=== PATIENT | female | born 1975 | race Caucasian/White ===

== ENCOUNTER 2023-06-16 08:58 | Outpatient (OUT) | payer OTHER, SELFPAY | END 2023-06-16 08:59 | disposition home or self-care (01) | LOC: LAB 08:58 | PROVIDERS: Visit Provider Obstetrics & Gynecology | DX: N95.1 Menopausal and female climacteric states (principal) | CPT/HCPCS: 36415; 83001 ==

== ENCOUNTER 2024-01-02 08:22 | Outpatient (OUT) | payer OTHER, SELFPAY ==
--- NOTE | 2024-01-02 | MM_ITS ---
Patient Name: KEREN MENDOZA MR#: [id number] : 1975 Exam Date: 01/02/2024 Ordering Doctor: DR ZULEYMA TAVAREZ RADIOLOGY REPORT PROCEDURE: MM TOMOSYNTHESIS SCREENING BI COMPARISON: MG MAMM SCREEN 3D MALLORY CAD, 04/19/2021. MG MAMM SCREEN 3D MALLORY CAD, 08/29/2022. INDICATIONS: Screening for malignant neoplasm Calculator Name NCI Breast Cancer Risk Assessment Tool 5 Year Breast Cancer Risk 1.40% Lifetime Breast Cancer Risk 13.60% Personal Breast Cancer No Personal Ovarian Cancer No Treatments None Family Cancers None LOCATION: [facility] BREAST COMPOSITION: There are scattered areas of fibroglandular density. FINDINGS: DIAGNOSTIC CATEGORY 1--NEGATIVE. NO CHANGE FROM COMPARISON ASSESSMENT. Scattered benign-appearing lymph nodes are present. Scattered benign-appearing calcifications are present. RIGHT BREAST: No significant suspicious finding. LEFT BREAST: No significant suspicious finding. RECOMMENDATIONS: ROUTINE MAMMOGRAM AND CLINICAL EVALUATION IN 12 MONTHS. PLEASE NOTE: A NORMAL MAMMOGRAM DOES NOT EXCLUDE THE POSSIBILITY OF BREAST CANCER. A CLINICALLY SUSPICIOUS PALPABLE LUMP SHOULD BE BIOPSIED. Dictated by: Jason Mena MD on 01/02/2024 at 15:16 Approved by: Jason Mena MD on 01/02/2024 at 16:06
--- OUTSIDE RECORDS SUMMARY | 2024-01-02 08:41 | XMS_ITS | CCD ---
Author Organization [facility] Care Team Providers Care Front Sight Attacher Name Role Phone JEREMIAS, DR LOPES Admitting Unavailable PETZNICK, DR LOPES Attending Unavailable TAYLOR, DR CAROLYN York Primary Care Unavailable ZIEBER, DR ZIYAD Alvarez Consulting Unavailable PETZNVÍCTOR, DR LOPES Consulting Unavailable PRINTY, DR AMOR Admitting Unavailable PRINTY, DR AMOR Attending Unavailable TAYLOR, DR CAROLYN York Primary Care Unavailable ZIEBER, DR ZIYAD Alvarez Consulting Unavailable PRINTY, DR AMOR Consulting Unavailable PETZNICK, DR LOPES Admitting Unavailable PETZNICK, DR LOPES Attending Unavailable TAYLOR, DR CAROLYN York Primary Care Unavailable PETZNICK, DR LOPES Consulting Unavailable Jeremias, DO Lopes Primary Care Provider MD Musa Marrufo Attending Provider Musa Marrufo Attending Unavailable Musa Marrufo Admitting Unavailable Marianne Mcdowell Primary Care Unavailable ZULEYMA LING Attending Unavailable MARIANNE MCDOWELL Attending Unavailable Kimmy Duron Unavailable Medications Current Medications Medication Drug Class(es) Dates Sig (Normalized) Sig (Original) Norethindrone-Ethin Estradiol (1 source) Estrogen Start: 02-13-2023 take 0.12332480815320254 ug by mouth once daily Norethindrone-Ethi n Estradiol (Alyacen ()) 1-35 mg-mcg tablet Active 1 TAB PO Daily February 13, 2023 12:00am 3 ml liraglutide 6 mg/ml pen injector (1 source) GLP-1 Receptor Agonist Start: 02-13-2023 Liraglutide (Weight Loss) (Saxenda) 3 mg/0.5 mL (18 mg/3 mL) pen injector Active 3 MG SUBCUT Daily February 13, 2023 12:00am Necon 35 (28) (1 source) Necon (28) Active predniSONE 20 mg oral tablet (1 source) Start: 07-10-2023 take 1 tablet by mouth every twelve hours prednisone 20 MG 1 tablet Orally BID for 5 Jul, Active Completed/Discontinued Medications Medication Drug Class(es) Dates Sig (Normalized) Sig (Original) Brompheniramine / Pseudoephedrine (1 source) alpha-Adrenergic Agonist Start: 05-25-2018 take 10 mL by mouth every six hours as needed Bromfed DM 30-2-10 MG/5ML 10 ml as needed Orally every 6 hrs for 7 days May, Not-Taking/PRN fluticasone propionate 0.05 mg/actuat metered dose nasal spray (1 source) Corticosteroid Start: 05-25-2018 take 2 spray(s) nasal route once daily as needed Fluticasone Propionate 50 MCG/ACT 2 sprays in each nostril Nasally Once a day for 14 days May, Not-Taking/PRN polyethylene glycol 3350 016206 mg / potassium chloride 2970 mg / sodium bicarbonate 6740 mg / sodium chloride 5860 mg / sodium sulfate 54939 mg powder for oral solution (1 source) Osmotic Laxative Start: 11-24-2022 PEG-3350/Electro lytes 236 GM as directed Orally once daily for 1 days November, Not-Taking/PRN Problems Problem Classification Problem Date Documented Da te Episodic/Chronic Other lower respiratory disease (4 sources) Solitary pulmonary nodule; Translations: [SOLITARY PULMONARY NODULE] Onset: 09-22-2022 Episodic Other screening for suspected conditions (not mental disorders or infectious disease) (5 sources) Encounter for screening mammogram for malignant neoplasm of breast; Translations: [Patient encounter status] Onset: 08-29-2022 Episodic Other upper respiratory infections (2 sources) Acute pharyngitis, unspecified; Translations: [Acute upper respiratory infection, unspecified] Episodic Unclassified (1 source) Encounter for screening for malignant neoplasm of colon; Translations: [Encounter for screening for malignant neoplasm of colon] Onset: 02-15-2023 Results Test Name Value Interpretation Reference Range Facility [facility] 07-10-2023 S. pyogenes Org specific cx Ql (Throat) Negative [facility] Other [facility] - [facility] Your Passion! Other HCG ( test) IA.rapi d Ql (U)Ordered By: Musa Marrufo on 02-15-2023 HCG ( test) Ql (U) Negative [facility] HCG,Urineon 02-15-2023 Beta HCG ( test) Ql (U) Negative Normal [facility] Comment on above: Result Comment: PERF ORMED BY: [place] [address] PATHOLOGIST OVERNIGHT STOCKER DARIN KERN M.D. Performed By: #### U HCG #### [address] CHEST W CONon 09-22-2022 CT CHEST W CON EXAMINATION: CT CHES T W CON HISTORY: Solitary nodule of lung , follow-up COMPARISON: No relevant comparison available. TECHNIQUE: Multi-planar CT images were created with IV contrast. Axial, Coronal, and Sagittal images. Dose reduction techniques were achieved by using automated exposure control and/or adjustment of mA and/or kV according to patient size and/or use of iterative reconstruction technique. FINDINGS: LUNGS: No visible pulmonary disease. PLEURA: No mass, effusion, or pneumothorax. VASCULATURE: No abnormality. SOO: No mass or adenopathy. MEDIASTINUM: No mass or adenopathy. CARDIAC: No enlargement, pericardial thickening, or significant calcification. AORTA: No aneurysm or dissection. CHEST WALL: No mass or axillary adenopathy. BONES: No bone lesion or fracture. LIMITED ABDOMEN: No suspicious findings Limited images of the upper abdomen. OTHER: Negative. IMPRESSION: 1. No suspicious nodules, infiltrates, or lymphadenopathy. 2. No prior studies or reports for comparison. Electronically authenticated by: ZIYAD MURO Date: 2022-09-22 15:10 Normal [facility] CBC AUTO DIFFon 09-07-2022 BASO # 0.1 103/ul Normal 0.0-0.1 [facility] Comment on above: Performed By: #### C BC #### [facility] [address] [address] [address] Derek Mcmillan Basophils/100 WBC (Bld) 0.7 % Normal 0.2-2.0 [facility] Comment on above: Performed By: #### C BC #### [facility] [address] [place] [address] Dr. Derek Mcmillan EO # 0.1 103/ul Normal 0.0-0.7 [facility] Comment on above: Performed By: #### C BC #### [facility] [address] [place] [address] Dr. Derek Mcmillan Eosinophils/100 WBC (Bld) 0.7 % Critically low 0.9-7.0 [facility] Comment on above: Performed By: #### C BC #### [facility] [address] [place] [address] Dr. Derek Mcmillan Erythrocyte distribution width (RBC) [Ratio] 12.6 % Normal 11.0-15.0 [facility] Comment on above: Performed By: #### C BC #### [facility] [address] [place] [address] Dr. Derek Mcmillan Hematocrit (Bld) [Volume fraction] 37.4 % Normal 36.0-48.0 [facility] Comment on above: Performed By: #### C BC #### [facility] [address] [place] [address] Dr. Derek Mcmillan Hemoglobin (Bld) [Mass/Vol] 12.6 g/dL Normal 12.0-16.0 [facility] Comment on above: Performed By: #### C BC #### [facility] [address] [place] [address] Dr. Derek Mcmillan IG # 0.04 10e3/ul Critically high 0.00-0.03 [facility] Comment on above: Performed By: #### C BC #### [facility] [address] [place] [address] Dr. Derek Mcmillan IG % 0.5 % Normal 0.0-0.5 [facility] Comment on above: Performed By: #### C BC #### [facility] [address] [place] [address] Dr. Derek Mcmillan LYMPH # 2.0 103/ul Normal 1.2-3.8 [facility] Comment on above: Performed By: #### C BC #### [facility] [address] [place] [address] Dr. Derek Mcmillan Lymphocytes/100 WBC (Bld) 25.5 % Normal 20.5-60.0 [facility] Comment on above: Performed By: #### C BC #### [facility] [address] [place] [address] Dr. Derek Mcmillan MANUAL DIFF REQ NO Normal [facility] Comment on above: Performed By: #### C BC #### [facility] [address] [place] [address] Dr. Derek Mcmillan MCH (RBC) [Entitic mass] 31.1 pg Normal 26.7-34.0 [facility] Comment on above: Performed By: #### C BC #### [facility] [address] [place] [address] Dr. Derek Mcmillan MCHC (RBC) [Mass/Vol] 33.7 g/dL Normal 29.9-35.2 [facility] Comment on above: Performed By: #### C BC #### [facility] [address] [place] [address] Dr. Derek Mcmillan MCV (RBC) [Entitic vol] 92.3 fL Normal 81.0-99.0 [facility] Comment on above: Performed By: #### C BC #### [facility] [address] [place] [address] Dr. Derek Mcmillan MONO # 0.7 103/ul Normal 0.3-0.8 [facility] Comment on above: Performed By: #### C BC #### [facility] [address] [place] [address] Dr. Derek Mcmillan Monocytes/100 WBC (Bld) 8.6 % Normal 1.7-12.0 [facility] Comment on above: Performed By: #### C BC #### [facility] [address] [place] [address] Dr. Derek Mcmillan NEUT # 4.9 103/ul Normal 1.4-6.5 [facility] Comment on above: Performed By: #### C BC #### [facility] [address] [address] [address] Derek Mcmillan Neutrophils/100 WBC (Bld) 64.0 % Normal 43.0-75.0 [facility] Comment on above: Performed By: #### C BC #### [facility] [address] [address] [address] Derek Mcmillan Platelet mean volume (Bld) [Entitic vol] 8.9 fL Critically low 9.5-13.5 [facility] Comment on above: Performed By: #### C BC #### [facility] [address] [place] [address] Dr. Derek Mcmillan PLT 262 103/ul Normal 150-450 [facility] Comment on above: Performed By: #### C BC #### [facility] [address] [place] [address] Dr. Derek Mcmillan RBC 4.05 106/ul Critically low 4.20-5.40 [facility] Comment on above: Performed By: #### C BC #### [facility] [address] [place] [address] Dr. Derek Mcmillan WBC 7.6 103/ul Normal 4.0-11.0 [facility] Comment on above: Performed By: #### C BC #### [facility] [address] [place] [address] Dr. Derek Mcmillan LIPID PROFILEon 09-07-2022 CHOL-HDL RATIO NORM SEE BELOW Normal [facility] Comment on above: Result Comment: 3.3 - 4.4 LOW RISK 4.4 - 7.1 AVERAGE RISK 7.1 - 11.0 MODERATE RISK >11.0 HIGH RISK Performed By: #### T SH, LIPID, CMP #### [facility] [address] [place] [address] Dr. Derek Mcmillan Cholesterol [Mass/Vol] 203 mg/dL Critically high <=200 [facility] Comment on above: Performed By: #### T SH, LIPID, CMP #### [facility] [address] [place] [address] Dr. Derek Mcmillan Cholesterol in HDL [Mass/Vol] 58 mg/dL Normal 40-60 [facility] Comment on above: Performed By: #### T SH, LIPID, CMP #### [facility] [address] [address] [address] Derek Mcmillan Cholesterol in LDL [Mass/Vol] 121.2 mg/dL Normal [facility] Comment on above: Performed By: #### T SH, LIPID, CMP #### [facility] [address] [address] [address] Derek Mcmillan Cholesterol.total/ Cholesterol in HDL [Mass ratio] 3.5 {ratio} Normal [facility] Comment on above: Performed By: #### T SH, LIPID, CMP #### [facility] [address] [place] [address] Dr. Derek Mcmillan HDL NORMAL > or = 60 mg/dl - LO W CARDIOVASCULAR RISK <40 mg/dl - HIGH CARDIOVASCULAR RISK Normal [facility] Comment on above: Performed By: #### T SH, LIPID, CMP #### [facility] [address] [place] [address] Dr. Derek Mcmillan LDL CALC NORMAL SEE BELOW Normal [facility] Comment on above: Result Comment: <100 mg/dl OPTIMAL 100 - 129 mg/dl NEAR OR ABOVE OPTIMAL 130 - 159 mg/dl BORDERLINE HIGH 160 - 189 mg/dl HIGH >190 mg/dl VERY HIGH Performed By: #### T SH, LIPID, CMP #### [facility] [address] [address] [address] Derek Mcmillan Triglyceride [Mass/Vol] 119 mg/dL Normal <=150 [facility] Comment on above: Performed By: #### T SH, LIPID, CMP #### [facility] [address] [place] [address] Dr. Derek Mcmillan VLDL CALC 23.8 mg/dL Normal [facility] Comment on above: Performed By: #### T SH, LIPID, CMP #### [facility] [address] [place] [address] Dr. Derek Mcmillan PROF 14(COMP METB)on 023 Albumin [Mass/Vol] 3.8 g/dL Normal 3.4-5.0 [facility] Comment on above: Performed By: #### T SH, LIPID, CMP #### [facility] [address] [address] [address] Derek Mcmillan Albumin/Globulin [Mass ratio] 1.1 {ratio} Normal [facility] Comment on above: Performed By: #### T SH, LIPID, CMP #### [facility] [address] [address] [address] Deerk Mcmillan ALP [Catalytic activity/Vol] 30 U/L Critically low 46-116 [facility] Comment on above: Performed By: #### T SH, LIPID, CMP #### [facility] [address] [address] [address] Derek Mcmillan ALT [Catalytic activity/Vol] 21 U/L Normal 14-59 [facility] Comment on above: Performed By: #### T SH, LIPID, CMP #### [facility] [address] [address] [address] Derek Mcmillan Anion gap [Moles/Vol] 12.4 mmol/L Normal [facility] Comment on above: Performed By: #### T SH, LIPID, CMP #### [facility] [address] [address] [address] Derek Mcmillan AST [Catalytic activity/Vol] 15 U/L Normal 15-37 [facility] Comment on above: Performed By: #### T SH, LIPID, CMP #### [facility] [address] [address] [address] Derek Mcmillan Bilirubin [Mass/Vol] 0.6 mg/dL Normal 0.2-1.0 [facility] Comment on above: Performed By: #### T SH, LIPID, CMP #### [facility] [address] [address] [address] Derek Mcmillan Calcium [Mass/Vol] 9.1 mg/dL Normal 8.5-10.1 [facility] Comment on above: Performed By: #### T SH, LIPID, CMP #### [facility] [address] [address] [address] Derek Mcmillan Chloride [Moles/Vol] 105 mmol/L Normal 98-107 [facility] Comment on above: Performed By: #### T SH, LIPID, CMP #### [facility] [address] [place] [address] Dr. Derek Mcmillan CO2 [Moles/Vol] 25.7 mmol/L Normal 21.0-32.0 [facility] Comment on above: Performed By: #### T SH, LIPID, CMP #### [facility] [address] [place] [address] Dr. Derek Mcmillan Creatinine [Mass/Vol] 0.60 mg/dL Normal 0.55-1.02 [facility] Comment on above: Performed By: #### T SH, LIPID, CMP #### [facility] [address] [place] [address] Dr. Derek Mcmillan EGFR-AF MACANESE >60 Normal >=60 [facility] Comment on above: Performed By: #### T SH, LIPID, CMP #### [facility] [address] [place] [address] Dr. Derek Mcmillan EGFR-NON AF MACANESE >60 Normal >=60 [facility] Comment on above: Performed By: #### T SH, LIPID, CMP #### [facility] [address] [place] [address] Dr. Derek Mcmillan Globulin (S) [Mass/Vol] 3.5 g/dL Normal [facility] Comment on above: Performed By: #### T SH, LIPID, CMP #### [facility] [address] [place] [address] Dr. Derek Mcmillan Glucose [Mass/Vol] 88 mg/dL Normal 74-106 [facility] Comment on above: Performed By: #### T SH, LIPID, CMP #### [facility] [address] [place] [address] Dr. Derek Mcmillan Potassium [Moles/Vol] 4.1 mmol/L Normal 3.5-5.1 [facility] Comment on above: Performed By: #### T SH, LIPID, CMP #### [facility] [address] [place] [address] Dr. Derek Mcmillan Protein [Mass/Vol] 7.3 g/dL Normal 6.4-8.2 [facility] Comment on above: Performed By: #### T LOTUS LIPID, CMP #### [facility] [address] [address] [address] Derek Mcmillan Sodium [Moles/Vol] 139 mmol/L Normal 136-145 [facility] Comment on above: Performed By: #### T LOTUS LIPID, CMP #### [facility] [address] [address] [address] Derek Mcmillan Urea nitrogen [Mass/Vol] 11.0 mg/dL Normal 7.0-18.0 [facility] Comment on above: Performed By: #### T LOTUS LIPID, CMP #### [facility] [address] [place] [address] Dr. Derek Mcmillan Urea nitrogen/Creatinin e [Mass ratio] 18.3 mg/mg Normal [facility] Comment on above: Performed By: #### T LOTUS LIPID, CMP #### [facility] [address] [place] [address] Dr. Derek Mcmillan TSHon 09-07-2022 TSH 1.723 uIU/mL Normal 0.358-3.740 [facility] Comment on above: Performed By: #### T LOTUS LIPID, CMP #### [facility] [address] [place] [address] Dr. Derek Mcmillan MG MAMM SCREEN 3D MALLORY CADon 08-29-2022 MG MAMM SCREEN 3D MALLORY CAD Patient: ADIA MENDOZA Exam Date: 08/29/2022 : 1975 Gender:F Ordering : DR ZULEYMA LING Admission #: [id number] Family : Order #: [id number] CLICK HERE TO VIEW EXAM RADIOLOGY REPORT PROCEDURE: MAMMOGRAM SCREENING 3D BILATERAL CAD COMPARISON: MG MAMM SCREEN 3D MALLORY CAD, 04/19/2021. MG MAMM SCREEN MALLORY W CAD, 03/18/2020. MG MAMM SCREEN MALLORY W CAD, 02/27/2019. MG MAMM MALLORY SCRN W CAD DIG, 05/16/2016. INDICATIONS: Screening mammography Calculator Name NCI Breast Cancer Risk Assessment Tool 5 Year Breast Cancer Risk 1.30% Lifetime Breast Cancer Risk 13.80% Personal Breast Cancer No Personal Ovarian Cancer No Treatments None Family Cancers None LOCATION: [facility] BREAST COMPOSITION: Scattered areas fibroglandular density. FINDINGS: DIAGNOSTIC CATEGORY 1--NEGATIVE. RIGHT BREAST: No significant suspicious finding. No significant change has occurred. LEFT BREAST: No significant suspicious finding. No significant change has occurred. RECOMMENDATIONS: ROUTINE MAMMOGRAM AND CLINICAL EVALUATION IN 12 MONTHS. PLEASE NOTE: A NORMAL MAMMOGRAM DOES NOT EXCLUDE THE POSSIBILITY OF BREAST CANCER. A CLINICALLY SUSPICIOUS PALPABLE LUMP SHOULD BE BIOPSIED. Dictated by: Ziyad Muro M.D. on 08/30/2022 at 13:45 Approved by: Ziyad Muro M.D. on 08/30/2022 at 13:53 Normal [facility] 08-19-2021 CNPN Telephone (HEMASA) ADIA MENDOZA ([id number]) 1975 F Date Time Provider Department 08/19/21 MORENA LUIS During your visit today, we recorded the following information about you: Morena Luis RN 08/19/2021 1:10 PM Signed ----- Message from Zuleyma Olea MD sent at 08/19/2021 11:02 AM EST ----- Please inform the patient that her labs and CT scans are essentially negative. We see no signs of lymphoma or other suspicious findings. Mention made of a 2 mm pulmonary nodule which most likely is not significant. Her PCP may elect to repeat the CT at 1 year, but most likely would not be needed. At this time I see no need to follow-up with me, but would be happy to see her in the future if I can be of assistance. 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 Thanks, GRETA Luis RN 08/22/2021 11:02 AM Signed Informed pt of Dr Olea's message. Pt verbalized understanding and denies further needs at this time. Scan and lab results sent to PCP and Dr Nicholas. Morena Luis RN Allergies As of Date: 08/19/2021 (No Known Allergies) Date Reviewed: 08/02/2021 Reviewed by: Cait Smith - Fully Assessed Reason for Visit: Results [95] Prescriptions as of 08/22/2021 - liraglutide (SAXENDA SUBCUTANEOUS) Inject subcutaneously. - cyclobenzaprine (FLEXERIL) 10 mg tablet - ALYACEN 1/35, 28, 1-35 mg-mcg per tablet Problem List As Of Date 08/19/2021 Noted Resolved Diverticulosis [K57.90] Colon polyps [K63.5] Effusion of lower leg joint [M25.469] Muscle tension headache [G44.209] Sprain of left ankle [S93.402A] Left foot pain [M79.672] Left ankle pain [M25.572] Anemia [D64.9] 06/08/2017 Encounter Status:Closed by MORENA LUIS on 08/22/21 Normal [facility] CT ABD/PEL W IVCONon 022 CT ABD/PEL W IVCON * * *Final Report* * * DATE OF EXAM: Aug 16 2021 11:33AM [facility] 0530 - CT ABD/PEL W IVCON / PROCEDURE REASON: Lymphadenopathy * * * * Physician Interpretation * * * * RESULT: EXAMINATION: CT ABDOMEN AND PELVIS WITH IV CONTRAST CLINICAL HISTORY: Lymphadenopathy. TECHNIQUE: CT of the abdomen and pelvis was performed using standard technique, scanning from just above the dome of the diaphragm to the symphysis pubis. MQ: CTAP_3 Contrast: IV: 150 ml of Omnipaque 300 Oral: 900 ml of 50ML Omnipaque [address] Radiation dose: Integrated Dose-length product (DLP) for this visit = 1018 mGy*cm. CT Dose Reduction Employed: Automated exposure control (AEC) COMPARISON: None. RESULT: Liver: No mass. Biliary: There is cholelithiasis without evidence of acute cholecystitis. No biliary ductal dilation is seen. Spleen: No mass. No splenomegaly. Pancreas: No mass or duct dilation. Adrenals: No mass. Kidneys: A nonobstructing 4 mm calculus is noted in the lower pole of the right kidney. No enhancing renal mass is noted. No hydronephrosis is visualized in either kidney. GI tract: No dilation or wall thickening. Lymph nodes: No abdominal or pelvic lymphadenopathy. Mesentery/Peritoneum: No ascites or mass. Retroperitoneum: No mass. Vasculature: - Abdominal aorta and iliac arteries: No aneurysm. - Celiac and SMA: Patent without stenosis. - Portal venous system (SMV, splenic vein, portal vein and branches): Patent. - Hepatic veins: Patent. Pelvis: No mass, ascites or fluid collection. Bones/Soft Tissues: No destructive osseous lesions are seen. Superficial soft tissues are unremarkable. Lower thorax: A chest CT performed will be reported separately. Systems Librarian (topogram) images: No additional findings. IMPRESSION: 1. No acute process noted in the abdomen or pelvis. No evidence of abdominal or pelvic lymphadenopathy. 2. Cholelithiasis without evidence of acute cholecystitis. 3. Nonobstructing 4 mm calculus in the lower pole of the right kidney. Transcribe Date/Time: Aug 16 2021 2:12P Dictated by: TATA BELTRAN MD This examination was interpreted and the report reviewed and electronically signed by: TATA BELTRAN MD on Aug 16 2021 2:23PM EST Thank you for allowing us to participate in the care of your patient. Should there be any questions regarding this interpretation, please call [phone]. If you are unable to reach us at the number above, please feel free to contact [facility] at [phone]. [id number] Normal [facility] CT CHEST W IVCONon 2 CT CHEST W IVCON * * *Final Report* * * DATE OF EXAM: Aug 16 2021 11:33AM [facility] 0539 - CT CHEST W IVCON / PROCEDURE REASON: Lymphadenopathy * * * * Physician Interpretation * * * * RESULT: EXAMINATION: CHEST CT WITH CONTRAST CLINICAL HISTORY: Left axillary adenopathy. Right chest skin lesion. Technique: Spiral CT acquisition of the chest from the thoracic inlet to the upper abdomen following IV contrast. MQ: CTCW_6 Contrast: 150 mL Omnipaque [address] Radiation dose: Integrated Dose-length product (DLP) for this visit = 1018 mGy*cm CT Dose Reduction Employed: Automated exposure control (AEC) Comparison: None available. RESULT: Limitations: None. Lines, tubes, and devices: None. Lung parenchyma and airways: No lobar consolidation is noted. Punctate calcification are noted in the right middle lobe likely on the basis of prior granulomatous disease. A 2 mm left upper lobe nodule is noted (3:81). No additional nodular opacities are visualized. The central airways are widely patent. No endobronchial lesion is noted. Pleural space: No pleural effusion. No pleural thickening. Lower neck, lymph nodes, and mediastinum: Subcentimeter cardiomediastinal nodes are seen which are not enlarged by size criteria. Normal-appearing axillary nodes are visualized bilaterally. No bulky axillary adenopathy is noted. Heart, pericardium, and thoracic vessels: The thoracic aorta and main pulmonary artery are normal in caliber. The cardiac chambers are normal in size. No coronary artery atherosclerotic calcifications are noted, although the study is not optimized for coronary assessment. No pericardial effusion or thickening. Bones and soft tissues: No destructive bone lesion. Chest wall is unremarkable. Upper abdomen: A dedicated CT of the abdomen and pelvis was performed concurrently and is reported separately. Systems Librarian (topogram) images: No additional findings. IMPRESSION: 1. No evidence of intrathoracic lymphadenopathy. 2. Left upper lobe 2 mm nodule, nonspecific. No other nodular opacities are noted. No evidence of lobar consolidation or pleural effusion. Incidental Finding: Follow-up Acuity: Incidental Finding: Solid: <6 mm (solitary or multiple) Routing Code: N/A Recommendation: No imaging follow-up is recommended Time Frame: N/A Comments: If there are risk factors for lung malignancy, a follow-up chest CT exam could be obtained in 12 months Transcribe Date/Time: Aug 16 2021 1:58P Dictated by: TATA BELTRAN MD This examination was interpreted and the report reviewed and electronically signed by: TATA BELTRAN MD on Aug 16 2021 2:11PM EST Thank you for allowing us to participate in the care of your patient. Should there be any questions regarding this interpretation, please call [phone]. If you are unable to reach us at the number above, please feel free to contact [facility] at [phone]. [id number] N ACTIONABLE Invalid Interpretation Code [facility] CNOVSPon 08-02-2021 CNOVSP Visit (SP) Office ([place]) ADIA MENDOZA ([id number]) 1975 F Date Time Provider Department 08/02/21 11:00 AM ZULEYMA OLEA During your visit today, we recorded the following information about you: Temperature Pulse Respiration Blood pressure 97.9 degrees 80/minute 18/minute 131/83 Weight Height 81.6 kg 1.626 m Zuleyma Olea MD 08/02/2021 8:32 PM Signed PATIENT NAME: Adia Mendoza DATE: 08/02/2021 PRIMARY CARE PHYSICIAN: Marianne Mcdowell DO OTHER PHYSICIANS: Dr. Zuleyma Ling, Dr. Karin Nicholas Portions of this encounter note have been copied from my note from 06/08/2017 and has been updated where appropriate, and reflect my current medical decision making from today. CC: This is a 46 year old female with a remote history of mild anemia, now referred for evaluation of an abnormal skin biopsy and abnormal labs. INTERIM HISTORY: The patient was initially seen in June 2017 for evaluation of mild anemia, at which time her CBC was essentially normal and all other labs were normal. No further work-up was recommended. She apparently developed a pruritic skin lesion over her right medial superior chest area in February 2021 and was seen by dermatology. A shave biopsy obtained 02/24/2021 revealed an atypical dermal lymphoid infiltrate of unclear significance. The patient subsequently underwent a punch biopsy on 04/07/2021, and pathology revealed prior biopsy site reaction and mixed perivascular infiltrate, but no evidence of malignancy. Labs obtained 04/25/2021 (CBC, SPEP and UPEP) were normal. The patient currently is referred to discuss further management options. Clinically she feels well. Other than a small scar from the biopsy she has no residual skin lesions in the area of concern. She has had multiple skin cancers requiring resection in the past. She denies any significant fevers, night sweats, or weight loss. No unusual pain. MEDICATIONS: Current Outpatient Medications Medication Sig - liraglutide (SAXENDA SUBCUTANEOUS) Inject subcutaneously. - cyclobenzaprine (FLEXERIL) 10 mg tablet (Patient not taking: Reported on 07/18/2021 ) - ALYACEN 1/35, 28, 1-35 mg-mcg per tablet (Patient not taking: Reported on 07/18/2021 ) - Phentermine HCl 37.5 mg tablet (Patient not taking: Reported on 07/18/2021) No current facility-administered medications for this visit. ALLERGIES: ALLERGIES No Known Allergies PAST MEDICAL HISTORY: PAST MEDICAL HISTORY Diagnosis Date - Anemia with low reticulocyte index - Basal cell carcinoma (BCC) of skin of face Left Cheek - Colon polyps - Diverticulosis - Effusion of lower leg joint - Left ankle pain - Left foot pain - Muscle tension headache - Neoplasm of uncertain behavior - Sprain of left ankle - Squamous cell carcinoma of skin PAST SURGICAL HISTORY: PAST SURGICAL HISTORY Procedure Laterality Date - ARTHROSCOPY KNEE DIAGNOSTIC W/WO SYNOVIAL BX SPX 2013 - COLONOSCOPY 2009 colon polyps - COLONOSCOPY 2013 diverticulosis - PAST SURGICAL HISTORY OF Skin Biopsy FAMILY HISTORY: No family history on file. SOCIAL HISTORY: Social History Tobacco Use - Smoking status: Never Smoker - Smokeless tobacco: Never Used Substance Use Topics - Alcohol use: No - Drug use: No COMPLETE REVIEW OF SYSTEMS: CONSTITUTION: Negative for pain, fatigue, weight loss, or appetite loss. EENT: Negative for mouth soreness, antibiotics use, epistaxis, visual problems, neck or facial swelling, fever/chills, bleeding gums, or hearing loss. CV: Negative for edema, calf swelling, palpitations, or chest pain. RESPIRATORY: Negative for cough, SOB, hemoptysis, or wheezing. GI: Negative for nausea/vomiting, heartburn, vomiting blood, dysphasia, diarrhea, blood in stool, constipation, early satiety, PICA, vegetarian, poor nutrition, abdominal fullness, or abdominal pain. NEUROLOGICAL: Negative for numbness/tingling, dizziness, gait disturbance, headache, speech disturbance, tremor, hemiparesis/sensory loss, or change in mental status. MUSCULOSKELETAL: Negative for joint pain, joint swelling, or proximal muscle weakness. SKIN: Negative for hair loss, bruising, nail changes, rash, itching, pallor, or jaundice. ENDO/URO: Negative for hot flashes, cold or heat intolerance, urinary frequency, urinary hesitancy, menorrhagia, or hematuria. PSYCH: Negative for anxiety, depression, or other. PHYSICAL EXAM: BP 131/83 Pulse 80 Temp 36.6 ?C (97.9 ?F) (Temporal) Resp 18 Ht 162.6 cm (5' 4.02 ) Wt 81.6 kg (179 lb 12.8 oz) SpO2 98% BMI 30.85 kg/m? GENERAL EXAM: Well developed/well nourished; in no acute distress. SKIN: Negative for lesions, rashes, or ulcers on the upper and lower extremities and face. Negative for palpations/nodules, purpura, and ecchymosis. EENT: Negative for conjunctiva, mucosal pallor, JVD (more content not included)... Normal [facility] Comp Metabolic Panelon 08-02 Albumin [Mass/Vol] 4.6 g/dL Normal 3.9-4.9 [facility] ALP [Catalytic activity/Vol] 34 U/L Normal 34-123 [facility] ALT [Catalytic activity/Vol] 14 U/L Normal 7-38 [facility] Anion gap [Moles/Vol] 9 mmol/L Normal 9-18 [facility] AST [Catalytic activity/Vol] 20 U/L Normal 13-35 [facility] Bilirubin [Mass/Vol] 0.5 mg/dL Normal 0.2-1.3 [facility] Calcium [Mass/Vol] 9.3 mg/dL Normal 8.5-10.2 [facility] Chloride [Moles/Vol] 101 mmol/L Normal 97-105 [facility] CO2 [Moles/Vol] 25 mmol/L Normal 22-30 [facility] Creatinine [Mass/Vol] 0.68 mg/dL Normal 0.58-0.96 [facility] eGFR- Amer. >60 Normal [facility] eGFR-All Other Races >60 Normal [facility] Comment on above: Result Comment: eGFR (Estimated GFR) Units of measure: mL/min/1.73 meters squared eGFR is derived from the reexpressed MDRD Study equation using the following parameters: serum creatinine, age, gender and race. The creatinine assay has been calibrated to be traceable to IDMS. An eGFR <60 mL/min/1.73m2 for >3 months is consistent with chronic kidney disease. Refer to KDOQI guidelines for clinical interpretation. In patients with unstable renal function, e.g. those with acute kidney injury, the eGFR may not accurately reflect actual GFR. Note: On 09/03/2021, the eGFR calculation will be updated to the NKF-ASN Task Force recommended 2020 CKD-EPI creatinine equation which does not include a race variable. For more information or to access a 2020 CKD-EPI calculator, visit the National Kidney Foundation website at kidney.org/professionals/kdoqi/gfr_calculator. Glucose [Mass/Vol] 93 mg/dL Normal 74-99 [facility] Comment on above: Result Comment: The [place] Diabetes Association (ADA) provides guidance for cutoff values for fasting glucose and random glucose. The ADA defines fasting as no caloric intake for at least 8 hours. Fasting plasma glucose results between 100 to 125 mg/dL indicate increased risk for diabetes (prediabetes). Fasting plasma glucose results greater than or equal to 126 mg/dL meet the criteria for diagnosis of diabetes. In the absence of unequivocal hyperglycemia, results should be confirmed by repeat testing. In a patient with classic symptoms of hyperglycemia or hyperglycemic crisis, random plasma glucose results greater than or equal to 200 mg/dL meet the criteria for diagnosis of diabetes. Reference: Standards of Medical Care in Diabetes 2016, [place] [employer] Association. Diabetes Care. 2016.39(Suppl 1). Potassium [Moles/Vol] 4.1 mmol/L Normal 3.7-5.1 [facility] Protein [Mass/Vol] 7.2 g/dL Normal 6.3-8.0 [facility] Sodium [Moles/Vol] 135 mmol/L Low 136-144 [facility] Urea nitrogen [Mass/Vol] 14 mg/dL Normal 7-21 [facility] LDon 08-02-2021 LD 169 U/L Normal 135-214 [facility] Remote CBCDIF (for [facility] use o nly)on 08-02-2021 Abs Baso 0.06 k/uL Normal <0.11 [facility] Abs Linn 0.55 k/uL Normal <0.87 [facility] Abs Neut 6.93 k/uL Normal 1.45-7.50 [facility] Absolute nRBC <0.01 Normal <0.01 [facility] Basophils/100 WBC (Bld) 0.6 % Normal [facility] DTYPE Auto Diff Normal [facility] Eosinophils (Bld) [#/Vol] 0.10 10*3/uL Normal <0.46 [facility] Eosinophils/100 WBC (Bld) 1.0 % Normal [facility] Erythrocyte distribution width (RBC) [Ratio] 12.7 % Normal 11.5-15.0 [facility] Hematocrit (Bld) [Volume fraction] 38.7 % Normal 36.0-46.0 [facility] Hemoglobin (Bld) [Mass/Vol] 12.9 g/dL Normal 11.5-15.5 [facility] Lymphocytes (Bld) [#/Vol] 2.01 10*3/uL Normal 1.00-4.00 [facility] Lymphocytes/100 WBC (Bld) 20.8 % Normal [facility] MCH 30.7 pG Normal 26.0-34.0 [facility] MCHC (RBC) [Mass/Vol] 33.3 g/dL Normal 30.5-36.0 [facility] MCV (RBC) [Entitic vol] 92.1 fL Normal 80.0-100.0 [facility] Monocytes/100 WBC (Bld) 5.7 % Normal [facility] Neutrophils/100 WBC (Bld) 71.9 % Normal [facility] NRBCs 0.0 /100 WBC Normal 0 [facility] Platelet mean volume (Bld) [Entitic vol] 8.8 fL Low 9.0-12.7 [facility] Platelets (Bld) [#/Vol] 292 10*3/uL Normal 150-400 [facility] RBC (Bld) [#/Vol] 4.20 10*6/uL Normal 3.90-5.20 [facility] WBC (Bld) [#/Vol] 9.65 10*3/uL Normal 3.70-11.00 [facility] IntraOperative Documentson 1 1-06-2020 IntraOperative Documents [id number] .00CD:127 Normal [facility] Coding Summary.on 05-11-2020 Coding Summary. 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, right shoulder S43.431A Superior glenoid labrum lesion of right shoulder, initial encounter X58.XXXA Exposure to other specified factors, initial encounter M75.111 Incomplete rotator cuff tear or rupture of right shoulder, not specified as traumatic PYMT PROC APC STAT DESCRIPTION DOCTOR NAME DATE 43711 5114 J1 Arthroscopy, shoulder, PocJason yhatt DO 05/04/2020 surgical; repair of SLAP lesion RT Right side (used to identify procedures performed on the right side of the body) 54863 Arthroscopy, shoulder, Pocos Jason FUENTES 05/04/2020 surgical; distal claviculectomy including distal articular surface (Guera procedure) RT Right side (used to identify procedures performed on the right side of the body) 79740 Arthroscopy, shoulder, Pocos Jason FUENTES 05/04/2020 surgical; decompression of subacromial space with partial acromioplasty, with coracoacromial ligament (ie, arch) release, when performed (List separately in addition to code for primary procedure) RT Right side (used to identify procedures performed on the right side of the body) 62769 Injection(s), anesthetic Mingo Owen JR, DO 05/04/2020 agent(s) and/or steroid; brachial plexus RT Right side (used to identify procedures performed on the right side of the body) XP Separate practitioner, a service that is distinct because it was performed by a different practitioner 14431 Anesthesia for open or Mingo Owen JR, DO 05/04/2020 surgical arthroscopic procedures on humeral head and neck, sternoclavicular joint, acromioclavicular joint, and shoulder joint; not otherwise specified NOTE: The code number assigned matches the documented diagnosis and / or procedure in the patient's chart. However, the narrative phrase printed from the coding software may appear abbreviated, or result in slightly different terminology. Revised Coded By: Gayle Brumfield Revised Date Saved: 05/11/2020 03:00 pm [facility] Main OR Intraoperative Recor don 05-11-2020 Main OR Intraoperative Record [facility] Consent for Anesthesiaon Consent for Anesthesia [id number] .00CD:127 [facility] Discharge Instructionson Discharge Instructions [id number] .00CD:127 [facility] H&P Updateon 05-05-2020 H&P Update [id number] .00CD:127 [facility] IntraOperative Documentson 1 IntraOperative Documents [id number] .00CD:127 [facility] IntraOperative Documents [id number] .00CD:127 [facility] Preoperative Documentson Preoperative Documents [id number] .00CD:127 [facility] B hCG Qualon 05-04-2020 Beta hCG Ql Negative [facility] Comment on above: Performed By: #### 2 [id number] ####[facility] [address] [place] [address] H&P Updateon 05-04-2020 H&P Update [id number]#1. 00CD:127 [facility] Inpatient Patient Summaryon 05-04-2020 Inpatient Patient Summary [address] [address] [facility] Clinical Discharge Instructions PERSON INFORMATION Name: ADIA MENDOZA PHYSICIANS Admitting Physician: Jason Tarango DO Attending Physician: Jason Tarango DO PCP: MARIANNE MCDOWELL DO Discharge Diagnosis: Comment: PATIENT EDUCATION INFORMATION Instructions: Post Op Patient Instructions - FT (CUSTOM); Shoulder Cryocuff Patient Instructions - FT (CUSTOM); Pocos - After Your Shoulder Arthroscopy, Revised 08/06/14 (Custom) Medication Leaflets: Follow up: MEDICATION LIST New Medications [id number], [address], [place] [id number], [phone] acetaminophen-oxycodo ne (Percocet 325 mg-5 mg Tab) 1-2 orally every 4-6hrs as needed for pain Dx: M75.41, M75.101 Duration: 7 days; as needed as needed for pain. Refills: 0., 1-2 orally every 4-6hrs as needed for pain Medications to Continue with No Changes Other Medications cyclobenzaprine (cyclobenzaprine 10 mg Tab) 1 Tablets By Mouth every day as needed Headache. ethinyl estradiol-norethindro ne (Alyacen ) 1 Tablets By Mouth every day. meloxicam (Mobic 15 mg Tab) 1 Tablets By Mouth every day. Comment: Normal [facility] Main OR PACU I Recordon 04-09 Main OR PACU I Record PACU Phase I Document Type FT Summary Primary Physician: Jason Tarango DO Finalized Date/Time: 05/04/20 09:50:43 Pt. Name: ADIA MENDOZA/Sex: 1975 Female Med Rec #: [id number] Physician: Jason Tarango DO Financial #: [id number] Pt. Type: A Room/Bed: AS02/ Admit/Disch: 05/04/20 06:01:37 - Institution: Case Times PACU I FT Pre-Care Text: Identifies barriers to communication and implements measures to provide psychological support Develops individualized plan of care, and ensures continuity of care Maintains patient's dignity and privacy, and maintains patient confidentiality Identifies and reports philosophical, cultural, and spiritual beliefs and values Identifies individual values and wishes concerning care Implements aseptic technique, and administers prescribed antibiotic therapy and immunizing agents as ordered Evaluates postoperative tissue perfusion Implements thermoregulation measures, and monitors body temperature Evaluates postoperative respiratory status Evaluates postoperative cardiac status Evaluates postoperative neurological status Assesses pain control, collaborated in initiating patient-controlled analgesia and implements alternative methods of pain control Verifies allergies, administers prescribed medications and solutions, evaluates response to medications Entry 1 In PACU I 05/04/20 09:10:00 Discharge from PACU 05/04/20 09:40:00 I Outcomes Met? Yes Last Modified By: Boo Stanton RN 05/04/20 09:50:30 Post-Care Text: The patient demonstrates knowledge of the expected response to the operative or invasive procedure The patient's care is consistent with the individualized perioperative plan of care The patient's right to privacy is maintained The patient's value system, lifestyle, ethnicity, and culture are considered, respected, and incorporated into the perioperative plan of care The patient participates in decisions affecting his or her perioperative plan of care The patient is free from signs and symptoms of infection The patient has wound/tissue perfusion consistent with or improved from baseline levels established preoperatively The patient is at or returning to normothermia at the conclusion of the immediate postoperative period The patient's respiratory function is consistent with or improved from baseline levels established preoperatively The patient's cardiovascular status is consistent with or improved from baseline levels established preoperatively The patient's cardiovascular status is consistent with or improved from baseline levels established preoperatively The patient demonstrates and/or reports adequate pain control throughout the perioperative period The patient received appropriate medication(s), safely administered during the perioperative period Acuity Level PACU I FT Entry 1 Start Time 05/04/20 09:10:00 Stop Time 05/04/20 09:40:00 Acuity Level Acuity Level I Last Modified By: Boo Stanton RN 05/04/20 09:50:38 Finalized By: Boo Stanton RN Document Signatures Signed By: Boo Stanton RN 05/04/20 09:50 Normal [facility] Main OR PACU II Recordon Main OR PACU II Record PACU Phase II Document Type FT Summary Primary Physician: Jason Tarango DO Finalized Date/Time: 05/04/20 12:47:31 Pt. Name: ADIA MENDOZA/Sex: 1975 Female Med Rec #: [id number] Physician: Jason Tarango DO Financial #: [id number] Pt. Type: A Room/Bed: [facility]/ Admit/Disch: 05/04/20 06:01:37 - Institution: Case Times PACU II FT Pre-Care Text: Identifies barriers to communication and implements measures to provide psychological support and determines knowledge level Develops individualized plan of care, and ensures continuity of care Maintains patient's dignity and privacy, and maintains patient confidentiality Identifies and reports philosophical, cultural, and spiritual beliefs and values Identifies individual values and wishes concerning care administers prescribed antibiotic therapy and immunizing agents as ordered, Evaluates postoperative tissue perfusion Implements thermoregulation measures, and monitors body temperature Evaluates postoperative respiratory status Evaluates postoperative cardiac status Evaluates postoperative neurological status Assesses pain control, collaborated in initiating patient-controlled analgesia and implements alternative methods of pain control Verifies allergies, administers prescribed medications and solutions, evaluates response to medications Entry 1 In PACU II 05/04/20 09:40:00 Discharge from PACU 05/04/20 12:40:00 II Outcomes Met? Yes Last Modified By: Karin Bal RN 05/04/20 12:47:29 Post-Care Text: The patient demonstrates knowledge of the expected response to the operative or invasive procedure The patient's care is consistent with the individualized perioperative plan of care The patient's right to privacy is maintained The patient's value system, lifestyle, ethnicity, and culture are considered, respected, and incorporated into the perioperative plan of care The patient participates in decisions affecting his or her perioperative plan of care. The patient is free from signs and symptoms of infection The patient has wound/tissue perfusion consistent with or improved from baseline levels established preoperatively The patient is at or returning to normothermia at the conclusion of the immediate postoperative period The patient's respiratory function is consistent with or improved from baseline levels established preoperatively The patient's cardiovascular status is consistent with or improved from baseline levels established preoperatively The patient's neurological status is consistent with or improved from baseline levels established preoperatively The patient demonstrates and/or reports adequate pain control throughout the perioperative period The patient received appropriate medication(s), safely administered during the perioperative period Finalized By: Karin Bal RN Document Signatures Signed By: Karin Bal RN 05/04/20 12:47 [facility] Main OR Preoperative Recordo n 05-04-2020 Main OR Preoperative Record PreOp Document Type FT Summary Primary Physician: Jason Tarango DO A Finalized Date/Time: 05/04/20 08:03:16 Pt. Name: ADIA MENDOZA /Sex: 1975 Female Med Rec #: [id number] Physician: Jason Tarango DO Financial #: [id number] Pt. Type: A Room/Bed: 02/ Admit/Disch: 05/04/20 06:01:37 - Institution: Case Times PreOp FT Pre-Care Text: Verifies consent for planned procedure, identifies individual values and wishes concerning care, includes family members in perioperative teaching Entry 1 Patient Times. In Pre Surgery 05/04/20 06:05:00 Out Pre Surgery 05/04/20 07:28:00 Outcomes Met? Yes Last Modified By: Kayli Lutz RN 05/04/20 08:03:12 Post-Care Text: The patient participates in decisions affecting his or her perioperative plan of care Finalized By: Kayli Lutz RN Document Signatures Signed By: Kayli Lutz RN 05/04/20 08:03 Normal [facility] Operative Reporton 0 Operative Report Date of Surgery: 05/04/2020 SURGEON: Mingo Owen Jr., D.OMckenzie PREOPERATIVE DIAGNOSIS: Postoperative pain control requested by patient and surgeon POSTOPERATIVE DIAGNOSIS: Postoperative pain control requested by patient and surgeon OPERATION: Right interscalene block, utilizing ultrasound guidance and nerve stimulator ANESTHESIA: Local with monitored anesthesia care PROCEDURE: The patient was interviewed and examined. The anesthesia options were discussed including interscalene approach to the brachial plexus block for postoperative analgesia. The discussion included the procedure, risks, benefits, and alternatives to the procedure. The patients questions were all answered and the patient elected to proceed with the brachial plexus nerve block for postoperative pain relief. The patient was placed on the monitors, electrocardiogram, non-invasive blood pressure machine and pulse oximetry. I.V. sedation was then administered with a total of Midazolam 2 mg. The neck was prepped with ChloraPrep and sterilely draped. The anatomy was identified by ultrasound and then under ultrasound guidance and concomitant use of a nerve stimulator, the brachial plexus was identified with a 25 gauge 1 3/8 Stimuplex needle. Loss of twitch was observed at 0.5 milliamps. After attempted aspiration for blood, air and cerebrospinal fluid, a solution of an equal mixture of Naropin 0.5 and Xylocaine 2% containing 3 mg of Decadron, total volume of 18 mL was slowly injected with frequent aspirations without signs or symptoms of either intravascular or intrathecal injection. The patient tolerated the procedure well. There were signs and symptoms of a block within minutes after completion of the procedure. The patient then proceeded to undergo general anesthesia for the proposed procedure. Mingo Owen Jr., D.O. lkr Dictated: 05/04/2020 #[id number] Typed: 05/04/2020 #[id number] cc: Mingo Owen Jr., D.O. [facility] Comment on above: Result Comment: Elec tronically Signed By: Mingo Owen JR, DO.br\Date and Time Signed: 05/04/20 16:24 EDT Operative Report Date of Surgery: 05/04/2020 SURGEON: Jason Tarango D.O. STEAM [employer]TER SUPERVISOR MAINTENANCE: Kiko Matias CST PREOPERATIVE DIAGNOSIS: Right shoulder impingement, acromioclavicular joint osteoarthritis with partial-thickness rotator cuff tear POSTOPERATIVE DIAGNOSIS: Right shoulder impingement, acromioclavicular joint osteoarthritis with partial-thickness rotator cuff tear in addition to superior labral tear from anterior to posterior OPERATION: Right shoulder arthroscopy with subacromial decompression, partial distal claviculectomy and arthroscopic anterior superior labral repair ANESTHESIA: Interscalene block, general ANESTHESIOLOGIST: Mingo Owen Jr., Ancelmo.OMckenzie ESTIMATED BLOOD LOSS: None SPECIMEN: None IMPLANT: Arthrex 2.9 mm labral anchor PushLock x2 COMPLICATIONS: None DRAINS: None HISTORY/OPERATIVE INDICATIONS: Adia is a 45-year-old white female who presents complaining of persistent pain, difficulty about her right shoulder area. This has been going on for some time. She has had conservative care including corticosteroid injection, physical therapy, oral nonsteroidal anti-inflammatories all to no avail. She did have further workup consisting of MRI that does show some partial-thickness cuff tearing. With this and her persistent symptoms, we did discuss the above procedure as being the most definitive and the procedure undertaken this day. INTRAOPERATIVE PATHOLOGY: Upon dissection of the right shoulder, there is noted to be some anterior labral fraying with a superior labral tear from anterior to posterior. This did have some destability noted. With this, the decision for repair is made. The scope is taken subacromially where there is a dense subacromial bursitis. Bursectomy, acromioplasty, partial distal claviculectomy are performed. She did have subclavicular, subacromial spurring to some extent, very prominent anterior subacromial area. The decompression is performed. The scope is taken back and repair performed as described below. PROCEDURE: After informed consent is obtained, the risks, complications, reasonable expectations of the above procedure are discussed had been discussed. The patient is taken to the Operative Suite, placed on the operating room table in supine position. At this point, she is given a general anesthetic. This was preceded by an interscalene block. She is then appropriately positioned in the beach chair position on the tenet table. The shoulder is sterilely prepped and draped in the usual surgical fashion at which time site verification process is undertaken with a time-out procedure. The limb landmarks are identified. Posterior portal site, intra-articularly are injected with several cc of 1% lidocaine with epinephrine. Posterior portal is instilled. The camera is placed. The above pathology is noted. Next under direct visualization, the anterior portal is instilled. This is for instrumentation. Arthroscopic shaver is utilized for a minimal debridement. The scope is taken subacromially where a third lateral portal is created to access subacromial space. Arthroscopic cautery wand is utilized for the bursectomy. Acromioplasty, partial distal claviculectomy are accomplished with the arthroscopic shaver. The scope is then replaced back into the glenohumeral articulation where cannula is placed anteriorly. Neviaser portal is created superiorly. Inadequate access to the superior labrum is performed. The decision making to fix anterior superior labrum is what was utilized and the repair of the anterior superior labrum did stabilize the bicep anchor quite nicely throughout the arc of motion. A total of two anchors are placed, one superiorly at the bicipital anchor through the anterior portal. The second approximately 1 cm anterior and distal to this. The sutures passed, the anchor drilled and placed individually. Adequate tensioning is achieved throughout the arc of motion. The procedure is deemed adequate and complete. Tidal lavage of the joint is undertaken. The portals are closed with 4-0 nylon. The wounds are dressed with Bacitracin, Adaptic, sterile 4x4s, sterile ABD and foam tape. The patient is placed in UltraSling immobilizer. She is extubated, transferred to the [facility] and taken to Post-Anesthesia Care Unit in stable condition. She will be discharged this day. Jason aTrango D.O. gls Dictated: 05/04/2020 #[id number] Typed: 05/04/2020 #[id number] cc: Tierney Henson D.O. [facility] Comment on above: Result Comment: Elec tronically Signed By: Jason Tarango DO\.br\Date and Time Signed: 05/04/20 11:56 EDT Outpatient Surgery Discharge Instructionon 05-04-2020 Outpatient Surgery Discharge Instruction [place] [id number] Patient Discharge Instructions PERSON INFORMATION Name: ADIA MENDOZA Date of : 1975 Current Date: 05/04/2020 10:10:37 PHYSICIANS Admitting Physician: Jason Tarango DO Discharge Diagnosis: ADIA MENDOZA has been given the following list of follow-up instructions, prescriptions, and patient education materials: IF UNABLE TO CONTACT YOUR PHYSICIAN AND YOU FEEL IT IS AN EMERGENCY, GO TO THE NEAREST EMERGENCY ROOM OR CALL 911 IKELLY LYNN, have received the attached patient education materials/instruction s and have verbalized understanding: May we do a follow up call? Yes No I was present when discharge instructions were given Patient Signature Date Clinican/Nurse Signature Date Follow up: Pharmacy Information: Thank you for choosing [facility] HERE ARE THE MEDICATION CHANGES THAT OCCURRED DURING YOUR HOSPITAL STAY New Medications [id number], [address], [place] [id number], [phone] acetaminophen-oxycodo ne (Percocet 325 mg-5 mg Tab) 1-2 orally every 4-6hrs as needed for pain Dx: M75.41, M75.101 Duration: 7 days; as needed as needed for pain. Refills: 0., 1-2 orally every 4-6hrs as needed for pain Medications to Continue with No Changes Other Medications cyclobenzaprine (cyclobenzaprine 10 mg Tab) 1 Tablets By Mouth every day as needed Headache. ethinyl estradiol-norethindro ne (Alyacen /) 1 Tablets By Mouth every day. meloxicam (Mobic 15 mg Tab) 1 Tablets By Mouth every day. PATIENT EDUCATION INFORMATION Instructions: [place], [place] [facility] AFTER YOUR SHOULDER ARTHROSCOPY 1. Diet: Begin with a liquid diet and advance to your normal diet as tolerated. 2. Activity: You may gradually increase your activity as tolerated. Until your first post-operative visit, you may want to elevate your arm higher than your heart, whenever you are sitting or lying down. The swelling will gradually decrease after your surgery. Increased swelling is usually a sign of over-activity and should be a signal for you to be less active and apply ice as needed. You are encouraged to use your shoulder as this is comfortably tolerated. Do not forcefully perform exercises until you have permission. 3. Driving: Do not drive. 4. Pain: Usually this is the result of over-activity and should respond well to rest, ice and elevation. If this does not provide relief, take the pain medication as directed but do not return to activity. Pain is a protective mechanism that signals potential injury and should not be masked by medication when you are active. If pain persists despite rest, elevation and medication, contact your surgeon. You will be given a prescription for pain medications prior to leaving the hospital. Please inform us of any known drug allergy. If you have any problems with the medication, it should be discontinued and our office notified. The sensation of splashing of fluid inside the joint is not cause for concern. It represents residual fluids from surgery and they will be absorbed. Elevation of the arm and application of an ice pack will minimize swelling and discomfort in the first 48 hours after surgery. 5. Bandage: Soft compression dressing has been applied to your shoulder. This dressing should be comfortable and absorb any leakage of fluid or blood from your operated shoulder. Although the dressing may become moist or blood stained, this is not usually a cause for concern. If this persists, notify your surgeon. You may remove the dressing 48 hours after your surgery. Apply betadine and band-aids to the small incisions once or twice daily as needed. 6. Incisions: The portals of entry may be sore and develop bruising over the next several days. The bruising eventually resolves and does not require any special care. Do not apply creams or lotions to your shoulder. Your portals will heal well on their own. 7. Bathing: You may shower 48 hours after surgery. Bathing or soaking in water should be avoided until your first post-operative visit. 8. Precautions: If you develop fever (101 degrees or above), increasing pain (not relieved by rest, elevation, ice) and medication as prescribed, redness or swelling in your shoulder or arm, please contact the office or the hospital. If you notice increased drainage from the operative portals after the third day, this should also be reported. 9. Return Visit: Your first post-operative follow-up appointment is generally between 10 and 14 days after discharge from the hospital and you will be given an appointment card. Do not hesitate to call the office or the hospital if any problems or questions arise before your appointment. Jason Tarango, DO [facility] [address], [place] [address] Reviewed: 07-23 Revised 07-23 [facility] Patient Education - Texton 1 Patient Education - Text [place], [place] [facility] AFTER YOUR SHOULDER ARTHROSCOPY 1. Diet: Begin with a liquid diet and advance to your normal diet as tolerated. 2. Activity: You may gradually increase your activity as tolerated. Until your first post-operative visit, you may want to elevate your arm higher than your heart, whenever you are sitting or lying down. The swelling will gradually decrease after your surgery. Increased swelling is usually a sign of over-activity and should be a signal for you to be less active and apply ice as needed. You are encouraged to use your shoulder as this is comfortably tolerated. Do not forcefully perform exercises until you have permission. 3. Driving: Do not drive. 4. Pain: Usually this is the result of over-activity and should respond well to rest, ice and elevation. If this does not provide relief, take the pain medication as directed but do not return to activity. Pain is a protective mechanism that signals potential injury and should not be masked by medication when you are active. If pain persists despite rest, elevation and medication, contact your surgeon. You will be given a prescription for pain medications prior to leaving the hospital. Please inform us of any known drug allergy. If you have any problems with the medication, it should be discontinued and our office notified. The sensation of splashing of fluid inside the joint is not cause for concern. It represents residual fluids from surgery and they will be absorbed. Elevation of the arm and application of an ice pack will minimize swelling and discomfort in the first 48 hours after surgery. 5. Bandage: Soft compression dressing has been applied to your shoulder. This dressing should be comfortable and absorb any leakage of fluid or blood from your operated shoulder. Although the dressing may become moist or blood stained, this is not usually a cause for concern. If this persists, notify your surgeon. You may remove the dressing 48 hours after your surgery. Apply betadine and band-aids to the small incisions once or twice daily as needed. 6. Incisions: The portals of entry may be sore and develop bruising over the next several days. The bruising eventually resolves and does not require any special care. Do not apply creams or lotions to your shoulder. Your portals will heal well on their own. 7. Bathing: You may shower 48 hours after surgery. Bathing or soaking in water should be avoided until your first post-operative visit. 8. Precautions: If you develop fever (101 degrees or above), increasing pain (not relieved by rest, elevation, ice) and medication as prescribed, redness or swelling in your shoulder or arm, please contact the office or the hospital. If you notice increased drainage from the operative portals after the third day, this should also be reported. 9. Return Visit: Your first post-operative follow-up appointment is generally between 10 and 14 days after discharge from the hospital and you will be given an appointment card. Do not hesitate to call the office or the hospital if any problems or questions arise before your appointment. Jason Tarango DO [facility] [address] [place] [address] Reviewed: 07-23 Revised 07-23 [facility] Progress Note-Physicianon Progress Note-Physician Patient: ADIA MENDOZA Age: 45 years Sex: Female : 1975 Associated Diagnoses: None Author: Jason Tarango DO Postoperative Information Procedure: R shoulder scope, labral repair Preoperative Diagnosis: R shoulder SLAP, IS. Postoperative Diagnosis: Same. Performed by: akash. Special Librarian: mary. Specimens Removed: none. Estimated Blood Loss: 0 ml. Complications: None. [facility] Comment on above: Result Comment: Elec tronically Signed By: Jason Tarango DO\.br\Date and Time Signed: 05/04/20 09:37 EDT Progress Note-Physician Patient: ADIA MENDOZA Age: 45 years Sex: Female : 1975 Associated Diagnoses: None Author: Mingo Owen JR, DO Preoperative Information Anesthesia history: Patient History: Pt./ family denies any personal or family hx of problems/difficulties with anesthesia.. Re-eval prior to induction: Inital eval reviewed: No significant interval change, NPO 10 hours.. Review of Systems Constitutional: See nursing assessment.. Cardiovascular: Cardiac risk assessment performed. Pt. denies any significant change in their cv hx.. Respiratory: Pt. denies any signicant change in their respiratory status.. Neurologic: Pt. denies any acute neurological changes.. Health Status Allergies: Allergic Reactions (Selected) No Known Allergies, Allergies (1) Active Reaction No Known Allergies None Documented Current medications: (Selected) Inpatient Medications Ordered D5LR 1000 mL Soln-IV 1000 mL: 1,000 mL, IV, 150 mL/hr, Routine, Start date 05/04/20 6:00:00 EDT, 6.7 hour(s), Total volume (mL): 1,000, 89.7 kg, 2.01, m2 HYDROmorphone 1 mg/mL injectable solution: 0.4 mg = 0.4 mL, Injection, IV Push, q4min PRN Pain for 5 dose(s), Stop date Limited # of times, Routine, Start date 05/04/20 8:01:00 EDT Lactated Ringers IV Ashley 1000 mL 1,000 mL: 1,000 mL, IV, 100 mL/hr, Routine, Start date 05/04/20 8:01:00 EDT, 10 hour(s), Total volume (mL): 1,000, 89.7 kg, 2.01, m2 Percocet 325 mg-5 mg Tab: 1 tab(s), Tab, Oral, q6hr PRN Pain 4-7 for 5 day(s), Stop date 05/09/20 7:59:00 EST, Routine, Start date 05/04/20 8:00:00 EDT Percocet 325 mg-5 mg Tab: 2 tab(s), Tab, Oral, q6hr PRN Pain 4-7 for 5 day(s), Stop date 05/09/20 7:59:00 EST, Routine, Start date 05/04/20 8:00:00 EDT Phenergan 25 mg/mL Injection: 12.5 mg = 0.5 mL, Injection, IV Push, q2min PRN Other (see comment) for 2 dose(s), Stop date Limited # of times, Routine, Start date 05/04/20 8:01:00 EDT Zofran 4 mg/2 mL Injection: 4 mg = 2 mL, Injection, IV Push, q4hr PRN Nausea/Vomiting, Routine, Start date 05/04/20 8:00:00 EDT cefazolin additive + Premix Dextrose 5% Diluent 50 mL: 2 gram = 50 mL, IV Piggyback, PREOP, Routine, Start date 05/04/20 6:00:00 EDT, 100 mL/hr, Infuse over 30 minute(s) Prescriptions Prescribed Percocet 325 mg-5 mg Tab: See Instructions, as needed for pain, 40 tab(s), Refill(s) 0, 1-2 orally every 4-6hrs as needed for pain Dx: M75.41, M75.101 Duration: 7 days, [id number], 162, cm, 04/21/20 6:42:00 EDT, Height/Length Dosing, 89.7, kg, 04/21/20 6:42:00 EDT,... Documented Medications Documented Alyacen : 1 tab(s), Oral, Daily, Refill(s) 0, control/menstrual regulation Mobic 15 mg Tab: 15 mg = 1 tab(s), Oral, Daily, Refills(s) 0, Inflammation cyclobenzaprine 10 mg Tab: 10 mg = 1 tab(s), Oral, Daily, PRN Headache, # 30 tab(s), Refills(s) 0, Headache, Medications (8) Active Scheduled: (1) ceFAZolin + Dextrose 5% Premix Diluent 50 mL 2 gram 50 mL, IV Piggyback, PREOP Continuous: (2) Dextrose 5% in Lactated Ringers 1000 mL 1,000 mL, IV, 150 mL/hr Lactated Ringers 1,000 mL 1,000 mL, IV, 100 mL/hr PRN: (5) acetaminophen-oxycodo ne 325 mg-5 mg Tab [F] 1 tab(s), Oral, q6hr acetaminophen-oxycodo ne 325 mg-5 mg Tab [F] 2 tab(s), Oral, q6hr HYDROmorphone 1 mg/mL SOLN [F] 0.4 mg 0.4 mL, IV Push, q4min ondansetron 2 mg/mL Inj [F] 4 mg 2 mL, IV Push, q4hr promethazine 25 mg/mL Inj [F] 12.5 mg 0.5 mL, IV Push, q2min Problem list: All Problems Chronic tension headache / SNOMED CT 694525729 / Confirmed Impingement syndrome of right shoulder / SNOMED CT 574949838 / Confirmed, Active Problems (2) Chronic tension headache Impingement syndrome of right shoulder Histories Past Medical History: No active or resolved past medical history items have been selected or recorded. Family History: No family history items have been selected or recorded. Procedure history: Arthroscopy of knee (323421541). Excision of lesion of skin (49969465). Comments: 04/20/2020 13:39 LISA Suarez RN, Angelica basal cell carcinoma of back Social History Social & Psychosocial Habits Alcohol 04/20/2020 Risk Assessment: Denies Alcohol Use Substance Abuse 04/20/2020 Risk Assessment: Denies Substance Abuse Tobacco 04/20/2020 Risk Assessment: Denies Tobacco Use . Physical Examination Vital Signs (last 24 hrs) Last Charted Temp Oral 37 DegC (MAY 04 06:26) Heart Rate Apical 83 bpm (MAY 04 06:26) SBP 121 mmHg (MAY 04 06:28) DBP 80 mmHg (MAY 04 06:28) SpO2 100 % (MAY 04 06:26) Airway: Normal oral/pharyngeal anatomy.. Respiratory: Adequate air exchange.. Cardiovascular: Adequate perfusion and function. Review / Management Results review: No qualifying data available . Plan [place] [employer]hes[employer] (ASA) physical status classification: Class I. Anesthetic Preoperative Plan Anesthesia: General. , Regional Interscalene Block. Anesthetic plan, risks, benefits, and alternatives discussed with the patient and/or family. Pt. and/or family present and agree to proceed as planned.. Discussed the importance of abstaining from tobacco products, and offered counseling if desired. [facility] Comment on above: Result Comment: Elec tronically Signed By: Mingo Owen JR, DO.br\Date and Time Signed: 05/04/20 08:01 EDT Consent for Procedure/Surger yon 05-03-2020 Consent for Procedure/Surgery [id number]# 1.00CD:127 [facility] History and Physicalon 05-03 History and Physical [id number]# 1.00CD:127 [facility] Coding Summary.on 05-02-2020 Coding Summary. CODING DATE: 05/02/2020 FINAL [facility] DSC STATUS: Home (Routine DC) PAYOR: Commercial Insurance ADMIT DX: REASON FOR VISIT DX: Z01.812 Encounter for preprocedural laboratory examination FINAL DX: PRINCIPAL: Z01.812 Encounter for preprocedural laboratory examination SECONDARY: Z11.59 Encounter for screening for other viral diseases PYMT PROC APC STAT DESCRIPTION DOCTOR NAME DATE NOTE: The code number assigned matches the documented diagnosis and / or procedure in the patient's chart. However, the narrative phrase printed from the coding software may appear abbreviated, or result in slightly different terminology. Coded By: Erica Medina CphT Date Saved: 05/02/2020 06:54 pm [facility] Priority Order-Marissa 2019 Priority Order-STAT Comment [facility] Comment on above: Result Comment: Rece ived Performed at: [facility] [address] [facility] [place] [id number] MD Go Vann Performed By: #### 2 [id number], SARS-CoV-2, SHANE ####[facility] [address] [place] [address] SARS-CoV-2, NAAon 04-29-2020 SARS CORONAVIRUS 2 RNA:PRTHR:PT:RESPI RATORY:ORD:PROBE.A MP.TAR Not Detected Not Detected [facility] Comment on above: Result Comment: This nucleic acid amplification test was developed and its performance characteristics determined by [employer]. Nucleic acid amplification tests include PCR and TMA. This test has not been FDA cleared or approved. This test has been authorized by FDA under an Emergency Use Authorization (EUA). This test is only authorized for the duration of time the declaration that circumstances exist justifying the authorization of the emergency use of in vitro diagnostic tests for detection of SARS-CoV-2 virus and/or diagnosis of COVID-19 infection under section 564(b)(1) of the Act, 21 U.S.C. 360bbb-3(b) (1), unless the authorization is terminated or revoked sooner. When diagnostic testing is negative, the possibility of a false negative result should be considered in the context of a patient's recent exposures and the presence of clinical signs and symptoms consistent with COVID-19. An individual without symptoms of COVID-19 and who is not shedding SARS-CoV-2 virus would expect to have a negative (not detected) result in this assay. Performed at: [facility] [address] [facility] [place] [id number] MD Go Vann Performed By: #### 2 [id number], SARS-CoV-2, SHANE #### [facility] [address] [place] [address] Coding Summary.on 04-21-2020 Coding Summary. CODING DATE: 04/21/2020 FINAL [facility] STATUS: Home (Routine DC) PAYOR: Commercial Insurance ADMIT DX: REASON FOR VISIT DX: Z01.812 Encounter for preprocedural laboratory examination FINAL DX: PRINCIPAL: Z01.812 Encounter for preprocedural laboratory examination SECONDARY: M75.41 Impingement syndrome of right shoulder M19.011 Primary osteoarthritis, right shoulder PYMT PROC APC STAT DESCRIPTION DOCTOR NAME DATE NOTE: The code number assigned matches the documented diagnosis and / or procedure in the patient's chart. However, the narrative phrase printed from the coding software may appear abbreviated, or result in slightly different terminology. Coded By: Erica Medina CphT Date Saved: 04/21/2020 11:44 am [facility] Alison 04-20-2020 Urea nitrogen [Mass/Vol] 19 mg/dL Normal 5-21 [facility] Comment on above: Performed By: #### 1 [id number] ####[facility] [address] [place] [address] CBC w/Indiceson 04-20-2020 Erythrocyte distribution width (RBC) [Ratio] 12.7 % Normal 10.9-14.2 [facility] Comment on above: Performed By: #### 1 [id number], 0157084, 0346419, 8881037, 0187289 ####[address] [place] [address] Hematocrit (Bld) [Volume fraction] 36.5 % Normal 34.0-46.0 [facility] Comment on above: Performed By: #### 1 [id number], 5059063, 0294934, 9357344, 9199559 ####[address] [address] Hemoglobin (Bld) [Mass/Vol] 12.4 g/dL Normal 12.0-16.0 [facility] Comment on above: Performed By: #### 1 2235517, 7377873, 3056352, 7137731, 6113818 ####[address] [place] [address] MCH (RBC) [Entitic mass] 31.0 pg Normal 27.0-34.0 [facility] Comment on above: Performed By: #### 1 0379217, 6121052, 6395464, 4133679, 3205586 ####[address] [address] MCHC (RBC) [Mass/Vol] 33.9 g/dL Normal 31.4-36.0 [facility] Comment on above: Performed By: #### 1 2245645, 5629704, 2731354, 0352163, 1661216 ####[address] [place] [address] MCV (RBC) [Entitic vol] 91.2 fL Normal 80.0-100.0 [facility] Comment on above: Performed By: #### 1 2127177, 8074324, 3341403, 8325205, 8791319 ####[facility] [address] [place] [address] Platelet mean volume (Bld) [Entitic vol] 7.5 fL Normal 6.4-10.8 [facility] Comment on above: Performed By: #### 1 0729509, 4733415, 3317837, 3868611, 7491729 ####[facility] [address] [place] [address] Platelets (Bld) [#/Vol] 322.0 E9/L Normal 150.0-500.0 [facility] Comment on above: Performed By: #### 1 6012833, 4451252, 0719090, 9240259, 7662698 ####[address] [place] [address] RBC (Bld) [#/Vol] 4.0 E12/L Low 4.3-5.9 [facility] Comment on above: Performed By: #### 1 5966102, 8536815, 0804401, 7587891, 8215448 ####[facility] [address] [place] [address] WBC corrected for nucl RBC Auto (Bld) [#/Vol] 7.2 E9/L Normal 4.0-11.0 [facility] Comment on above: Performed By: #### 1 8221154, 9084558, 1406447, 1282503, 3057091 ####[facility] [address] [place] [address] Consent for Treatmenton 04-08 Consent for Treatment [id number] .[id number]:127 Normal [facility] Creatinineon 04-20-2020 Creatinine [Mass/Vol] 0.7 mg/dL Normal 0.5-1.3 [facility] Comment on above: Performed By: #### 1 1163598, 6557789, 5091405, 6370006, 9251531 ####[address] [place] [address] Lyteson 04-20-2020 Anion gap [Moles/Vol] 12 mmol/L Normal 6-16 [facility] Comment on above: Performed By: #### 1 3501252, 7724370, 1385439, 5029753, 9206850 ####[facility] [address] [place] [address] Chloride [Moles/Vol] 105 mmol/L Normal 101-111 [facility] Comment on above: Performed By: #### 1 7090708, 0108119, 4647862, 8078895, 0839006 ####[facility] [address] [place] [address] CO2 [Moles/Vol] 24 mmol/L Normal 21-[address] [facility] Comment on above: Performed By: #### 1 0498303, 6329587, 8752761, 7535327, 5392976 ####[facility] [address] [place] [address] Potassium [Moles/Vol] 3.9 mmol/L Normal 3.5-5.3 [facility] Comment on above: Performed By: #### 1 8750362, 3663291, 1121284, 5879627, 8743247 ####[facility] [address] [place] [address] Sodium [Moles/Vol] 137 mmol/L Normal 135-145 [facility] Comment on above: Performed By: #### 1 4152795, 8895088, 5506569, 8667252, 1427630 ####[facility] [address] [place] [address] eGFRon 04-20-2020 GFR/1.73 sq M predicted among blacks MDRD (S/P/Bld) [Vol rate/Area] mL/min/{1.73_m2} Normal >=59 [facility] Comment on above: Order Comment: Order added by Discern Expert. Result Comment: eGFR is race adjusted. AA=. Performed By: #### 1 3034133, 6762649, 3452027, 9384562, 4265901 ####[facility] [address] [place] [address] GFR/1.73 sq M predicted among non-blacks MDRD (S/P/Bld) [Vol rate/Area] mL/min/{1.73_m2} Normal >=59 [facility] Comment on above: Order Comment: Order added by Discern Expert. Result Comment: Inspector And Sorter rafael kidney disease could be indicated at eGFR's of less than 60 mL/min/1.73m2. Kidney failure is indicated at less than 15 mL/min/1.73m2. Performed By: #### 1 0126303, 0064629, 5128096, 6884833, 1970837 ####[facility] [address] [place] [address] Physician Orderon 04-02-2020 Physician Order [id number]# 1.00CD:127 Normal [facility] Physician Orderon 03-31-2020 Physician Order [id number]#1 .00CD:127 Normal [facility] MRI Shoulder w/o Contrast [facility] 03-03-2020 MRI Shoulder w/o Contrast Right Exam Date/Time: 03/01/2020 09:35 EDT Reason for Exam: M75.41 IMPINGEMENT SYNDROME OF RIGHT SHOULDER, M75.21 BICEPS TENDINITIS OF RIGHT UPPER EXTREMITY Report IMPRESSION: PARTIAL-THICKNESS BURSAL SURFACE TEAR OF DISTAL ANTERIOR FIBERS OF SUPRASPINATUS TENDON AT THE FOOTPRINT MEASURING APPROXIMATELY 4 MM IN AP DIMENSION SUPERIMPOSED ON MILD TENDINOSIS. MILD SUBSCAPULARIS TENDINOSIS. EXAM: MRI Shoulder w/o Contrast Right HISTORY: M75.41 IMPINGEMENT SYNDROME OF RIGHT SHOULDER, M75.21 BICEPS TENDINITIS OF RIGHT UPPER EXTREMITY TECHNIQUE: Multiplanar multisequence MRI of the shoulder was performed without contrast. COMPARISON: Shoulder radiographs from 01/05/2020. FINDINGS: The acromioclavicular joint is intact. The acromion is flat. Coracoclavicular ligament intact. Trace subacromial/subdeltoi d bursal fluid. Partial-thickness bursal surface tear of distal anterior fibers of supraspinatus tendon at the footprint measuring approximately 4 mm in AP dimension superimposed on mild tendinosis. Mild subscapularis tendinosis. Infraspinatus and teres minor tendons are intact. No atrophy or fatty infiltration of the rotator cuff musculature. The intra-articular and extra-articular long head biceps tendon is intact. The biceps tendon resides within the bicipital groove. No labral tear identified. No well-defined or measurable cartilage defect identified. No glenohumeral joint effusion. FINAL REPORT Dictated: 03/03/2020 4:51 pm Vishnu Tam DO Signed (Electronic Signature): 03/03/2020 4:51 pm Signed by: Vishnu Tam DO Transcribed by: IGNACIO Technologist: MICHAEL Technical Comments None Normal [facility] Coding Summary.on 03-02-2020 Coding Summary. CODING DATE: 03/02/2020 FINAL [facility] STATUS: Home (Routine DC) PAYOR: Commercial Insurance APC DESCRIPTION 5523 Level 3 Imaging without Contrast ADMIT DX: REASON FOR VISIT DX: M75.41 Impingement syndrome of right shoulder FINAL DX: PRINCIPAL: M75.41 Impingement syndrome of right shoulder SECONDARY: M75.21 Bicipital tendinitis, right shoulder PYMT PROC APC STAT DESCRIPTION DOCTOR NAME DATE NOTE: The code number assigned matches the documented diagnosis and / or procedure in the patient's chart. However, the narrative phrase printed from the coding software may appear abbreviated, or result in slightly different terminology. Coded By: Erica Medina CphT Date Saved: 03/02/2020 04:22 pm [facility] Consent for Treatmenton 02-07 Consent for Treatment [id number] .00CD:127 Normal [facility] RAD - MRI Screening Formon 0 03-01-2020 RAD - MRI Screening Form [id number] .00CD:127 Normal [facility] Physician Orderon 02-19-2020 Physician Order [id number]# 1.00CD:127 [facility] Vital Signs Date Time Vital Sign Value Performing Clinician Facility 07-10-2023 12:40-0500 Body height 162.56 cm Kimmy Duron Other [facility] Other 07-10-2023 12:40-0500 Body mass index (BMI) [Ratio] 29.76 kg/m2 Kimmy Duron Other [facility] Other 07-10-2023 12:40-0500 Body temperature 98.4 [degF] Kimmy Duron Other [facility] Other 07-10-2023 12:40-0500 Body weight 78.65 kg Kimmy Duron Other [facility] Other 07-10-2023 12:40-0500 Respiratory rate 18 /min Kimmy Duron Other [facility] Other 07-10-2023 12:40-0500 SaO2% (BldA) [Mass fraction] 99 % Kimmy Duron Other [facility] Other 02-15-2023 08:54-0400 Diastolic blood pressure 70 mm[Hg] DO Marianne Petznick Work Phone: [facility] 02-15-2023 08:54-0400 Heart rate 69 /min DO Marianne Petznick Work Phone: [facility] 02-15-2023 08:54-0400 Respiratory rate 16 /min DO Marianne Petznick Work Phone: [facility] 02-15-2023 08:54-0400 SaO2% (BldA) [Mass fraction] 100 % DO Marianne Petznick Work Phone: [facility] 02-15-2023 08:54-0400 Systolic blood pressure 105 mm[Hg] DO Marianne Petznick Work Phone: [facility] 02-15-2023 07:24-0400 Body height 162.56 cm DO Marianne Petznick Work Phone: [facility] 02-15-2023 07:24-0400 Body weight 77.11 kg DO Marianne Petznick Work Phone: [facility] Encounters Encounter Date Encounter Type Care Provider Facility Start: 07-10-2023 End: 07-10-2023 ambulatory Kimmy Duron Other [facility] Other Start: 07-10-2023 Office outpatient vi sit 25 minutes Kimmy Duron [facility] Start: 06-19-2023 End: 06-19-2023 ambulatory MARIANNE MCDOWELL Not Available Start: 05-24-2023 End: 05-24-2023 ambulatory ZULEYMA LING Not Available Start: 02-15-2023 End: 02-15-2023 ambulatory Musa Marrufo Facility:[facility] Start: 02-15-2023 End: 02-15-2023 Admission to same day surgery center DO Marianne Petcrisick Work Phone: [facility] Work Phone: Start: 02-15-2023 End: 02-15-2023 ambulatory DO Marianneconstantin Baldwinick Work Phone: [facility] Work Phone: Start: 09-22-2022 End: 09-23-[address] MARIANNE MCDOWELL Facility:[facility] Start: 09-11-2022 Encounter for genera l adult medical examination without abnormal findings DR MARIANNE MCDOWELL [facility] Start: 09-07-2022 End: 09-08-[address] MARIANNE MCDOWELL Facility:[facility] Start: 09-07-2022 End: 09-08-2022 Encounter for general adult medical examination without abnormal findings DR MARIANNE MCDOWELL Facility:[facility] Start: 08-29-2022 End: 08-30-[address] ZULEYMA LING Facility:[facility] Procedures Date Procedure Procedure Detail Performing Clinician Start: 02-15-2023 Screening colonoscopy D O Marianne Mcdowell Work Phone: Plan of Treatment Date Care Activity Detail Author Start: 02-15-2023 [facility] Payers Date Payer Category Payer Self-pay 1975 Unknown [id number] 1975 Unknown [id number] 1975 Unknown [id number] 1975 Unknown [id number] 1975 Unknown [id number] 1959 Private Health Insurance [id number] Private Health Insurance [id number] Unknown Jenna JACKSON/CRYSTAL [id number] Unknown [id number] Social History Date Type Detail Facility Start: 02-15-2023 Tobacco smoking status NHIS Never smoked tobacco (finding) [facility] Start: 1975 Sex Assigned At Female F [facility] Sex Assigned At Sex Assigned At Bir th [facility] Other Goals Date Patient Goal Desired Activity /State Evaluation note 07-10-2023 Note Date & Type Note Facility 07-10-2023 Evaluation note Encounter Date Diagnosis Assessment Notes Jul, Sore throat (ICD-10 - J02.9) Jul, Viral URI (ICD-10 - J06.9) Advised patient that rapid Strep test was negative today. Declines/refuses other testing today in office. Will send in Rx of prednisone to use as directed. Advised patient that will treat as viral URI. Encouraged supportive care as directed, increase fluids and rest, Tylenol as directed, OTC cough/cold remedies as directed on packaging, cool mist humidifier, throat lozenges. Discussed infection control practices such as good hand washing and mask wearing. Patient to follow up with PCP if symptoms persist or worsen despite treatment. Immediate eval for SOB, difficulty breathing, chest pain, fevers that do not break with antipyretic or any other concerning symptoms as reviewed on patient education handout. Patient verbalizes understanding and is agreeable to treatment plan. Patient left in stable condition. [facility] Other Procedure note 02-15-2023 Note Date & Type Note Facility 02-15-2023 Procedure note [facility] Progress note 08-16-2021 Note Date & Type Note Facility 08-16-2021 Note HNO ID: [id number] Author: Sarah Arnett RN Service: ? Author Type: Registered Nurse Type: Progress Notes Filed: 08/16/2021 10:59 AM Note Text: Radiology Service Progress Note DATE OF SERVICE: August 16, 2021 TIME: 10:58 AM PATIENT WEIGHT: 178LBS PATIENT IDENTITY VERIFICATION COMPLETED USING TWO (2) STANDARD IDENTIFIERS: Name and Date of confirmed by patient verbally. FALL SCREENING: Has the patient had 2 falls in the last year or 1 fall with injury or currently using an Ambulatory Assistive Device (Walker, Cane, Wheelchair, Crutches, etc.)? No PATIENT GENDER DATA: Female. status: : No status: NO. ALLERGIES: Reviewed and unchanged CONTRAST ALLERGY: No EXAM: CT -CONTRAST INDUCED NEPHROPATHY RISK FACTORS: Not applicable CREATININE: Creatinine Date Value Ref Range Status 08/02/2021 0.68 0.58 - 0.96 mg/dL Final eGFR-All Other Races Date Value Ref Range Status 08/02/2021 >60 . Final Comment: eGFR (Estimated GFR) Units of measure: mL/min/1.73 meters squared eGFR is derived from the reexpressed MDRD Study equation using the following parameters: serum creatinine, age, gender and race. The creatinine assay has been calibrated to be traceable to IDMS. An eGFR <60 mL/min/1.73m2 for >3 months is consistent with chronic kidney disease. Refer to KDOQI guidelines for clinical interpretation. In patients with unstable renal function, e.g. those with acute kidney injury, the eGFR may not accurately reflect actual GFR. Note: On 09/03/2021, the eGFR calculation will be updated to the NKF-ASN Task Force recommended 2020 CKD-EPI creatinine equation which does not include a race variable. For more information or to access a 2020 CKD-EPI calculator, visit the National Kidney Foundation website at kidney.org/professionals/kdoqi/gfr_calcul ator. eGFR- Date Value Ref Range Status 08/02/2021 >60 Final P.O.C.T. RESULTS: POC done: Yes, See Lab Tab August 02, 2021 TREATMENT: No Hydration needed. IV SITE: Ambulatory: A peripheral IV was started in the Right antecubital site with a Angio cath: 20 gauge. IV SITE APPEARANCE: Clean,Dry and Intact SIGNATURE: Sarah Arnett RN PATIENT NAME: Adia Mendoza DATE: August 16, 2021 TIME: 10:58 AM [facility] Progress note 08-02-2021 Note Date & Type Note Facility 08-02-2021 Note HNO ID: [id number] Author: Zuleyma Olea MD Service: ? Author Type: Physician Type: Progress Notes Filed: 08/02/2021 8:32 PM Note Text: PATIENT NAME: Adia Mendoza DATE: 08/02/2021 PRIMARY CARE PHYSICIAN: Marianne Mcdowell DO OTHER PHYSICIANS: Dr. Zuleyma Ling, Dr. Karin Nicholas Portions of this encounter note have been copied from my note from 06/08/2017 and has been updated where appropriate, and reflect my current medical decision making from today. CC: This is a 46 year old female with a remote history of mild anemia, now referred for evaluation of an abnormal skin biopsy and abnormal labs. INTERIM HISTORY: The patient was initially seen in June 2017 for evaluation of mild anemia, at which time her CBC was essentially normal and all other labs were normal. No further work-up was recommended. She apparently developed a pruritic skin lesion over her right medial superior chest area in February 2021 and was seen by dermatology. A shave biopsy obtained 02/24/2021 revealed an atypical dermal lymphoid infiltrate of unclear significance. The patient subsequently underwent a punch biopsy on 04/07/2021, and pathology revealed prior biopsy site reaction and mixed perivascular infiltrate, but no evidence of malignancy. Labs obtained 04/25/2021 (CBC, SPEP and UPEP) were normal. The patient currently is referred to discuss further management options. Clinically she feels well. Other than a small scar from the biopsy she has no residual skin lesions in the area of concern. She has had multiple skin cancers requiring resection in the past. She denies any significant fevers, night sweats, or weight loss. No unusual pain. MEDICATIONS: Current Outpatient Medications Medication Sig - liraglutide (SAXENDA SUBCUTANEOUS) Inject subcutaneously. - cyclobenzaprine (FLEXERIL) 10 mg tablet (Patient not taking: Reported on 07/18/2021 ) - ALYACEN 1/35, 28, 1-35 mg-mcg per tablet (Patient not taking: Reported on 07/18/2021 ) - Phentermine HCl 37.5 mg tablet (Patient not taking: Reported on 07/18/2021) No current facility-administered medications for this visit. ALLERGIES: ALLERGIES No Known Allergies PAST MEDICAL HISTORY: PAST MEDICAL HISTORY Diagnosis Date - Anemia with low reticulocyte index - Basal cell carcinoma (BCC) of skin of face Left Cheek - Colon polyps - Diverticulosis - Effusion of lower leg joint - Left ankle pain - Left foot pain - Muscle tension headache - Neoplasm of uncertain behavior - Sprain of left ankle - Squamous cell carcinoma of skin PAST SURGICAL HISTORY: PAST SURGICAL HISTORY Procedure Laterality Date - ARTHROSCOPY KNEE DIAGNOSTIC W/WO SYNOVIAL BX SPX 2013 - COLONOSCOPY 2009 colon polyps - COLONOSCOPY 2013 diverticulosis - PAST SURGICAL HISTORY OF Skin Biopsy FAMILY HISTORY: No family history on file. SOCIAL HISTORY: Social History Tobacco Use - Smoking status: Never Smoker - Smokeless tobacco: Never Used Substance Use Topics - Alcohol use: No - Drug use: No COMPLETE REVIEW OF SYSTEMS: CONSTITUTION: Negative for pain, fatigue, weight loss, or appetite loss. EENT: Negative for mouth soreness, antibiotics use, epistaxis, visual problems, neck or facial swelling, fever/chills, bleeding gums, or hearing loss. CV: Negative for edema, calf swelling, palpitations, or chest pain. RESPIRATORY: Negative for cough, SOB, hemoptysis, or wheezing. GI: Negative for nausea/vomiting, heartburn, vomiting blood, dysphasia, diarrhea, blood in stool, constipation, early satiety, PICA, vegetarian, poor nutrition, abdominal fullness, or abdominal pain. NEUROLOGICAL: Negative for numbness/tingling, dizziness, gait disturbance, headache, speech disturbance, tremor, hemiparesis/sensory loss, or change in mental status. MUSCULOSKELETAL: Negative for joint pain, joint swelling, or proximal muscle weakness. SKIN: Negative for hair loss, bruising, nail changes, rash, itching, pallor, or jaundice. ENDO/URO: Negative for hot flashes, cold or heat intolerance, urinary frequency, urinary hesitancy, menorrhagia, or hematuria. PSYCH: Negative for anxiety, depression, or other. PHYSICAL EXAM: BP 131/83 Pulse 80 Temp 36.6 ?C (97.9 ?F) (Temporal) Resp 18 Ht 162.6 cm (5' 4.02 ) Wt 81.6 kg (179 lb 12.8 oz) SpO2 98% BMI 30.85 kg/m? GENERAL EXAM: Well developed/well nourished; in no acute distress. SKIN: Negative for lesions, rashes, or ulcers on the upper and lower extremities and face. Negative for palpations/nodules, purpura, and ecchymosis. EENT: Negative for conjunctiva, mucosal pallor, JVD, LAP, thyromegaly, and glossitis. Supple AND PERRL. EXTREMITIES: Negative for cyanosis, clubbing, and crepitus. LUNGS: Negative to auscultation, respiratory effort, and percussion. CARDIOVASCULAR: Regular rate. Negative for murmurs/S3S4/abnormal sounds, edema, and carotid bruits. ABDOMEN: Negative for (more content not included)... [facility] Evaluation note Note Date & Type Note Facility Evaluation note No assessment information availa [facility] Work Phone: History and physical note Note Date & Type Note Facility History and physical note Note Date/Time February 15, 2023 8:06am [facility] [address] [place] [address] Gastroenterology H&P Signed Patient: Adia Mendoza MR#: [id number] : 1975 Acct:[id number] Age/Sex: 47 / F Adm Date: 3 Loc: Room: Type: [facility] Attending Dr: Musa Marrufo MD Copies to: DO Musa Henson MD~ Date of Service: 02/15/2023 HISTORY & PHYSICAL: Patient's history with special attention to the cardiovascular, pulmonary systems and the current problem was reviewed with the patient immediately prior to the procedure. Present medications and doses reviewed in the EMR. Allergies and pertinent laboratory tests were also reviewedat this time in the EMR. The physical examination, as below, was then performed. Indication, assessment and HPI: 47-year-old female presents for screening colonoscopy Family history of GI malignancy? No PHYSICAL EXAMINATION Mouth and Pharynx : Moist mucus membranes, normal dentition Cardiac: Regular rate, regular rhythm Pulmonary: Clear to auscultation bilaterally, no wheezing Neurological: Alert and oriented x3, no focal deficits noted Abdomen: Abdomen soft, non-tender REVIEW OF SYSTEMS Constitutional: Denies malaise, fevers Cardiovascular: Denies chest pain, palpitations Respiratory: Denies shortness of breath, wheezing Gastrointestinal: Per HPI Genitourinary: Denies dysuria, polyuria Musculoskeletal: Denies joint swelling, joint stiffness Neurological: Denies numbness, tingling Integumentary: Denies rashes, skin lesions Endocrine: Denies fatigue, weight loss Written informed consent obtained from the patient. Risks (including but not limited to perforation, infection, bloating, bleeding, need for emergent surgeryand loss of life), benefits and alternatives explained and questions answered. The patient verbalized understanding. Based on history patient is an appropriate candidate for the procedure. Musa Marrufo MD Documented By: Musa Marrufo MD 02/15/23805 Signed By: <Electronically signed by Musa Marrufo MD> 02/15/23805 [facility] Work Phone: History general Narrative - Reported Note Date & Type Note Facility History general Narrative - Reported Type Medical History Basal cell carcinoma on face and leg Surgical History Right knee arthroscopy Hospitalization History See past surgical hx [facility] Other Hospital Discharge instructions Note Date & Type Note Facility Hospital Discharge instructions Additional Instructions DISCHARGE INSTRUCTIONS FOR COLONOSCOPY WHAT TO EXPECT: - You may feel full, gassy or cramping after your procedure. In some cases, this may be from a few hours to a day. Walking may help relieve the discomfort. - You should begin to recover from anesthesia within 1 hour of the procedure, however may feel groggy for the next 24 hours. DO's AND DON'Ts: - Call your doctor right away if you have a hard abdomen, severe pain, are passing lots of bright red blood or clots. - Call your doctor if you develop any rashes, hives or difficulty breathing. - Let your doctor know if you have not had a bowel movement by 3 days after your procedure. - If you take 81 mg aspirin for your heart it is safe to resume this medication. - If you take other blood thinner medications your doctor will instruct you when these can safely be resumed. - Do NOT drive for 24 hours. - Do NOT operate machinery such as power tools, lawn mowers, snow blowers, sewing machines, etc. for 24 hours. - Avoid alcoholic beverages and drugs for allergies, nerves, or sleep. - Do NOT stay alone. Do NOT leave your child unattended. - Do NOT make important personal or business decisions or sign any legal documents. - Eat solid foods and drink liquids in smaller amounts than usual until normal appetite returns. If you should experience an upset stomach, liquids high in sugar content (soda, Tk-Aid, non-acid juices) are recommended. - You can resume normal activities tomorrow. FOLLOW UP & RECOMMENDATIONS: -Follow-up with the GI office as needed -Notify the doctor if you have any problems. -Repeat colonoscopy in 10 years. -Follow up with PCP. -Office number [phone]. [facility] Work Phone: Summary Purpose Family History Relationship Condition Age at Onset Recorded Date/T adrianna Not Specified No pertinent family history Unknown Advance Directives Advance Directive Response Recorded Date/ Time Advance Directives No February 12, 023 4:09pm Chief Complaint and Reason for Visit Chief Complaint Screening Additional Source Comments INFORMATION SOURCE (unrecogn ized section and content) DATE CREATED AUTHOR 05/14/2020 [facility] DATE CREATED AUTHOR AUTHOR'S ORGANIZ ATION 09/28/2021 [facility] DATE CREATED AUTHOR AUTHOR'S ORGANIZ ATION 10/01/2022 [facility] DATE CREATED AUTHOR AUTHOR'S ORGANIZ ATION 02/22/2023 [facility] DATE CREATED AUTHOR AUTHOR'S ORGANIZ ATION 06/21/2023 [facility] EP[employer] Care Teams (unrecognized sec tion and content) Team Status: Active Member Role Status Dates Marianne Mcdowell DO Primary Care Provider Active Team Status: Inactive Member Role Status Dates Marianne Mcdowell DO Primary Care Provider Active Musa Marrufo MD Attending Provider Active REASON FOR VISIT (unrecogniz ed section and content) SORE THROAT, LOSING VOICE, N EGATIVE COVID TEST AT HOME FOR RECORDS PERTAINING TO PATIENTS WHO ARE OR HAVE BEEN ENROLLED IN A CHEMICAL DEPENDENCY/SUBSTANCEABUSE PROGRAM, SOME INFORMATION MAY BE OMITTED. This clinical summary was aggregated from multiple sources. Caution should be exercised in using it in the provision of clinical care. This summary normalizes information from multiple sources, and as a consequence, information in this document may materially change the coding, format and clinical context of patient data. In addition, data may be omitted in some cases. CLINICAL DECISIONS SHOULD BE BASED ON THE PRIMARY CLINICAL RECORDS. [facility] [employer] [facility] provides no warranty or guarantee of the accuracy or completeness of information in this document.
== END 2024-01-02 08:23 | disposition home or self-care (01) ==
LOC: MAMMO 08:22
PROVIDERS: Visit Provider Obstetrics & Gynecology
DX: Z12.31 Encounter for screening mammogram for malignant neoplasm of breast (principal)
CPT/HCPCS: 77063; 77067

== ENCOUNTER 2024-05-22 09:53 | Outpatient (OUT) | payer OTHER, SELFPAY ==
--- OUTSIDE RECORDS SUMMARY | 2024-05-22 10:10 | XMS_ITS | CCD ---
Author Organization [facility] Care Team Providers Care Senior Reservations Agent Name Role Phone JEREMIAS, DR MORALES Admitting Unavailable PETZNICK, DR MORALES Attending Unavailable TAYLOR, DR CAROLYN York Primary Care Unavailable ZIEBER, DR ZIYAD Alvarez Consulting Unavailable PETRADHA, DR MORALES Consulting Unavailable PRINTY, DR AMOR Admitting Unavailable PRINTY, DR AMOR Attending Unavailable TAYLOR, DR CAROLYN York Primary Care Unavailable ZIEBER, DR ZIYAD Alvarez Consulting Unavailable PRINTY, DR AMOR Consulting Unavailable PETRADHA, DR MORALES Admitting Unavailable PETRADHA, DR MORALES Attending Unavailable TAYLOR, DR CAROLYN York Primary Care Unavailable PETZNICK, DR MORALES Consulting Unavailable DO Marianne Mcdowell Primary Care Provider MD Musa Marrufo Attending Provider [phone] Musa Marrufo Attending Unavailable Musa Marrufo Admitting Unavailable Marianne Mcdowell Primary Care Unavailable ZULEYMA LING Attending Unavailable MARIANNE MCDOWELL Attending Unavailable Kimmy Duron Unavailable Marianne Mcdowell Primary Care Provider Medications Current Medications Medication Drug Class(es) Dates Sig (Normalized) Sig (Original) cyclobenzaprine hydrochloride 10 mg oral tablet (1 source) Muscle Relaxant Start: 05-10-2017 cyclobenzaprine (FLEXERIL) 10 mg tablet 05/10/2017 Active Norethindrone-Ethin Estradiol (2 sources) Estrogen Start: 02-13-2023 take [id number] 7 ug by mouth once daily Norethindrone-Ethin Estradiol (Alyacen (28)) 1-35 mg-mcg tablet Active 1 TAB PO Daily February 13, 2023 12:00am Start: 04-13-2017 ALYACEN , 28, 1-35 mg-mcg per tablet 04/13/2017 Active 3 ml liraglutide 6 mg/ml pen injector (2 sources) GLP-1 Receptor Agonist Start: 02-13-2023 Liraglutide (Weight Loss) (Saxenda) 3 mg/0.5 mL (18 mg/3 mL) pen injector Active 3 MG SUBCUT Daily February 13, 2023 12:00am liraglutide (SAX ENDA SUBCUTANEOUS) Inject subcutaneously. Active Necon (28) (1 source) Necon (28) Active predniSONE [...] 14 days May, Not-Taking/PRN polyethylene glycol 3350 712942 mg / potassium chloride 2970 mg / sodium bicarbonate 6740 mg / sodium chloride 5860 mg / sodium sulfate 47067 mg powder for oral solution (1 source) Osmotic Laxative Start: 11-24-2022 PEG-3350/Electro lytes 236 GM as directed Orally once daily for 1 days November, Not-Taking/PRN Problems Active Problems Problem Classification Problem Date Documented Da te Episodic/Chronic Diverticulosis and diverticulitis (1 source) Diverticular disease; Translations: [Diverticulosis of intestine, part unspecified, without perforation or abscess without bleeding] 06-04-2017 Chronic Headache; including migraine (1 source) Muscular headache ; Translations: [Tension-type headache, unspecified, not intractable] 06-04-2017 Chronic Lymphadenitis (1 source) Lymphadenopathy; Translations: [Generalized enlarged lymph nodes] 08-16-2021 Episodic Other and unspecified benign neoplasm (1 source) Polyp of colon; Translations: [Polyp of colon] 06-04-2017 Episodic Other connective tissue disease (1 source) Pain in left foot; Translations: [Pain in left foot] 06-04-2017 Episodic Other lower respiratory disease (4 sources) Solitary pulmonary nodule; Translations: [SOLITARY PULMONARY NODULE] Onset: 09-22-2022 Episodic Other non-traumatic joint disorders (1 source) Effusion of joint; Translations: [Effusion, unspecified knee] 06-04-2017 Episodic Other non-traumatic joint disorders (1 source) Ankle pain; Translations: [Pain in left ankle and joints of left foot] 06-04-2017 Episodic Other screening for suspected conditions (not mental disorders or infectious disease) (5 sources) Encounter for screening mammogram for malignant neoplasm of breast; Translations: [Patient encounter status] Onset: 08-29-2022 Episodic Other upper respiratory infections (2 sources) Acute pharyngitis, unspecified; Translations: [Acute upper respiratory infection, unspecified] Episodic Sprains and strains (1 source) Sprain of left ankle; Translations: [Sprain of unspecified ligament of left ankle, initial encounter] 06-04-2017 Episodic Unclassified (1 source) Encounter for screening for malignant neoplasm of colon; Translations: [Encounter for screening for malignant neoplasm of colon] Onset: 02-15-2023 Past or Other Problems Problem Classification Problem Date Documented Da te Episodic/Chronic Deficiency and other anemia (1 source) Anemia; Translations: [Anemia, unspecified] Onset: 06-08-2017 06-08-2017 Episodic Results Test Name Value Interpretation Reference Range Facility Quick Strepon 07-10-2023 S. pyogenes Org specific cx Ql (Throat) Negative [employer] Other Quick Strep [employer] Other HCG ( test) Jill d Ql (U)Ordered By: Musa Marrufo on 02-15-2023 HCG ( test) Ql (U) Negative [facility] HCG,Urineon 02-15-2023 Beta HCG ( test) Ql (U) Negative Normal [facility] Comment on above: Result Comment: PERF ORMED BY: [place] [address] PATHOLOGIST LINEN CONTROLLER DARIN KERN M.D. Performed By: #### U HCG #### [place] [id number] [facility] CT CHEST W CONon 09-22-2022 CT CHEST [...] ZIYAD MURO Date: 2022-09-22 15:10 Normal [facility] CBC AUTO DIFFon 09-07-2022 BASO # 0.1 103/ul Normal 0.0-0.[address] [facility] Comment on above: Performed By: #### C BC #### [facility] [address] [place] [address] Dr. Derek Mcmillan Basophils/100 WBC (Bld) 0.7 % Normal 0.2-2.[address] [facility] Comment on above: Performed By: #### C BC #### [facility] [address] [address] [address] Derek Mcmillan EO # 0.1 103/ul Normal 0.0-0.[address] [facility] Comment on above: Performed By: #### C BC #### [facility] [address] [place] [address] Dr. Derek Mcmillan Eosinophils/100 WBC (Bld) 0.7 % Critically low 0.9-7.[address] [facility] Comment on above: Performed By: #### C BC #### [facility] [address] [place] [address] Dr. Derek Mcmillan Erythrocyte distribution width (RBC) [Ratio] 12.6 % Normal 11.0-15.[address] [facility] Comment on above: Performed By: #### C BC #### [facility] [address] [place] [address] Dr. Derek Mcmillan Hematocrit (Bld) [Volume fraction] 37.4 % Normal 36.0-48.[address] [facility] Comment on above: Performed By: #### C BC #### [facility] [address] [place] [address] Dr. Derek Mcmillan Hemoglobin (Bld) [Mass/Vol] 12.6 g/dL Normal 12.0-16.[address] [facility] Comment on above: Performed By: #### C BC #### [facility] [address] [place] [address] Dr. Derek Mcmillan IG # 0.04 10e3/ul Critically high 0.00-0.03 [facility] Comment on above: Performed By: #### C BC #### [facility] [address] [place] [address] Dr. Derek Mcmillan IG % 0.5 % Normal 0.0-0.5 [facility] Comment on above: Performed By: #### C BC #### [facility] [address] [place] [address] Dr. Derek Mcmillan LYMPH # 2.0 103/ul Normal 1.2-3.8 [facility] Comment on above: Performed By: #### C BC #### [facility] [address] [place] [address] Dr. Derek Mcmillan Lymphocytes/100 WBC (Bld) 25.5 % Normal 20.5-60.[address] [facility] Comment on above: Performed By: #### C BC #### [facility] [address] [place] [address] Dr. Derek Mcmillan MANUAL DIFF REQ NO Normal [facility] Comment on above: Performed By: #### C BC #### [facility] [address] [place] [address] Dr. Derek Mcmillan MCH (RBC) [Entitic mass] 31.1 pg Normal 26.7-34.[address] [facility] Comment on above: Performed By: #### C BC #### [facility] [address] [place] [address] Dr. Derek Mcmillan MCHC (RBC) [Mass/Vol] 33.7 g/dL Normal 29.9-35.[address] [facility] Comment on above: Performed By: #### C BC #### [facility] [address] [place] [address] Dr. Derek Mcmillan MCV (RBC) [Entitic vol] 92.3 fL Normal 81.0-99.[address] [facility] Comment on above: Performed By: #### C BC #### [facility] [address] [place] [address] Dr. Derek Mcmillan MONO # 0.7 103/ul Normal 0.3-0.[address] [facility] Comment on above: Performed By: #### C BC #### [facility] [address] [place] [address] Dr. Derek Mcmillan Monocytes/100 WBC (Bld) 8.6 % Normal 1.7-12.[address] [facility] Comment on above: Performed By: #### C BC #### [facility] [address] [place] [address] Dr. Derek Mcmillan NEUT # 4.9 103/ul Normal 1.4-6.5 [facility] Comment on above: Performed By: #### C BC #### [facility] [address] [place] [address] Dr. Derek Mcmillan Neutrophils/100 WBC (Bld) 64.0 % Normal 43.0-75.0 [facility] Comment on above: Performed By: #### C BC #### [facility] [address] [place] [address] Dr. Derek Mcmillan Platelet mean volume (Bld) [Entitic vol] 8.9 fL Critically low 9.5-13.[address] [facility] Comment on above: Performed By: #### C BC #### [facility] [address] [address] [address] Derek Mcmillan PLT 262 103/ul Normal 150-450 [facility] Comment on above: Performed By: #### C BC #### [facility] [address] [address] [address] Derek Mcmillan RBC 4.05 106/ul Critically low 4.20-5.40 [facility] Comment on above: Performed By: #### C BC #### [facility] [address] [place] [address] Dr. Derek Mcmillan WBC 7.6 103/ul Normal 4.0-11.[address] [facility] Comment on above: Performed By: #### C BC #### [facility] [address] [place] [address] Dr. Derek Mcmillan LIPID PROFILEon 09-07-2022 CHOL-HDL RATIO NORM SEE BELOW Normal [facility] Comment on above: Result Comment: 3.3 - 4.4 LOW RISK 4.4 - 7.1 AVERAGE RISK 7.1 - 11.0 MODERATE RISK >11.0 HIGH RISK Performed By: #### T SH, LIPID, CMP #### [facility] [address] [place] [address] Dr. Derek Mcmillan Cholesterol [Mass/Vol] 203 mg/dL Critically high <=200 [facility] Comment on above: Performed By: #### T SH, LIPID, CMP #### [facility] [address] [place] [address] Dr. Derek Mcmillan Cholesterol in HDL [Mass/Vol] 58 mg/dL Normal 40-60 [facility] Comment on above: Performed By: #### T SH, LIPID, CMP #### [facility] [address] [place] [address] Dr. Derek Mcmillan Cholesterol in LDL [Mass/Vol] 121.2 mg/dL Normal [facility] Comment on above: Performed By: #### T SH, LIPID, CMP #### [facility] [address] [address] [address] Derek Mcmillan Cholesterol.total/ Cholesterol in HDL [Mass ratio] 3.5 {ratio} Normal [facility] Comment on above: Performed By: #### T LOTUS, LIPID, CMP #### [facility] [address] [address] [address] Derek Mcmillan HDL NORMAL > or = 60 mg/dl - LO W CARDIOVASCULAR RISK <40 mg/dl - HIGH CARDIOVASCULAR RISK Normal [facility] Comment on above: Performed By: #### T LOTUS, LIPID, CMP #### [facility] [address] [place] [address] Dr. Derek Mcmillan LDL CALC NORMAL SEE BELOW Normal [facility] Comment on above: Result Comment: <100 mg/dl OPTIMAL 100 - 129 mg/dl NEAR OR ABOVE OPTIMAL 130 - 159 mg/dl BORDERLINE HIGH 160 - 189 mg/dl HIGH >190 mg/dl VERY HIGH Performed By: #### T LOTUS, LIPID, CMP #### [facility] [address] [place] [address] Dr. Derek Mcmillan Triglyceride [Mass/Vol] 119 mg/dL Normal <=[address] [facility] Comment on above: Performed By: #### T LOTUS, LIPID, CMP #### [facility] [address] [place] [address] Dr. Derek Mcmillan VLDL CALC 23.8 mg/dL Normal [facility] Comment on above: Performed By: #### T LOTUS, LIPID, CMP #### [facility] [address] [place] [address] Dr. Derek Mcmillan PROF 14(COMP METB)on 023 Albumin [Mass/Vol] 3.8 g/dL Normal 3.4-5.0 [facility] Comment on above: Performed By: #### T LOTUS, LIPID, CMP #### [facility] [address] [place] [address] Dr. Derek Mcmillan Albumin/Globulin [Mass ratio] 1.1 {ratio} Normal [facility] Comment on above: Performed By: #### T LOTUS, LIPID, CMP #### [facility] [address] [address] [address] Derek Mcmillan ALP [Catalytic activity/Vol] 30 U/L Critically low 46-[address] [facility] Comment on above: Performed By: #### T SH, LIPID, CMP #### [facility] [address] [place] [address] Dr. Derek Mcmillan ALT [Catalytic activity/Vol] 21 U/L Normal 14-[address] [facility] Comment on above: Performed By: #### T SH, LIPID, CMP #### [facility] [address] [place] [address] Dr. Derek Mcmillan Anion gap [Moles/Vol] 12.4 mmol/L Normal [facility] Comment on above: Performed By: #### T LOTUS, LIPID, CMP #### [facility] [address] [place] [address] Dr. Derek Mcmillan AST [Catalytic activity/Vol] 15 U/L Normal 15-[address] [facility] Comment on above: Performed By: #### T LOTUS, LIPID, CMP #### [facility] [address] [place] [address] Dr. Derek Mcmillan Bilirubin [Mass/Vol] 0.6 mg/dL Normal 0.2-1.[address] [facility] Comment on above: Performed By: #### T LOTUS, LIPID, CMP #### [facility] [address] [place] [address] Dr. Derek Mcmillan Calcium [Mass/Vol] 9.1 mg/dL Normal 8.5-10.1 [facility] Comment on above: Performed By: #### T SH, LIPID, CMP #### [facility] [address] [place] [address] Dr. Derek Mcmillan Chloride [Moles/Vol] 105 mmol/L Normal 98-107 [facility] Comment on above: Performed By: #### T SH, LIPID, CMP #### [facility] [address] [place] [address] Dr. Derek Mcmillan CO2 [Moles/Vol] 25.7 mmol/L Normal 21.0-32.0 [facility] Comment on above: Performed By: #### T SH, LIPID, CMP #### [facility] [address] [address] [address] Derek Mcmillan Creatinine [Mass/Vol] 0.60 mg/dL Normal 0.55-1.[address] [facility] Comment on above: Performed By: #### T SH, LIPID, CMP #### [facility] [address] [address] [address] Derek Mcmillan EGFR-AF SWEDISH >60 Normal >=60 [facility] Comment on above: Performed By: #### T SH, LIPID, CMP #### [facility] [address] [address] [address] Derek Mcmillan EGFR-NON AF SWEDISH >60 Normal >=[address] [facility] Comment on above: Performed By: #### T SH, LIPID, CMP #### [facility] [address] [address] [address] Derek Mcmillan Globulin (S) [Mass/Vol] 3.5 g/dL Normal [facility] Comment on above: Performed By: #### T SH, LIPID, CMP #### [facility] [address] [address] [address] Derek Mcmillan Glucose [Mass/Vol] 88 mg/dL Normal 74-106 [facility] Comment on above: Performed By: #### T SH, LIPID, CMP #### [facility] [address] [address] [address] Derek Mcmillan Potassium [Moles/Vol] 4.1 mmol/L Normal 3.5-5.1 [facility] Comment on above: Performed By: #### T SH, LIPID, CMP #### [facility] [address] [address] [address] Derek Mcmillan Protein [Mass/Vol] 7.3 g/dL Normal 6.4-8.2 [facility] Comment on above: Performed By: #### T SH, LIPID, CMP #### [facility] [address] [address] [address] Derek Mcmillan Sodium [Moles/Vol] 139 mmol/L Normal 136-145 [facility] Comment on above: Performed By: #### T SH, LIPID, CMP #### [facility] [address] [place], [place] [address] Dr. Derek Mcmillan Urea nitrogen [Mass/Vol] 11.0 mg/dL Normal 7.0-18.[address] [facility] Comment on above: Performed By: #### T SH, LIPID, CMP #### [facility] [address] [place], [place] [address] Dr. Derek Mcmillan Urea nitrogen/Creatinin e [Mass ratio] 18.3 mg/mg Normal [facility] Comment on above: Performed By: #### T LOTUS, LIPID, CMP #### [facility] [address] [address] [address] Derek Mcmillan TSHon 09-07-2022 TSH 1.723 uIU/mL Normal 0.358-3.740 [facility] Comment on above: Performed By: #### T LOTUS, LIPID, CMP #### [facility] [address] [address] [address] Derek Mcmillan MG MAMM SCREEN 3D MALLORY CADon 08-29-2022 MG MAMM SCREEN 3D MALLORY CAD Patient: ADIA MENDOZA Exam Date: 08/29/2022 : 1975 Gender:F Ordering : DR ZULEYMA LING Admission #: [id number] Family : Order #: [id number] CLICK HERE TO VIEW EXAM RADIOLOGY REPORT [...] Treatments None Family Cancers None LOCATION: [facility] BREAST COMPOSITION: Scattered areas fibroglandular density. [...] Muro M.D. 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 Thanks, GRETA Luis RN 08/22/2021 11:02 AM Signed Informed pt of Dr Olea's message. Pt verbalized understanding and denies further needs at this time. Scan and lab results sent to PCP and Dr Nicholas. Morena Luis RN Allergies As of Date: 08/19/2021 (No Known Allergies) Date Reviewed: 08/02/2021 Reviewed by: Cati Smith - Fully Assessed Reason for Visit: [...] Status:Closed by MORENA LUIS on 08/22/21 Normal [facility] CT ABD/PEL W IVCONon 022 CT ABD/PEL W IVCON * * *Final Report* * * DATE OF EXAM: Aug 16 2021 11:33AM [facility] 0530 - CT ABD/PEL W IVCON / [...] chest CT performed will be reported separately. Button Tufting Machine Operator (topogram) images: No additional findings. IMPRESSION: 1. [...] any questions regarding this interpretation, please call [phone]. If you are unable to reach us at the number above, please feel free to contact [facility] at [phone]. [id number] N Normal [facility] CT Abdomen and Pelvis W cont rast Tol[place] 08-16-2021 IMPRESSION: 1. No acute process noted in [...] any questions regarding this interpretation, please call [phone]. If you are unable to reach us at the number above, please feel free to contact [facility] at [phone]. DIVISION OF RADIOLOGY * * *Final Report* * * DATE OF EXAM: Aug 16 2021 11:33AM [facility] 0530 - CT ABD/PEL W IVCON / [...] chest CT performed will be reported separately. Button Tufting Machine Operator (topogram) images: No additional findings. DIVISION OF RADIOLOGY Provider, [facility] - 08/16/2021 * * *Final Report* * * DATE OF EXAM: Aug 16 2021 11:33AM [facility] 0530 - CT ABD/PEL W IVCON / [...] chest CT performed will be reported separately. Button Tufting Machine Operator (topogram) images: No additional findings. IMPRESSION IMPRESSION: 1. No acute process noted in [...] any questions regarding this interpretation, please call [phone]. If you are unable to reach us at the number above, please feel free to contact [facility] at [phone]. [facility] CT Abdomen and Pelvis W cont rast IVOrdered By: Ccf Provider on 08-16-[address] [facility] [address] CHEST W IVCONon 02-08-[address] CHEST W IVCON * * *Final Report* * * DATE OF EXAM: Aug 16 2021 11:33AM [facility] 0539 - CT CHEST W IVCON / [...] was performed concurrently and is reported separately. Button Tufting Machine Operator (topogram) images: No additional findings. IMPRESSION: 1. [...] any questions regarding this interpretation, please call [phone]. If you are unable to reach us at the number above, please feel free to contact [facility] at [phone]. [id number] N ACTIONABLE Invalid Interpretation Code [facility] CT Chest W contrast Tolu Interpretation and review of laboratory results Abnormal [facility] Radiology Result ACTIONABLE Abnormal [facility] Comment on above: This report contains an incidental or actionable finding. This is a new finding that is separate from the reason your provider ordered the imaging test. Because of this incidental or actionable finding, you may need another imaging test to evaluate it. Please contact your provider for the next steps. IMPRESSION: 1. No evidence of intrathoracic lymphadenopathy. [...] any questions regarding this interpretation, please call [phone]. If you are unable to reach us at the number above, please feel free to contact [facility] at [phone]. DIVISION OF RADIOLOGY * * *Final Report* * * DATE OF EXAM: Aug 16 2021 11:33AM [facility] 0539 - CT CHEST W IVCON / [...] was performed concurrently and is reported separately. Button Tufting Machine Operator (topogram) images: No additional findings. DIVISION OF RADIOLOGY Provider, [facility] - 08/16/2021 * * *Final Report* * * DATE OF EXAM: Aug 16 2021 11:33AM [facility] 0539 - CT CHEST W IVCON / [...] was performed concurrently and is reported separately. Button Tufting Machine Operator (topogram) images: No additional findings. IMPRESSION IMPRESSION: 1. No evidence of intrathoracic lymphadenopathy. [...] any questions regarding this interpretation, please call [phone]. If you are unable to reach us at the number above, please feel free to contact [facility] at [phone]. [facility] No Panel Informationon 08-16 Radiology Study observation (narrative) [facility] CNOVSPon 08-02-2021 CNOVSP Visit (SP) Office (HEMASA) ADIA MENDOZA ([id number]) 1975 F Date Time Provider Department 08/02/21 [...] pallor, JVD (more content not included)... Normal [facility] Comp Metabolic Panelon 08-02 Albumin [Mass/Vol] 4.6 g/dL Normal 3.9-4.9 [facility] ALP [Catalytic activity/Vol] 34 U/L Normal 34-123 [facility] ALT [Catalytic activity/Vol] 14 U/L Normal 7-38 [facility] Anion gap [Moles/Vol] 9 mmol/L Normal 9-18 [facility] AST [Catalytic activity/Vol] 20 U/L Normal 13-35 [facility] Bilirubin [Mass/Vol] 0.5 mg/dL Normal 0.2-1.3 [facility] Calcium [Mass/Vol] 9.3 mg/dL Normal 8.5-10.2 [facility] Chloride [Moles/Vol] 101 mmol/L Normal 97-105 [facility] CO2 [Moles/Vol] 25 mmol/L Normal 22-30 [facility] Creatinine [Mass/Vol] 0.68 mg/dL Normal 0.58-0.96 [facility] eGFR- Amer. >60 Normal [facility] eGFR-All Other Races >60 Normal [facility] Comment on above: Result Comment: eGFR (Estimated [...] [email or web address]. Glucose [Mass/Vol] 93 mg/dL Normal 74-99 [facility] Comment on above: Result Comment: The [place] [employer] (ADA) provides guidance for cutoff [...] Standards of Medical Care in Diabetes 2016, [place] Diabetes Association. Diabetes Care. 2016.39(Suppl 1). Potassium [Moles/Vol] 4.1 mmol/L Normal 3.7-5.1 [facility] Protein [Mass/Vol] 7.2 g/dL Normal 6.3-8.0 [facility] Sodium [Moles/Vol] 135 mmol/L Low 136-144 [facility] Urea nitrogen [Mass/Vol] 14 mg/dL Normal 7-21 [facility] LDon 08-02-2021 LD 169 U/L Normal 135-214 [facility] Remote CBCDIF (for [facility] use o nly)on 08-02-2021 Abs Baso 0.06 k/uL Normal <0.11 [facility] Abs Brooks 0.55 k/uL Normal <0.87 [facility] Abs Neut 6.93 k/uL Normal 1.45-7.50 [facility] Absolute nRBC <0.01 Normal <0.01 [facility] Basophils/100 WBC (Bld) 0.6 % Normal [facility] DTYPE Auto Diff Normal [facility] Eosinophils (Bld) [#/Vol] 0.10 10*3/uL Normal <0.46 [facility] Eosinophils/100 WBC (Bld) 1.0 % Normal [facility] Erythrocyte distribution width (RBC) [Ratio] 12.7 % Normal 11.5-15.0 [facility] Hematocrit (Bld) [Volume fraction] 38.7 % Normal 36.0-46.0 [facility] Hemoglobin (Bld) [Mass/Vol] 12.9 g/dL Normal 11.5-15.5 [facility] Lymphocytes (Bld) [#/Vol] 2.01 10*3/uL Normal 1.00-4.00 [facility] Lymphocytes/100 WBC (Bld) 20.8 % Normal [facility] MCH 30.7 pG Normal 26.0-34.0 [facility] MCHC (RBC) [Mass/Vol] 33.3 g/dL Normal 30.5-36.0 [facility] MCV (RBC) [Entitic vol] 92.1 fL Normal 80.0-100.0 [facility] Monocytes/100 WBC (Bld) 5.7 % Normal [facility] Neutrophils/100 WBC (Bld) 71.9 % Normal [facility] NRBCs 0.0 /100 WBC Normal 0 [facility] Platelet mean volume (Bld) [Entitic vol] 8.8 fL Low 9.0-12.7 [facility] Platelets (Bld) [#/Vol] 292 10*3/uL Normal 150-400 [facility] RBC (Bld) [#/Vol] 4.20 10*6/uL Normal 3.90-5.20 [facility] WBC (Bld) [#/Vol] 9.65 10*3/uL Normal 3.70-11.00 [facility] IntraOperative Documentson 1 07-14-2019 IntraOperative Documents [id number] .00CD:127 Normal [facility] Coding Summary.on 05-11-2020 Coding Summary. CODING DATE: 05/11/2020 FINAL [facility] STATUS: Home (Routine DC) PAYOR: Commercial [...] PROC APC STAT DESCRIPTION DOCTOR NAME DATE [id number] 5114 J1 Arthroscopy, shoulder, Pocos DO, Dillan 05/04/2020 surgical; repair of SLAP lesion RT Right side (used to identify procedures performed on the right side of the body) 47651 Arthroscopy, shoulder, Pocos DO, Dillan 05/04/2020 surgical; distal claviculectomy including distal articular surface (Guera procedure) RT Right side (used to identify procedures performed on the right side of the body) 67578 Arthroscopy, shoulder, Pocos DO, Dillan 05/04/2020 surgical; decompression of subacromial space with partial acromioplasty, with coracoacromial ligament (ie, arch) release, when performed (List separately in addition to code for primary procedure) RT Right side (used to identify procedures performed on the right side of the body) 94648 Injection(s), anesthetic Mingo Owen JR, DO 05/04/2020 agent(s) and/or steroid; brachial plexus RT Right side (used to identify procedures performed on the right side of the body) XP Separate practitioner, a service that is distinct because it was performed by a different practitioner 38439 Anesthesia for open or Mingo Owen JR, [...] Brumfield Revised Date Saved: 05/11/2020 03:00 pm [facility] Main OR Intraoperative Recor don 05-11-2020 Main OR Intraoperative Record [facility] Consent for Anesthesiaon Consent for Anesthesia [id number] .00CD:127 [facility] Discharge Instructionson Discharge Instructions [id number]#1 .00CD:127 [facility] H&P Updateon 05-05-2020 H&P Update [id number]#1 .00CD:127 [facility] IntraOperative Documentson 1 IntraOperative Documents [id number]#1 .00CD:127 [facility] IntraOperative Documents [id number]#1 .00CD:127 [facility] Preoperative Documentson Preoperative Documents [id number]#1 .00CD:127 [facility] B hCG Qualon 05-04-2020 Beta hCG Ql Negative [facility] Comment on above: Performed By: #### 2 [id number] ####[facility] [address] [place] [address] H&P Updateon 05-04-2020 H&P Update [id number]#1. 00CD:127 [facility] Inpatient Patient Summaryon 05-04-2020 Inpatient Patient Summary [address] [address] [facility] Clinical Discharge Instructions PERSON INFORMATION Name: ADIA MENDOZA [facility]#:[id number] PHYSICIANS Admitting Physician: Jason Tarango DO Attending Physician: Jason Tarango DO PCP: MARIANNE MCDOWELL DO Discharge Diagnosis: Comment: PATIENT EDUCATION INFORMATION Instructions: Post Op Patient Instructions - FT (CUSTOM); Shoulder Cryocuff Patient Instructions - FT (CUSTOM); Pocos - After Your Shoulder Arthroscopy, Revised 08/06/14 (Custom) Medication Leaflets: Follow up: MEDICATION LIST New Medications [id number], [address], [place] [phone], [phone] acetaminophen-oxycodo ne (Percocet 325 mg-5 mg Tab) [...] 1 Tablets By Mouth every day. Comment: Froy [facility] Main OR PACU I Recordon 04-09 Main OR PACU I Record PACU Phase I Document Type FT Summary Primary Physician: Jasno Tarango DO Finalized Date/Time: 05/04/20 09:50:43 Pt. Name: HUNTER MENDOZAReuben Us/Sex: 1975 Female Med Rec #: [id number] Physician: Jason Tarango DO Financial #: [id number] Pt. Type: A Room/Bed: AS02/ Admit/Disch: 05/04/20 [...] By: Boo Stanton RN 05/04/20 09:50 Normal [facility] Main OR PACU II Recordon Main OR PACU II Record PACU Phase II Document Type FT Summary Primary Physician: Jason Tarango DO Finalized Date/Time: 05/04/20 12:47:31 Pt. Name: ADIA MENDOZA/Sex: 1975 Female Med Rec #: [id number] Physician: Jason Tarango DO Financial #: [id number] Pt. Type: A Room/Bed: [facility]/ Admit/Disch: 05/04/20 06:01:37 - Institution: Case Times [...] Signed By: Karin Bal RN 05/04/20 12:47 Normal [facility] Main OR Preoperative Recordo n 05-04-2020 Main OR Preoperative Record PreOp Document Type FT Summary Primary Physician: Jason Tarango DO A Finalized Date/Time: 05/04/20 08:03:16 Pt. Name: ADIA MENDOZA /Sex: 1975 Female Med Rec #: [id number] Physician: Jason Tarango DO Financial #: [id number] Pt. Type: A Room/Bed: 02/ Admit/Disch: 05/04/20 [...] By: Kayli Lutz RN 05/04/20 08:03 Normal [facility] Operative Reporton 0 Operative Report Date of [...] Mingo Owen Jr., D.O. lkr Dictated: 05/04/2020 #[id number] Typed: 05/04/2020 #[id number] cc: Mingo Owen Jr., D.O. [facility] Comment on above: Result Comment: Elec tronically Signed By: Mingo Owen JR, DO\.br\Date and Time Signed: 05/04/20 16:24 EDT Operative Report Date of Surgery: 05/04/2020 SURGEON: Jason Tarango D.O. BOAT CAMP OPERATOR: Kiko Matias CST PREOPERATIVE DIAGNOSIS: Right shoulder impingement, acromioclavicular joint osteoarthritis with partial-thickness rotator cuff tear POSTOPERATIVE DIAGNOSIS: Right shoulder impingement, acromioclavicular joint osteoarthritis with partial-thickness rotator cuff tear in addition to superior labral tear from anterior to posterior OPERATION: Right shoulder arthroscopy with subacromial decompression, partial distal claviculectomy and arthroscopic anterior superior labral repair ANESTHESIA: Interscalene block, general ANESTHESIOLOGIST: Mingo Owen Jr., Tierney ESTIMATED BLOOD LOSS: None SPECIMEN: None IMPLANT: [...] immobilizer. She is extubated, transferred to the [facility] and taken to Post-Anesthesia Care Unit in stable condition. She will be discharged this day. Jason Tarango D.O. gls Dictated: 05/04/2020 #[id number] Typed: 05/04/2020 #[id number] cc: Tierney Henson D.O. [facility] Comment on above: Result Comment: Elec tronically Signed By: Jason Tarango DO\.br\Date and Time Signed: 05/04/20 11:56 EDT Outpatient Surgery Discharge Instructionon 05-04-2020 Outpatient Surgery Discharge Instruction [place] [address] Patient Discharge Instructions PERSON INFORMATION Name: HUNTER MENDOZAN Date of : 1975 Current Date: 05/04/2020 10:10:37 PHYSICIANS Admitting Physician: Jason Tarango DO Discharge Diagnosis: ADIA MENDOZA has been given the following list of follow-up instructions, prescriptions, and patient education materials: IF UNABLE TO CONTACT YOUR PHYSICIAN AND YOU FEEL IT IS AN EMERGENCY, GO TO THE NEAREST EMERGENCY ROOM OR CALL 911 I, ADIA MENDOZA, have received the attached patient education materials/instruction s and have verbalized understanding: May we do a follow up call? Yes No I was present when discharge instructions were given Patient Signature Date Clinican/Nurse Signature Date Follow up: Pharmacy Information: Thank you for choosing [facility] HERE ARE THE MEDICATION CHANGES THAT OCCURRED DURING YOUR HOSPITAL STAY New Medications [id number], [address], [place] [phone], [phone] acetaminophen-oxycodo ne (Percocet 325 mg-5 mg Tab) [...] Mouth every day. PATIENT EDUCATION INFORMATION Instructions: [place] [facility] AFTER YOUR SHOULDER ARTHROSCOPY [...] questions arise before your appointment. Jason Tarango, [facility] [address], [place] [address] Reviewed: 07-23 Revised 07-23 Normal [facility] Patient Education - Texton 1 Patient Education - Text [place] [facility] AFTER YOUR SHOULDER ARTHROSCOPY [...] your appointment. Jason Tarango DO [facility] [address] [place] [address] Reviewed: 07-23 Revised 07-23 [facility] Progress Note-Physicianon Progress Note-Physician Patient: ADIA MENDOZA Age: 45 years Sex: Female : 1975 Associated Diagnoses: None Author: Jason Tarango DO Postoperative Information Procedure: R shoulder scope, labral repair Preoperative Diagnosis: R shoulder SLAP, IS. Postoperative Diagnosis: Same. Performed by: akash. Circular Tank Cooper: mary. Specimens Removed: none. Estimated Blood Loss: 0 ml. Complications: None. [facility] Comment on above: Result Comment: Elec tronically [...] kg, 04/21/20 6:42:00 EDT,... Documented Medications Documented Ruben : 1 tab(s), Oral, Daily, Refill(s) 0, [...] Problems Chronic tension headache / SNOMED CT 297561501 / Confirmed Impingement syndrome of right shoulder / SNOMED CT 470538406 / Confirmed, Active Problems (2) Chronic tension headache Impingement syndrome of right shoulder Histories Past Medical History: No active or resolved past medical history items have been selected or recorded. Family History: No family history items have been selected or recorded. Procedure history: Arthroscopy of knee (587933885). Excision of lesion of skin (07512972). Comments: 04/20/2020 13:39 JOELLENT - Erick LOZADA, Angelica basal cell carcinoma of back Social History Social & Psychosocial Habits Alcohol 04/20/2020 Risk Assessment: Denies Alcohol Use Substance Abuse 04/20/2020 Risk Assessment: Denies Substance Abuse Tobacco 04/20/2020 Risk Assessment: Denies Tobacco Use . Physical Examination Vital Signs (last 24 hrs) Last Charted Temp Oral 37 DegC (MAY 04 06:26) Heart Rate Apical 83 bpm (MAY 04:) SBP 121 mmHg (MAY 04 06:28) DBP 80 mmHg (MAY 04:28) SpO2 100 % (MAY 04:) Airway: Normal oral/pharyngeal anatomy.. Respiratory: Adequate air exchange.. Cardiovascular: Adequate perfusion and function. Review / Management Results review: No qualifying data available . Plan [place] [employer]esthesiologists (ASA) physical status classification: Class I. Anesthetic Preoperative Plan Anesthesia: General. , Regional Interscalene Block. Anesthetic plan, risks, benefits, and alternatives discussed with the patient and/or family. Pt. and/or family present and agree to proceed as planned.. Discussed the importance of abstaining from tobacco products, and offered counseling if desired. [facility] Comment on above: Result Comment: Elec tronically Signed By: Mingo Owen JR, DO.rafa\Date and Time Signed: 05/04/20 08:01 EDT Consent for Procedure/Surger yon 05-03-2020 Consent for Procedure/Surgery [id number]# 1.00CD:127 Normal [facility] History and Physicalon 05-03 History and Physical [id number]# 1.00CD:127 Normal [facility] Coding Summary.on 05-02-2020 Coding Summary. CODING DATE: 05/02/2020 FINAL [facility] STATUS: Home (Routine DC) PAYOR: Commercial [...] Medina CphT Date Saved: 05/02/2020 06:54 pm [facility] Priority Order-Marissa 2019 Priority Order-STAT Comment [facility] Comment on above: Result Comment: Rece ived Performed at: [facility] [address] [facility], [place] [id number] MD Go Vann Performed By: #### 2 [id number], SARS-CoV-2, SHANE ####[facility] [address] [place] [address] SARS-CoV-2, NAAon 04-29-2020 SARS CORONAVIRUS 2 RNA:PRTHR:PT:RESPI RATORY:ORD:PROBE.A MP.TAR Not Detected Not Detected [facility] Comment on above: Result Comment: This nucleic acid amplification test was developed and its performance characteristics determined by [employer]. Nucleic acid amplification tests include PCR and [...] detected) result in this assay. Performed at: [facility] [address] [facility] [place] [id number] MD Go Vann Performed By: #### 2 [id number], SARS-CoV-2, SHANE #### [facility] [address] [place] [address] Coding Summary.on 04-21-2020 Coding Summary. CODING DATE: 04/21/2020 FINAL [facility] STATUS: Home (Routine DC) PAYOR: Commercial [...] in slightly different terminology. Coded By: Erica Mdeina CphT Date Saved: 04/21/2020 11:44 am Normal [facility] BUNon 04-20-2020 Urea nitrogen [Mass/Vol] 19 mg/dL Normal 5-21 [facility] Comment on above: Performed By: #### 1 [id number], 8790357, 2297031, 9938906, 2130869 ####[facility] [address] [place] [address] CBC w/Indiceson 04-20-2020 Erythrocyte distribution width (RBC) [Ratio] 12.7 % Normal 10.9-14.2 [facility] Comment on above: Performed By: #### 1 6260359, 6952611, 6244922, 6982284, 8746442 ####[place] [address] [place] [address] Hematocrit (Bld) [Volume fraction] 36.5 % Normal 34.0-46.0 [facility] Comment on above: Performed By: #### 1 2511662, 5035979, 6581162, 4296846, 9045187 ####[address] [place] [address] Hemoglobin (Bld) [Mass/Vol] 12.4 g/dL Normal 12.0-16.0 [facility] Comment on above: Performed By: #### 1 5523304, 5788110, 0608678, 8404749, 5966674 ####[facility] [address] [place] [address] MCH (RBC) [Entitic mass] 31.0 pg Normal 27.0-34.0 [facility] Comment on above: Performed By: #### 1 5123325, 5543342, 5010224, 0607753, 9295957 ####[address] [place] [address] MCHC (RBC) [Mass/Vol] 33.9 g/dL Normal 31.4-36.0 [facility] Comment on above: Performed By: #### 1 3378981, 0916991, 9838338, 2308505, 4494156 ####[address] [place] [address] MCV (RBC) [Entitic vol] 91.2 fL Normal 80.0-100.0 [facility] Comment on above: Performed By: #### 1 2438216, 6745569, 8995834, 7848956, 2989488 ####[facility] [address] [place] [address] Platelet mean volume (Bld) [Entitic vol] 7.5 fL Normal 6.4-10.8 [facility] Comment on above: Performed By: #### 1 0382196, 9806922, 5563026, 7658564, 2988959 ####[facility] [address] [place] [address] Platelets (Bld) [#/Vol] 322.0 E9/L Normal 150.0-500.0 [facility] Comment on above: Performed By: #### 1 6778036, 3955076, 5710645, 4959385, 1601393 ####[address] [place] [address] RBC (Bld) [#/Vol] 4.0 E12/L Low 4.3-5.9 [facility] Comment on above: Performed By: #### 1 8212139, 0317444, 4586007, 6034985, 2910904 ####[facility] [address] [place] [address] WBC corrected for nucl RBC Auto (Bld) [#/Vol] 7.2 E9/L Normal 4.0-11.0 [facility] Comment on above: Performed By: #### 1 6154358, 8598592, 5743559, 0345428, 4529459 ####[address] [place] [address] Consent for Treatmenton 04-08 Consent for Treatment [id number] .00CD:127 Normal [facility] Creatinineon 04-20-2020 Creatinine [Mass/Vol] 0.7 mg/dL Normal 0.5-1.3 [facility] Comment on above: Performed By: #### 1 2488143, 8801205, 7689715, 3946568, 5835917 ####[address] [place] [address] Lyteson 04-20-2020 Anion gap [Moles/Vol] 12 mmol/L Normal 6-16 [facility] Comment on above: Performed By: #### 1 1192294, 6397666, 4274572, 4316879, 4431983 ####[facility] [address] [place] [address] Chloride [Moles/Vol] 105 mmol/L Normal 101-111 [facility] Comment on above: Performed By: #### 1 0655051, 9214949, 4843718, 6335722, 4182257 ####[facility] [address] [place] [address] CO2 [Moles/Vol] 24 mmol/L Normal 21-31 [facility] Comment on above: Performed By: #### 1 5286665, 6384478, 9217485, 4346228, 8094714 ####[facility] [address] [place] [address] Potassium [Moles/Vol] 3.9 mmol/L Normal 3.5-5.3 [facility] Comment on above: Performed By: #### 1 8022344, 8342914, 7285251, 9378841, 5522740 ####[facility] [address] [place] [address] Sodium [Moles/Vol] 137 mmol/L Normal 135-145 [facility] Comment on above: Performed By: #### 1 4270722, 5935535, 8937986, 6550623, 7162714 ####[facility] [address] [place] [address] eGFRon 04-20-2020 GFR/1.73 sq M predicted among blacks MDRD (S/P/Bld) [Vol rate/Area] mL/min/{1.73_m2} Normal >=59 [facility] Comment on above: Order Comment: Order added by Discern Expert. Result Comment: eGFR is race adjusted. AA=. Performed By: #### 1 8944355, 8585430, 3660871, 1896920, 3598928 ####[facility] [address] [place] [address] GFR/1.73 sq M predicted among non-blacks MDRD (S/P/Bld) [Vol rate/Area] mL/min/{1.73_m2} Normal >=59 [facility] Comment on above: Order Comment: Order added by Discern Expert. Result Comment: Cattle Dehorner rafael kidney disease could be indicated at eGFR's of less than 60 mL/min/1.73m2. Kidney failure is indicated at less than 15 mL/min/1.73m2. Performed By: #### 1 5889435, 0978519, 9853899, 6045380, 3942170 ####[facility] [address] [place] [address] Physician Orderon 04-02-2020 Physician Order [id number]# 1.00CD:127 Normal [facility] Physician Orderon 03-31-2020 Physician Order [id number]#1 .00CD:127 Normal [facility] MRI Shoulder w/o Contrast [facility] 03-03-2020 MRI Shoulder w/o Contrast Right [...] IGNACIO Technologist: MICHAEL Technical Comments None Normal [facility] Coding Summary.on 03-02-2020 Coding Summary. CODING DATE: 03/02/2020 FINAL [facility] STATUS: Home (Routine DC) PAYOR: Commercial [...] Medina CphT Date Saved: 03/02/2020 04:22 pm Normal [facility] Consent for Treatmenton 02-07 Consent for Treatment [id number] .00CD:127 Normal [facility] RAD - MRI Screening Formon 0 03-01-2020 RAD - MRI Screening Form [id number]#1 .00CD:127 Normal [facility] Physician Orderon 02-19-2020 Physician Order [id number]# 1.00CD:127 Normal [facility] Vital Signs Date Time Vital Sign Value Performing Clinician Facility 07-10-2023 12:40-0500 Body height 162.56 cm Kimmy Chan [employer] Other 07-10-2023 12:40-0500 Body mass index (BMI) [Ratio] 29.76 kg/m2 Kimmy Duron Other [employer] Other 07-10-2023 12:40-0500 Body temperature 98.4 [degF] Kimmy Duron Other [employer] Other 07-10-2023 12:40-0500 Body weight 78.65 kg Kimmy Duron Other [employer] Other 07-10-2023 12:40-0500 Respiratory rate 18 /min Kimmy Duron Other [employer] Other 07-10-2023 12:40-0500 SaO2% (BldA) [Mass fraction] 99 % Kimmy Duron Other [employer] Other 02-15-2023 08:54-0400 Diastolic blood pressure 70 mm[Hg] DO Marianne Petznick Work Phone: [facility] 02-15-2023 08:54-0400 Heart rate 69 /min DO Marianne Petznick Work Phone: [facility] 02-15-2023 08:54-0400 Respiratory rate 16 /min DO Marianne Petznick Work Phone: [facility] 02-15-2023 08:54-0400 SaO2% (BldA) [Mass fraction] 100 % DO Marianne Petznick Work Phone: [facility] 02-15-2023 08:54-0400 Systolic blood pressure 105 mm[Hg] DO Marianne Petznick Work Phone: [facility] 02-15-2023 07:24-0400 Body height 162.56 cm DO Marianne Petznick Work Phone: [facility] 02-15-2023 07:24-0400 Body weight 77.11 kg DO Marianne Petznick Work Phone: [facility] Encounters Encounter Date Encounter Type Care Provider Facility Start: 07-10-2023 End: 07-10-2023 ambulatory Kimmy Duron Other [facility] [employer] Other Start: 07-10-2023 Office outpatient vi sit 25 minutes Kimmy Duron [facility] Start: 06-19-2023 End: 06-19-2023 ambulatory MARIANNE MCDOWELL Not Available Start: 05-24-2023 End: 05-24-2023 ambulatory ZULEYMA LING Not Available Start: 02-15-2023 End: 02-15-2023 ambulatory Musa Marrufo Facility:[facility] Start: 02-15-2023 End: 02-15-2023 Admission to same day surgery center DO Marianne Petznick Work Phone: [facility] Work Phone: Start: 02-15-2023 End: 02-15-2023 ambulatory DO Marianne Petznick Work Phone: [facility] Work Phone: Start: 09-22-2022 End: 09-23-[address] MARIANNE MCDOWELL Facility:[facility] Start: 09-11-2022 Encounter for genera l adult medical examination without abnormal findings DR MARIANNE MCDOWELL [facility] Start: 09-07-2022 End: 09-08-[address] MARIANNE MCDOWELL Facility:[facility] Start: 09-07-2022 End: 09-08-2022 Encounter for general adult medical examination without abnormal findings DR MARIANNE MCDOWELL Facility:[facility] Start: 08-29-2022 End: 08-30-[address] ZULEYMA LING Facility:[facility] Start: 08-16-2021 End: 08-16-2021 Subsequent hospital visit by physician Arrival Time Radiology Work Phone: Radiology [facility] Comment on above: Lymphadenopathy [R59 .1] Procedures Date Procedure Procedure Detail Performing Clinician Start: 02-15-2023 Screening colonoscopy D O Marianne Mcdowell Work Phone: Start: 08-16-2021 Ct abdomen & pelvis w/contrast material Zuleyma Olea MD Work Phone: Start: 08-16-2021 Ct thorax w/contrast material Zuleyma Olea MD Work Phone: Plan of Treatment Date Care Activity Detail Author Start: 08-02-2024 Diabetes Screening Diabetes Screenin g [facility] Start: 03-09-2024 Covid-19 Vaccine () Covid-19 Vaccine () [facility] Start: 03-09-2024 Influenza vaccination Influenza Vacc ine (#1) [facility] Start: 02-15-2023 [facility] Start: 02-24-2020 Lipid panel Lipid Screening [facility] Start: 02-24-2020 Screening for malign ant neoplasm of colon [facility] Start: 2015 Screening for malign ant neoplasm of breast Mammogram Screening [facility] Start: 02-24-1996 Screening for malign ant neoplasm of cervix Cervical Cancer Screening [facility] Start: 1994 Hepatitis B Vaccine (1 of 3 - 19+ 3-dose series) Hepatitis B Vaccine (1 of 3 - 19+ 3-dose series) [facility] Start: 1994 Urine microalbumin profile DTaP,Tdap,Td Vaccine (1 - Tdap) [facility] Start: 1993 Anxiety Screening Anxiety Screening [facility] Start: 1993 Depression Screening Depression Scre ening [facility] Start: 1993 Hepatitis C screening Hepatitis C Sc reening [facility] Start: 1993 HIV screening HIV Screening [facility] Immunizations Immunization Date Immunization Notes Care Provider Fa gersonty 05-06-2021 influenza, injectabl e, quadrivalent, preservative free [facility] Work Phone: [facility] 05-06-2021 influenza virus vacc ine, unspecified formulation [facility] Work Phone: [facility] 04-05-2020 influenza, injectabl e, quadrivalent, preservative free [facility] Work Phone: [facility] 03-24-2019 influenza, injectabl e, madin rajan canine kidney, preservative free [facility] Work Phone: [facility] 03-07-2019 Influenza, injectabl e, Madin Rajan Canine Kidney, preservative free, quadrivalent [facility] Work Phone: [facility] 06-20-2011 seasonal influenza, intradermal, preservative free [facility] Work Phone: [facility] Payers Date Payer Category Payer Self-pay 2019 Private Health Insurance ROSALBA LARES POS [id number] 2019-Present [phone] [address] [place] [address] POS [id number] 1975 Unknown [id number] 1975 Unknown [id number] 1975 Unknown [id number] 1975 Unknown [id number] 1975 Unknown [id number] 1959 Private Health Insurance [id number] Private Health Insurance [id number] Unknown Jenna JACKSON/CRYSTAL [id number] Unknown [id number] Social History Date Type Detail Facility Start: 06-08-2017 End: 02-15-2023 Tobacco smoking status NHIS Never smoked tobacco (finding) [facility] Start: 1975 Sex Assigned At Female F [facility] Start: 08-02-2021 Sex Assigned At [facility] [employer] Other Start: 06-08-2017 Tobacco use and exposure Smokeless tobacco non-user [facility] Start: 08-02-2021 Alcoholic beverage intake Current non-drinker of alcohol (finding) [facility] Start: 08-02-2021 History of Social function [facility] Start: 1975 Sex assigned at Not on file C [facility] Start: 07-17-2021 End: 08-16-2021 Exposure to SARS-CoV-2 (event) Not sure [facility] Goals Date Patient Goal Desired Activity /State [...] treatment plan. Patient left in stable condition. [employer] Other Procedure note 02-15-2023 Note Date & Type Note Facility 02-15-2023 Procedure note [facility] Progress note 08-16-2021 Note Date & Type Note Facility 08-16-2021 Note HNO ID: [id number] Author: Sarah Arnett RN Service: ? Author [...] DATE: August 16, 2021 TIME: 10:58 AM [facility] History of Present illness Narrative 08-16-2021 Sarah Arnett RN - 08/16/2021 10:45 AM EST Note Date & Type Note Facility 08-16-2021 History of Presen t illness Narrative Radiology Service Progress Note DATE OF SERVICE: [...] visit the [employer] website at kidney.org/professionals/kdoqi/gfr_c alculator. eGFR- Date Value Ref Range Status 08/02/2021 [...] DATE: August 16, 2021 TIME: 10:58 AM documented in this encounter [facility] Progress note 08-02-2021 Note Date & Type Note Facility 08-02-2021 Note HNO ID: [id number] Author: Zuleyma Olea MD Service: ? Author [...] taking: Reported on 07/18/2021 ) - ALYACEN 135, 28, 1-35 mg-mcg per tablet (Patient not [...] - COLONOSCOPY 2009 colon polyps - COLONOSCOPY 2012 diverticulosis - PAST SURGICAL HISTORY OF Skin [...] ABDOMEN: Negative for (more content not included)... [facility] Evaluation note Note Date & Type Note Facility Evaluation note No assessment information availa [facility] Work Phone: Evaluation note Note Date & Type Note Facility Evaluation note Diagnosis Lymphadenopathy Enlargement of lymph nodes documented in this encounter [facility] History and physical note Note Date & Type Note Facility History and physical note Note Date/Time February 15, 2023 8:06am [facility] [address] [place] [address] Gastroenterology H&P Signed Patient: Adia Mendoza MR#: [id number] : 1975 Acct:[id number] Age/Sex: 47 / F Adm Date: 3 Loc: Room: Type: [facility] Attending Dr: Musa Marrufo MD Copies to: [...] <Electronically signed by Musa Marrufo MD> 02/15/23805 [facility] Work Phone: History general Narrative - Reported Note Date & Type Note Facility History general Narrative - Reported Type Medical History Basal cell carcinoma on face and leg Surgical History Right knee arthroscopy Hospitalization History See past surgical hx [employer] Other Hospital Discharge instructions Note Date & [...] years. -Follow up with PCP. -Office number [phone]. [facility] Work Phone: Summary Purpose Family History Relationship Condition Age at Onset Recorded Date/T adrianna Not Specified No pertinent family history Unknown Advance Directives Advance Directive Response Recorded Date/ Time Advance Directives No February 12, 2 023 4:09pm Chief Complaint and Reason for Visit Chief Complaint Screening Reason for Referral Specialty Diagnoses / Procedures Referred By Vipul platt Referred To Contact CT IMAGING Diagnoses Lymphadenopathy Procedures CT CHEST W IVCON DIAGNOSTIC COMPUTED TOMOGRAPHY THORAX W/CONTRAST Zuleyma Olea MD [address] [place] [address] [place] [address] Ct Imaging [facility] Referral ID Status Reason Start Date Expiration Date V isits Requested Visits Authorized [id number] Closed Auto-Generate d Referral 08/02/2021 09/01/2022 1 1 Specialty Diagnoses / Procedures Referred By Vipul platt Referred To Contact CT IMAGING Diagnoses Lymphadenopathy Procedures CT ABD/PEL W IVCON CT ABD & PELVIS W/CONTRAST Zuleyma Olea MD [address] [place] [address] [place] [address] [place] [address] Referral ID Status Reason Start Date Expiration Date V isits Requested Visits Authorized [id number] Closed Auto-Generate d Referral 08/02/2021 09/01/2022 1 1 Additional Source Comments INFORMATION SOURCE (unrecogn ized section and content) DATE CREATED AUTHOR 05/14/2020 Tony Joseph [facility] DATE CREATED AUTHOR AUTHOR'S ORGANIZ ATION 09/28/2021 [facility] DATE CREATED AUTHOR AUTHOR'S ORGANIZ ATION 10/01/2022 [facility] DATE CREATED AUTHOR AUTHOR'S ORGANIZ ATION 02/22/2023 [facility] DATE CREATED AUTHOR AUTHOR'S ORGANIZ ATION 06/21/2023 [facility] [employer] Care Teams (unrecognized sec tion and content) Team Status: Active Member Role Status Dates Marianne Mcdowell DO Primary Care Provider Active Team Status: Inactive Member Role Status Dates Marianne Mcdowell DO Primary Care Provider Active Musa Marrufo MD Attending Provider Active 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 Specialty Start Date End Date Marianne Mcdowell [address] [place] [id number] PCP - General Family Medicine 05/22/17 REASON FOR VISIT (unrecogniz ed section and content) Specialty Diagnoses / Procedures Referred By Vipul t Referred To Contact CT IMAGING Diagnoses Lymphadenopathy Procedures CT CHEST W IVCON DIAGNOSTIC COMPUTED TOMOGRAPHY THORAX W/CONTRAST Zuleyma Olea MD [address] [place] [address] [place] [address] [place] [address] Referral ID Status Reason Start Date Expiration Date V isits Requested Visits Authorized [id number] Closed Auto-Generate d Referral 08/02/2021 09/01/2022 1 1 Source Comments (unrecognize d section and content) In the event this informatio n is protected by the Federal Confidentiality of Alcohol and Drug Abuse Patient Records regulations: The Federal rules restrict any use of the information to criminally investigate or prosecute any alcohol or drug abuse patient.[facility] FOR RECORDS PERTAINING TO PATIENTS WHO ARE [...] BE BASED ON THE PRIMARY CLINICAL RECORDS. [facility] [employer] provides no warranty or guarantee of the accuracy or completeness of information in this document.
[2024-05-22 10:13] LABS: Basophils Absolute Auto 0.1 10^3/uL (0.0-0.1); Basophils Percent Auto 0.7 % (0.2-2.0); Eosinophils Absolute Auto 0.1 10^3/uL (0.0-0.7); Eosinophils Percent Auto 0.7 % (0.9-7.0); Hematocrit 38.9 % (36.0-48.0); Hemoglobin 12.8 g/dL (12.0-16.0); Immature Granulocytes Abs Auto 0.02 10^3/uL (0.00-0.03); Immature Granulocytes Pct Auto 0.2 % (0.0-0.5); Lymphocytes Absolute Auto 2.1 10^3/uL (1.2-3.8); Lymphocytes Percent Auto 25.8 % (20.5-60.0); Mean Corpuscular HGB Conc 32.9 g/dL (29.9-35.2); Mean Corpuscular Hemoglobin 30.4 pg (26.7-34.0); Mean Corpuscular Volume 92.4 fL (81.0-99.0); Mean Platelet Volume 9.1 fL (9.5-13.5); Monocytes Absolute Auto 0.6 10^3/uL (0.3-0.8); Monocytes Percent Auto 7.6 % (1.7-12.0); Neutrophils Absolute Auto 5.3 10^3/uL (1.4-6.5); Platelet Count 283 10^3/uL (150-450); Red Blood Count 4.21 10^6/uL (4.20-5.40); Red Cell Distribution Width 12.7 % (11.0-15.0); White Blood Count 8.1 10^3/uL (4.0-11.0)
[2024-05-22 11:00] LABS: Alanine Aminotransferase 33 U/L (14-59); Albumin Level 3.7 g/dL (3.4-5.0); Alkaline Phosphatase 40 U/L (46-116); Anion Gap 15.7; Aspartate Amino Transferase 26 U/L (15-37); BUN Creatinine Ratio 17.8; Bilirubin Total 0.8 mg/dL (0.2-1.0); Calcium 8.7 mg/dL (8.5-10.1); Carbon Dioxide 25.5 mmol/L (21.0-32.0); Chloride 105 mmol/L (98-107); Chol HDL Ratio 2.9; Cholesterol 217 mg/dL (<=200); Estimated GFR (African America >60 (>=60 mL/min/1.73m^2); Estimated GFR (Non-African Ame >60 (>=60 mL/min/1.73m^2); Globulin 3.6 g/dL; Glucose 100 mg/dL (74-106); HDL Cholesterol 76 mg/dL (40-60); Potassium 4.2 mmol/L (3.5-5.1); Sodium 142 mmol/L (136-145); Total Protein 7.3 g/dL (6.4-8.2); Triglycerides 143 mg/dL (<=150); VLDL CHOLESTEROL 28.6 mg/dL
== END 2024-05-22 09:54 | disposition home or self-care (01) ==
LOC: LAB 09:53
PROVIDERS: Visit Provider Family Medicine
DX: Z00.00 Encounter for general adult medical examination without abnormal findings (principal); D64.9 Anemia, unspecified; R63.5 Abnormal weight gain
CPT/HCPCS: 36415; 80053; 80061; 85025

== ENCOUNTER 2024-07-15 07:59 | Outpatient (OUT) | payer OTHER, SELFPAY ==
--- NOTE | 2024-07-15 08:00 | ECG_ITS ---
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
[2024-07-15 08:49] LABS: Basophils Absolute Auto 0.1 10^3/uL (0.0-0.1); Basophils Percent Auto 0.7 % (0.2-2.0); Eosinophils Absolute Auto 0.1 10^3/uL (0.0-0.7); Eosinophils Percent Auto 1.4 % (0.9-7.0); Hematocrit 38.6 % (36.0-48.0); Hemoglobin 12.7 g/dL (12.0-16.0); Immature Granulocytes Abs Auto 0.05 10^3/uL (0.00-0.03); Immature Granulocytes Pct Auto 0.7 % (0.0-0.5); Lymphocytes Absolute Auto 2.1 10^3/uL (1.2-3.8); Lymphocytes Percent Auto 27.1 % (20.5-60.0); Mean Corpuscular HGB Conc 32.9 g/dL (29.9-35.2); Mean Corpuscular Hemoglobin 30.2 pg (26.7-34.0); Mean Corpuscular Volume 91.7 fL (81.0-99.0); Monocytes Absolute Auto 0.6 10^3/uL (0.3-0.8); Monocytes Percent Auto 7.9 % (1.7-12.0); Neutrophils Absolute Auto 4.8 10^3/uL (1.4-6.5); Neutrophils Percent Auto 62.2 % (43.0-75.0); Platelet Count 296 10^3/uL (150-450); Red Blood Count 4.21 10^6/uL (4.20-5.40); Red Cell Distribution Width 12.4 % (11.0-15.0); White Blood Count 7.7 10^3/uL (4.0-11.0)
[2024-07-15 09:40] LABS: Anion Gap 13.5; BUN Creatinine Ratio 17.1; Calcium 8.9 mg/dL (8.5-10.1); Carbon Dioxide 26.4 mmol/L (21.0-32.0); Chloride 104 mmol/L (98-107); Estimated GFR (African America >60 (>=60 mL/min/1.73m^2); Estimated GFR (Non-African Ame >60 (>=60 mL/min/1.73m^2); Glucose 94 mg/dL (74-106); Potassium 3.9 mmol/L (3.5-5.1); Sodium 140 mmol/L (136-145)
== END 2024-07-15 08:00 | disposition home or self-care (01) ==
LOC: CARD 07:59
PROVIDERS: Visit Provider Orthopaedic Surgery
DX: Z01.810 Encounter for preprocedural cardiovascular examination (principal); Z01.818 Encounter for other preprocedural examination
CPT/HCPCS: 36415; 80048; 85025; 93005

== ENCOUNTER 2024-09-12 12:32 | Outpatient (OUT) | payer OTHER, SELFPAY ==
--- OUTSIDE RECORDS SUMMARY | 2024-09-12 12:39 | XMS_ITS | CCD ---
Author Organization [facility] Care Team Providers Care Timber Setter Name Role Phone JEREMIAS, DR MORALES Admitting Unavailable PETZNICK, DR MORALES Attending Unavailable TAYLOR, DR CAROLYN York Primary Care Unavailable ZIEBER, DR ZIYAD Alvarez Consulting Unavailable PETZNICK, DR MORALES Consulting Unavailable PRINTY, DR AMOR Admitting Unavailable PRINTY, DR AMOR Attending Unavailable TAYLOR, DR CAROLYN York Primary Care Unavailable ZIEBER, DR ZIYAD Alvarez Consulting Unavailable PRINTY, DR AMOR Consulting Unavailable PETZNICK, DR MORALES Admitting Unavailable PETZNICK, DR MORALES Attending Unavailable TAYLOR, DR CAROLYN York Primary Care Unavailable PETZNICK, DR MORALES Consulting Unavailable PetDO Marianne mahajan Primary Care Provider MD Musa Marrufo Attending Provider Musa Marrufo Attending Unavailable Musa Marrufo Admitting Unavailable Marianne Mcdowell Primary Care Unavailable Kimmy Duron Unavailable Marianne Mcdowell Primary Care Provider Marianne Mcdowell DO Primary Care Provider MARIANNE MCDOWELL Primary Care Physician Pocmerrick, Bernard Waters Referring Unavailable Pocos, Bernard Waters Attending Unavailable Pocos, Bernard Waters Admitting Unavailable POCOS, BERNARD Waters Attending Unavailable POCOS, BERNARD Waters Referring Unavailable ALEXIS ORTEGA Attending Unavailable POCOS, BERNARD Waters Referring Unavailable ANDRAE VASQUEZ Attending Unavailable POCOS, BERNARD Waters Referring Unavailable POCOS, BERNARD Waters Referring Unavailable POCOS, BERNARD Waters Attending Unavailable POCOS, BERNARD Waters Referring Unavailable POCOS, BERNARD Waters Referring Unavailable POCOS, BERNARD Waters Attending Unavailable POCOS, BERNARD Waters Referring Unavailable PETZNICK, MARIANNE M Attending Unavailable ZULEYMA LING Attending Unavailable BERNARD MATT Attending Unavailable BERNARD MATT Referring Unavailable Medications Current Medications Medication Drug Class(es) Dates Sig (Normalized) Sig (Original) acetaminophen 325 mg / HYDROcodone bitartrate 5 mg oral tablet (1 source) Opioid Agonist Start: 08-20-2024 End: 08-27-2024 take 1 tablet by mouth every six hours for pain, then take 2 tablets by mouth every six hours for pain HYDROcodone-acetamin ophen ([place]) 5-325 MG tablet Indications: Acute medial meniscus tear of left knee, subsequent encounter May take 1 tablet by mouth every 6 (six) hours if needed for severe pain. May also take 2 tablets every 6 (six) hours if needed for severe pain. Do all this for 7 days. 40 tablet 08/20/2024 08/27/2024 Active Acetaminophen / oxyCODONE (1 source) Opioid Agonist Start: 05-04-2020 Percocet 325 mg-5 mg Tab See Instructions, as needed for pain, 40 tab(s), Refill(s) 0, 1-2 orally every 4-6hrs as needed for pain Dx: M75.41, M75.101 Duration: 7 days, [id number], 162, cm, 04/21/20 6:42:00 EDT, Height/Length Dosing, 89.7, kg, 04/21/20 6:42:00 EDT, Weight Dosing Start Date: 05/04/20 Status: Ordered Alyacen (1 source) Start: 04-20-2020 take 1 tablet by mouth once daily Alyacen 35 1 tab(s), Oral, Daily, Refill(s) 0, control/menstrual regulation Start Date: 04/20/20 Status: Ordered aspirin 325 mg oral tablet (8 sources) Platelet Aggregation Inhibitor, Nonsteroidal Anti-inflammatory Drug Start: 08-20-2024 End: 09-10-2024 take 1 tablet by mouth once daily aspirin 325 MG EC tablet Indications: Acute medial meniscus tear of left knee, subsequent encounter Take 1 tablet (325 mg) by mouth Daily for 21 days 21 tablet 08/20/2024 09/10/2024 Active cyclobenzaprine hydrochloride 10 mg oral tablet (20 sources) Muscle Relaxant Start: 05-10-2017 take 1 tablet by mouth once daily at bedtime as needed for headache cyclobenzaprine (Flexeril) 10 MG tablet Indications: Tension-type headache, unspecified, not intractable TAKE 1 TABLET BY MOUTH EVERY DAY AT BEDTIME NEEDED FOR HEADACHE 30 tablet 1 06/14/2023 Active docusate sodium 100 mg oral capsule (6 sources) Start: 08-20-2024 End: 09-09-2024 take 1 capsule by mouth in the morning docusate sodium (Colace) 100 MG capsule Indications: Acute medial meniscus tear of left knee, subsequent encounter Take 1 capsule (100 mg) by mouth in the morning and 1 capsule (100 mg) before bedtime. Do all this for 20 days. 40 capsule 08/20/2024 09/09/2024 Active ethinyl estradiol 0.035 mg / norethindrone acetate 1 mg oral tablet (20 sources) Estrogen Start: 06-27-2023 End: 05-29-2024 norethindrone-ethiny l estradiol (Alyacen 1/35) 1-35 MG-MCG tablet Indications: Encounter for control pills maintenance 1 tablet Orally 1 po daily continous active pills only for 84 days 112 tablet 3 05/29/2024 Active Start: 02-13-2023 take [id number] 2857 ug by mouth once daily Norethindrone-Ethin Estradiol (Alyacen 1/35 (28)) 1-35 mg-mcg tablet Active 1 TAB PO Daily February 13, 2023 12:00am Start: 04-13-2017 ALYACEN 1/35, 28, 1-35 mg-mcg per tablet 04/13/2017 Active meloxicam 15 mg oral tablet (20 sources) Nonsteroidal Anti-inflammatory Drug Start: 04-20-2020 End: 10-05-2024 take 1 tablet by mouth once daily at mealtime meloxicam (Mobic) 15 MG tablet Indications: S/P left knee arthroscopy Take 1 tablet (15 mg) by mouth Daily With food. 30 tablet 2 09/05/2024 10/05/2024 Active Necon 1/35 (28) (1 source) Necon 1/35 (28) Active predniSONE 20 mg oral tablet (1 source) Start: 07-10-2023 take 1 tablet by mouth every twelve hours prednisone 20 MG 1 tablet Orally BID for 5 Jul, Active Semaglutide-Williams ght Management (Wegovy) 0.5 MG/0.5ML solution auto-injector (18 sources) Start: 06-04-2024 inject 0.5 mg by subcutaneous injection every week Semaglutide-Weig ht Management (Wegovy) 0.5 MG/0.5ML solution auto-injector Indications: Abnormal weight gain Inject 0.5 mg under the skin 1 (one) time per week 2 mL 3 06/04/2024 Active Start: 05-29-2024 inject 0.5 mg by sub cutaneous injection every week Semaglutide-Weight Management (Wegovy) 0.5 MG/0.5ML solution auto-injector Indications: Abnormal weight gain Inject 0.5 mg under the skin 1 (one) time per week 2 mL 3 05/29/2024 Active Completed/Discontinued Medications Medication Drug Class(es) Dates Sig (Normalized) Sig (Original) betamethasone 3 mg/ml / betamethasone acetate 3 mg/ml injectable suspension (4 sources) Corticosteroid Start: 05-22-2024 End: 05-22-2024 betamethasone acetate-betamethason e sodium phosphate ([place]) injection 1 mL Start: 05-22-2024 End: 05-22-2024 1 mL, Intra-articular, Once PRN Procedure, Starting on Airam 05/22/24 at 0905, For 1 dose Brompheniramine / Pseudoephedrine (1 source) alpha-Adrenergic Agonist [...] a day for 14 days May, Not-Taking/PRN 3 ml liraglutide 6 mg/ml pen injector (4 sources) GLP-1 Receptor Agonist Start: 10-24-2023 End: 05-22-2024 inject 3 mg by subcutaneous injection once daily Liraglutide -Weight Management (Saxenda) 18 MG/3ML solution pen-injector Indications: Abnormal weight gain Inject 3 mg under the skin Daily 15 mL 1 10/24/2023 05/22/2024 Discontinued Start: 02-13-2023 Liraglutide (W eight Loss) (Saxenda) 3 mg/0.5 mL (18 mg/3 mL) pen injector Active 3 MG SUBCUT Daily February 13, 2023 12:00am liraglutide (SAX ENDA SUBCUTANEOUS) Inject subcutaneously. Active phentermine hydrochloride 37.5 mg oral tablet (2 sources) Sympathomimetic Amine Anorectic Start: 06-19-2023 End: 05-22-2024 take 1 tablet by mouth before mealtime phentermine (Adipex-P) 37.5 MG tablet Indications: Abnormal weight gain Take 1 tablet (37.5 mg) by mouth in the morning. Take before meals. 30 tablet 06/19/2023 05/22/2024 Discontinued polyethylene glycol 3350 [id number] mg / potassium chloride 2970 mg / sodium bicarbonate 6740 mg / sodium chloride 5860 mg / sodium sulfate 72770 mg powder for oral solution (1 source) Osmotic Laxative Start: 11-24-2022 PEG-3350/Electrol ytes 236 GM as directed Orally once daily for 1 days November, Not-Taking/PRN Problems Active Problems Problem Classification Problem Date Documented Date Episodic/Chronic Contraceptive and procreative management (4 sources) Oral contraception; Translations: [Encounter for surveillance of contraceptive pills] 05-28-2024 Episodic Joint disorders and dislocations; trauma-related (5 sources) Acute tear of medial meniscus of left knee; Translations: [Other tear of medial meniscus, current injury, left knee, initial encounter] 07-03-2024 Episodic Lymphadenitis (1 source) Lymphadenopathy; Translations: [Generalized enlarged lymph nodes] 08-16-2021 Episodic Osteoarthritis (20 sources) Osteoarthritis of left knee joint; Translations: [Unilateral primary osteoarthritis, left knee] Onset: 11-21-2022 05-28-2024 Chronic Other connective tissue disease (1 source) Pain in left foot; Translations: [Pain in left foot] 06-04-2017 Episodic Other connective tissue disease (2 sources) Synovial cyst of popliteal space [Bucio], left knee; Translations: [Synovial cyst of popliteal space] 05-22-2024 Episodic Other connective tissue disease (1 source) Impingement syndrome of shoulder region 04-20-2020 Episodic Other lower respiratory disease (4 sources) Solitary pulmonary nodule; Translations: [SOLITARY PULMONARY NODULE] Onset: 09-22-2022 Episodic Other non-traumatic joint disorders (1 source) Ankle pain; Translations: [Pain in left ankle and joints of left foot] 06-04-2017 Episodic Other non-traumatic joint disorders (3 sources) Pain in left knee; Translations: [Pain in joint, lower leg] 05-22-2024 Episodic Other screening for suspected conditions (not mental disorders or infectious disease) (7 sources) Encounter for screening mammogram for malignant neoplasm of breast; Translations: [Patient encounter status] Onset: 08-29-2022 Episodic Other upper respiratory infections (2 sources) Acute pharyngitis, unspecified; Translations: [Acute upper respiratory infection, unspecified] Episodic Residual codes; unclassified (4 sources) History of arthroscopy of knee joint; Translations: [Other specified postprocedural states] 09-05-2024 Episodic Sprains and strains (1 source) Sprain of left ankle; Translations: [Sprain of unspecified ligament of left ankle, initial encounter] 06-04-2017 Episodic Unclassified (1 source) Encounter for screening for malignant neoplasm of colon; Translations: [Encounter for screening for malignant neoplasm of colon] Onset: 02-15-2023 Past or Other Problems Problem Classification Problem Date Documented Date Episodic/Chronic Anal and rectal conditions (20 sources) Anorectal pain; Translations: [Other specified diseases of anus and rectum] Onset: 11-21-2022 Resolved: 06-19-2023 06-19-2023 Episodic Biliary tract disease (20 sources) Cholelithiasis without obstruction; Translations: [Calculus of gallbladder without cholecystitis without obstruction] Onset: 11-21-2022 11-21-2022 Episodic Calculus of urinary tract (20 sources) Kidney stone; Translations: [Calculus of kidney] Onset: 11-21-2022 Resolved: 06-19-2023 06-19-2023 Episodic Deficiency and other anemia (20 sources) Anemia; Translations: [Anemia, unspecified] Onset: 06-08-2017 Resolved: 05-29-2024 06-08-2017 Episodic Diverticulosis and diverticulitis (20 sources) Diverticular disease; Translations: [Diverticulosis of intestine, part unspecified, without perforation or abscess without bleeding] Onset: 04-19-2023 Resolved: 05-29-2024 06-04-2017 Chronic Headache; including migraine (20 sources) Muscular headache ; Translations: [Tension-type headache, unspecified, not intractable] Onset: 11-21-2022 Resolved: 06-19-2023 06-04-2017 Chronic Hemorrhoids (20 sources) Internal hemorrhoids grade II; Translations: [Second degree hemorrhoids] Onset: 11-21-2022 11-21-2022 Episodic Other and unspecified benign neoplasm (20 sources) Polyp of colon; Translations: [Polyp of colon] Onset: 04-19-2023 06-04-2017 Episodic Other lower respiratory disease (20 sources) Nodule of lung; Translations: [Solitary pulmonary nodule] Onset: 11-21-2022 11-21-2022 Episodic Other non-traumatic joint disorders (20 sources) Effusion of joint; Translations: [Effusion, unspecified knee] Onset: 05-17-2023 Resolved: 06-19-2023 06-04-2017 Episodic Other nutritional; endocrine; and metabolic disorders (20 sources) Abnormal weight gain; Translations: [Abnormal weight gain] Onset: 11-21-2022 11-21-2022 Episodic Results Test Name Value Interpretation Reference Range Facility ALL CBC WITH AUTO DIFFon BASOPHILS ABSOLUTE AUTO 0.1 [facility] Basophils/100 WBC (Bld) 0.7 % 0.2 - 2.0 % [facility] Eosinophils/100 WBC (Bld) 1.4 % 0.9 - 7.0 % [facility] Erythrocyte distribution width (RBC) [Ratio] 12.4 % 11.0 - 15.0 % [facility] Hematocrit (Bld) [Volume fraction] 38.6 % 36.0 - 48.0 % [facility] Hem[facility] ([facility]ld[facility] [Mass/Vol] 12.7 g/dL 12.0 - 16.0 g/dL [facility] IMMATURE GRANULOCYTES ABS AUTO 0.05 High [facility] Immature granulocytes/100 WBC (Bld) 0.7 % High 0.0 - 0.5 % [facility] Interpretation and review of laboratory results Abnormal [facility] LYMPHOCYTES ABSOLUTE AUTO 2.1 [facility] Lymphocytes/100 WBC (Bld) 27.1 % 20.5 - 60.0 % [facility] MCH (RBC) [Entitic mass] 30.2 pg 26.7 - 34.0 pg [facility] MCHC (RBC) [Mass/Vol] 32.9 g/dL 29.9 - 35.2 g/dL [facility] MCV (RBC) [Entitic vol] 91.7 fL 81.0 - 99.0 fL [facility] MONOCYTES ABSOLUTE AUTO 0.6 [facility] Monocytes/100 WBC (Bld) 7.9 % 1.7 - 12.0 % [facility] NEUTROPHILS ABSOLUTE AUTO 4.8 [facility] Neutrophils/100 WBC (Bld) 62.2 % 43.0 - 75.0 % [facility] Platelet mean volume (Bld) [Entitic vol] 9 fL Low 9.5 - 13.5 fL [facility] TBH EO # 0.1 [facility] TBH PLT 296 [facility] RBC 4.21 [facility] WBC 7.7 [facility] MRI Knee w/o Contrast Lefton 06-19-2024 MRI Knee w/o Contrast Left Exam Date/Time: 06/17/2024 09:51 EST Reason for Exam: M17.12 LEFT KNEE OA Report IMPRESSION: COMPLEX TEAR OF THE ANTERIOR HORN THROUGH BODY AND POSTERIOR HORN OF THE MEDIAL MENISCUS. HORIZONTAL TEAR OF THE ANTERIOR HORN THROUGH BODY AND POSTERIOR HORN OF THE LATERAL MENISCUS. MILD OSTEOARTHRITIS. Exam: MRI Knee w/o Contrast Left History: Knee pain Technique: Multiplanar multisequence MRI of the knee was performed without contrast. Comparison: None available Findings: Quadriceps and patellar tendons are intact. Small joint effusion. Anterior and posterior cruciate ligaments are intact. The medial collateral ligament, lateral collateral ligament, and popliteus are intact. Horizontal tear of the anterior horn through body and posterior horn of the lateral meniscus. Parameniscal cyst present along the inferolateral aspect of the body of the lateral meniscus and measures approximately 10 mm in AP dimension by 5 mm in transverse dimension by 5 mm in craniocaudal dimension. Complex tear of the anterior horn through body and posterior horn of the medial meniscus including complete radial tear of the posterior horn. Peripheral extrusion of the body of the medial meniscus. Partial thickness cartilage loss of the medial compartment without well-defined cartilage defect. Partial full-thickness cartilage loss of the lateral femoral trochlea without well-defined cartilage defect. Popliteal fossa structures are intact. No Bucio cyst. Report Ordering Provider: Bernard Matt FINAL REPORT Dictated: 06/19/2024 11:34 am Vishnu Tam DO Signed (Electronic Signature): 06/19/2024 11:34 am Signed by: Vihsnu Tam DO Transcribed by: IGNACIO Technologist: ANABEL Technical Comments None Normal [facility] ALL CBC WITH AUTO DIFFon BASOPHILS ABSOLUTE AUTO 0.1 [facility] Basophils/100 WBC (Bld) 0.7 % 0.2 - 2.0 % [facility] Eosinophils/100 WBC (Bld) 0.7 % Low 0.9 - 7.0 % [facility] Erythrocyte distribution width (RBC) [Ratio] 12.7 % 11.0 - 15.0 % [facility] Hematocrit (Bld) [Volume fraction] 38.9 % 36.0 - 48.0 % [facility] Hemoglobin (Bld) [Mass/Vol] 12.8 g/dL 12.0 - 16.0 g/dL [facility] IMMATURE GRANULOCYTES ABS AUTO 0.02 [facility] Immature granulocytes/100 WBC (Bld) 0.2 % 0.0 - 0.5 % [facility] Interpretation and review of laboratory results Abnormal [facility] LYMPHOCYTES ABSOLUTE AUTO 2.1 [facility] Lymphocytes/100 WBC (Bld) 25.8 % 20.5 - 60.0 % [facility] MCH (RBC) [Entitic mass] 30.4 pg 26.7 - 34.0 pg [facility] MCHC (RBC) [Mass/Vol] 32.9 g/dL 29.9 - 35.2 g/dL [facility] MCV (RBC) [Entitic vol] 92.4 fL 81.0 - 99.0 fL [facility] MONOCYTES ABSOLUTE AUTO 0.6 [facility] Monocytes/100 WBC (Bld) 7.6 % 1.7 - 12.0 % [facility] NEUTROPHILS ABSOLUTE AUTO 5.3 [facility] Neutrophils/100 WBC (Bld) 65 % 43.0 - 75.0 % [facility] Platelet mean volume (Bld) [Entitic vol] 9.1 fL Low 9.5 - 13.5 [facility]L [facility] PLT 283 [facility] RBC 4.21 [facility] WBC 8.1 [facility] ALL LIPID PROFILE (FASTING)o n 05-22-2024 CHOL HDL RATIO 2.9 [facility] Comment on above: 3.3 - 4.4 LOW RISK 4.4 - 7.1 AVERAGE RISK 7.1 - 11.0 MODERATE RISK >11.0 HIGH RISK Cholesterol [Mass/Vol] 217 mg/dL High NINF - 200 mg/dL [facility] Cholesterol in HDL [Mass/Vol] 76 mg/dL High 40 - 60 mg/dL [facility] Comment on above: > or =60 mg/dl - LOW CARDIOVASCULAR RISK <40 mg/dl - HIGH CARDIOVASCULAR RISK Magnesium [Mass/Vol] 113 mg/dL [facility] Comment on above: <100 mg/dl OPTIMAL 100-129 mg/dl NEAR OR ABOVE OPTIMAL 130-159 mg/dl BORDERLINE HIGH 160-189 mg/dl HIGH >190 mg/dl VERY HIGH Magnesium [Mass/Vol] 28.6 mg/dL [facility] Triglyceride [Mass/Vol] 143 mg/dL NINF - 150 mg/dL [facility] CMP (CMP) (FOR REMOTE FH C USE)on 05-22-2024 Albumin [Mass/Vol] 3.7 g/dL 3.4 - 5.0 g/dL [facility] ALBUMIN GLOBULIN RATIO 1 [facility] ALP [Catalytic activity/Vol] 40 U/L Low 46 - 116 U/L [facility] ALT [Catalytic activity/Vol] 33 U/L 14 - 59 U/L [facility] Anion gap [Moles/Vol] 15.7 mmol/L [facility] AST [Catalytic activity/Vol] 26 U/L 15 - 37 U/L [facility] Bilirubin [Mass/Vol] 0.8 mg/dL 0.2 - 1.0 mg/dL [facility] Calcium [Mass/Vol] 8.7 mg/dL 8.5 - 10. 1 mg/dL [facility] Chloride [Moles/Vol] 105 mmol/L 98 - 107 mmol/L [facility] CO2 [Moles/Vol] 25.5 mmol/L 21.0 - 32.0 mmol/L [facility] Creatinine [Mass/Vol] 0.73 mg/dL 0.55 - 1.02 mg/dL [facility] GFR/1.73 sq M.predicted CKD-EPI (S/P/Bld) [Vol rate/Area] >60 >=60 mL/min/1.73m 2 [facility] Globulin (S) [Mass/Vol] 3.6 g/dL [facility] Glucose [Mass/Vol] 100 mg/dL 74 - 106 mg/dL [facility] Potassium [Moles/Vol] 4.2 mmol/L 3.5 - 5.1 mmol/L [facility] Protein [Mass/Vol] 7.3 g/dL 6.4 - 8.2 g/dL [facility] Sodium [Moles/Vol] 142 mmol/L 136 - 145 mmol/L [facility] TBH EGFR-NON AF MONEGASQUE >60 >=60 mL/min/1.73m 2 [facility] Urea nitrogen [Mass/Vol] 13 mg/dL 7.0 - 18.0 mg/dL [facility] Urea nitrogen/Creatinine [Mass ratio] 17.8 mg/mg [facility] No Panel Informationon 05-22 Interpretation and review of laboratory results Abnormal [facility] [place] [facility] Apontador e Sarah Velasco MA 05/28/2024 8:01 AM L Inj/Asp: L knee on 05/22/2024 9:05 AM Indications: pain Details: 22 G needle Medications: 1 mL betamethasone acetate-betamethaso ne sodium phosphate 6 (3-3) MG/[facility] 07-10-2023 S. pyogenes Org specific cx Ql (Throat) Negative [employer] Other Quick Strep [employer] Other HCG ( test) IA.rapi d Ql (U)Ordered By: Musa Marrufo on 02-15-2023 HCG ( test) Ql (U) Negative [facility] [place] HCG,Urineon 02-15-2023 Beta HCG ( test) Ql (U) Negative Normal [facility] Comment on above: Result Comment: PERF ORMED BY: [place] [id number] PATHOLOGIST CREDIT RISK MANAGER DARIN KERN M.D. Performed By: #### U HCG #### [address] CHEST W CONon 09-22-2022 CT CHEST W CON EXAMINATION: CT CHEST W CON HISTORY: Solitary nodule of lung [...] ZIYAD MURO Date: 2022-09-22 15:10 Normal [facility] CBC AUTO DIFFon 09-07-2022 BASO # 0.1 103/ul Normal 0.0-0.1 [facility] Comment on above: Performed By: #### C BC #### [facility] [address] [place] [address] Dr. Derek Mcmillan Basophils/100 WBC (Bld) 0.7 % Normal 0.2-2.0 [facility] Comment on above: Performed By: #### C BC #### [facility] [address] [place] [address] Dr. Derek Mcmillan EO # 0.1 103/ul Normal 0.0-0.7 [facility] Comment on above: Performed By: #### C BC #### [facility] [address] [place] [address] Dr. Derek Mcmillan Eosinophils/100 WBC (Bld) 0.7 % Critically low 0.9-7.0 [facility] Comment on above: Performed By: #### C BC #### [facility] [address] [place] [address] Dr. Derek Mcmillan Erythrocyte distribution width (RBC) [Ratio] 12.6 % Normal 11.0-15.0 [facility] Comment on above: Performed By: #### C BC #### [facility] [address] [place] [address] Dr. Derek Mcmillan Hematocrit (Bld) [Volume fraction] 37.4 % Normal 36.0-48.0 [facility] Comment on above: Performed By: #### C BC #### [facility] [address] [place] [address] Dr. Derek Mcmillan Hemoglobin (Bld) [Mass/Vol] 12.6 g/dL Normal 12.0-16.0 [facility] Comment on above: Performed By: #### C BC #### [facility] [address] [place] [address] Dr. Derek Mcmillan IG # 0.04 10e3/ul Critically high 0.00-0.03 [facility] Comment on above: Performed By: #### C BC #### [facility] [address] [place] [address] Dr. Derek Mcmillan IG % 0.5 % Normal 0.0-0.5 [facility] Comment on above: Performed By: #### C BC #### [facility] [address] [place] [address] Dr. Derek Mcmillan LYMPH # 2.0 103/ul Normal 1.2-3.8 [facility] Comment on above: Performed By: #### C BC #### [facility] [address] [place] [address] Dr. Derek Mcmillan Lymphocytes/100 WBC (Bld) 25.5 % Normal 20.5-60.0 [facility] Comment on above: Performed By: #### C BC #### [facility] [address] [place] [address] Dr. Derek Mcmillan MANUAL DIFF REQ NO Normal [facility] Comment on above: Performed By: #### C BC #### [facility] [address] [place] [address] Dr. Derek Mcmillan MCH (RBC) [Entitic mass] 31.1 pg Normal 26.7-34.0 [facility] Comment on above: Performed By: #### C BC #### [facility] [address] [place] [address] Dr. Derek Mcmillan MCHC (RBC) [Mass/Vol] 33.7 g/dL Normal 29.9-35.2 [facility] Comment on above: Performed By: #### C BC #### [facility] [address] [place] [address] Dr. Derek Mcmillan MCV (RBC) [Entitic vol] 92.3 fL Normal 81.0-99.0 [facility] Comment on above: Performed By: #### C BC #### [facility] [address] [place] [address] Dr. Derek Mcmillan MONO # 0.7 103/ul Normal 0.3-0.8 [facility] Comment on above: Performed By: #### C BC #### [facility] [address] [place] [address] Dr. Derek Mcmillan Monocytes/100 WBC (Bld) 8.6 % Normal 1.7-12.0 [facility] Comment on above: Performed By: #### C BC #### [facility] [address] [place] [address] Dr. Derek Mcmillan NEUT # 4.9 103/ul Normal 1.4-6.5 [facility] Comment on above: Performed By: #### C BC #### [facility] [address] [place] [address] Dr. Derek Mcmillan Neutrophils/100 WBC (Bld) 64.0 % Normal 43.0-75.0 [facility] Comment on above: Performed By: #### C BC #### [facility] [address] [place] [address] Dr. Derek Mcmillan Platelet mean volume (Bld) [Entitic vol] 8.9 fL Critically low 9.5-13.5 [facility] Comment on above: Performed By: #### C BC #### [facility] [address] [address] [address] Derek Mcmillan PLT 262 103/ul Normal 150-450 [facility] Comment on above: Performed By: #### C BC #### [facility] [address] [address] [address] Derek Mcmillan RBC 4.05 106/ul Critically low 4.20-5.40 [facility] Comment on above: Performed By: #### C BC #### [facility] [address] [address] [address] Derek Mcmillan WBC 7.6 103/ul Normal 4.0-11.0 [facility] Comment on above: Performed By: #### C BC #### [facility] [address] [place] [address] Dr. Derek Mcmillan LIPID PROFILEon 09-07-2022 CHOL-HDL RATIO NORM SEE BELOW Normal [facility] Comment on above: Result Comment: 3.3 - 4.4 LOW RISK 4.4 - 7.1 AVERAGE RISK 7.1 - 11.0 MODERATE RISK >11.0 HIGH RISK Performed By: #### T LOTUS, LIPID, CMP #### [facility] [address] [place] [address] Dr. Derek Mcmillan Cholesterol [Mass/Vol] 203 mg/dL Critically high <=200 [facility] Comment on above: Performed By: #### T LOTUS, LIPID, CMP #### [facility] [address] [place] [address] Dr. Derek Mcmillan Cholesterol in HDL [Mass/Vol] 58 mg/dL Normal 40-60 [facility] Comment on above: Performed By: #### T LOTUS, LIPID, CMP #### [facility] [address] [place] [address] Dr. Derek Mcmillan Cholesterol in LDL [Mass/Vol] 121.2 mg/dL Normal [facility] Comment on above: Performed By: #### T SH, LIPID, CMP #### [facility] [address] [place] [address] Dr. Derek Mcmillan Cholesterol.total/C holesterol in HDL [Mass ratio] 3.5 {ratio} Normal [facility] Comment on above: Performed By: #### T LOTUS, LIPID, CMP #### [facility] [address] [place] [address] Dr. Derek Mcmillan HDL NORMAL > or = 60 mg/dl - LOW CARDIOVASCULAR RISK <40 mg/dl - HIGH CARDIOVASCULAR RISK Normal [facility] Comment on above: Performed By: #### T LOTUS, LIPID, CMP #### [facility] [address] [place] [address] Dr. Derek Mcmillan LDL CALC NORMAL SEE BELOW Normal [facility] Comment on above: Result Comment: <100 mg/dl OPTIMAL 100 - 129 mg/dl NEAR OR ABOVE OPTIMAL 130 - 159 mg/dl BORDERLINE HIGH 160 - 189 mg/dl HIGH >190 mg/dl VERY HIGH Performed By: #### T LOTUS, LIPID, CMP #### [facility] [address] [place] [address] Dr. Derek Mcmillan Triglyceride [Mass/Vol] 119 mg/dL Normal <=150 [facility] Comment on above: Performed By: #### T LOTUS, LIPID, CMP #### [facility] [address] [place] [address] Dr. Derek Mcmillan VLDL CALC 23.8 mg/dL Normal [facility] Comment on above: Performed By: #### T LOTUS, LIPID, CMP #### [facility] [address] [place] [address] Dr. Derek Mcmillan PROF 14(COMP METB)on 023 Albumin [Mass/Vol] 3.8 g/dL Normal 3.4-5.0 [facility] Comment on above: Performed By: #### T LOTUS, LIPID, CMP #### [facility] [address] [place] [address] Dr. Derek Mcmillan Albumin/Globulin [Mass ratio] 1.1 {ratio} Normal [facility] Comment on above: Performed By: #### T LOTUS, LIPID, CMP #### [facility] [address] [place] [address] Dr. Derek Mcmillan ALP [Catalytic activity/Vol] 30 U/L Critically low 46-116 [facility] Comment on above: Performed By: #### T LOTUS, LIPID, CMP #### [facility] [address] [address] [address] Derek Mcmillan ALT [Catalytic activity/Vol] 21 U/L Normal 14-59 [facility] Comment on above: Performed By: #### T LOTUS, LIPID, CMP #### [facility] [address] [place] [address] Dr. Derek Mcmillan Anion gap [Moles/Vol] 12.4 mmol/L Normal [facility] Comment on above: Performed By: #### T LOTUS, LIPID, CMP #### [facility] [address] [place] [address] Dr. Derek Mcmillan AST [Catalytic activity/Vol] 15 U/L Normal 15-37 [facility] Comment on above: Performed By: #### T LOTUS, LIPID, CMP #### [facility] [address] [place] [address] Dr. Derek Mcmillan Bilirubin [Mass/Vol] 0.6 mg/dL Normal 0.2-1.0 [facility] Comment on above: Performed By: #### T LOTUS, LIPID, CMP #### [facility] [address] [place] [address] Dr. Derek Mcmillan Calcium [Mass/Vol] 9.1 mg/dL Normal 8.5-10.1 [facility] Comment on above: Performed By: #### T LOTUS, LIPID, CMP #### [facility] [address] [place] [address] Dr. Derek Mcmillan Chloride [Moles/Vol] 105 mmol/L Normal 98-107 [facility] Comment on above: Performed By: #### T LOTUS, LIPID, CMP #### [facility] [address] [place] [address] Dr. Derek Mcmillan CO2 [Moles/Vol] 25.7 mmol/L Normal 21.0-32.0 [facility] Comment on above: Performed By: #### T LOTUS, LIPID, CMP #### [facility] [address] [address] [address] Derek Mcmillan Creatinine [Mass/Vol] 0.60 mg/dL Normal 0.55-1.02 [facility] Comment on above: Performed By: #### T SH, LIPID, CMP #### [facility] [address] [address] [address] Derek Mcmillan EGFR-AF MONEGASQUE >60 Normal >=60 [facility] Comment on above: Performed By: #### T SH, LIPID, CMP #### [facility] [address] [address] [address] Derek Mcmillan EGFR-NON AF MONEGASQUE >60 Normal >=60 [facility] Comment on above: Performed By: #### T SH, LIPID, CMP #### [facility] [address] [address] [address] Derek Mcmillan Globulin (S) [Mass/Vol] 3.5 g/dL Normal [facility] Comment on above: Performed By: #### T LOTUS, LIPID, CMP #### [facility] [address] [address] [address] Derek Mcmillan Glucose [Mass/Vol] 88 mg/dL Normal 74-106 [facility] Comment on above: Performed By: #### T LOTUS, LIPID, CMP #### [facility] [address] [address] [address] Derek Mcmillan Potassium [Moles/Vol] 4.1 mmol/L Normal 3.5-5.1 [facility] Comment on above: Performed By: #### T LOTUS, LIPID, CMP #### [facility] [address] [address] [address] Derek Mcmillan Protein [Mass/Vol] 7.3 g/dL Normal 6.4-8.2 [facility] Comment on above: Performed By: #### T SH, LIPID, CMP #### [facility] [address] [address] [address] Derek Mcmillan Sodium [Moles/Vol] 139 mmol/L Normal 136-145 [facility] Comment on above: Performed By: #### T SH, LIPID, CMP #### [facility] [address] [address] [address] Derek Mcmillan Urea nitrogen [Mass/Vol] 11.0 mg/dL Normal 7.0-18.0 [facility] Comment on above: Performed By: #### T SH, LIPID, CMP #### [facility] [address] [address] [address] Derek Mcmillan Urea nitrogen/Creatinine [Mass ratio] 18.3 mg/mg Normal [facility] Comment on above: Performed By: #### T SH, LIPID, CMP #### [facility] [address] [address] [address] Derek Mcmillan TSHon 09-07-2022 TSH 1.723 uIU/mL Normal 0.358-3.740 [facility] Comment on above: Performed By: #### T LOTUS, LIPID, CMP #### [facility] [address] [address] [address] Derek Mcmillan MG MAMM SCREEN 3D MALLORY CADon 08-29-2022 MG MAMM SCREEN 3D MALLORY CAD Patient: ADIA MENDOZA Exam Date: 08/29/2022 : 1975 Gender:F Ordering : DR ZULEYMA LING Admission #: [id number] Family : Order #: [id number] CLICK HERE TO VIEW EXAM RADIOLOGY REPORT [...] Treatments None Family Cancers None LOCATION: [facility] BREAST COMPOSITION: Scattered areas fibroglandular density. [...] Muro M.D. on 08/30/2022 at 13:53 Normal [facility] 08-19-2021 CNPN Telephone ([place]) ---- ADIA MENDOZA ([id number]) 1975 F Date Time Provider Department 08/19/21 [...] and scan results to her PCP and audio tape librarian. Thanks, GRETA Luis RN 08/22/2021 11:02 AM [...] cyclobenzaprine (FLEXERIL) 10 mg tablet - ALYACEN 35, 28, 1-35 mg-mcg per tablet Problem List As Of Date 08/19/2021 Noted Resolved Diverticulosis [K57.90] Colon polyps [K63.5] Effusion of lower leg joint [M25.469] Muscle tension headache [G44.209] Sprain of left ankle [S93.402A] Left foot pain [M79.672] Left ankle pain [M25.572] Anemia [D64.9] 06/08/2017 Encounter Status:Closed by MORENA LUIS on 08/22/21 Normal [facility] CT ABD/PEL W IVCONon 022 CT ABD/PEL W IVCON * * *Final Report* * * DATE OF EXAM: Aug 16 2021 11:33AM [facility] 0530 - CT ABD/PEL W IVCON / [...] Lymph nodes: No abdominal or pelvic lymphadenopathy. Mesentery/Peritoneu m: No ascites or mass. Retroperitoneum: No mass. [...] chest CT performed will be reported separately. Tint Layer (topogram) images: No additional findings. IMPRESSION: 1. [...] any questions regarding this interpretation, please call [phone]. If you are unable to reach us at the number above, please feel free to contact [facility] eRadiology at [phone]. [id number] ACN Normal [facility] CT Abdomen and Pelvis W [...] any questions regarding this interpretation, please call [phone]. If you are unable to reach us at the number above, please feel free to contact [facility]Radiology at [phone]. DIVISION OF RADIOLOGY * * *Final Report* * * DATE OF EXAM: Aug 16 2021 11:33AM [facility] 0530 - CT ABD/PEL W IVCON / [...] Lymph nodes: No abdominal or pelvic lymphadenopathy. Mesentery/Peritoneu m: No ascites or mass. Retroperitoneum: No mass. [...] chest CT performed will be reported separately. Tint Layer (topogram) images: No additional findings. DIVISION OF RADIOLOGY Provider, [facility] [place] - 08/16/2021 * * *Final Report* * * DATE OF EXAM: Aug 16 2021 11:33AM [facility] 0530 - CT ABD/PEL W IVCON / [...] Lymph nodes: No abdominal or pelvic lymphadenopathy. Mesentery/Peritoneu m: No ascites or mass. Retroperitoneum: No mass. [...] chest CT performed will be reported separately. Tint Layer (topogram) images: No additional findings. IMPRESSION IMPRESSION: [...] any questions regarding this interpretation, please call [phone]. If you are unable to reach us at the number above, please feel free to contact [facility] eRadiology at [phone]. [facility] CT Abdomen and Pelvis W cont rast IVOrdered By: Ccf Provider on 08-16-2021 [facility] CT CHEST W IVCONon CT CHEST W IVCON * * *Final Report* * * DATE OF EXAM: Aug 16 2021 11:33AM [facility] 0539 - CT CHEST W IVCON / [...] was performed concurrently and is reported separately. Tint Layer (topogram) images: No additional findings. IMPRESSION: 1. [...] any questions regarding this interpretation, please call [phone]. If you are unable to reach us at the number above, please feel free to contact [facility] at [phone]. [id number] ACN ACTIONABLE Invalid Interpretation Code [facility] CT Chest W contrast Tolu Interpretation and review of laboratory results Abnormal [facility] rafael Radiology Result ACTIONABLE Abnormal [facility] Comment on above: This report contains an [...] any questions regarding this interpretation, please call [phone]. If you are unable to reach us at the number above, please feel free to contact [facility] at [phone]. DIVISION OF RADIOLOGY * * *Final Report* * * DATE OF EXAM: Aug 16 2021 11:33AM [facility] 0539 - CT CHEST W IVCON / [...] was performed concurrently and is reported separately. Tint Layer (topogram) images: No additional findings. DIVISION OF RADIOLOGY Provider, [facility] - 08/16/2021 * * *Final Report* * * DATE OF EXAM: Aug 16 2021 11:33AM [facility] 0539 - CT CHEST W IVCON / [...] was performed concurrently and is reported separately. Tint Layer (topogram) images: No additional findings. IMPRESSION IMPRESSION: [...] any questions regarding this interpretation, please call [phone]. If you are unable to reach us at the number above, please feel free to contact [facility] eRadiology at [phone]. [facility] Clin ic No Panel Informationon 08-16 Radiology Study observation (narrative) [facility] CNOVSPon 08-02-2021 CNOVSP Visit (SP) Office ([place]) ---- ADIA MENDOZA ([id number]) 1975 F Date Time Provider Department 08/02/21 [...] not taking: Reported on 07/18/2021) No current facility-administer ed medications for this visit. ALLERGIES: ALLERGIES No [...] pallor, JVD (more content not included)... Normal [facility] Comp Metabolic Panelon 08-02 Albumin [Mass/Vol] 4.6 g/dL Normal 3.9-4.9 [facility] ALP [Catalytic activity/Vol] 34 U/L Normal 34-123 [facility] ALT [Catalytic activity/Vol] 14 U/L Normal 7-38 [facility] Anion gap [Moles/Vol] 9 mmol/L Normal 9-18 [facility] AST [Catalytic activity/Vol] 20 U/L Normal 13-35 [facility] Bilirubin [Mass/Vol] 0.5 mg/dL Normal 0.2-1.3 [facility] Calcium [Mass/Vol] 9.3 mg/dL Normal 8.5-10.2 [facility] Chloride [Moles/Vol] 101 mmol/L Normal 97-105 [facility] CO2 [Moles/Vol] 25 mmol/L Normal 22-30 [facility] Creatinine [Mass/Vol] 0.68 mg/dL Normal 0.58-0.96 [facility] eGFR- Amer. >60 Normal [facility] eGFR-All Other Races >60 Normal [facility] Comment on above: Result Comment: [...] [email or web address]. Glucose [Mass/Vol] 93 mg/dL Normal 74-99 [facility] Comment on above: Result Comment: The [place] [employer] Association (ADA) provides guidance for cutoff [...] Standards of Medical Care in Diabetes 2016, [place] [employer]. Diabetes Care. 2016.39(Suppl 1). Potassium [Moles/Vol] 4.1 mmol/L Normal 3.7-5.1 [facility] Protein [Mass/Vol] 7.2 g/dL Normal 6.3-8.0 [facility] Sodium [Moles/Vol] 135 mmol/L Low 136-144 [facility] Urea nitrogen [Mass/Vol] 14 mg/dL Normal 7-21 [facility] LDon 08-02-2021 LD 169 U/L Normal 135-214 [facility] Remote CBCDIF (for [facility] use o nly)on 08-02-2021 Abs Baso 0.06 k/uL Normal <0.11 [facility] Abs Coryell 0.55 k/uL Normal <0.87 [facility] Abs Neut 6.93 k/uL Normal 1.45-7.50 [facility] Absolute nRBC <0.01 Normal <0.01 [facility] Basophils/100 WBC (Bld) 0.6 % Normal [facility] DTYPE Auto Diff Normal [facility] Eosinophils (Bld) [#/Vol] 0.10 10*3/uL Normal <0.46 [facility] Eosinophils/100 WBC (Bld) 1.0 % Normal [facility] Erythrocyte distribution width (RBC) [Ratio] 12.7 % Normal 11.5-15.0 [facility] Hematocrit (Bld) [Volume fraction] 38.7 % Normal 36.0-46.0 [facility] Hemoglobin (Bld) [Mass/Vol] 12.9 g/dL Normal 11.5-15.5 [facility] Lymphocytes (Bld) [#/Vol] 2.01 10*3/uL Normal 1.00-4.00 [facility] Lymphocytes/100 WBC (Bld) 20.8 % Normal [facility] MCH 30.7 pG Normal 26.0-34.0 [facility] MCHC (RBC) [Mass/Vol] 33.3 g/dL Normal 30.5-36.0 [facility] MCV (RBC) [Entitic vol] 92.1 fL Normal 80.0-100.0 [facility] Monocytes/100 WBC (Bld) 5.7 % Normal [facility] Neutrophils/100 WBC (Bld) 71.9 % Normal [facility] NRBCs 0.0 /100 WBC Normal 0 [facility] Platelet mean volume (Bld) [Entitic vol] 8.8 fL Low 9.0-12.7 [facility] Platelets (Bld) [#/Vol] 292 10*3/uL Normal 150-400 [facility] RBC (Bld) [#/Vol] 4.20 10*6/uL Normal 3.90-5.20 [facility] WBC (Bld) [#/Vol] 9.65 10*3/uL Normal 3.70-11.00 [facility] Vital Signs Date Time Vital Sign Value Performing Clinician Facility 09-05-2024 09:44-0500 Body height 161.9 cm Bernard Pocos DO Work Phone: [facility] 09-05-2024 09:44-0500 Body mass index (BMI) [Ratio] 33.73 kg/m2 Bernard Pocos DO Work Phone: [facility] 09-05-2024 09:44-0500 Body weight 88.45 kg Bernard Pocos DO Work Phone: [facility] 07-03-2024 08:22-0500 Body height 161.9 cm Bernard Pocos DO Work Phone: [facility] 07-03-2024 08:22-0500 Body mass index (BMI) [Ratio] 33.73 kg/m2 Bernard Pocos DO Work Phone: [facility] 07-03-2024 08:22-0500 Body weight 88.45 kg Bernard Pocos DO Work Phone: [facility] 05-29-2024 10:27-0500 Body mass index (BMI) [Ratio] 33.73 kg/m2 Zuleyma Ling MD Work Phone: [facility] 05-29-2024 10:27-0500 Body weight 88.45 kg Zuleyma Ling MD Work Phone: [facility] 05-29-2024 10:27-0500 Diastolic blood pressure 80 mm[Hg] Zuleyma Ling MD Work Phone: [facility] 05-29-2024 10:27-0500 Systolic blood pressure 122 mm[Hg] Zuleyma Ling MD Work Phone: [facility] 05-29-2024 08:47-0500 Body height 161.9 cm Marianne Mcdowell DO Work Phone: [facility] 05-29-2024 08:47-0500 Body mass index (BMI) [Ratio] 34.08 kg/m2 Marianne Mcdowell DO Work Phone: [facility] 05-29-2024 08:47-0500 Body temperature 99.39 [degF] Marianne Petznick DO Work Phone: [facility] 05-29-2024 08:47-0500 Body weight 89.36 kg Marianne Petznick DO Work Phone: [facility] 05-29-2024 08:47-0500 Diastolic blood pressure 80 mm[Hg] Marianne Petznick DO Work Phone: [facility] 05-29-2024 08:47-0500 Heart rate 86 /min Marianne Petznick DO Work Phone: [facility] 05-29-2024 08:47-0500 SaO2% (BldA) [Mass fraction] 98 % Marianne Petznick DO Work Phone: [facility] 05-29-2024 08:47-0500 Systolic blood pressure 124 mm[Hg] Marianne Petznick DO Work Phone: [facility] 05-22-2024 08:12-0500 Body height 161.9 cm Bernard Pocos DO Work Phone: [facility] 07-10-2023 12:40-0500 Body height 162.56 cm Kimmy Duron Other [employer] Other 07-10-2023 12:40-0500 Body mass index (BMI) [Ratio] 29.76 kg/m2 Kimmy Duron Other [employer] Other 07-10-2023 12:40-0500 Body temperature 98.4 [degF] Kimmy Duron Other [employer] Other 07-10-2023 12:40-0500 Body weight 78.65 kg Kimmy Duron Other [employer] Other 07-10-2023 12:40-0500 Respiratory rate 18 /min Kimmy Duron Other [employer] Other 07-10-2023 12:40-0500 SaO2% (BldA) [Mass fraction] 99 % Kimmy Duron Other [facility] [employer] Other 02-15-2023 08:54-0400 Diastolic blood pressure 70 mm[Hg] DO Marianne Petznick Work Phone: [facility] 02-15-2023 08:54-0400 Heart rate 69 /min DO Marianne Petznick Work Phone: [facility] 02-15-2023 08:54-0400 Respiratory rate 16 /min DO Marianne Petznick Work Phone: [facility] 02-15-2023 08:54-0400 SaO2% (BldA) [Mass fraction] 100 % DO Marianne Petznick Work Phone: [facility] 02-15-2023 08:54-0400 Systolic blood pressure 105 mm[Hg] DO Marianne Petznick Work Phone: [facility] 02-15-2023 07:24-0400 Body height 162.56 cm DO Marianne Petznick Work Phone: [facility] 02-15-2023 07:24-0400 Body weight 77.11 kg DO Marianne Petznick Work Phone: [facility] Encounters Encounter Date Encounter Type Care Provider Facility Start: 09-12-2024 End: 09-12-2024 ambulatory BERNARD Waters POCMERRICK Not Available Start: 09-10-2024 End: 09-10-2024 Bamboo flowsheet Andrae Vasquez [employer]ICAL [employer]GER [employer] [facility] Start: 09-10-2024 End: 09-10-2024 Bamboo flowsheet Andrae Vasquez TECHNICAL MA[employer]GER [employer] [facility] Start: 09-10-2024 End: 09-10-2024 ambulatory Andrae Vasquez [employer]CHN[employer] [facility] Comment on above: S/P left knee arthro scopy (Primary Dx); Left knee pain, unspecified chronicity Start: 09-08-2024 End: 09-08-2024 Bamboo flowsheet Alexis Ortega PT [facility] Start: 09-08-2024 End: 09-08-2024 Bamboo flowsheet Alexis Ortega PT [facility] Start: 09-08-2024 End: 09-08-2024 ambulatory Alexis Ortega PT [facility] Comment on above: S/P left knee arthro scopy (Primary Dx) Start: 09-05-2024 End: 09-05-2024 Bamboo flowsheet Bernard Waters Pocos DO Work Phone: [facility] Start: 09-05-2024 End: 09-05-2024 Bamboo flowsheet Bernard Waters Pocos DO Work Phone: [facility] Start: 09-05-2024 End: 09-05-2024 Patient encounter procedure Bernard Waters Pocos DO Work Phone: [facility] Comment on above: S/P left knee arthro scopy (Primary Dx) Start: 09-05-2024 End: 09-05-2024 ambulatory BERNARD Waters POCOS Not Available Start: 08-20-2024 End: 08-20-2024 Orders Only Bernard Waters Pocos DO Work Phone: [facility] Comment on above: Acute medial meniscu s tear of left knee, subsequent encounter (Primary Dx) Start: 08-19-2024 End: 08-19-2024 Telephone encounter Bernard Waters Pocos DO Work Phone: [facility] Comment on above: crutches Start: 07-15-2024 End: 07-15-2024 Clinisync Result Encounter Bernard Waters Pocos DO Work Phone: [facility] Unsolicited Start: 07-15-2024 End: 07-15-2024 Clinisync Result Encounter Bernard Waters Pocos DO Work Phone: [facility] Unsolicited Start: 07-10-2024 End: 07-10-2024 Refill Marianne Mcdowell DO Work Phone: [facility] Comment on above: Tension-type headach e, unspecified, not intractable Start: 07-03-2024 End: 07-03-2024 Bamboo flowsheet Bernard Waters Pocos DO Work Phone: [facility] Start: 07-03-2024 End: 07-03-2024 Bamboo flowsheet Bernard Waters Pocos DO Work Phone: [facility] Start: 07-03-2024 End: 07-03-2024 Patient encounter procedure Bernard Waters Pocos DO Work Phone: [facility] Comment on above: Primary osteoarthrit is of left knee (Primary Dx); Acute medial meniscus tear of left knee, initial encounter; Acute lateral meniscus tear of left knee, initial encounter Start: 07-03-2024 End: 07-03-2024 ambulatory BERNARD Waters POCOS Not Available Start: 06-17-2024 End: 06-17-2024 ambulatory Dillan Pocos Facility:[facility] [place] Start: 06-17-2024 End: 06-17-2024 Patient encounter procedure Bernard Waters Pocos [facility] Start: 05-29-2024 End: 05-29-2024 Bamboo flowsheet Marianne M Dennyick DO Work Phone: [facility] Start: 05-29-2024 End: 05-29-2024 Bamboo flowsheet Marianne Mcdowell DO Work Phone: [facility] Start: 05-29-2024 End: 05-29-2024 Patient encounter procedure Zuleyma Ling MD Work Phone: [facility] Start: 05-29-2024 End: 05-29-2024 Periodic preventive med est patient 40-64yrs Zuleyma Ling MD Work Phone: [facility] Comment on above: Well woman exam with routine gynecological exam; Other screening mammogram; Oral contraceptive pill surveillance; Encounter for control pills maintenance Start: 05-29-2024 End: 05-29-2024 ambulatory ZULEYMA LING Not Available Start: 05-29-2024 End: 05-29-2024 Patient encounter status Marianne Mcdowell DO Work Phone: [facility] Start: 05-29-2024 End: 05-29-2024 Periodic preventive med est patient 40-64yrs Marianne Mcdowell DO Work Phone: [facility] Comment on above: Preventative health care (Primary Dx); Primary osteoarthritis of both knees; Abnormal weight gain Start: 05-29-2024 End: 05-29-2024 ambulatory MARIANNE MCDOWELL Not Available Start: 05-22-2024 End: 05-22-2024 Clinisync Result Encounter Marianne Mcdowell DO Work Phone: [facility] Unsolicited Start: 05-22-2024 End: 05-22-2024 Clinisync Result Encounter Marianne Mcdowell DO Work Phone: [facility] Unsolicited Start: 05-22-2024 End: 05-22-2024 Patient encounter procedure Bernard Matt DO Work Phone: [facility] Comment on above: Left knee pain (Prim urvashi Dx); Primary osteoarthritis of left knee; Synovial cyst of left popliteal space Start: 05-22-2024 End: 05-22-2024 ambulatory BERNARD MATT Not Available Start: 07-10-2023 End: 07-10-2023 ambulatory Kimmy Duron Other [employer] Other Start: 07-10-2023 Office outpatient vi sit 25 minutes Kimmy Duron [facility] Start: 02-15-2023 End: 02-15-2023 ambulatory Musa Marrufo Facility:[facility] [place] Start: 02-15-2023 End: 02-15-2023 Admission to same day surgery center DO Marianne Petznick Work Phone: [facility] Work Phone: Start: 02-15-2023 End: 02-15-2023 ambulatory DO Marianne Flanaganznick Work Phone: [facility] Work Phone: Start: 09-22-2022 End: 09-23-[address] MARIANNE MCDOWELL Facility:[facility] Start: 09-11-2022 Encounter for genera l adult medical examination without abnormal findings DR MARIANNE MCDOWELL [facility] Start: 09-07-2022 End: 09-08-[address] [...] Date Procedure Procedure Detail Performing Clinician Start: 07-15-2024 ALL CBC WITH AUTO DIFF Bernard Matt DO Work Phone: Start: 05-22-2024 ALL CBC WITH AUTO DIFF Marianne Mcdowell DO Work Phone: Start: 05-22-2024 ALL LIPID PROFILE (FASTING) Marianne Mcdowell DO Work Phone: Start: 05-22-2024 [facility] CMP (CMP) (FOR [facility] USE) Marianne Mcdowell DO Work Phone: Start: 05-22-2024 Arthrocentesis aspir &/inj major jt/bursa w/o us Bernard Matt DO Work Phone: Start: 05-22-2024 Radiologic examinati on knee 3 views Bernard Matt DO Work Phone: Start: 01-02-2024 Mammography Bernard bañuelos DO Work Phone: Start: 02-15-2023 Screening colonoscopy D O Marianne Mcdowell Work Phone: Start: 02-15-2023 Colonoscopy Bernard bañuelos DO Work Phone: Start: 05-11-2022 Microscopic observat ion [Identifier] in Cervix by Cyto stain Bernard Matt DO Work Phone: Start: 08-16-2021 Ct abdomen & pelvis w/contrast material Zuleyma Olea MD Work Phone: Start: 08-16-2021 Ct thorax w/contrast material Zuleyma Olea MD Work Phone: Start: 05-04-2020 Arthroscopy of shoulder Bernard Pocos Arthroscopy of knee Bernard Po cos Excision of lesion of skin D avid Pocos Comment on above: basal cell carcinoma of back Plan of Treatment Date Care Activity Detail Author Start: 02-15-2033 Screening for malign ant neoplasm of colon [facility] Start: 06-11-2025 End: 06-11-2025 Patient encounter procedure 06/11/2025 10:00 AM EST Office Visit [facility] [address] [place] [address] Zuleyma Ling MD [address] [place] [address] [facility] Start: 05-11-2025 Screening for malign ant neoplasm of cervix [facility] Start: 01-02-2025 End: 07-28-2025 DBT Breast - bilateral screening Bilateral screening mammogram with tomosynthesis Imaging Routine Other screening mammogram Expected: 01/02/2025, Expires: 07/28/2025 [facility] Work Phone: Comment on above: Expected: 01/02/2025 , Expires: 07/28/2025 Start: 01-01-2025 Screening for malign ant neoplasm of breast Mammogram [facility] Start: 10-02-2024 End: 10-02-2024 Patient encounter procedure 10/02/2024 2:30 PM EDT Office Visit [facility] [address] [place] [address] Bernard Matt DO [address] [place] [address] [facility] Start: 09-26-2024 End: 09-26-2024 Patient encounter procedure 09/26/2024 10:15 AM EDT Office Visit [facility] [address] [place] [address] PanchitoMarianne amhajan, DO [address] [facility] [address] [place] [address] [facility] Start: 09-24-2024 End: 09-24-2024 ambulatory 09/24/2024 12:00 PM EDT Treatment [facility] [address] [facility] [address] [place] [address] Andrae Vasquez, TECHNICAL [employer] [facility] Start: 09-22-2024 End: 09-22-2024 ambulatory 09/22/2024 12:00 PM EDT Treatment [facility] [address] [facility] [address] [place] [address] Andrae Vasquez, TECHNICAL MANAGER [employer] [facility] Start: 09-17-2024 End: 09-17-2024 ambulatory 09/17/2024 12:00 PM EDT Treatment [facility] [address] [facility] [address] [place] [address] Andrae Vasquez, TECHNICAL MANAGER [employer] [facility] Start: 09-15-2024 End: 09-15-2024 ambulatory 09/15/2024 12:00 PM EDT Treatment [facility] [address] [facility] [address] [place] [address] Andrae Vasquez, TECHNICAL MANAGER [employer] [facility] Start: 09-10-2024 End: 09-10-2024 ambulatory [facility] Comment on above: Arrived Start: 09-08-2024 End: 09-08-2024 ambulatory 09/08/2024 11:00 AM EST Evaluation [facility] [address] [facility] [address] [place] [address] Alexis Ortega, PT S/P left knee arthroscopy [facility] Comment on above: S/P left knee arthro scopy Start: 09-05-2024 End: 09-05-2024 Patient encounter procedure 09/05/2024 10:00 AM EST Office Visit [facility] [address] [place] [address] PocBernard hyatt, DO [address] [place] [address] Arrived [facility] Comment on above: Arrived Start: 09-01-2024 End: 09-01-2024 Patient encounter procedure 09/01/2024 3:45 PM EST Office Visit [facility] [address] [place] [address] Bernard Matt, DO [address] [place] [address] [facility] Start: 08-28-2024 End: 08-28-2024 Patient encounter procedure 08/28/2024 8:30 AM EST Office Visit [facility] [address] [place] [address] Marianne Mcdowell, DO [address] [place] [address] [facility] Start: 08-02-2024 Diabetes Screening Diabetes Screenin g [facility] Start: 07-03-2024 End: 07-03-2024 Patient encounter procedure 07/03/2024 8:30 AM EST Office Visit [facility] [address] [place] [address] PocBernard hyatt, DO [address] [place] [address] Arrived [facility] Comment on above: Arrived Start: 06-19-2024 End: 06-19-2024 Patient encounter procedure 06/19/2024 8:45 AM EST Office Visit [facility] [address] [place] [address] Bernard Matt DO [address] [place] [address] [facility] Start: 05-29-2024 End: 05-29-2024 Patient encounter procedure 05/29/2024 10:30 AM EST Office Visit [facility] [address] [place] [address] Zuleyma Ling MD [address] [place] [address] [facility] Start: 05-29-2024 End: 05-29-2024 Patient encounter procedure [facility] 230 Comment on above: Arrived Start: 03-09-2024 Covid-19 Vaccine ( season) Covid-19 Vaccine ( season) [facility] Start: 03-09-2024 Influenza vaccination Influenza Vacc ine (#1) [facility] Start: 02-15-2023 [facility] Start: 02-24-2020 Lipid panel Lipid Screening [facility] Start: 02-24-2020 Screening for malign ant neoplasm of colon [facility] Start: 2015 Screening for malign ant neoplasm of breast Mammogram Screening [facility] Start: 2005 Screening for malign ant neoplasm of cervix HPV/Cotest [facility] Start: 02-24-1996 Screening for malign ant neoplasm of cervix Cervical Cancer Screening [facility] Start: 1994 Hepatitis B Vaccine (1 of 3 - 19+ 3-dose series) Hepatitis B Vaccine (1 of 3 - 19+ 3-dose series) [facility] Start: 1994 Urine microalbumin profile DTaP,Tdap,Td Vaccine (1 - Tdap) [facility] Start: 1993 Anxiety Screening Anxiety Screening [facility] Start: 1993 Depression Screening Depression Scre ening [facility] Start: 1993 Hepatitis C screening Hepatitis C Sc reening [facility] Start: 1993 HIV screening HIV Screening [facility] Start: 1975 Screening for malign ant neoplasm of colon [facility] XR Knee - left 3 Views XR knee 3 views left Imaging Routine Left knee pain 05/22/2024 7:47 AM EST [facility] Work Phone: Immunizations Immunization Date Immunization Notes Care Provider Paula seth 03-10-2023 Influenza, injectabl e, Madin Rajan Canine Kidney, preservative free, quadrivalent Bernard Pocos DO Work Phone: [facility] 03-10-2023 influenza virus vacc ine, unspecified formulation Bernard Pocos DO Work Phone: [facility] 04-21-2022 Influenza, injectabl e, Madin Friesland Canine Kidney, preservative free, quadrivalent Bernard Pocos DO Work Phone: [facility] 05-06-2021 influenza, injectabl e, quadrivalent, preservative free [facility] Work Phone: [facility] 05-06-2021 influenza virus vacc ine, unspecified formulation [facility] Work Phone: [facility] 04-07-2021 Pfizer Purple Cap SARS-CoV-2 Vaccination Bernard Pocos DO Work Phone: [facility] 07-22-2020 Pfizer Purple Cap SARS-CoV-2 Vaccination Bernard Pocos DO Work Phone: [facility] 06-29-2020 Pfizer Purple Cap SARS-CoV-2 Vaccination Bernard Pocos DO Work Phone: [facility] 04-05-2020 influenza, high dose seasonal, preservative-free Bernard Pocos DO Work Phone: [facility] 04-05-2020 influenza, injectabl e, quadrivalent, preservative free [facility] Work Phone: [facility] 04-04-2020 influenza, high dose seasonal, preservative-free Bernard Pocos DO Work Phone: [facility] 03-24-2019 influenza, injectabl e, madin rajan canine kidney, preservative free [facility] Work Phone: [facility] 03-07-2019 Influenza, injectabl e, Madin Friesland Canine Kidney, preservative free, quadrivalent [facility] Work Phone: [facility] 03-06-2019 Influenza, injectabl e, Madin Friesland Canine Kidney, preservative free, quadrivalent Bernard Pocos DO Work Phone: [facility] 06-20-2011 seasonal influenza, intradermal, preservative free [facility] Work Phone: [facility] Payers Date Payer Category Payer Self-pay 2019 Private Health Insurance AET[employer] AETNA POS [id number] 2019-Present [id number] [place] [address] POS [id number] 2004 [facility] Care O (unspecified) [employer] [id number] 1975 Unknown [id number] [id number] 1975 Unknown [id number] 9.2.593 1975 Unknown [id number] 9.2.593 1975 Unknown [id number] [id number] 9.2.727 1975 Unknown [id number] 9.2.1259 1975 Unknown [id number] 9.2.1259 1975 Unknown [id number] [id number] 9.2.1259 1975 Unknown [id number] [id number] 9.2.1259 1975 Unknown [id number] [id number] 9.2.1259 1975 Unknown [id number] [id number] 9.2.1259 1975 Unknown [id number] [id number] 9.2.125 1975 Unknown [id number] [id number] 9.2.125 1975 Unknown [id number] [id number] 9.2.125 1975 Unknown [id number] [id number] 9.2.125 1975 Unknown [id number] 9.2.1259 1959 Private Health Insurance [id number] Private Health Insurance [id number] Unknown Jenna BC/BS [id number] Unknown [id number] [id number] Social History Date Type Detail Facility Start: 12-14-2022 End: 02-15-2023 Tobacco smoking status ALIS Never smoked tobacco (finding) [facility] Start: 1975 Sex Assigned At Female F [facility] Start: 08-02-2021 End: 12-13-2022 Sex Assigned At [facility] [employer] Other Start: 06-08-2017 End: 12-14-2022 Tobacco use and exposure Smokeless tobacco non-user [facility] Start: 08-02-2021 Alcoholic beverage intake Current non-drinker of alcohol (finding) [facility] Start: 08-02-2021 End: 12-13-2022 History of Social function [facility] Start: 1975 Sex assigned at Not on file [facility] Start: 07-17-2021 End: 08-16-2021 Exposure to SARS-CoV-2 (event) Not sure [facility] Start: 05-22-2024 End: 09-05-2024 Alcoholic beverage intake Ex-drinker (finding) [facility] How often to you hav e a drink containing alcohol? Never [facility] How many standard drinks containing alcohol do you have on a typical day? Patient does not drink [facility] Start: 12-13-2022 Alcohol Comment 1-2 drinks les s than monthly in the past year, Caffeine intake: 1-2 cups per day [facility] Start: 09-20-2022 Gender identity Identifies as female gender (finding) [facility] Tobacco smoking status No Smokin g Status Entered [facility] Medical Equipment Procedure Code Equipment Code Equipment Origin al Text Equipment Identifier Dates SHOULDER ARTHROS COPY W/ POSSIBLE REPAIR Bernard Matt DO 05/04/20 Non Biological Shoulder R [id number] [facility] Start: 05-04-2020 Goals Date Patient Goal Desired Activity /State Clinical Notes 08-02-2021 to 09-05-2024 Bernard Matt DO - 09/05/2024 10:00 AM ESTTelephone Encounter - [place] - 08/19/2024 1:45 PM ESTTelephone Encounter - [place]athy [place] - 08/19/2024 1:45 PM David Serrano - 07/03/2024 8:30 AM EST Note Date & Type Note Facility 09-05-2024 History of Presen t illness Narrative Chief complaint: S/P knee scope-first postoperative visit History: S/P knee scope, doing well. No complaints with anesthesia or sung-operative ancillary care. Pain is controlled. No chest or SOB. Taking sung-op aspirin for 21 days per protocol. Weaning off assistive device. Physical Exam: The knee and leg have mild swelling. No rash or infection. Portals are clean, dry and intact. Calves are supple and non-tender bilaterally. Able to bear weight with mild antalgic gait. Xrays: None today. Arthroscopic prints reviewed. Assessment: S/P knee scope-first post operative visit Treatment Plan: The nature of the findings were discussed at length. The procedure and arthroscopic prints are reviewed. Continue scope exercise sheet that was provided the day of surgery, twice a day for 2 more weeks. Ice 2-3 three times a day for the next couple weeks. Regular exercise at 4 weeks from surgery. Finish DVT prevention medication until day #21 post-operative. PT was offered and discussed. F/U will be in1 month, prn if doing well. All questions answered. documented in this encounter [facility] 08-19-2024 Telephone encount er Note Adia wanted to know if she needed to get crutches or if insurance will cover for these? Sx L knee scope 08/21/24 [facility] 08-19-2024 Miscellaneous Notes Formattin g of this note might be different from the original. Adia wanted to know if she needed to get crutches or if insurance will cover for these? Sx L knee scope 08/21/24 documented in this encounter [facility] 07-03-2024 History of Presen t illness Narrative Images from the original note were not included. GENERAL HISTORY AND PHYSICAL: NAME: Adia Mendoza : 1975 CHIEF COMPLAINT: Left knee osteoarthritis with review of MRI. HISTORY OF PRESENT ILLNESS: This is a 49 y.o. female who presents for a pre-op H&P. Adia returns here today for repeat evaluation of the above. She continues to have pain and difficulty. 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 She has tried the arch support. These have been painful, but she did put them in and wear them for some 10-11 hours. PAST MEDICAL HISTORY: Past Medical History: Diagnosis Date Basal cell carcinoma on face Colonic polyp Diverticulosis 2012 Gestational diabetes Hemorrhoids Nephrolithiasis 1st preg had toxemia delivered at 36 wks 2012 full term Sprain of left ankle, unspecified ligament, subsequent encounter Ulnar neuropathy of right upper extremity Varicella zoster Visual impairment w/contact lenses PAST SURGICAL HISTORY: Past Surgical History: Procedure Laterality Date COLONOSCOPY 2009 -hyperplastic polyp COLONOSCOPY 2012 -Diverticulosis [place] KNEE SCOPE,CLEAN/DRAIN 2013 DR MAO SHOULDER ARTHROSCOPY W/ LABRAL REPAIR Right 04/2020 DAP VAGINAL DELIVERY 2011 2008(5 hr labor) VAGINAL DELIVERY SOCIAL HISTORY: Social History Occupational History Not on file Tobacco Use Smoking status: Never Smokeless tobacco: Never Substance and Sexual Activity Alcohol use: Not Currently Comment: 1-2 drinks less than monthly in the past year, Caffeine intake: 1-2 cups per day Drug use: Never Sexual activity: Not Currently Partners: Male control/protection: OCP ALLERGIES: No Known Allergies MEDICATIONS: Current Outpatient Medications Medication Instructions cyclobenzaprine (Flexeril) 10 MG tablet TAKE 1 TABLET BY MOUTH EVERY DAY AT BEDTIME NEEDED FOR HEADACHE meloxicam (MOBIC) 15 mg, Oral, As needed norethindrone-ethinyl estradiol (Alyacen 1/35) 1-35 MG-MCG tablet 1 tablet Orally 1 po daily continous active pills only for 84 days Wegovy 0.5 mg, Subcutaneous, Weekly REVIEW OF SYSTEMS: The review of systems, history and current medications list are all reviewed today. Vitals: Visit Vitals Ht 5' 3.75 Wt 195 lb BMI 33.73 kg/m OB Status Having periods Smoking Status Never BSA 2 m PHYSICAL EXAM: Her exam here today reveals tenderness right over the medial compartment with pain upon medial Jose David testing. No click. Varus and valgus stress testing is stable. Doris is negative. The calf and thigh are supple. Neurocirculatory status is overall grossly intact. Right knee reveals arc of motion without difficulty. Medial and lateral Jose David testing is negative. The calf and thigh are supple. Examination of the x-rays, MRI is reviewed here today and does show suspicion of posterior horn medial and lateral meniscal tears. She does have medial and patellofemoral arthrosis. No evidence of fracture or other osseous abnormality. Surgical History and Physical: GENERAL AND PSYCHOLOGICAL: The patient is alert and oriented for age. HEAD AND E.E.N.T.: The skull is normocephalic. There is no mass or sign of trauma. NECK: The neck is supple. There is good range of motion. There is no mass or adenopathy appreciated. The thyroid is not enlarged. CARDIAC: The heart is regular. There is no murmur or ectopy appreciated. LUNGS: Inspiratory and expiratory excursions are symmetrical. The lung grier are clear in all quadrants. ABDOMEN: The texture is soft. Bowel sounds are heard well in all quadrants. There is no tenderness to palpation. There is no organomegaly appreciated. OSTEOPATHIC AND STRUCTURAL: There is no gross evidence of kyphosis, lordosis, scoliosis, or apparent leg length discrepancy, with no acute tissue texture changes in sitting or standing positions. ASSESSMENT: Left knee osteoarthritis with likely medial and lateral meniscal tears. PLAN: The findings are discussed. We did outline definitive management as being that of diagnostic operative arthroscopy with addressing of the menisci. After a lengthy discussion, she does wish to go ahead with the same. This does appear to be clinically indicated and cost effective. We did discuss the expectations day of surgery, site verification. The nature of the findings were discussed at length. Knee arthroscopy was recommended. Imaging studies, pathology and anatomy were reviewed. The patient has failed conservative care and has continued symptomatology with activities of daily living disruption. Knee arthroscopy is warranted. The patient is aware that knee arthroscopy does not cure arthritis. There is a potential of continued pain, stiffness, antalgic gait, infection, infection requiring multiple surgeries with IV antibiotics, nerve, vessel or tendon injury, foot drop, bleeding, anesthesia complications, blood clot, pulmonary embolus, myocardial infarction, arrhythmia, stroke and have all been reviewed. I am personally involved with the informed consent process. Numerous questions were answered. The patient will undergo routine presurgical testing per protocol. I will see the patient back postoperatively for a recheck, sooner if worse. The patient voices verbal understanding and is discharged in stable condition. We did discuss the medical risks. We discussed the expectations with regard to recovery with and without repair. She does voice understanding of this. We did discuss easing into the arch support. All of her questions are otherwise answered this day. She is discharged in stable condition. Follow up letter sent to her primary care physician. Bernard Matt D.O. Cosigned by Bernard Matt DO at 07/07/2024 7:33 AM EST documented in this encounter [facility] 05-29-2024 History of Presen t illness Narrative Images from the original note were not included. Zuleyma Ling MD Obstetrics and Gynecology Patient: Adia Mendoza, : 1975 (49 y.o.) DOS 05/29/24 Exam Date: 05/29/2024 HPI: Yearly exam She is well Needs refill of OCPs Visit Vitals BP 122/80 Wt 195 lb LMP 05/13/2024 BMI 33.73 kg/m OB Status Having periods Smoking Status Never BSA 2 m OB History Para Term AB Living 2 2 2 0 0 2 SAB IAB Ectopic Multiple Live Births 0 0 0 0 2 # Outcome Date GA Lbr [place]/2nd Weight Sex Type Anes PTL Lv 2 Term 1 Term Obstetric Comments Pap: 05/30-Neg OBED: HPV Neg Mammo: 01/02/24-Neg (TB[facility]) Amenorrhea continuous BCP's; LMP: 05/13/24 Medication and Allergies Medication Documentation Review Audit Reviewed by Msisy Askew MA (Byproduct Engineer) on 05/29/24 at 1029 Medication Order Taking? Sig Documenting Provider Last Dose Status cyclobenzaprine (Flexeril) 10 MG tablet [id number] No TAKE 1 TABLET BY MOUTH EVERY DAY AT BEDTIME NEEDED FOR HEADACHE Patient taking differently: Take 10 mg by mouth as needed at bedtime Marianne Mcdowell, DO Taking Active Discontinued 05/22/24 0813 meloxicam (Mobic) 15 MG tablet [id number] No TAKE 1 TABLET BY MOUTH EVERY DAY NEEDED FOR HEADACHE/BODY ACHES Patient taking differently: Take 1 tablet by mouth Daily as needed Marianne Mcdowell DO Taking Active norethindrone-ethinyl estradiol (Alyacen ) 1-35 MG-MCG tablet [id number] 1 tablet Orally 1 po daily continous active pills only for 84 days Zuleyma Ling MD Active Discontinued 05/22/24 0813 Semaglutide-Weight Management (Wegovy) 0.5 MG/0.5ML solution auto-injector [id number] Inject 0.5 mg under the skin 1 (one) time per week Marianne Mcdowell DO Active No Known Allergies Past Medical History: Diagnosis Date Basal cell carcinoma on face Colonic polyp Diverticulosis 2013 Gestational diabetes Hemorrhoids Nephrolithiasis 1st preg had toxemia delivered at 36 wks 2012 full term Sprain of left ankle, unspecified ligament, subsequent encounter Ulnar neuropathy of right upper extremity Varicella zoster Visual impairment w/contact lenses Past Surgical History: Procedure Laterality Date COLONOSCOPY 2009 -hyperplastic polyp COLONOSCOPY 2012 -Diverticulosis [place] KNEE SCOPE,CLEAN/DRAIN 2013 DR MAO SHOULDER ARTHROSCOPY W/ LABRAL REPAIR Right 04/2020 DAP VAGINAL DELIVERY 2011 2008(5 hr labor) VAGINAL DELIVERY Physical Exam: Objective Physical Exam Constitutional: Appearance: Normal appearance. Genitourinary: Vulva normal. Right Adnexa: not palpable. Left Adnexa: not palpable. No cervical lesion. Uterus is not enlarged or tender. Breasts: Right: Normal. Left: Normal. Pulmonary: Effort: Pulmonary effort is normal. Abdominal: Palpations: Abdomen is soft. Neurological: Mental Status: She is alert. Associated Treatments and Results - ICD-10-CM 1. Well woman exam with routine gynecological exam Z01.419 2. Other screening mammogram Z12.31 Bilateral screening mammogram with tomosynthesis 3. Oral contraceptive pill surveillance Z30.41 4. Encounter for control pills maintenance Z30.41 Assessment/Plan Orders Placed This Encounter Procedures Bilateral screening mammogram with tomosynthesis U/S and spot compression if indicated Standing Status: Future Standing Expiration Date: 07/28/2025 Order Specific Question: Reason for exam: Answer: screen Order Specific Question: Is the patient ? Answer: No documented in this encounter [facility] 05-29-2024 History of Presen t illness Narrative Associated Problem(s): Abnormal weight gain Pt is eating healthy and exercising on a regular basis. Despite this continues to have a difficult time with weight loss. Discussed options as well as risks/benefits of Wegovy. Pt voices understanding. Will start Wegovy. They are to call with any problems or not improving. Will monitor closely and f/u in one month. This medication will be discontinued if pt is not losing weight. She is going to work on increasing her exercise and focusing on what she can do despite her knee pain. Will get back into using a food journal to keep herself accountable. Associated Problem(s): Primary osteoarthritis of both knees Working with Dr Matt. Having a lot of pain in her left knee and working on getting an MRI on this. Images from the original note were not included. Adia Mendoza is a 49 y.o. female presents with chief complaint of Annual Exam HPI: [facility] 05/22/2024 Mammogram 01/02/2024 Colonoscopy 02/15/2023 Current concerns include: Adia Mendoza is here for follow up for her weight. She has not been doing very well with her diet. Exercise is limited due to left knee pain She was on saxenda in the past and did well on it. Last took about a year ago due to cost issues and needing a PA. Diet: none Exercise : limited for the past 4 months Still trying to walk on occasion Injection in left knee by Dr Matt a weeks ago which didn't help the pain. No pain in right knee Xrays showed X-rays AP bilateral weight bearing, bilateral sunrise and left lateral knee does show moderate medial osteoarthritis bilaterally. No evidence of fracture or other osseous abnormality. She does have some lateral patellofemoral arthrosis, right worse than left. She is in the process of getting an MRI SUBJECTIVE: See medication list at the end of the note. No Known Allergies REVIEW OF SYMPTOMS: Review of Systems Constitutional: Positive for fatigue and unexpected weight change. Negative for appetite change and fever. HENT: Negative for congestion, ear pain, sinus pain, sore throat and trouble swallowing. Eyes: Negative for pain and visual disturbance. Respiratory: Negative for cough, shortness of breath and wheezing. Cardiovascular: Negative for chest pain, palpitations and leg swelling. No orthopnea Gastrointestinal: Negative for abdominal pain, blood in stool, constipation, diarrhea, nausea and vomiting. Genitourinary: Negative for dysuria and frequency. Musculoskeletal: Positive for arthralgias. Negative for back pain and myalgias. Skin: Negative for rash and wound. Neurological: Negative for dizziness, tremors, seizures, syncope, weakness, numbness and headaches. Psychiatric/Behavioral: Negative for confusion, hallucinations, sleep disturbance and suicidal ideas. The patient is not nervous/anxious. Hematological: Negative for adenopathy. OBJECTIVE: 05/29/2024 8:47 AM 05/22/2024 8:12 AM 06/19/2023 9:41 AM Vitals BMI 34.08 kg/m2 29.44 kg/m2 29.44 kg/m2 Systolic 124 118 Diastolic 80 78 Heart Rate 86 89 Temp 99.4 F 97.4 F Height (in) 5' 3.75 5' 3.75 5' 3.75 Weight (lb) 197 170.2 Visit Report Report Report Report Physical Exam Vitals reviewed. Constitutional: General: She is not in acute distress. HENT: Head: Normocephalic. Right Ear: Tympanic membrane and ear canal normal. Left Ear: Tympanic membrane and ear canal normal. Mouth/Throat: Mouth: Mucous membranes are moist. Pharynx: No posterior oropharyngeal erythema. Eyes: Extraocular Movements: Extraocular movements intact. Pupils: Pupils are equal, round, and reactive to light. Cardiovascular: Rate and Rhythm: Normal rate and regular rhythm. Pulses: Normal pulses. Heart sounds: Normal heart sounds. No murmur heard. No friction rub. No gallop. Pulmonary: Breath sounds: Normal breath sounds. No wheezing, rhonchi or rales. Abdominal: General: Bowel sounds are normal. There is no distension. Palpations: Abdomen is soft. Tenderness: There is no abdominal tenderness. There is no guarding or rebound. Musculoskeletal: General: No swelling. Lymphadenopathy: Cervical: No cervical adenopathy. Skin: Findings: No lesion or rash. Neurological: General: No focal deficit present. Mental Status: She is alert and oriented to person, place, and time. Cranial Nerves: No cranial nerve deficit. Motor: No weakness. Deep Tendon Reflexes: Reflexes normal. Psychiatric: Mood and Affect: Mood normal. ASSESSMENT AND PLAN: Problem List Items Addressed This Visit Abnormal weight gain Pt is eating healthy and exercising on a regular basis. Despite this continues to have a difficult time with weight loss. Discussed options as well as risks/benefits of Wegovy. Pt voices understanding. Will start Wegovy. They are to call with any problems or not improving. Will monitor closely and f/u in one month. This medication will be discontinued if pt is not losing weight. She is going to work on increasing her exercise and focusing on what she can do despite her knee pain. Will get back into using a food journal to keep herself accountable. Relevant Medications Semaglutide-Weight Management (Wegovy) 0.5 MG/0.5ML solution auto-injector Primary osteoarthritis of both knees Working with Dr Matt. Having a lot of pain in her left knee and working on getting an MRI on this. Other Visit Diagnoses Preventative health care - [facility] I reviewed the patients past medical history along with any laboratory and diagnostic testing preformed prior to the visit. During the visit, health care maintanence was reviewed and recommendations made specifically for the patient based on their risk factors. Current colon cancer screening: up-to-date with colonoscopy. Breast cancer screening: up-to-date with screening. Blood work: most recent blood work reviewed . Finally the patient was instructed to call the office if any health issues arise until the next well check/appointment. At the conclusion of the visit all questions were answered which were brought forth. Encouraged to live a healthy lifestyle including a healthy diet and regular exercise. Follow up in about 3 months (around 08/29/2024) for Recheck. Patient's Medications New Prescriptions SEMAGLUTIDE-WEIGHT MANAGEMENT (WEGOVY) 0.5 MG/0.5ML SOLUTION AUTO-INJECTOR Inject 0.5 mg under the skin 1 (one) time per week Previous Medications CYCLOBENZAPRINE (FLEXERIL) 10 MG TABLET TAKE 1 TABLET BY MOUTH EVERY DAY AT BEDTIME NEEDED FOR HEADACHE MELOXICAM (MOBIC) 15 MG TABLET TAKE 1 TABLET BY MOUTH EVERY DAY NEEDED FOR HEADACHE/BODY ACHES NORETHINDRONE-ETHINYL ESTRADIOL (ALYACEN ) 1-35 MG-MCG TABLET 1 tablet Orally 1 po daily continous active pills only for 84 days Modified Medications No medications on file Discontinued Medications No medications on file I have reviewed and reconciled the history and medication list with the patient today. documented in this encounter [facility] 05-22-2024 History of Presen t illness Narrative Associated Order(s): L Inj/Asp: L knee Post-Procedure Diagnose(s): Primary osteoarthritis of left knee L Inj/Asp: L knee on 05/22/2024 9:05 AM Indications: pain Details: 22 G needle Medications: 1 mL betamethasone acetate-betamethasone sodium phosphate 6 (3-3) MG/ML Images from the original note were not included. Adia Mendoza is a 49 y.o. female presents with chief complaint of left knee pain. HPI: Adia is a 49-year-old white female who presents complaining of left knee pain and difficulty. This has been going on for the last four to six months. She states that she has had trouble trying to jog with this. She has been walking only. She did try a little bit of Meloxicam which she does have at home. This is 15 mg. She will maybe take this twice a week. She denies any sleep disturbance. She has had a 25 pound weight gain over the last year. 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 She does report a feel something in the back , referring to the posterior aspect of her knee. SUBJECTIVE: MEDICATIONS: Current Outpatient Medications Medication Instructions cyclobenzaprine (Flexeril) 10 MG tablet TAKE 1 TABLET BY MOUTH EVERY DAY AT BEDTIME NEEDED FOR HEADACHE meloxicam (Mobic) 15 MG tablet TAKE 1 TABLET BY MOUTH EVERY DAY NEEDED FOR HEADACHE/BODY ACHES norethindrone-ethinyl estradiol (Alyacen ) 1-35 MG-MCG tablet 1 tablet Orally 1 po daily continous active pills only for 84 days ALLERGIES: No Known Allergies SURGICAL HISTORY: Past Surgical History: Procedure Laterality Date COLONOSCOPY 2009 -hyperplastic polyp COLONOSCOPY 2012 -Diverticulosis [place] KNEE SCOPE,CLEAN/DRAIN 2013 DR MAO SHOULDER ARTHROSCOPY W/ LABRAL REPAIR Right 04/2020 DAP VAGINAL DELIVERY 2011 2008(5 hr labor) VAGINAL DELIVERY FAMILY HISTORY: Family History Problem Relation Name Age of Onset Thyroid disease Mother Cancer Maternal Grandmother Javier SOCIAL HISTORY: Social History Tobacco Use Smoking status: Never Smokeless tobacco: Never Substance Use Topics Alcohol use: Not Currently Comment: 1-2 drinks less than monthly in the past year, Caffeine intake: 1-2 cups per day Drug use: Never Depression: Not at risk (05/24/2023) PHQ-2 PHQ-2 Score: 0 REVIEW OF SYMPTOMS: The review of systems, history and current medications list are all reviewed today. OBJECTIVE: Visit Vitals Ht 5' 3.75 BMI 29.44 kg/m OB Status Having periods Smoking Status Never BSA 1.86 m Physical Exam Her orthopedic exam reveals a pleasant 49-year-old white female in no acute distress. She does have tenderness to palpation along the medial aspect of her knee as well as patellofemoral. She has a small popliteal cyst posterolateral. Tenderness again mainly the medial, posterior medial compartment of the knee. Her varus and valgus stress testing is stable. Drawer testing is negative. The calf and thigh are supple. Examination of the contralateral right knee reveals arc of motion without difficulty. Fully stable. Neurocirculatory status is overall grossly intact. X-rays AP bilateral weight bearing, bilateral sunrise and left lateral knee does show moderate medial osteoarthritis bilaterally. No evidence of fracture or other osseous abnormality. She does have some lateral patellofemoral arthrosis, right worse than left. ASSESSMENT AND PLAN: Assessment/Plan Left knee osteoarthritis. The findings are discussed. She does have the Meloxicam and she will use this more regularly. We did explain that we really just want to quiet the inflammation down. We did discuss the concept of popliteal cyst formation. She is offered a corticosteroid injection. She does opt for that here today. She is injected with 1 cc of Betamethasone and 3 cc of 1% Lidocaine plain (6 mg of Betamethasone with 3 ml of 1% Lidocaine plain). She did tolerate that injection well under sterile prep. We did discuss weight loss, footwear, arch support. She is given some information on this. Her return here will be in another month for recheck and review. We did discuss the diagnostic nature of the injection as well and we will make further recommendations based upon the findings. All of her questions are otherwise answered this day. She is discharged in stable condition. Follow up letter sent to Dr. Marianne Mcdowell. Cosigned by Bernard Matt DO at 05/28/2024 8:00 AM EST documented in this encounter [facility] 07-10-2023 Evaluation note Encounter Date Diagnosis Assessment [...] treatment plan. Patient left in stable condition. [employer] Other 08-10-[address] [facility]02-08-2022 NoteHNO ID: [id number] Author: Sarah Arnett RN Service: ? Author [...] the [employer] website at kidney.org/professionals/kdoqi/gfr_calculator. eGFR- Date Value Ref Range Status 08/02/2021 >60 Final P.O.C.T. RESULTS: POC done: Yes, See Lab Tab August 02, 2021 TREATMENT: No Hydration needed. IV SITE: Ambulatory: A peripheral IV was started in the Right antecubital site with a Angio cath: 20 gauge. IV SITE APPEARANCE: Clean,Dry and Intact SIGNATURE: Sarah Arnett RN PATIENT NAME: Adia Mendoza DATE: August 16, 2021 TIME: 10:58 [facility]02-08-2022 History of Present illness Narrative* Sarah Arnett RN - 08/16/2021 10:45 AM EST Radiology Service Progress Note DATE OF SERVICE: [...] the National [employer] website at kidney.org/professionals/kdoqi/gfr_calculator. eGFR- Date Value Ref Range Status 08/02/2021 [...] 2021 TIME: 10:58 AM [facility] NoteHNO ID: [id number] Author: Zuleyma Olea MD Service: ? Author Type: Physician Type: Progress Notes Filed: 08/02/2021 8:32 PM Note Text: PATIENT NAME: Adia Mendoza DATE: 08/02/2021 PRIMARY CARE PHYSICIAN: Marianne Mcdowell DO OTHER PHYSICIANS: Dr. Zuleyma Lign, Dr. Karin Nicholas Portions of this encounter [...] bruits. ABDOMEN: Negative for (more content not included)...[facility] Evaluation + Plan note No data available for this section [facility] Evaluation noteNo assessment information available [facility] Work Phone: Evaluation note* Diagnosis Lymphadenopathy Enlargement of lymph nodes [facility] Diagnosis Abnormal weight gain- Primary Abnormal weight gain Chronic tension-type headache, intractable- Primary Chronic tension type headache Abnormal weight gain Left knee pain- Primary Pain in joint, lower leg Primary osteoarthritis of left knee Synovial cyst of left popliteal space Well woman exam with routine gynecological exam Routine gynecological examination Other screening mammogram Oral contraceptive pill surveillance documented in this encounter [facility]* Diagnosis Abnormal weight gain- Primary Abnormal weight gain Chronic tension-type headache, intractable- Primary Chronic tension type headache Abnormal weight gain Well woman exam with routine gynecological exam Routine gynecological examination Other screening mammogram Oral contraceptive pill surveillance Preventative health care- Primary Routine general medical examination at a health care facility Primary osteoarthritis of both knees Abnormal weight gain [facility]* Diagnosis Abnormal weight gain- Primary Abnormal weight gain Chronic tension-type headache, intractable- Primary Chronic tension type headache Abnormal weight gain Well woman exam with routine gynecological exam Routine gynecological examination Other screening mammogram Oral contraceptive pill surveillance Encounter for control pills maintenance Surveillance of previously prescribed contraceptive pill Preventative health care- Primary Routine general medical examination at a health care facility Primary osteoarthritis of both knees Abnormal weight gain documented in this encounter [facility]* Diagnosis Abnormal weight gain- Primary Abnormal weight gain Chronic tension-type headache, intractable- Primary Chronic tension type headache Abnormal weight gain Preventative health care- Primary Routine general medical examination at a health care facility Primary osteoarthritis of both knees Abnormal weight gain Primary osteoarthritis of left knee- Primary Acute medial meniscus tear of left knee, initial encounter Acute lateral meniscus tear of left knee, initial encounter [facility]* Diagnosis Abnormal weight gain- Primary Abnormal weight gain Chronic tension-type headache, intractable- Primary Chronic tension type headache Abnormal weight gain Preventative health care- Primary Routine general medical examination at a health care facility Primary osteoarthritis of both knees Abnormal weight gain Tension-type headache, unspecified, not intractable [facility]* Diagnosis Abnormal weight gain- Primary Abnormal weight gain Chronic tension-type headache, intractable- Primary Chronic tension type headache Abnormal weight gain Preventative health care- Primary Routine general medical examination at a health care facility Primary osteoarthritis of both knees Abnormal weight gain Acute medial meniscus tear of left knee, subsequent encounter- Primary documented in this encounter [facility]* Diagnosis Abnormal weight gain- Primary Abnormal weight gain Chronic tension-type headache, intractable- Primary Chronic tension type headache Abnormal weight gain Preventative health care- Primary Routine general medical examination at a health care facility Primary osteoarthritis of both knees Abnormal weight gain S/P left knee arthroscopy- Primary [facility]* Diagnosis Abnormal weight gain- Primary Abnormal weight gain Chronic tension-type headache, intractable- Primary Chronic tension type headache Abnormal weight gain Preventative health care- Primary Routine general medical examination at a health care facility Primary osteoarthritis of both knees Abnormal weight gain S/P left knee arthroscopy- Primary documented [facility] encounter [facility]* Diagnosis Abnormal weight gain- Primary Abnormal weight gain Chronic tension-type headache, intractable- Primary Chronic tension type headache Abnormal weight gain Preventative health care- Primary Routine general medical examination at a health care facility Primary osteoarthritis of both knees Abnormal weight gain S/P left knee arthroscopy- Primary Left knee pain, unspecified chronicity documented in this encounter [facility] Author Musa Marrufo [facility] February 15, 2023 8:06am Note Date/Time February 15, 2023 8: 06am [facility] [address] [place] [address] Gastroenterology H&P Signed Patient: Adia Mendoza MR#: [id number] : 1975 Acct:[id number] Age/Sex: 47 / F Adm Date: 3 Loc: Room: Type: [facility] Attending Dr: Musa Marrufo MD Copies to: [...] <Electronically signed by Musa Marrufo MD> 02/15/23805 [facility] Work Phone: History general Narrative - Reported* Type Description Date Medical History Basal cell carcinoma on face and leg Surgical History Right knee arthroscopy Hospitalization History See past surgical hx [employer] Other Hospital Discharge instructions Additional Instructions DISCHARGE INSTRUCTIONS [...] NOT operate machinery such as power tools, [employer] mowers, snow blowers, sewing machines, etc. for [...] years. -Follow up with PCP. -Office number [phone].[facility] Work Phone: Hospital Discharge instructions No data available for this section [facility] Progress note No data available for this section [facility] Reason for visit Narrative* Consultation (Routine) - Authorized Specialty Diagnoses / Procedures Referred By Vipul t Referred To Contact Physical Therapy Diagnoses S/P left knee arthroscopy Procedures [place] OFFICE/OUTPATIENT NEW HIGH MDM 60 MINUTES Bernard Matt DO [address] [place] [address] Phone: tel: fax:[phone] Alexis Ortega PT Referral ID Status Reason Start Date Expiration Date Visits Requested Visits Authorized [id number] Authorized Consult and Treat 09/05/2024 03/04/2025 120 120 [facility] Summary Purpose Family History No Family History Records Found Relationship Condition Age at Onset Recorded Date/T adrianna Not Specified No pertinent family history Unknown Advance Directives No Advanced Directives Records Found Advance Directive Response Recorded Date/ Time Advance Directives No February 12, 2 023 4:09pm Chief Complaint and Reason for Visit Chief Complaint Screening Reason for Referral Specialty Diagnoses / Procedures Referred By Contac t Referred To Contact CT IMAGING Diagnoses Lymphadenopathy Procedures CT CHEST W IVCON DIAGNOSTIC COMPUTED TOMOGRAPHY THORAX W/CONTRAST Zuleyma Olea MD [address] [place] [address] [place] [address] [facility] Referral ID Status Reason Start Date Expiration Date V isits Requested Visits Authorized [id number] Closed Auto-Generate d Referral 08/02/2021 09/01/2022 1 1 Specialty Diagnoses / Procedures Referred By Contac t Referred To Contact CT IMAGING Diagnoses Lymphadenopathy Procedures CT ABD/PEL W IVCON CT ABD & PELVIS W/CONTRAST Zuleyma Olea MD [address] [place] [address] [place] [address] [place] [address] Referral ID Status Reason Start Date Expiration Date V isits Requested Visits Authorized [id number] Closed Auto-Generate d Referral 08/02/2021 09/01/2022 1 1 Additional Source Comments INFORMATION SOURCE (unrecogn ized section and content) DATE CREATED AUTHOR 09/28/2021 [facility] DATE CREATED AUTHOR AUTHOR'S ORGANIZ ATION 10/01/2022 [facility] DATE CREATED AUTHOR AUTHOR'S ORGANIZ ATION 02/22/2023 [facility] DATE CREATED AUTHOR AUTHOR'S ORGANIZ ATION 06/23/2024 [facility] DATE CREATED AUTHOR AUTHOR'S ORGANIZ ATION 09/12/2024 [facility] EPIC Care Teams (unrecognized sec tion and content) Team Status: Active Member Role Status Dates Marianne Mcdowell DO Primary Care Provider Active Team Status: Inactive Member Role Status Dates Marianne Mcdowell DO Primary Care Provider Active Musa Marrufo MD Attending Provider Active Timber Setter Relationship Specialty Start Date End Date Agus Mcdowellconstantin Viera [address] [place] [address] PCP - General Family Medicine 05/22/17 Timber Setter Relationship Specialty Start Date End Date Marianne Mcdowell DO [address] [place] [address] PCP - General 12/13/22 Timber Setter Relationship Specialty Start Date End Date Marianne Mcdowell DO [address] [place] [address] PCP - General 12/13/22 Timber Setter Relationship Specialty Start Date End Date Marianne Mcdowell DO [address] [place] [address] PCP - General 12/13/22 Timber Setter Relationship Specialty Start Date End Date Marianne Mcdowell DO [address] [place] [address] PCP - General 12/13/22 Timber Setter Relationship Specialty Start Date End Date Marianne Mcdowell DO [address] [place] [address] PCP - General 12/13/22 Timber Setter Relationship Specialty Start Date End Date Marianne Mcdowell DO [address] [place] [address] PCP - General 12/13/22 Timber Setter Relationship Specialty Start Date End Date Marianne Mcdowell DO [address] [place] [address] PCP - General 12/13/22 Timber Setter Relationship Specialty Start Date End Date Jeremias Marianne M, DO [address] [place] [address] PCP - General 12/13/22 Timber Setter Relationship Specialty Start Date End Date Jeremias Marianne M, DO [address] [place] [address] PCP - General 12/13/22 Timber Setter Relationship Specialty Start Date End Date Marianne Mcdowell Rose, DO [address] [place] [address] PCP - General 12/13/22 Timber Setter Relationship Specialty Start Date End Date Marianne Mcdowell Rose, DO [address] [place] [address] PCP - General 12/13/22 Timber Setter Relationship Specialty Start Date End Date Marianne Mcdowell Rose, DO [address] [place] [address] PCP - General 12/13/22 Timber Setter Relationship Specialty Start Date End Date Marianne Mcdowell Rose, DO [address] [place] [address] PCP - General 12/13/22 Timber Setter Relationship Specialty Start Date End Date Marianne Mcdowell Rose, DO [address] [place] [address] PCP - General 12/13/22 Timber Setter Relationship Specialty Start Date End Date Marianne Mcdowell, DO [address] [place] [address] PCP - General 12/13/22 REASON FOR VISIT (unrecogniz ed section and content) Specialty Diagnoses / Procedures Referred By Contac t Referred To Contact CT IMAGING Diagnoses Lymphadenopathy Procedures CT CHEST W IVCON DIAGNOSTIC COMPUTED TOMOGRAPHY THORAX W/CONTRAST Zuleyma Olea MD [address] [place] [address] [place] [address] [place] [address] Referral ID Status Reason Start Date Expiration Date V isits Requested Visits Authorized [id number] Closed Auto-Generate d Referral 08/02/2021 09/01/2022 1 1 Reason Comments Pain Reason Comments Annual Exam Reason Comments Follow-up Reason Comments Med Refill Reason Onset Date Comments crutches 08/19/2024 Reason Comments Pain Scope 08/21/24 Post-op Scope 08/21/24 Source Comments (unrecognize d section and content) In the event this informatio n is protected by the Federal Confidentiality of Alcohol and Drug Abuse Patient Records regulations: The Federal rules restrict any use of the information to criminally investigate or prosecute any alcohol or drug abuse patient.[facility] FOR RECORDS PERTAINING TO PATIENTS WHO ARE [...] BE BASED ON THE PRIMARY CLINICAL RECORDS. [employer] [facility]. provides no warranty or guarantee of the accuracy or completeness of information in this document.
== END 2024-09-12 12:33 | disposition home or self-care (01) ==
LOC: US 12:33
PROVIDERS: PCP Family Medicine; Visit Provider Orthopaedic Surgery
DX: M79.89 Other specified soft tissue disorders (principal)
CPT/HCPCS: 93971

== ENCOUNTER 2025-02-26 08:55 | Outpatient (OUT) | payer OTHER, SELFPAY ==
--- NOTE | 2025-02-26 08:58 | MM_ITS ---
Patient Name: KEREN MENDOZA MR#: [id number] : 1975 Exam Date: 02/26/2025 Ordering Doctor: DR ZULEYMA TAVAREZ RADIOLOGY REPORT PROCEDURE: MM TOMOSYNTHESIS SCREENING BI COMPARISON: MM TOMOSYNTHESIS SCREENING BI, 01/02/2024. MG MAMM SCREEN 3D [place] CAD, 08/29/2022. MG MAMM SCREEN 3D [place] CAD, 04/19/2021. MG MAMM [place] SCRN W CAD DIG, 05/16/2016. INDICATIONS: screening Calculator Name NCI Breast Cancer Risk Assessment Tool 5 Year Breast Cancer Risk 1.50% Lifetime Breast Cancer Risk 13.30% Personal Breast Cancer No Personal Ovarian Cancer No Treatments None Family Cancers None LOCATION: [facility] BREAST COMPOSITION: There are scattered areas of fibroglandular density. FINDINGS: RIGHT BREAST: No significant suspicious finding. There is a similar focal asymmetry laterally on the right. LEFT BREAST: No significant suspicious finding. DIAGNOSTIC CATEGORY 2--BENIGN FINDING. NO CHANGE FROM COMPARISON. RECOMMENDATIONS: ROUTINE MAMMOGRAM AND CLINICAL EVALUATION IN 12 MONTHS. Dictated by: Edwin Llanos MD on 02/26/2025 at 11:13 Approved by: Edwin Llanos MD on 02/26/2025 at 11:16
--- OUTSIDE RECORDS SUMMARY | 2025-02-26 08:59 | XMS_ITS | CCD ---
Author Organization [facility] [place] [facility] Care Team Providers Care Plant Control Operator Name Role Phone JEREMIAS, DR MORALES Admitting Unavailable PETZNICK, DR MORALES Attending Unavailable TAYLOR, DR CAROLYN York Primary Care Unavailable ZIEBER, DR SHIVA Alvarez Consulting Unavailable PETZNICK, DR MORALES Consulting Unavailable PRINTY, DR AMOR Admitting Unavailable PRINTY, DR AMOR Attending Unavailable TAYLOR, DR CAROLYN York Primary Care Unavailable ZIEBER, DR SHIVA Alvarez Consulting Unavailable PRINTY, DR AMOR Consulting [...] Provider Marianne Mcdowell DO Primary Care Provider [phone] MARIANNE MCDOWELL Primary Care Physician Shaka, Bernard Waters Referring Unavailable Pocos, Bernard Waters Attending Unavailable Pocos, Bernard Waters Admitting Unavailable POCOS, BERNARD Waters Attending Unavailable POCOS, BERNARD Waters Referring Unavailable JAQUELIN ORTEGA Attending Unavailable POCOS, BERNARD Waters Referring Unavailable SINCERE VASQUEZ Attending Unavailable POCOS, BERNARD Waters Referring Unavailable POCOS, BERNARD Waters Referring Unavailable POCOS, BERNARD Waters Attending Unavailable POCOS, BERNARD Waters Referring Unavailable SINCERE VASQUEZ Attending Unavailable POCOS, BERNARD Waters Referring Unavailable JAUQELIN ORTEGA Attending Unavailable POCOS, BERNARD Waters Referring Unavailable SINCERE VASQUEZ Attending Unavailable POCOS, BERNARD Waters Referring Unavailable SINCERE VASQUEZ Attending Unavailable POCOS, BERNARD Waters Referring Unavailable MARIANNE MCDOWELL Attending Unavailable SINCERE VASQUEZ Attending Unavailable POCOS, BERNARD Waters Referring Unavailable SINCERE VASQUEZ Attending Unavailable POCOS, BERNARD Waters Referring Unavailable POCOS, BERNARD Waters Attending Unavailable POCOS, BERNARD Waters Referring Unavailable POCOS, BERNARD Waters Referring Unavailable POCOS, BERNARD Waters Attending Unavailable POCOS, BERNARD Waters Referring Unavailable PETMARIANNE GARCIA Attending Unavailable KAVEH LING Attending Unavailable POCOS, BERNARD Waters Attending Unavailable POCOS, BERNARD Waters Referring Unavailable SINCERE VASQUEZ Attending Unavailable POCOS, BERNARD Waters Referring Unavailable SINCERE VASQUEZ Attending Unavailable POCOS, BERNARD Waters Referring Unavailable JAQUELIN ORTEGA Attending Unavailable POCOS, BERNARD Waters Referring Unavailable SINCERE VASQUEZ Attending Unavailable POCOS, BERNARD Waters Referring Unavailable JAQUELIN ORTEGA Attending Unavailable POCOS, BERNARD Waters Referring Unavailable PETMARIANNE GARCIA Attending Unavailable Medications Current Medications Medication Drug Class(es) Dates Sig (Normalized) Sig (Original) acetaminophen 325 mg / HYDROcodone bitartrate 5 mg oral tablet (1 source) Opioid Agonist Start: 08-20-2024 End: 08-27-2024 take 1 tablet by mouth every six hours for pain, then take 2 tablets by mouth every six hours for pain HYDROcodone-acetamin ophen ([place]) 5-325 MG tablet Indications: Acute medial meniscus [...] Dosing Start Date: 05/04/20 Status: Ordered Alyacen 35 (1 source) Start: 04-20-2020 take 1 tablet by mouth once daily Alyacen 1/35 1 tab(s), Oral, Daily, Refill(s) 0, control/menstrual [...] tablet 3 05/29/2024 Active Start: 02-13-2023 take [id number] 2857 ug by mouth once daily Norethindrone-Ethin Estradiol (Alyacen 1/35 (28)) 1-35 mg-mcg tablet Active 1 TAB PO Daily February 13, 2023 12:00am Start: 04-13-2017 ALYACEN 35, 28, 1-35 mg-mcg per tablet 04/13/2017 Active Necon 35 (28) (1 source) Necon (28) Active predniSONE 20 mg oral tablet (1 source) Start: 07-10-2023 take 1 tablet by mouth every twelve hours prednisone 20 MG 1 tablet Orally BID for 5 Jul, Active Semaglutide-Weight Management (Wegovy) 0.5 MG/0.5ML solution auto-injector (20 sources) Start: 06-04-2024 inject 0.5 mg by subcutaneous injection every week Semaglutide-Weight Management (Wegovy) 0.5 [...] per week 2 mL 3 05/29/2024 Active Semaglutide-Weight Management (Wegovy) 1 MG/0.5ML solution auto-injector (20 sources) Start: 01-01-2025 inject 1 mg by subcutaneous injection every week Semaglutide-Weight Management (Wegovy) 1 MG/0.5ML solution auto-injector Indications: Abnormal weight gain , BMI 33.0-33.9,adult Inject 1 mg under the skin 1 (one) time per week 2 mL 3 01/01/2025 Active Start: 09-26-2024 End: 01-01-2025 inject 1 mg by subcutaneous injection every week Semaglutide-Weight Management (Wegovy) 1 MG/0.5ML solution auto-injector Indications: Abnormal weight gain , BMI 33.0-33.9,adult Inject 1 mg under the skin 1 (one) time per week 2 mL 3 09/26/2024 01/01/2025 Discontinued (Reorder) Start: 09-26-2024 inject 1 mg by subcu taneous injection every week Semaglutide-Weight Management (Wegovy) 1 MG/0.5ML solution auto-injector Indications: Abnormal weight gain , BMI 33.0-33.9,adult Inject 1 mg under the skin 1 (one) time per week 2 mL 3 09/26/2024 Active Completed/Discontinued Medications Medication Drug Class(es) Dates [...] liraglutide (SAX ENDA SUBCUTANEOUS) Inject subcutaneously. Active meloxicam 15 mg oral tablet (20 sources) Nonsteroidal Anti-inflammatory Drug Start: 04-20-2020 End: 10-05-2024 take 1 tablet by mouth once daily at mealtime meloxicam (Mobic) 15 MG tablet Indications: S/P left knee arthroscopy Take 1 tablet (15 mg) by mouth Daily With food. 30 tablet 2 09/05/2024 10/05/2024 phentermine hydrochloride 37.5 mg oral tablet (2 sources) Sympathomimetic Amine Anorectic Start: 06-19-2023 End: 05-22-2024 take 1 tablet by mouth before mealtime phentermine (Adipex-P) 37.5 MG tablet Indications: Abnormal weight gain Take 1 tablet (37.5 mg) by mouth in the morning. Take before meals. 30 tablet 06/19/2023 05/22/2024 Discontinued polyethylene glycol [id number] [id number] mg / potassium chloride 2970 mg / sodium bicarbonate 6740 mg / sodium chloride 5860 mg / sodium sulfate 97516 mg powder for oral solution (1 source) [...] syndrome of shoulder region 04-20-2020 Episodic Other connective tissue disease (7 sources) Swelling of right lower limb; Translations: [Other specified soft tissue disorders] 09-17-2024 Episodic Other connective tissue disease (2 sources) Tendinitis of right posterior tibial tendon; Translations: [Posterior tibial tendinitis, right leg] 10-02-2024 Episodic Other connective tissue disease (2 sources) Plantar fasciitis of right foot; Translations: [Plantar fascial fibromatosis] 10-02-2024 Episodic Other lower respiratory disease (4 sources) Solitary pulmonary nodule; Translations: [SOLITARY PULMONARY NODULE] Onset: 09-22-2022 Episodic Other non-traumatic joint disorders (1 source) Ankle pain; Translations: [Pain in left ankle and joints of left foot] 06-04-2017 Episodic Other non-traumatic joint disorders (10 sources) Pain in left knee; Translations: [Pain in joint, lower leg] 05-22-2024 Episodic Other nutritional; endocrine; and metabolic disorders (6 sources) Body mass index 30+ - obesity; Translations: [Body mass index (BMI) 33.0-33.9, adult] Onset: 01-01-2025 01-01-2025 Chronic Other nutritional; endocrine; and metabolic disorders (20 sources) Abnormal weight gain; Translations: [Abnormal weight gain] Onset: 11-21-2022 11-21-2022 Episodic Other screening for suspected conditions (not mental disorders or infectious disease) (7 sources) Encounter for screening mammogram for malignant neoplasm of breast; Translations: [Patient encounter status] Onset: 08-29-2022 Episodic Other upper respiratory infections (2 sources) Acute pharyngitis, unspecified; Translations: [Acute upper respiratory infection, unspecified] Episodic Residual codes; unclassified (13 sources) History of arthroscopy of knee joint; [...] knee] Onset: 05-17-2023 Resolved: 06-19-2023 06-04-2017 Episodic Results Test Name Value Interpretation Reference Range Facility ALL CBC WITH AUTO DIFFon BASOPHILS ABSOLUTE AUTO 0.1 [facility] Basophils/100 WBC (Bld) 0.7 % 0.2 - 2.0 % [facility] Eosinophils/100 WBC (Bld) 1.4 % 0.9 - 7.0 % [facility] Erythrocyte distribution width (RBC) [Ratio] 12.4 % 11.0 - 15.0 % [facility] Hematocrit (Bld) [Volume fraction] 38.6 % 36.0 - 48.0 % [facility] Hem[facility] (Bld[facility] [Mass/Vol] 12.7 g/dL 12.0 - 16.0 g/dL [facility] IMMATURE GRANULOCYTES ABS AUTO 0.05 High [facility] Immature granulocytes/100 WBC (Bld) 0.7 % High 0.0 - 0.5 % [facility] Interpretation and review of laboratory results Abnormal [facility] LYMPHOCYTES ABSOLUTE AUTO 2.1 [facility] Lymphocytes/100 WBC (Bld) 27.1 % 20.5 - 60.0 % [facility] MCH (RBC) [Entitic mass] 30.2 pg 26.7 - 34.0 pg [facility] MCHC (RBC) [Mass/Vol] 32.9 g/dL 29.9 - 35.2 g/dL [facility] MCV (RBC) [Entitic vol] 91.7 fL 81.0 - 99.0 fL [facility] MONOCYTES ABSOLUTE AUTO 0.6 [facility] Monocytes/100 WBC (Bld) 7.9 % 1.7 - 12.0 % [facility] NEUTROPHILS ABSOLUTE AUTO 4.8 [facility] Neutrophils/100 WBC (Bld) 62.2 % 43.0 - 75.0 % [facility] Platelet mean volume (Bld) [Entitic vol] 9 fL Low 9.5 - 13.5 fL [facility] TBH EO # 0.1 [facility] e TB PLT 296 [facility] e TB RBC 4.21 [facility] e TBH WBC 7.7 [facility] e [facility] e MRI Knee w/o Contrast Lefton 06-19-2024 [...] (Electronic Signature): 06/19/2024 11:34 am Signed by: Vishnu Tam DO Transcribed by: IGNACIO Technologist: ANABEL Technical Comments None Normal [facility] ALL CBC WITH AUTO DIFFon BASOPHILS ABSOLUTE AUTO 0.1 [facility] Basophils/100 WBC (Bld) 0.7 % 0.2 - 2.0 % [facility] Eosinophils/100 WBC (Bld) 0.7 % Low 0.9 - 7.0 % [facility] Erythrocyte distribution width (RBC) [Ratio] 12.7 % 11.0 - 15.0 % [facility] Hematocrit (Bld) [Volume fraction] 38.9 % 36.0 - 48.0 % [facility] Hemoglobin (Bld) [Mass/Vol] 12.8 g/dL 12.0 - 16.0 g/dL [facility] IMMATURE GRANULOCYTES ABS AUTO 0.02 [facility] Immature granulocytes/100 WBC (Bld) 0.2 % 0.0 - 0.5 % [facility] Interpretation and review of laboratory results Abnormal [facility] LYMPHOCYTES ABSOLUTE AUTO 2.1 [facility] Lymphocytes/100 WBC (Bld) 25.8 % 20.5 - 60.0 % [facility] MCH (RBC) [Entitic mass] 30.4 pg 26.7 - 34.0 pg [facility] MCHC (RBC) [Mass/Vol] 32.9 g/dL 29.9 - 35.2 g/dL [facility] MCV (RBC) [Entitic vol] 92.4 fL 81.0 - 99.0 fL [facility] MONOCYTES ABSOLUTE AUTO 0.6 [facility] Monocytes/100 WBC (Bld) 7.6 % 1.7 - 12.0 % [facility] NEUTROPHILS ABSOLUTE AUTO 5.3 [facility] Neutrophils/100 WBC (Bld) 65 % 43.0 - 75.0 % [facility] Platelet mean volume (Bld) [Entitic vol] 9.1 fL Low 9.5 - 13.5 fL [facility] TBH EO # 0.1 [facility] TBH PLT 283 [facility] RBC 4.21 [facility] WBC 8.1 [facility] ALL LIPID PROFILE (FASTING)o n 05-22-2024 CHOL HDL RATIO 2.9 [facility] Comment on above: 3.3 - 4.4 LOW RISK 4.4 - 7.1 AVERAGE RISK 7.1 - 11.0 MODERATE RISK >11.0 HIGH RISK Cholesterol [Mass/Vol] 217 mg/dL High NINF - 200 mg/dL [facility] Cholesterol in HDL [Mass/Vol] 76 mg/dL High 40 - 60 mg/dL [facility] Comment on above: > or =60 mg/dl - LOW CARDIOVASCULAR RISK <40 mg/dl - HIGH CARDIOVASCULAR RISK Magnesium [Mass/Vol] 113 mg/dL [facility] Comment on above: <100 mg/dl OPTIMAL 100-129 mg/dl NEAR OR ABOVE OPTIMAL 130-159 mg/dl BORDERLINE HIGH 160-189 mg/dl HIGH >190 mg/dl VERY HIGH Magnesium [Mass/Vol] 28.6 mg/dL [facility] Triglyceride [Mass/Vol] 143 mg/dL NINF - 150 mg/dL [facility] CMP (CMP) (FOR REMOTE FH C USE)on 05-22-2024 Albumin [Mass/Vol] 3.7 g/dL 3.4 - 5.0 g/dL [facility] ALBUMIN GLOBULIN RATIO 1 [facility] ALP [Catalytic activity/Vol] 40 U/L Low 46 - 116 U/L [facility] ALT [Catalytic activity/Vol] 33 U/L 14 - 59 U/L [facility] Anion gap [Moles/Vol] 15.7 mmol/L [facility] AST [Catalytic activity/Vol] 26 U/L 15 - 37 U/L [facility] Bilirubin [Mass/Vol] 0.8 mg/dL 0.2 - 1.0 mg/dL [facility] Calcium [Mass/Vol] 8.7 mg/dL 8.5 - 10. 1 mg/dL [facility] Chloride [Moles/Vol] 105 mmol/L 98 - 107 mmol/L [facility] CO2 [Moles/Vol] 25.5 mmol/L 21.0 - 32.0 mmol/L [facility] Creatinine [Mass/Vol] 0.73 mg/dL 0.55 - 1.02 mg/dL [facility] GFR/1.73 sq M.predicted CKD-EPI (S/P/Bld) [Vol rate/Area] >60 >=60 mL/min/1.73m 2 [facility] Globulin (S) [Mass/Vol] 3.6 g/dL [facility] Glucose [Mass/Vol] 100 mg/dL 74 - 106 mg/dL [facility] Potassium [Moles/Vol] 4.2 mmol/L 3.5 - 5.1 mmol/L [facility] Protein [Mass/Vol] 7.3 g/dL 6.4 - 8.2 g/dL [facility] Sodium [Moles/Vol] 142 mmol/L 136 - 145 mmol/L [facility] TBH EGFR-NON AF GUAMANIAN >60 >=60 mL/min/1.73m 2 [facility] Urea nitrogen [Mass/Vol] 13 mg/dL 7.0 - 18.0 mg/dL [facility] Urea nitrogen/Creatinine [Mass ratio] 17.8 mg/mg [facility] No Panel Informationon 05-22 Interpretation and review of laboratory results Abnormal [facility] Sarah Velasco MA 05/28/2024 8:01 AM L Inj/Asp: L knee on 05/22/2024 9:05 AM Indications: pain Details: 22 G needle Medications: 1 mL betamethasone acetate-betamethaso ne sodium phosphate 6 (3-3) MG/ML [facility] Quick Strepon 07-10-2023 S. pyogenes Org specific cx Ql (Throat) Negative [facility] Other Quick Strep [facility] Other HCG ( test) IA.rapi d Ql (U)Ordered By: Musa Marrufo on 02-15-2023 HCG ( test) Ql (U) Negative [facility] HCG,Urineon 02-15-2023 Beta HCG ( test) Ql (U) Negative Normal [facility] Comment on above: Result Comment: PERF ORMED BY: [facility] [address] [place] [address] PATHOLOGIST REINFORCED CONCRETE INSPECTOR DARIN KERN M.D. Performed By: #### U HCG #### [address] CHEST W CONon 09-22-2022 CT [...] or reports for comparison. Electronically authenticated by: SHIVA MURO Date: 2022-09-22 15:10 Normal [facility] CBC AUTO DIFFon 09-07-2022 BASO # 0.1 103/ul Normal 0.0-0.1 [facility] Comment on above: Performed By: #### C BC #### [facility] [address] [place] [address] Dr. Derek Mcmillan Basophils/100 WBC (Bld) 0.7 % Normal 0.2-2.0 [facility] Comment on above: Performed By: #### C BC #### [facility] [address] [place] [address] Dr. Derek Mcmillan EO # 0.1 103/ul Normal 0.0-0.7 [facility] Comment on above: Performed By: #### C BC #### [facility] [address] [place] [address] Dr. Derek Mcmillan Eosinophils/100 WBC (Bld) 0.7 % Critically low 0.9-7.0 [facility] Comment on above: Performed By: #### C BC #### [facility] [address] [place] [address] Dr. Derek Mcmillan Erythrocyte distribution width (RBC) [Ratio] 12.6 % Normal 11.0-15.0 [facility] Comment on above: Performed By: #### C BC #### [facility] [address] [place] [address] Dr. Derek Mcmillan Hematocrit (Bld) [Volume fraction] 37.4 % Normal 36.0-48.0 [facility] Comment on above: Performed By: #### C BC #### [facility] [address] [place] [address] Dr. Derek Mcmillan Hemoglobin (Bld) [Mass/Vol] 12.6 g/dL Normal 12.0-16.0 [facility] Comment on above: Performed By: #### C BC #### [facility] [address] [place] [address] Dr. Derek Mcmillan IG # 0.04 10e3/ul Critically high 0.00-0.03 [facility] Comment on above: Performed By: #### C BC #### [facility] [address] [place] [address] Dr. Derek Mcmillan IG % 0.5 % Normal 0.0-0.5 [facility] Comment on above: Performed By: #### C BC #### [facility] [address] [place] [address] Dr. Derek Mcmillan LYMPH # 2.0 103/ul Normal 1.2-3.8 [facility] Comment on above: Performed By: #### C BC #### [facility] [address] [place] [address] Dr. Derek Mcmillan Lymphocytes/100 WBC (Bld) 25.5 % Normal 20.5-60.0 [facility] Comment on above: Performed By: #### C BC #### [facility] [address] [place] [address] Dr. Derek Mcmillan MANUAL DIFF REQ NO Normal [facility] Comment on above: Performed By: #### C BC #### [facility] [address] [place] [address] Dr. Derek Mcmillan MCH (RBC) [Entitic mass] 31.1 pg Normal 26.7-34.0 [facility] Comment on above: Performed By: #### C BC #### [facility] [address] [place] [address] Dr. Derek Mcmillan MCHC (RBC) [Mass/Vol] 33.7 g/dL Normal 29.9-35.2 [facility] Comment on above: Performed By: #### C BC #### [facility] [address] [place] [address] Dr. Derek Mcmillan MCV (RBC) [Entitic vol] 92.3 fL Normal 81.0-99.0 [facility] Comment on above: Performed By: #### C BC #### [facility] [address] [place] [address] Dr. Derek Mcmillan MONO # 0.7 103/ul Normal 0.3-0.8 [facility] Comment on above: Performed By: #### C BC #### [facility] [address] [place] [address] Dr. Derek Mcmillan Monocytes/100 WBC (Bld) 8.6 % Normal 1.7-12.0 [facility] Comment on above: Performed By: #### C BC #### [facility] [address] [place] [address] Dr. Derek Mcmillan NEUT # 4.9 103/ul Normal 1.4-6.5 [facility] Comment on above: Performed By: #### C BC #### [facility] [address] [address] [address] Derek Mcmillan Neutrophils/100 WBC (Bld) 64.0 % Normal 43.0-75.0 [facility] Comment on above: Performed By: #### C BC #### [facility] [address] [address] [address] Derek Mcmillan Platelet mean volume (Bld) [Entitic vol] 8.9 fL Critically low 9.5-13.5 [facility] Comment on above: Performed By: #### C BC #### [facility] [address] [place] [address] Dr. Derek Mcmillan PLT 262 103/ul Normal 150-450 [facility] Comment on above: Performed By: #### C BC #### [facility] [address] [place] [address] Dr. Derek Mcmillan RBC 4.05 106/ul Critically low 4.20-5.40 [facility] Comment on above: Performed By: #### C BC #### [facility] [address] [place] [address] Dr. Derek Mcmillan WBC 7.6 103/ul Normal 4.0-11.0 [facility] Comment on above: Performed By: #### C BC #### [facility] [address] [place] [address] Dr. Derek Mcmillan LIPID PROFILEon 09-07-2022 CHOL-HDL RATIO NORM SEE BELOW Normal [facility] Comment on above: Result Comment: 3.3 - 4.4 LOW RISK 4.4 - 7.1 AVERAGE RISK 7.1 - 11.0 MODERATE RISK >11.0 HIGH RISK Performed By: #### T SH, LIPID, CMP #### [facility] [address] [place] [address] Dr. Derek Mcmillan Cholesterol [Mass/Vol] 203 mg/dL Critically high <=200 [facility] Comment on above: Performed By: #### T SH, LIPID, CMP #### [facility] [address] [address] [address] Derek Mcmillan Cholesterol in HDL [Mass/Vol] 58 mg/dL Normal 40-60 [facility] Comment on above: Performed By: #### T SH, LIPID, CMP #### [facility] [address] [place] [address] Dr. Derek Mcmillan Cholesterol in LDL [Mass/Vol] 121.2 mg/dL Normal [facility] Comment on above: Performed By: #### T SH, LIPID, CMP #### [facility] [address] [place] [address] Dr. Derek Mcmillan Cholesterol.total/C holesterol in HDL [Mass ratio] 3.5 {ratio} Normal [facility] Comment on above: Performed By: #### T SH, LIPID, CMP #### [facility] [address] [place] [address] Dr. Derek Mcmillan HDL NORMAL > or = 60 mg/dl - LOW CARDIOVASCULAR RISK <40 mg/dl - HIGH CARDIOVASCULAR RISK Normal [facility] Comment on above: Performed By: #### T SH, LIPID, CMP #### [facility] [address] [place] [address] Dr. Derek Mcmillan LDL CALC NORMAL SEE BELOW Normal [facility] Comment on above: Result Comment: <100 mg/dl OPTIMAL 100 - 129 mg/dl NEAR OR ABOVE OPTIMAL 130 - 159 mg/dl BORDERLINE HIGH 160 - 189 mg/dl HIGH >190 mg/dl VERY HIGH Performed By: #### T LOTUS, LIPID, CMP #### [facility] [address] [place] [address] Dr. Derek Mcmillan Triglyceride [Mass/Vol] 119 mg/dL Normal <=150 [facility] Comment on above: Performed By: #### T SH, LIPID, CMP #### [facility] [address] [place] [address] Dr. Derek Mcmillan VLDL CALC 23.8 mg/dL Normal [facility] Comment on above: Performed By: #### T SH, LIPID, CMP #### [facility] [address] [place] [address] Dr. Derek Mcmillan PROF 14(COMP METB)on 023 Albumin [Mass/Vol] 3.8 g/dL Normal 3.4-5.0 [facility] Comment on above: Performed By: #### T LOTUS, LIPID, CMP #### [facility] [address] [address] [address] Derek Mcmillan Albumin/Globulin [Mass ratio] 1.1 {ratio} Normal [facility] Comment on above: Performed By: #### T LOTUS, LIPID, CMP #### [facility] [address] [address] [address] Derek Mcmillan ALP [Catalytic activity/Vol] 30 U/L Critically low 46-116 [facility] Comment on above: Performed By: #### T LOTUS, LIPID, CMP #### [facility] [address] [place] [address] Dr. Derek Mcmillan ALT [Catalytic activity/Vol] 21 U/L Normal 14-59 [facility] Comment on above: Performed By: #### T LOTUS, LIPID, CMP #### [facility] [address] [address] [address] Derek Mcmillan Anion gap [Moles/Vol] 12.4 mmol/L Normal [facility] Comment on above: Performed By: #### T LOTUS, LIPID, CMP #### [facility] [address] [place] [address] Dr. Derek Mcmillan AST [Catalytic activity/Vol] 15 U/L Normal 15-37 [facility] Comment on above: Performed By: #### T LOTUS, LIPID, CMP #### [facility] [address] [address] [address] Derek Mcmillan Bilirubin [Mass/Vol] 0.6 mg/dL Normal 0.2-1.0 [facility] Comment on above: Performed By: #### T LOTUS, LIPID, CMP #### [facility] [address] [address] [address] Derek Mcmillan Calcium [Mass/Vol] 9.1 mg/dL Normal 8.5-10.1 [facility] Comment on above: Performed By: #### T LOTUS, LIPID, CMP #### [facility] [address] [address] [address] Derek Mcmillan Chloride [Moles/Vol] 105 mmol/L Normal 98-107 [facility] Comment on above: Performed By: #### T SH, LIPID, CMP #### [facility] [address] [address] [address] Derek Mcmillan CO2 [Moles/Vol] 25.7 mmol/L Normal 21.0-32.0 [facility] Comment on above: Performed By: #### T SH, LIPID, CMP #### [facility] [address] [address] [address] Derek Mcmillan Creatinine [Mass/Vol] 0.60 mg/dL Normal 0.55-1.02 [facility] Comment on above: Performed By: #### T SH, LIPID, CMP #### [facility] [address] [place] [address] Dr. Derek Mcmillan EGFR-AF GUAMANIAN >60 Normal >=60 [facility] Comment on above: Performed By: #### T SH, LIPID, CMP #### [facility] [address] [place] [address] Dr. Derek Mcmillan EGFR-NON AF GUAMANIAN >60 Normal >=60 [facility] Comment on above: Performed By: #### T SH, LIPID, CMP #### [facility] [address] [address] [address] Derek Mcmillan Globulin (S) [Mass/Vol] 3.5 g/dL Normal [facility] Comment on above: Performed By: #### T SH, LIPID, CMP #### [facility] [address] [place] [address] Dr. Derek Mcmillan Glucose [Mass/Vol] 88 mg/dL Normal 74-106 [facility] Comment on above: Performed By: #### T SH, LIPID, CMP #### [facility] [address] [address] [address] Derek Mcmillan Potassium [Moles/Vol] 4.1 mmol/L Normal 3.5-5.1 [facility] Comment on above: Performed By: #### T SH, LIPID, CMP #### [facility] [address] [address] [address] Derek Mcmillan Protein [Mass/Vol] 7.3 g/dL Normal 6.4-8.2 [facility] Comment on above: Performed By: #### T SH, LIPID, CMP #### [facility] [address] [address] [address] Derek Mcmillan Sodium [Moles/Vol] 139 mmol/L Normal 136-145 [facility] Comment on above: Performed By: #### T SH, LIPID, CMP #### [facility] [address] [address] [address] Derek Mcmillan Urea nitrogen [Mass/Vol] 11.0 mg/dL Normal 7.0-18.0 [facility] Comment on above: Performed By: #### T LOTUS, LIPID, CMP #### [facility] [address] [place] [address] Dr. Derek Mcmillan Urea nitrogen/Creatinine [Mass ratio] 18.3 mg/mg Normal [facility] Comment on above: Performed By: #### T LOTUS, LIPID, CMP #### [facility] [address] [address] [address] Derek Mcmillan TSHon 09-07-2022 TSH 1.723 uIU/mL Normal 0.358-3.740 [facility] Comment on above: Performed By: #### T LOTUS, LIPID, CMP #### [facility] [address] [place] [address] Dr. Derke Mcmillan MG MAMM SCREEN 3D MALLORY CADon 08-29-2022 MG MAMM SCREEN 3D MALLORY CAD Patient: KEREN MENDOZA Exam Date: 08/29/2022 : 1975 Gender:F Ordering : DR KAVEH LING Admission #: [id number] Family : Order #: [id number] CLICK HERE TO VIEW EXAM RADIOLOGY REPORT [...] Treatments None Family Cancers None LOCATION: [facility] BREAST COMPOSITION: Scattered areas fibroglandular density. [...] PALPABLE LUMP SHOULD BE BIOPSIED. Dictated by: Shiva Muro M.D. on 08/30/2022 at 13:45 Approved by: Shiva Muro M.D. on 08/30/2022 at 13:53 [facility] 08[facility]19-[facility]21 CNPN Telephone ([place]) ---- KEREN MENDOZA ([id number]) 1975 F Date Time Provider Department 08/19/21 CHAUNCEY LUIS During your visit today, we recorded the following information about you: Chauncey Luis RN 08/19/2021 1:10 PM Signed ----- Message from Kaveh Olea MD sent at 08/19/2021 11:02 AM [...] and scan results to her PCP and occ therapist. Thanks, GRETA Luis RN 08/22/2021 11:02 AM Signed Informed pt of Dr Olea's message. Pt verbalized understanding and denies further needs at this time. Scan and lab results sent to PCP and Dr Nicholas. Chauncey Luis RN Allergies As of Date: 08/19/2021 [...] [M25.572] Anemia [D64.9] 06/08/2017 Encounter Status:Closed by CHAUNCEY LUIS on 08/22/21 Normal [facility] CT ABD/PEL W IVCONon 022 CT ABD/PEL W IVCON * * *Final Report* * * DATE OF EXAM: Aug 16 2021 11:33AM [facility] 0530 - CT ABD/PEL W IVCON / [...] chest CT performed will be reported separately. Relationship Management Lead (topogram) images: No additional findings. IMPRESSION: 1. [...] any questions regarding this interpretation, please call [phone]. If you are unable to reach us at the number above, please feel free to contact [facility] eRadiology at [phone]. [id number] [id number] Normal [facility] CT Abdomen and Pelvis W [...] any questions regarding this interpretation, please call [phone]. If you are unable to reach us at the number above, please feel free to contact [facility] at [phone]. DIVISION OF RADIOLOGY * * *Final Report* * * DATE OF EXAM: Aug 16 2021 11:33AM [facility] 0530 - CT ABD/PEL W IVCON / [...] chest CT performed will be reported separately. Relationship Management Lead (topogram) images: No additional findings. DIVISION OF RADIOLOGY Provider, [facility] [place] - 08/16/2021 * * *Final Report* * * DATE OF EXAM: Aug 16 2021 11:33AM [facility] 0530 - CT ABD/PEL W IVCON / [...] chest CT performed will be reported separately. Relationship Management Lead (topogram) images: No additional findings. IMPRESSION IMPRESSION: [...] any questions regarding this interpretation, please call [phone]. If you are unable to reach us at the number above, please feel free to contact [facility] eRadiology at [phone]. [facility] CT Abdomen and Pelvis W cont rast IVOrdered By: Ccf Provider on 08-16-2021 [facility] CT CHEST W IVCONon CT CHEST W IVCON * * *Final Report* * * DATE OF EXAM: Aug 16 2021 11:33AM [facility] 0539 - CT CHEST W IVCON / [...] was performed concurrently and is reported separately. Relationship Management Lead (topogram) images: No additional findings. IMPRESSION: 1. [...] any questions regarding this interpretation, please call [phone]. If you are unable to reach us at the number above, please feel free to contact [facility] eRadiology at [phone]. [id number] ACN ACTIONABLE Invalid Interpretation Code [facility] CT Chest W contrast Tolu Interpretation and review of laboratory results Abnormal [facility] rafael Radiology Result ACTIONABLE Abnormal [facility] Comment on above: This report contains an [...] any questions regarding this interpretation, please call [phone]. If you are unable to reach us at the number above, please feel free to contact [facility] at [phone]. DIVISION OF RADIOLOGY * * *Final Report* * * DATE OF EXAM: Aug 16 2021 11:33AM [facility] 0539 - CT CHEST W IVCON / [...] was performed concurrently and is reported separately. Relationship Management Lead (topogram) images: No additional findings. DIVISION OF RADIOLOGY Provider, [facility] [place] - 08/16/2021 * * *Final Report* * * DATE OF EXAM: Aug 16 2021 11:33AM [facility] 0539 - CT CHEST W IVCON / [...] was performed concurrently and is reported separately. Relationship Management Lead (topogram) images: No additional findings. IMPRESSION IMPRESSION: [...] any questions regarding this interpretation, please call [phone]. If you are unable to reach us at the number above, please feel free to contact [facility] eRadiology at [phone]. [facility] Clin ic No Panel Informationon 08-16 Radiology Study observation (narrative) [facility] CNOVSPon 08-02-2021 CNOVSP Visit (SP) Office ([place]) ---- KEREN MENDOZA ([id number]) 1975 F Date Time Provider Department 08/02/21 11:00 AM KAVEH OLEA During your visit today, we recorded the following information about you: Temperature Pulse Respiration Blood pressure 97.9 degrees 80/minute 18/minute 131/83 Weight Height 81.6 kg 1.626 m Kaveh Olea MD 08/02/2021 8:32 PM Signed PATIENT NAME: Keren Mendoza DATE: 08/02/2021 PRIMARY CARE PHYSICIAN: Marianne Mcdowell DO OTHER PHYSICIANS: Dr. Kaveh Ling, Dr. Karin Nicholas Portions of this [...] pallor, JVD (more content not included)... Normal [facility] Comp Metabolic Panelon 08-02 Albumin [Mass/Vol] 4.6 g/dL Normal 3.9-4.9 [facility] ALP [Catalytic activity/Vol] 34 U/L Normal 34-123 [facility] ALT [Catalytic activity/Vol] 14 U/L Normal 7-38 [facility] Anion gap [Moles/Vol] 9 mmol/L Normal 9-18 [facility] AST [Catalytic activity/Vol] 20 U/L Normal 13-35 [facility] Bilirubin [Mass/Vol] 0.5 mg/dL Normal 0.2-1.3 [facility] Calcium [Mass/Vol] 9.3 mg/dL Normal 8.5-10.2 [facility] Chloride [Moles/Vol] 101 mmol/L Normal 97-105 [facility] CO2 [Moles/Vol] 25 mmol/L Normal 22-30 [facility] Creatinine [Mass/Vol] 0.68 mg/dL Normal 0.58-0.96 [facility] eGFR- Amer. >60 Normal [facility] eGFR-All Other Races >60 Normal [facility] Comment on above: Result Comment: [...] [email or web address]. Glucose [Mass/Vol] 93 mg/dL Normal 74-99 [facility] Comment on above: Result Comment: The [place] Diabetes Association (ADA) provides guidance for cutoff [...] Standards of Medical Care in Diabetes 2016, [place] Diabetes Association. Diabetes Care. 2016.39(Suppl 1). Potassium [Moles/Vol] 4.1 mmol/L Normal 3.7-5.1 [facility] Protein [Mass/Vol] 7.2 g/dL Normal 6.3-8.0 [facility] Sodium [Moles/Vol] 135 mmol/L Low 136-144 [facility] Urea nitrogen [Mass/Vol] 14 mg/dL Normal 7-21 [facility] LDon 08-02-2021 LD 169 U/L Normal 135-214 [facility] Remote CBCDIF (for [facility] use o nly)on 08-02-2021 Abs Baso 0.06 k/uL Normal <0.11 [facility] Abs [place] 0.55 k/uL Normal <0.87 [facility] Abs Neut 6.93 k/uL Normal 1.45-7.50 [facility] Absolute nRBC <0.01 Normal <0.01 [facility] Basophils/100 WBC (Bld) 0.6 % Normal [facility] DTYPE Auto Diff Normal [facility] Eosinophils (Bld) [#/Vol] 0.10 10*3/uL Normal <0.46 [facility] Eosinophils/100 WBC (Bld) 1.0 % Normal [facility] Erythrocyte distribution width (RBC) [Ratio] 12.7 % Normal 11.5-15.0 [facility] Hematocrit (Bld) [Volume fraction] 38.7 % Normal 36.0-46.0 [facility] Hemoglobin (Bld) [Mass/Vol] 12.9 g/dL Normal 11.5-15.5 [facility] Lymphocytes (Bld) [#/Vol] 2.01 10*3/uL Normal 1.00-4.00 [facility] Lymphocytes/100 WBC (Bld) 20.8 % Normal [facility] MCH 30.7 pG Normal 26.0-34.0 [facility] MCHC (RBC) [Mass/Vol] 33.3 g/dL Normal 30.5-36.0 [facility] MCV (RBC) [Entitic vol] 92.1 fL Normal 80.0-100.0 [facility] Monocytes/100 WBC (Bld) 5.7 % Normal [facility] Neutrophils/100 WBC (Bld) 71.9 % Normal [facility] NRBCs 0.0 /100 WBC Normal 0 [facility] Platelet mean volume (Bld) [Entitic vol] 8.8 fL Low 9.0-12.7 [facility] Platelets (Bld) [#/Vol] 292 10*3/uL Normal 150-400 [facility] RBC (Bld) [#/Vol] 4.20 10*6/uL Normal 3.90-5.20 [facility] WBC (Bld) [#/Vol] 9.65 10*3/uL Normal 3.70-11.00 [facility] Vital Signs Date Time Vital Sign Value Performing Clinician Facility 01-01-2025 09:02-0400 Body height 161.9 cm Marianne Petznick DO Work Phone: [facility] 01-01-2025 09:02-0400 Body mass index (BMI) [Ratio] 32.52 kg/m2 Marianne Petznick DO Work Phone: [facility] 01-01-2025 09:02-0400 Body temperature 98.29 [degF] Marianne Petznick DO Work Phone: [facility] 01-01-2025 09:02-0400 Body weight 85.28 kg Marianne Petznick DO Work Phone: [facility] 01-01-2025 09:02-0400 Diastolic blood pressure 82 mm[Hg] Marianne Petznick DO Work Phone: [facility] 01-01-2025 09:02-0400 Heart rate 85 /min Marianne Petznick DO Work Phone: [facility] 01-01-2025 09:02-0400 SaO2% (BldA) [Mass fraction] 98 % Marianne Petznick DO Work Phone: [facility] 01-01-2025 09:02-0400 Systolic blood pressure 128 mm[Hg] Marianne Petznick DO Work Phone: [facility] 10-02-2024 14:21-0400 Body height 161.9 cm Bernard Pocos DO Work Phone: [facility] 10-02-2024 14:21-0400 Body mass index (BMI) [Ratio] 33.91 kg/m2 Bernard Pocos DO Work Phone: [facility] 10-02-2024 14:21-0400 Body weight 88.91 kg Bernard Pocos DO Work Phone: [facility] 09-05-2024 09:44-0500 Body height 161.9 cm Bernard Pocos DO Work Phone: [facility] 09-05-2024 09:44-0500 Body mass index (BMI) [Ratio] 33.73 kg/m2 Bernard Pocos DO Work Phone: [facility] 09-05-2024 09:44-0500 Body weight 88.45 kg Bernard Pocos DO Work Phone: [facility] 07-03-2024 08:22-0500 Body height 161.9 cm Bernard Pocos DO Work Phone: [facility] 07-03-2024 08:22-0500 Body mass index (BMI) [Ratio] 33.73 kg/m2 Bernard Pocos DO Work Phone: [facility] 07-03-2024 08:22-0500 Body weight 88.45 kg Bernard Pocos DO Work Phone: [facility] 05-29-2024 10:27-0500 Body mass index (BMI) [Ratio] 33.73 kg/m2 Kaveh Ling MD Work Phone: [facility] 05-29-2024 10:27-0500 Body weight 88.45 kg Kaveh Ling MD Work Phone: [facility] 05-29-2024 10:27-0500 Diastolic blood pressure 80 mm[Hg] Kaveh Ling MD Work Phone: [facility] 05-29-2024 10:27-0500 Systolic blood pressure 122 mm[Hg] Kaveh Ling MD Work Phone: [facility] 05-29-2024 08:47-0500 Body height 161.9 cm Marianne Petznick DO Work Phone: [facility] 05-29-2024 08:47-0500 Body mass index (BMI) [Ratio] 34.08 kg/m2 Marianne Petznick DO Work Phone: [facility] 05-29-2024 08:47-0500 Body temperature 99.39 [degF] Marianne Petznick DO Work Phone: [facility] 05-29-2024 08:47-0500 Body weight 89.36 kg Marianne Petznick DO Work Phone: [facility] 05-29-2024 08:47-0500 Diastolic blood pressure 80 mm[Hg] Marianne Petznick DO Work Phone: [facility] 05-29-2024 08:47-0500 Heart rate 86 /min Marianne Petznick DO Work Phone: [facility] 05-29-2024 08:47-0500 SaO2% (BldA) [Mass fraction] 98 % Marianne Petznick DO Work Phone: [facility] 05-29-2024 08:47-0500 Systolic blood pressure 124 mm[Hg] Marianne Petznick DO Work Phone: [facility] 05-22-2024 08:12-0500 Body height 161.9 cm Bernard Pocos DO Work Phone: [facility] 07-10-2023 12:40-0500 Body height 162.56 cm Kimmy Duron Other [employer] Other 07-10-2023 12:40-0500 Body mass index (BMI) [Ratio] 29.76 kg/m2 Kimmy Duron Other [employer] Other 07-10-2023 12:40-0500 Body temperature 98.4 [degF] Kimmy Duron Other [facility] Other 07-10-2023 12:40-0500 Body weight 78.65 kg Kimmy Duron Other [employer] Other 07-10-2023 12:40-0500 Respiratory rate 18 /min Kimmy Duron Other [facility] Other 07-10-2023 12:40-0500 SaO2% (BldA) [Mass fraction] 99 % Kimmy Duron Other [employer] Other 02-15-2023 08:54-0400 Diastolic blood pressure 70 mm[Hg] DO Marianne Petznick Work Phone: [facility] 02-15-2023 08:54-0400 Heart rate 69 /min DO Marianne Petznick Work Phone: [facility] 02-15-2023 08:54-0400 Respiratory rate 16 /min DO Marianne Petznick Work Phone: [facility] 02-15-2023 08:54-0400 SaO2% (BldA) [Mass fraction] 100 % DO Marianne Petznick Work Phone: [facility] 02-15-2023 08:54-0400 Systolic blood pressure 105 mm[Hg] DO Marianne Petznick Work Phone: [facility] 02-15-2023 07:24-0400 Body height 162.56 cm DO Marianne Petznick Work Phone: [facility] 02-15-2023 07:24-0400 Body weight 77.11 kg DO Marianne Petznick Work Phone: [facility] Encounters Encounter Date Encounter Type Care Provider Facility Start: 01-01-2025 End: 01-01-2025 Bamboo flowsheet Marianne M Petznick DO Work Phone: [facility] Start: 01-01-2025 End: 01-01-2025 Bamboo flowsheet Marianne M Petznick DO Work Phone: [facility] Start: 01-01-2025 End: 01-01-2025 Office outpatient visit 15 minutes Marianne Mcdowell DO Work Phone: [facility] Comment on above: BMI 32.0-32.9,adult (Primary Dx); Abnormal weight gain; BMI 33.0-33.9,adult Start: 01-01-2025 End: 01-01-2025 ambulatory MARIANNE MCDOWELL Not Available Start: 11-06-2024 End: 11-13-2024 Telephone encounter Jaquelin Ortega PT [facility] Comment on above: Check PT status Start: 10-21-2024 End: 10-21-2024 Bamboo flowsheet Jaquelin Ortega PT [facility] Start: 10-21-2024 End: 10-21-2024 Bamboo flowsheet Jaquelin Ortega PT [facility] Start: 10-21-2024 End: 10-21-2024 ambulatory Jaquelin Ortega PT [facility] Comment on above: S/P left knee arthro scopy (Primary Dx); Left knee pain, unspecified chronicity; Right leg swelling Start: 10-15-2024 End: 10-15-2024 ambulatory Sincere Vasquez [employer] [facility] Comment on above: S/P left knee arthro scopy (Primary Dx); Left knee pain, unspecified chronicity; Right leg swelling Start: 10-13-2024 End: 10-13-2024 Bamboo flowsheet Jaquelin Ortega PT [facility] Start: 10-13-2024 End: 10-13-2024 Bamboo flowsheet Jaquelin Ortega PT [facility] Start: 10-13-2024 End: 10-13-2024 ambulatory Jaquelin Ortega PT [facility] Comment on above: Left knee pain, unsp ecified chronicity (Primary Dx); S/P left knee arthroscopy; Right leg swelling Start: 10-08-2024 End: 10-08-2024 Bamboo flowsheet Sincere Vasquez [employer] [facility] Start: 10-08-2024 End: 10-08-2024 Bamboo flowsheet Sincere Vasquez [employer] [facility] Start: 10-08-2024 End: 10-08-2024 ambulatory Sincere Vasquez [employer] [facility] Comment on above: S/P left knee arthro scopy (Primary Dx); Left knee pain, unspecified chronicity; Right leg swelling Start: 10-06-2024 End: 10-06-2024 Bamboo flowsheet Sincere Vasquez [employer] [facility] Start: 10-06-2024 End: 10-06-2024 Bamboo flowsheet Sincere Vasquez [employer] [facility] Start: 10-06-2024 End: 10-06-2024 ambulatory Sincere Vasquez [employer] [facility] Comment on above: S/P left knee arthro scopy (Primary Dx); Left knee pain, unspecified chronicity; Right leg swelling Start: 10-02-2024 End: 10-02-2024 Patient encounter procedure Bernard Waters Pocos DO Work Phone: [facility] Comment on above: S/P left knee arthro scopy (Primary Dx); Posterior tibial tendinitis of right lower extremity; Plantar fasciitis of right foot Start: 10-02-2024 End: 10-02-2024 ambulatory BERNARD MATT Not Available Start: 10-02-2024 End: 10-02-2024 Bamboo flowsheet Bernard Matt DO Work Phone: [facility] Start: 10-02-2024 End: 10-02-2024 Bamboo flowsheet Bernard Waters Pocos DO Work Phone: [facility] Start: 10-01-2024 End: 10-01-2024 ambulatory Sincere Vasquez [employer] [facility] Comment on above: S/P left knee arthro scopy (Primary Dx); Left knee pain, unspecified chronicity; Right leg swelling Start: 09-29-2024 End: 09-29-2024 Bamboo flowsheet Sincere Pedro [employer] [facility] Start: 09-29-2024 End: 09-29-2024 Bamboo flowsheet Sincere Pedro [employer] [facility] Start: 09-29-2024 End: 09-29-2024 ambulatory SINCERE PEDRO Not Available Start: 09-26-2024 End: 09-26-2024 ambulatory MARIANNE MCDOWELL Not Available Start: 09-24-2024 End: 09-24-2024 ambulatory SINCERE VASQUEZ Not Available Start: 09-22-2024 End: 09-22-2024 Bamboo flowsheet Sincere Vasquez [employer] [facility] Start: 09-22-2024 End: 09-22-2024 Bamboo flowsheet Sincere Vasquez [employer] [facility] Start: 09-22-2024 End: 09-22-2024 ambulatory SINCERE VASQUEZ Not Available Start: 09-17-2024 End: 09-17-2024 Bamboo flowsheet Jaquelin Ortega PT [facility] Start: 09-17-2024 End: 09-17-2024 Bamboo flowsheet Jaquelin Ortega PT [facility] Start: 09-17-2024 End: 09-17-2024 ambulatory Jaquelin Ortega PT [facility] Comment on above: Left knee pain, unsp ecified chronicity (Primary Dx); S/P left knee arthroscopy; Right leg swelling Start: 09-15-2024 End: 09-15-2024 ambulatory SINCERE VASQUEZ Not Available Start: 09-12-2024 End: 09-12-2024 ambulatory BERNARD Waters MORRISMERRICK Not Available Start: 09-10-2024 End: 09-10-2024 Bamboo flowsheet Sincere Vasquez [employer] [facility] Start: 09-10-2024 End: 09-10-2024 Bamboo flowsheet Sincere Vasquez [employer] [facility] Start: 09-10-2024 End: 09-10-2024 ambulatory Sincere Vasquez [employer] [facility] Comment on above: S/P left knee arthro scopy (Primary Dx); Left knee pain, unspecified chronicity Start: 09-08-2024 End: 09-08-2024 Bamboo flowsheet Jaquelin Ortega PT [facility] Start: 09-08-2024 End: 09-08-2024 Bamboo flowsheet Jaquelin Ortega PT [facility] Start: 09-08-2024 End: 09-08-2024 ambulatory Jaquelin Ortega PT [facility] Comment on [...] 07-03-2024 End: 07-03-2024 Patient encounter procedure Bernard Matt DO Work Phone: [facility] Comment on above: Primary osteoarthrit is of left knee (Primary Dx); Acute medial meniscus tear of left knee, initial encounter; Acute lateral meniscus tear of left knee, initial encounter Start: 07-03-2024 End: 07-03-2024 ambulatory BERNARD Waters MORRISOS Not Available Start: 06-17-2024 End: 06-17-2024 ambulatory Bernard Waters Pocos Facility[facility] Start: 06-17-2024 End: 06-17-2024 Patient encounter procedure Bernard Matt [facility] Start: 05-29-2024 End: 05-29-2024 Bamboo flowsheet Marianne Baldwinick DO Work Phone: [facility] Start: 05-29-2024 End: 05-29-2024 Bamboo flowsheet Marianne Rose Petznick DO Work Phone: [facility] Start: 05-29-2024 End: 05-29-2024 Patient encounter procedure Kaveh Ling MD Work Phone: [facility] Start: 05-29-2024 End: 05-29-2024 Periodic preventive med est patient 40-64yrs Kaveh Ling MD Work Phone: [facility] Comment on above: Well woman exam with routine gynecological exam; Other screening mammogram; Oral contraceptive pill surveillance; Encounter for control pills maintenance Start: 05-29-2024 End: 05-29-2024 ambulatory KAVEH LING Not Available Start: 05-29-2024 End: 05-29-2024 Patient encounter status Marianne Mcdowell DO Work Phone: [facility] Start: 05-29-2024 End: 05-29-2024 Periodic preventive med est patient 40-64yrs Marianne Baldwinick DO Work Phone: [facility] Comment on above: Preventative health care (Primary Dx); Primary osteoarthritis of both knees; Abnormal weight gain Start: 05-29-2024 End: 05-29-2024 ambulatory MARIANNE MCDOWELL Not Available Start: 05-22-2024 End: 05-22-2024 Clinisync Result Encounter Marianne Rose Mcdowell DO Work Phone: [facility] Unsolicited Start: 05-22-2024 End: 05-22-2024 Clinisync Result Encounter Marianne Mcdowell DO Work Phone: [facility] Unsolicited Start: 05-22-2024 End: 05-22-2024 Patient encounter procedure Bernard Waters Shaka DO Work Phone: [facility] Comment on above: Left knee pain (Prim urvashi Dx); Primary osteoarthritis of left knee; Synovial cyst of left popliteal space Start: 05-22-2024 End: 05-22-2024 ambulatory SHERMAN SHAKA Not Available Start: 07-10-2023 End: 07-10-2023 ambulatory Kimmy Duron Other [employer] Other Start: 07-10-2023 Office outpatient vi sit 25 minutes Kimmy Duron [facility] Start: 02-15-2023 End: 02-15-2023 ambulatory Musa Marrufo Facility:[facility] Start: 02-15-2023 End: 02-15-2023 Admission to same day surgery center DO Marianne Mcdowell Work Phone: [facility] Work Phone: Start: 02-15-2023 End: 02-15-2023 ambulatory DO Marianne Mcdowell Work Phone: [facility] Work Phone: Start: 09-22-2022 End: 09-23-[address] MARIANNE MCDOWELL Facility:H1 Start: 09-11-2022 Encounter for genera l adult medical examination without abnormal findings DR MARIANNE MCDOWELL [facility] Start: 09-07-2022 End: 09-08-[address] MARIANNE MCDOWELL Facility:[facility]1 Start: 09-07-2022 End: 09-08-2022 Encounter for general adult medical examination without abnormal findings DR MARIANNE MCDOWELL Facility:[facility]1 Start: 08-29-2022 End: 08-30-[address] KAVEH LING Facility:[facility]1 Start: 08-16-2021 End: 08-16-2021 Subsequent [...] Phone: Start: 05-22-2024 [facility] CMP (CMP) (FOR [facility] USE) Marianne Mcdowell DO Work Phone: Start: 05-22-2024 Arthrocentesis aspir &/inj major jt/bursa w/o us Bernard Matt DO Work Phone: Start: 05-22-2024 Radiologic examinati on knee 3 views Bernard Matt DO Work Phone: Start: 01-02-2024 Mammography Bernard Diane s DO Work Phone: Start: 02-15-2023 Screening colonoscopy D O Marianne Mcdowell Work Phone: Start: 02-15-2023 Colonoscopy Bernard Diane s DO Work Phone: Start: 05-11-2022 Microscopic observat ion [Identifier] in Cervix by Cyto stain Bernard Matt DO Work Phone: Start: 08-16-2021 Ct abdomen & pelvis w/contrast material Kaveh Olea MD Work Phone: Start: 08-16-2021 Ct thorax w/contrast material Kaveh Olea MD Work Phone: Start: 05-04-2020 Arthroscopy of shoulder Bernard Pocos Arthroscopy of knee Bernard Po cos Excision of lesion of skin Ancelmo Matt Comment on above: basal cell carcinoma of back Plan of Treatment Date Care Activity Detail Author Start: 02-15-2033 Screening for malign ant neoplasm of colon [facility] Start: 06-11-2025 End: 06-11-2025 Patient encounter procedure 06/11/2025 10:00 AM EST Office Visit [facility] [address] [place] [address] Kaveh Ling MD [address] [place], [place] [id number] [facility] Start: 05-11-2025 Screening for malign ant neoplasm of cervix [facility] Start: 04-02-2025 End: 04-02-2025 Patient encounter procedure 04/02/2025 8:45 AM EDT Office Visit [facility] [address] [place] [phone] Marianne Mcdowell, [address] [place] [address] [facility] 230 Start: 03-09-2025 Influenza vaccination Influenz a Vaccine (Season Ended) [facility] Start: 01-02-2025 End: 07-28-2025 DBT Breast - bilateral screening Bilateral screening mammogram with tomosynthesis Imaging Routine Other screening mammogram Expected: 01/02/2025, Expires: 07/28/2025 [facility] Work Phone: Comment on above: Expected: 01/02/2025 , Expires: 07/28/2025 Start: 01-01-2025 Screening for malign ant neoplasm of breast Mammogram [facility] Start: 01-01-2025 End: 01-01-2025 Patient encounter procedure [facility] 230 Comment on above: Arrived Start: 11-04-2024 End: 11-04-2024 ambulatory 11/04/2024 10:30 AM EDT Treatment [facility] [address] [place] [address] Jaquelin Ortega, PT [facility] Start: 10-23-2024 End: 10-23-2024 ambulatory 10/23/2024 10:00 AM EDT Treatment [facility] [address] [place] [address] Jaquelin Ortega, PT [facility] Start: 10-21-2024 End: 10-21-2024 ambulatory 10/21/2024 10:00 AM EDT Treatment [facility] [address] [place] [address] Jaquelin Ortega, PT [facility] Start: 10-15-2024 End: 10-15-2024 ambulatory 10/15/2024 8:30 AM EDT Treatment [facility] [address] [place] [address] Sincere Vasquez, [employer] [facility] Start: 10-13-2024 End: 10-13-2024 ambulatory [facility] Comment on above: Left knee pain, unsp ecified chronicity (Primary Dx); S/P left knee arthroscopy Start: 10-08-2024 End: 10-08-2024 ambulatory 10/08/2024 9:30 AM EDT Treatment [facility] [address] [place] [address] Jaquelin Ortega, PT [facility] Start: 10-06-2024 End: 10-06-2024 ambulatory 10/06/2024 10:00 AM EDT Treatment [facility] [address] [place] [address] Sincere Vasquez, [employer] [facility] Start: 10-02-2024 End: 10-02-2024 Patient encounter procedure [facility] Comment on above: Arrived Start: 10-01-2024 End: 10-01-2024 ambulatory 10/01/2024 9:00 AM EDT Treatment [facility] [address] [place] [address] Sincere Vasquez, GOLDY [facility] Start: 09-29-2024 End: 09-29-2024 ambulatory 09/29/2024 2:00 PM EDT Treatment [facility] [address] [place] [address] Sincere Vasquez, GOLDY Arrived [facility] Comment on above: Arrived Start: 09-26-2024 End: 09-26-2024 Patient encounter procedure 09/26/2024 10:15 AM EDT Office Visit [facility] [address] [place] [address] Marianne Mcdowell, DO [address] [place] [address] [facility] Start: 09-24-2024 End: 09-24-2024 ambulatory 09/24/2024 12:00 PM EDT Treatment [facility] [address] [place] [address] Sincere Vasquez, GOLDY [facility] Start: 09-22-2024 End: 09-22-2024 ambulatory 09/22/2024 12:00 PM EDT Treatment [facility] [address] [place] [address] Sincere Vasquez, [employer] [facility] Start: 09-17-2024 End: 09-17-2024 ambulatory [facility] Comment on above: Arrived Start: 09-15-2024 End: 09-15-2024 ambulatory 09/15/2024 12:00 PM EDT Treatment [facility] [address] [place] [address] Sincere Vasquez, GOLDY [facility] Start: 09-10-2024 End: 09-10-2024 ambulatory [facility] Comment on above: Arrived Start: 09-08-2024 End: 09-08-2024 ambulatory 09/08/2024 11:00 AM EST Evaluation [facility] [address] [place] [address] Jaquelin Ortega, PT S/P left knee arthroscopy [facility] Comment on above: S/P left knee arthro scopy Start: 09-05-2024 End: 09-05-2024 Patient encounter procedure 09/05/2024 10:00 AM EST Office Visit [facility] [address] [place] [phone] Bernard Matt, DO [address] [place] [address] Arrived [facility] Comment on above: Arrived Start: 09-01-2024 End: 09-01-2024 Patient encounter procedure 09/01/2024 3:45 PM EST Office Visit [facility] [address] [place] [phone] Bernard Matt, DO [address] [place] [address] [facility] Start: 08-28-2024 End: 08-28-2024 Patient encounter procedure 08/28/2024 8:30 AM EST Office Visit [facility] [address] [place] [phone] Marianne Mcdowell, DO [address] [place] [address] [facility] Start: 08-02-2024 Diabetes Screening [facility] Start: 07-03-2024 End: 07-03-2024 Patient encounter procedure 07/03/2024 8:30 AM EST Office Visit [facility] [address] [place] [phone] Bernard Matt, DO [address] [place] [address] Arrived [facility] Comment on above: Arrived Start: 06-19-2024 End: 06-19-2024 Patient encounter procedure 06/19/2024 8:45 AM EST Office Visit [facility] [address] [place] [phone] Bernard Matt, DO [address] [place] [address] [facility] Start: 05-29-2024 End: 05-29-2024 Patient encounter procedure 05/29/2024 10:30 AM EST Office Visit [facility] [address] [place] [phone] Kaveh Ling MD [address] [place] [address] [facility] Start: 05-29-2024 End: 05-29-2024 Patient encounter procedure [facility] 230 Comment on above: Arrived Start: 03-09-2024 Covid-19 Vaccine ( season) Covid-19 Vaccine ( season) [facility] Start: 03-09-2024 Influenza vaccination Influenza Vacc ine (#1) [facility] Start: 02-15-2023 [facility] Start: 02-24-2020 Lipid panel Lipid Screening [facility] Start: 02-24-2020 Screening for malign ant neoplasm of colon [facility] Start: 2015 Screening for malign ant neoplasm of breast Mammogram Screening [facility] Start: 2005 Screening for malign ant neoplasm of cervix HPV/Cotest [facility] Start: 02-24-1996 Screening for malign ant neoplasm of cervix Cervical Cancer Screening [facility] Start: 1994 Hepatitis B Vaccine (1 of 3 - 19+ 3-dose series) Hepatitis B Vaccine (1 of 3 - 19+ 3-dose series) [facility] Start: 1994 Urine microalbumin profile DTaP,Tdap,Td Vaccine (1 - Tdap) [facility] Start: 1993 Anxiety Screening Anxiety Screening [facility] Start: 1993 Depression Screening Depression Scre chun [facility] Start: 1993 Hepatitis C screening Hepatitis C Sc shubham [facility] Start: 1993 HIV screening HIV Screening [facility] Start: 1975 Screening for malign ant neoplasm of colon [facility] XR Knee - left 3 Views XR knee 3 views left Imaging Routine Left knee pain 05/22/2024 7:47 AM EST [facility] Work Phone: Immunizations Immunization Date Immunization Notes Care Provider Fa gerson 03-10-2023 Influenza, injectabl e, Madin Anita Canine Kidney, preservative free, quadrivalent Bernard Pocos DO Work Phone: [facility] 03-10-2023 influenza virus vacc ine, unspecified formulation Bernard Pocos DO Work Phone: [facility] 04-21-2022 Influenza, injectabl e, Madin [place] Canine Kidney, preservative free, quadrivalent Bernard Pocos DO Work Phone: [facility] 05-06-2021 influenza, injectabl e, quadrivalent, preservative free [facility] Work Phone: [facility] 05-06-2021 influenza virus vacc ine, unspecified formulation [facility] Work Phone: [facility] 04-07-2021 Pfizer Purple Cap SARS-CoV-2 Vaccination Bernard Pocos DO Work Phone: [facility] 07-22-2020 Pfizer Purple Cap SARS-CoV-2 Vaccination Bernard Pocos DO Work Phone: [facility] 06-29-2020 Pfizer Purple Cap SARS-CoV-2 Vaccination Bernard Pocos DO Work Phone: [facility] 04-05-2020 influenza, high dose seasonal, preservative-free Bernard Pocos DO Work Phone: [facility] 04-05-2020 influenza, injectabl e, quadrivalent, preservative free [facility] Work Phone: [facility] 04-04-2020 influenza, high dose seasonal, preservative-free Bernard Pocos DO Work Phone: [facility] 03-24-2019 influenza, injectabl e, madin anita canine kidney, preservative free [facility] Work Phone: [facility] 03-07-2019 Influenza, injectabl e, Madin [place] Canine Kidney, preservative free, quadrivalent [facility] Work Phone: [facility] 03-06-2019 Influenza, injectabl e, Madin Anita Canine Kidney, preservative free, quadrivalent Bernard Pocos DO Work Phone: [facility] 06-20-2011 seasonal influenza, intradermal, preservative free [facility] Work Phone: [facility] Payers Date Payer Category Payer Self-pay 2019 Private Health Insurance AESHIVANI LARES POS [id number] 2019-Present [phone] [address] [place] [address] POS [id number] 2004 Managed Care HMO (unspecified) [id number] 1975 Unknown [id number] 2.16.840.1.462965.3.579.2 .593 1975 Unknown [id number] 2.16.840.1.330427.3.579.2 .593 1975 Unknown [id number] 2.16.840.1.162586.3.579.2 .593 1975 Unknown [id number] 2.16.840.1.593276.3.579.2 .727 1975 Unknown [id number] 2.16.840.1.595957.3.579.2 .1259 1975 Unknown [id number] 2.16.840.1.045431.3.579.2 .1258 1975 Unknown [id number] 2.16840.1.878022.3.579.2 .1258 1975 Unknown [id number] 2.840.1.362298.3.579.2 .1258 1975 Unknown [id number] 2.16840.1.952131.3.579.2 .1258 1975 Unknown [id number] 2.840.1.692188.3.579.2 .1258 1975 Unknown [id number] 2.840.1.585545.3.579.2 .1258 1975 Unknown [id number] 2.840.1.706940.3.579.2 .1258 1975 Unknown [id number] 2.840.1.720903.3.579.2 .1258 1975 Unknown [id number] 2.840.1.039970.3.579.2 .1258 1975 Unknown [id number] 2.840.1.914698.3.579.2 .1258 1975 Unknown [id number] 2.840.1.402017.3.579.2 .1258 1975 Unknown [id number] 2.840.1.134289.3.579.2 .1258 1975 Unknown [id number] 2.840.1.081451.3.579.2 .1258 1975 Unknown [id number] 2.840.1.389730.3.579.2 .1258 1975 Unknown [id number] 2.840.1.371510.3.579.2 .1258 1975 Unknown [id number] 2.840.1.409902.3.579.2 .1258 1975 Unknown [id number] 2.840.1.168643.3.579.2 .1259 1975 Unknown [id number] 2.16.840.1.460123.3.579.2 .1258 1975 Unknown [id number] 2.16.840.1.758248.3.579.2 .1258 1975 Unknown [id number] 2.16.840.1.209714.3.579.2 .1258 1975 Unknown [id number] 2.16840.1.128223.3.579.2 .1258 1975 Unknown [id number] 2.16.840.1.746441.3.579.2 .1258 1975 Unknown [id number] 2.16840.1.442404.3.579.2 .1258 1975 Unknown [id number] 2.16.840.1.351907.3.579.2 .9 1959 Private Health Insurance [id number] Private Health Insurance [id number] Unknown Jenna JACKSON/CRYSTAL [id number] Unknown [id number] 2..840.1.142662.3.579.2 .531 Social History Date Type Detail Facility Start: 12-14-2022 End: 02-15-2023 Tobacco smoking status NHIS Never smoked tobacco (finding) [facility] Start: 1975 Sex Assigned At Female [facility] Start: 08-02-2021 End: 12-13-2022 Sex Assigned At [facility] [employer] Other Start: 06-08-2017 End: 12-14-2022 Tobacco use and exposure Smokeless tobacco non-user [facility] Start: 08-02-2021 Alcoholic beverage intake Current non-drinker of alcohol (finding) [facility] Start: 08-02-2021 End: 12-13-2022 History of Social function [facility] Start: 1975 Sex assigned at Not on file [facility] Start: 07-17-2021 End: 08-16-2021 Exposure to SARS-CoV-2 (event) Not sure [facility] Start: 05-22-2024 End: 01-01-2025 Alcoholic beverage intake Ex-drinker (finding) [facility] How often to you hav e a drink containing alcohol? Never [facility] How many standard drinks containing alcohol do you have on a typical day? Patient does not drink [facility] Start: 12-13-2022 Alcohol Comment 1-2 drinks les s than monthly in the past year, Caffeine intake: 1-2 cups per day [facility] Start: 09-20-2022 Gender identity Identifies as female gender (finding) [facility] Tobacco smoking status No Smokin g Status Entered [facility] Medical Equipment Procedure Code Equipment Code Equipment Origin al Text Equipment Identifier Dates SHOULDER ARTHROS COPY W/ POSSIBLE REPAIR Bernard Matt DO 05/04/20 Non Biological Shoulder R [id number] [facility] Start: 05-04-2020 Goals Date Patient Goal Desired Activity /State Functional Status Date Assessment Result Facility 01-01-2025 Patient Health [facility] ionnaire 2 item (PHQ-2) [Reported] [facility] Clinical Notes 08-02-2021 to 01-01-2025 Marianne Mcdowell DO - 01/01/2025 7:55 PM Manish Mcdowell DO - 01/01/2025 9:15 AM EDTTelephone Encounter - Susan Jackson - 11/13/2024 1:38 PM EDTMadison Serrano - 10/02/2024 2:30 PM EDT Note Date & Type Note Facility 01-01-2025 History of Presen t illness Narrative Associated Problem(s): Abnormal weight gain Taking medication regularly without any problems. Eating healthy and exercising regularly. Continue to stay accountable and write down food journal and activity log. Doing well with weight loss. Encouraged to continue lifestyle modifications. Pt is to call with any problems or not improving. Will stay on wegovy. Encouraged to get more resistance training to help with lean muscle mass. Images from the original note were not included. Keren Mendoza is a 49 y.o. female presents with chief complaint of Weight Check HPI: Current concerns include: Keren Mendoza is here for follow up for her weight. Medications tried in the past: saxenda Currently on wegovy 1 mg Last ov was on 09/26/2024 and her weight was: 196 lb Today her weight is :188 lb Weight change: - 8 lbs Diet: trying to stay around 1200 calories a day Exercise : [employer] 4 days a week, fitness class once a week, walking outside 3 days a week Occasional heartburn- Rolaids help. She has not noticed if its related to what she eats. SUBJECTIVE: See medication list at the end of the note. No Known Allergies REVIEW OF SYMPTOMS: Review of Systems Constitutional: Negative for appetite change, fatigue and unexpected weight change. Respiratory: Negative for cough, shortness of breath and wheezing. Cardiovascular: Negative for chest pain, palpitations and leg swelling. OBJECTIVE: 01/01/2025 9:02 AM 10/02/2024 2:21 PM 09/26/2024 10:00 AM Vitals BMI 32.52 kg/m2 33.91 kg/m2 33.98 kg/m2 Systolic 128 122 Diastolic 82 72 Heart Rate 85 83 Temp 98.3 F 98.2 F Height (in) 5' 3.75 5' 3.75 5' 3.75 Weight (lb) 188 196 196.4 Visit Report Report Report Report Physical Exam Constitutional: General: She is not in acute distress. Appearance: Normal appearance. Cardiovascular: Rate and Rhythm: Normal rate and regular rhythm. Heart sounds: No murmur heard. No friction rub. No gallop. Pulmonary: Breath sounds: Normal breath sounds. No wheezing, rhonchi or rales. Musculoskeletal: General: No swelling. Neurological: Mental Status: She is alert. ASSESSMENT AND PLAN: Problem List Items Addressed This Visit Abnormal weight gain Taking medication regularly without any problems. Eating healthy and exercising regularly. Continue to stay accountable and write down food journal and activity log. Doing well with weight loss. Encouraged to continue lifestyle modifications. Pt is to call with any problems or not improving. Will stay on wegovy. Encouraged to get more resistance training to help with lean muscle mass. Relevant Medications Semaglutide-Weight Management (Wegovy) 1 MG/0.5ML solution auto-injector BMI 32.0-32.9,adult - Primary Other Visit Diagnoses BMI 33.0-33.9,adult Relevant Medications Semaglutide-Weight Management (Wegovy) 1 MG/0.5ML solution auto-injector Follow up in about 3 months (around 04/03/2025) for Recheck. Patient's Medications New Prescriptions No medications on file Previous Medications CYCLOBENZAPRINE (FLEXERIL) 10 MG TABLET TAKE 1 TABLET BY MOUTH EVERY DAY AT BEDTIME NEEDED FOR HEADACHE NORETHINDRONE-ETHINYL ESTRADIOL (ALYACEN ) 1-35 MG-MCG TABLET 1 tablet Orally 1 po daily continous active pills only for 84 days Modified Medications Modified Medication Previous Medication SEMAGLUTIDE-WEIGHT MANAGEMENT (WEGOVY) 1 MG/0.5ML SOLUTION AUTO-INJECTOR Semaglutide-Weight Management (Wegovy) 1 MG/0.5ML solution auto-injector Inject 1 mg under the skin 1 (one) time per week Inject 1 mg under the skin 1 (one) time per week Discontinued Medications No medications on file I have reviewed and reconciled the history and medication list with the patient today. documented in this encounter [facility] 11-13-2024 Telephone encount er Note Received no attempt of being contacted; CLAUDIA [facility] 11-13-2024 Miscellaneous Notes Formattin g of this note might be different from the original. Received no attempt of being contacted; CLAUDIA Called to check status; her last PT was 10/21. A reassess was scheduled 2 weeks out; but she had cx over automated reminder. Requested a call back to confirm how she is feeling and RTW is going. documented in this encounter [facility] 11-06-2024 Telephone encount er Note Called to check status; her last PT was 10/21. A reassess was scheduled 2 weeks out; but she had cx over automated reminder. Requested a call back to confirm how she is feeling and RTW is going. [facility] 10-21-2024 History of Presen t illness Narrative Images from the original note were not included. Physical Therapy Treatment Visit Patient Name: Keren Mendoza Today's Date: 10/21/2024 Encounter Diagnoses Name Primary? S/P left knee arthroscopy Yes Left knee pain, unspecified chronicity Right leg swelling Visit number: 13 Timed Code Treatment Minutes: 30 minutes Total Treatment Time: 40 minutes Time In: 10:00 AM Time Out: 10:45 AM History: Pt states she underwent surgery for left knee scope on 08/21/24. Pt states there were 2 tears and advanced OA in left knee. Used crutches for a few days and was WBAT. Now ambulating without use of crutches. 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 States she has stairs at home and still not going down normally; states has not gone down stairs normally in quite a while. Precautions: Robeline Subjective: Pt states she worked out on Sunday and knee has been a bit more sore since then. Was sitting at events a lot over weekend which has knee more still. Pain: 0-1/10 Objective: PT Evaluation (09/08/2024) LEFT KNEE AROM: 10 to 109 degrees in supine PROM: 8 to 112 degrees in supine MMT: hip 4-/5, quad 4/5; fair VMO contraction Palpation: Moderate tenderness superior medial knee Functional: Five Time Sit to Stand: 18.76 seconds with arms across chest Right ANKLE eval on 09/17/24 AROM: 2 degrees DF with knee extended, 3 degrees DF with knee flexed, 14 degrees inversion, 6 degrees eversion PROM: 6 degrees DF with knee extended, 12 degrees DF with knee flexed Observation: pt presents with moderate edema right ankle Strength: grossly 4/5 in all planes Palpation: mild to moderate tenderness plantar surface of right 5th met and cuboid Special Test: negative posterior and anterior drawer Treatment: Manual Therapy: () Passive ROM, Joint mobilization, Soft Tissue Mobilization, Myofascial Release, Muscle Energy Technique, Neural Mobilization, Myofascial Cupping, Dry Needling, IASTM, and Scar mobilization as needed. Left Patellar mobs in supine to increase mobility and decrease pain. Right ankle plantar STM, gentle PROM ankle. Therapeutic Exercise: (30 minutes supervised) Strength, Endurance, Flexibility, ROM, HEP, Neural Mobilization, Power, and Core Stability as needed. Pt performed exercises per grid. Held several strengthening exercises to focus on knee extension stretches and review of home program. Therapeutic Activity: Exercises to improve dynamic activities, functional tasks, functional mobility to return to prior activity level as needed. Neuromuscular re-education: () Balance Training, Muscle Facilitation, Dynamic Stability, Core Stabilization, and Blood Flow Restriction Training (BFRT) as needed. Modalities: Heat, Ice, Electrical Stimulation, Ultrasound, Cervical Mechanical Traction, Lumbar Mechanical Traction, Iontophoresis, and Fluidotherapy as needed. CP to left knee in supine after treatment x10 minutes. Assessment: Pt has completed 13 PT sessions for left knee s/p scope. Pt continues to lack full left knee extension; focused on stretching this date with good naeem. Will re-assess in 2 weeks. Outcome Measure: Lower Extremity Functional Scale (LEFS): 53/80 Rehab Diagnosis: left knee pain and weakness; difficulty walking; decrease ROM and mobility Short Term Goal: To be met in 2 weeks Goal 1: Pt to be instructed in home exercise program. - progressing Shelter Goals: To be met in 10 weeks Goal 1: Pt to report independence and compliance with home program. - progressing Goal 2: Pt to achieve 120 degrees left knee flexion to assist with functional tasks such as squatting. - Goal Met Goal 3: Pt to be lacking no greater than 1 degree left knee extension to assist with proper gait. - progressing Goal 4: Pt to achieve 5/5 strength left knee flexion and extension to assist with functional mobility and ADL's. - progressing Goal 5: Pt to score no less than 70/80 on LEFS indicating improved QOL. - progressing New Goal 6: Pt to achieve 20 degrees of right ankle DF to assist with functional tasks such as squatting. - Goal Met New Goal 7: Pt to achieve 4+/5 strength right ankle PF to assist with functional mobility and stairs. - Goal Met New Goal 8: Pt to report pain no greater than 2/10 in right ankle and left knee with return to full work duty. - Progressing Pt will benefit from skilled PT for 2-3x/week from 09/17/2024 to 11/26/2024 to address the above impairments. I hereby deem this POC medically necessary. Please sign below. Date: documented in this encounter [facility] 10-13-2024 History of Presen t illness Narrative Images from the original note were not included. Physical Therapy Treatment Visit Patient Name: Keren Mendoza Today's Date: 10/13/2024 Encounter Diagnoses Name Primary? Left knee pain, unspecified chronicity Yes S/P left knee arthroscopy Right leg swelling Visit number: 10 Timed Code Treatment Minutes: 54 minutes Total Treatment Time: 70 minutes Time In: 8:30 AM Time Out: 9:46 AM History: Pt states she underwent surgery for left knee scope on 08/21/24. Pt states there were 2 tears and advanced OA in left knee. Used crutches for a few days and was WBAT. Now ambulating without use of crutches. 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 States she has stairs at home and still not going down normally; states has not gone down stairs normally in quite a while. Precautions: Robeline Subjective: Pt states she continues to do well. Right foot is feeling quite a bit better. RTW date to 10/20/24. Pain: 0-1/10 Objective: PT Evaluation (09/08/2024) LEFT KNEE AROM: 10 to 109 degrees in supine PROM: 8 to 112 degrees in supine MMT: hip 4-/5, quad 4/5; fair VMO contraction Palpation: Moderate tenderness superior medial knee Functional: Five Time Sit to Stand: 18.76 seconds with arms across chest Right ANKLE eval on 09/17/24 AROM: 2 degrees DF with knee extended, 3 degrees DF with knee flexed, 14 degrees inversion, 6 degrees eversion PROM: 6 degrees DF with knee extended, 12 degrees DF with knee flexed Observation: pt presents with moderate edema right ankle Strength: grossly 4/5 in all planes Palpation: mild to moderate tenderness plantar surface of right 5th met and cuboid Special Test: negative posterior and anterior drawer Treatment: Manual Therapy: () Passive ROM, Joint mobilization, Soft Tissue Mobilization, Myofascial Release, Muscle Energy Technique, Neural Mobilization, Myofascial Cupping, Dry Needling, IASTM, and Scar mobilization as needed. Left Patellar mobs in supine to increase mobility and decrease pain. Right ankle plantar STM, gentle PROM ankle. Therapeutic Exercise: (41 minutes supervised) Strength, Endurance, Flexibility, ROM, HEP, Neural Mobilization, Power, and Core Stability as needed. Pt performed exercises per grid. Performed BIKE x6 minute warmup. Therapeutic Activity: Exercises to improve dynamic activities, functional tasks, functional mobility to return to prior activity level as needed. Neuromuscular re-education: (13 minutes) Balance Training, Muscle Facilitation, Dynamic Stability, Core Stabilization, and Blood Flow Restriction Training (BFRT) as needed. Modalities: Heat, Ice, Electrical Stimulation, Ultrasound, Cervical Mechanical Traction, Lumbar Mechanical Traction, Iontophoresis, and Fluidotherapy as needed. CP to left knee in supine after treatment x10 minutes. Assessment: Pt has completed 10 PT sessions for left knee s/p scope. Progressed WB exercises this date to improve functional strength of bilateral LE's. Pt lack approx 2 degrees of left knee extension at end of treatment. Will continue to progress as pt tolerates. Outcome Measure: Lower Extremity Functional Scale (LEFS): 53/80 Rehab Diagnosis: left knee pain and weakness; difficulty walking; decrease ROM and mobility Short Term Goal: To be met in 2 weeks Goal 1: Pt to be instructed in home exercise program. - progressing [employer] Goals: To be met in 10 weeks Goal 1: Pt to report independence and compliance with home program. - progressing Goal 2: Pt to achieve 120 degrees left knee flexion to assist with functional tasks such as squatting. - progressing Goal 3: Pt to be lacking no greater than 1 degree left knee extension to assist with proper gait. - progressing Goal 4: Pt to achieve 5/5 strength left knee flexion and extension to assist with functional mobility and ADL's. - progressing Goal 5: Pt to score no less than 70/80 on LEFS indicating improved QOL. - progressing New Goal 6: Pt to achieve 20 degrees of right ankle DF to assist with functional tasks such as squatting. - new goal New Goal 7: Pt to achieve 4+/5 strength right ankle PF to assist with functional mobility and stairs. - new goal New Goal 8: Pt to report pain no greater than 2/10 in right ankle and left knee with return to full work duty. Pt will benefit from skilled PT for 2-3x/week from 09/17/2024 to 11/26/2024 to address the above impairments. I hereby deem this POC medically necessary. Please sign below. Date: documented in this encounter [facility] 10-02-2024 History of Presen t illness Narrative Images from the original note were not included. Keren Mendoza is a 49 y.o. female presents with chief complaint of left knee scope with right ankle posterior tib tendonitis. HPI: Keren returns here today for repeat evaluation of all the above. She states that on both accounts, she is doing well. She describes no real issue with regard to the left knee. The right foot is feeling better, however, she is having some newer symptoms more to the heel aspect. She does inquire about that here today. The therapists have been treating both these entities. She feels she is not quite ready for a return to work and is very concerned about the amount of time she will need to be on her feet with her return to work. SUBJECTIVE: MEDICATIONS: Current Outpatient Medications Medication Instructions cyclobenzaprine (Flexeril) 10 MG tablet TAKE 1 TABLET BY MOUTH EVERY DAY AT BEDTIME NEEDED FOR HEADACHE meloxicam (MOBIC) 15 mg, Oral, Daily, With food. norethindrone-ethinyl estradiol (Alyacen ) 1-35 MG-MCG tablet 1 tablet Orally 1 po daily continous active pills only for 84 days Wegovy 1 mg, Subcutaneous, Weekly ALLERGIES: No Known Allergies SURGICAL HISTORY: Past Surgical History: Procedure Laterality Date COLONOSCOPY 2009 -hyperplastic polyp COLONOSCOPY 2012 -Diverticulosis KNEE ARTHROSCOPY W/ DEBRIDEMENT Left 08/21/2024 w/DAP KNEE ARTHROSCOPY W/ DEBRIDEMENT 08/21/2024 OR KNEE SCOPE,CLEAN/DRAIN 2013 DR MAO SHOULDER ARTHROSCOPY W/ LABRAL REPAIR Right 04/2020 DAP VAGINAL DELIVERY 2011 2008(5 hr labor) VAGINAL DELIVERY FAMILY HISTORY: Family History Problem Relation Name Age of Onset Thyroid disease Mother Diabetes Mother Hyperlipidemia Father No Known Problems Daughter No Known Problems Son Cancer Maternal Grandmother Javier SOCIAL HISTORY: Social History Tobacco Use Smoking status: Never Smokeless tobacco: Never Substance Use Topics Alcohol use: Not Currently Comment: 1-2 drinks less than monthly in the past year, Caffeine intake: 1-2 cups per day Drug use: Never Depression: Not at risk (05/29/2024) PHQ-2 PHQ-2 Score: 0 REVIEW OF SYMPTOMS: The review of systems, history and current medications list are all reviewed today. OBJECTIVE: Visit Vitals Ht 5' 3.75 Wt 196 lb BMI 33.91 kg/m OB Status Having periods Smoking Status Never BSA 2 m Physical Exam Her orthopedic exam here today shows no gross malalignment or deformity about the knee. Gentle arc of motion is without significant difficulty and her neurocirculatory status is overall grossly intact to all distributions. Examination of the contralateral right knee reveals arc of motion without difficulty. The calf and thigh are supple. Her left foot is benign. Right foot shows less tenderness here today over the course of the posterior tibialis and more tenderness over the medial calcaneal tuberosity. No pain with medial and lateral squeeze of the calcaneus. The calf and thigh are supple. She does have a bit of a pes planus deformity bilaterally. X-rays none new here today. ASSESSMENT AND PLAN: Assessment/Plan Status post left knee arthroscopy with right mechanical foot pain including posterior tib tendonitis as well as now plantar fasciitis. The findings are discussed. The treatment alternatives are outlined. We did discuss all options available to her and did offer treatment for the plantar fasciitis. We did discuss oral anti-inflammation, topical anti-inflammation as well as corticosteroid injection. She does wish to hold on that. We will have the therapists add this in. She will do the stretching. We did show her and educate her on Visco elastic heel cups. We will see her back here in another month for a recheck only as needed. We will put her return to work as 10-20-2024. This should be reasonable if this does continue going in the positive direction she is seeing. She does voice understanding of this. All questions are otherwise answered. Cosigned by Bernard Matt DO at 10/06/2024 7:31 AM EDT documented in this encounter [facility] 09-05-2024 History of Presen t illness Narrative [...] All questions answered. documented in this encounter [facility] 08-19-2024 Telephone encount er Note Keren wanted to know if she needed to get crutches or if insurance will cover for these? Sx L knee scope 08/21/24 [facility] 08-19-2024 Miscellaneous Notes Formattin g of this note might be different from the original. Keren wanted to know if she needed to get crutches or if insurance will cover for these? Sx L knee scope 08/21/24 documented in this encounter [facility] 07-03-2024 History of Presen t illness Narrative Images from the original note were not included. GENERAL HISTORY AND PHYSICAL: NAME: Keren Mendoza : 1975 CHIEF COMPLAINT: Left knee osteoarthritis with review of MRI. HISTORY OF PRESENT ILLNESS: This is a 49 y.o. female who presents for a pre-op H&P. Keren returns here today for repeat evaluation of [...] COLONOSCOPY 2009 -hyperplastic polyp COLONOSCOPY 2012 -Diverticulosis OR KNEE SCOPE,CLEAN/DRAIN 2013 DR MAO SHOULDER ARTHROSCOPY [...] mg, Oral, As needed norethindrone-ethinyl estradiol (Alyacen ) 1-35 MG-MCG tablet [...] 7:33 AM EST documented in this encounter [facility] 05-29-2024 History of Presen t illness Narrative Images from the original note were not included. Kaveh Ling MD Obstetrics and Gynecology Patient: Keren Mendoza, : 1975 (49 y.o.) DOS 05/29/24 [...] Allergies Medication Documentation Review Audit Reviewed by Missy Askew MA (Flap Maker) on 05/29/24 at 1029 Medication Order Taking? Sig Documenting Provider Last Dose Status cyclobenzaprine (Flexeril) 10 MG tablet [id number] No TAKE 1 TABLET BY MOUTH EVERY DAY AT BEDTIME NEEDED FOR HEADACHE Patient taking differently: Take 10 mg by mouth as needed at bedtime Marianne Mcdowell, Taking Active Discontinued 05/22/24812 meloxicam (Mobic) 15 MG tablet [id number] No TAKE 1 TABLET BY MOUTH EVERY DAY NEEDED FOR HEADACHE/BODY ACHES Patient taking differently: Take 1 tablet by mouth Daily as needed Marianne Mcdowell DO Taking Active norethindrone-ethinyl estradiol (Alyacen ) 1-35 MG-MCG tablet [id number] 1 tablet Orally 1 po daily continous active pills only for 84 days Kaveh Ling MD Active Discontinued 05/22/24812 Semaglutide-Weight Management (Wegovy) 0.5 MG/0.5ML solution auto-injector [id number] Inject 0.5 mg under the skin 1 (one) time per week Marianne Mcdowell, DO Active No Known Allergies Past Medical [...] COLONOSCOPY 2009 -hyperplastic polyp COLONOSCOPY 2012 -Diverticulosis OR KNEE SCOPE,CLEAN/DRAIN 2013 DR MAO SHOULDER ARTHROSCOPY [...] ? Answer: No documented in this encounter [facility] 05-29-2024 History of Presen t illness Narrative [...] from the original note were not included. Keren Mendoza is a 49 y.o. female presents with chief complaint of Annual Exam HPI: [facility] 05/22/2024 Mammogram 01/02/2024 Colonoscopy 02/15/2023 Current concerns include: Keren Mendoza is here for follow up for [...] Diagnoses Preventative health care - [facility] I reviewed the patients past medical [...] NEEDED FOR HEADACHE/BODY ACHES NORETHINDRONE-ETHINYL ESTRADIOL (ALYACEN 135) 1-35 MG-MCG TABLET 1 tablet Orally 1 po daily continous active pills only for 84 days Modified Medications No medications on file Discontinued Medications No medications on file I have reviewed and reconciled the history and medication list with the patient today. documented in this encounter [facility] 05-22-2024 History of Presen t illness Narrative Associated Order(s): L Inj/Asp: L knee Post-Procedure Diagnose(s): Primary osteoarthritis of left knee L Inj/Asp: L knee on 05/22/2024 9:05 AM Indications: pain Details: 22 G needle Medications: 1 mL betamethasone acetate-betamethasone sodium phosphate 6 (3-3) MG/ML Images from the original note were not included. Keren Mendoza is a 49 y.o. female presents with chief complaint of left knee pain. HPI: Kerne is a 49-year-old white female who presents [...] COLONOSCOPY 2009 -hyperplastic polyp COLONOSCOPY 2012 -Diverticulosis OR KNEE SCOPE,CLEAN/DRAIN 2013 DR MAO SHOULDER ARTHROSCOPY [...] 8:00 AM EST documented in this encounter [facility] 07-10-2023 Evaluation note Encounter Date Diagnosis Assessment [...] treatment plan. Patient left in stable condition. [facility] Other 08-10-2023 Procedure [facility]02-08-2022 NoteHNO ID: [id number] Author: Sarah Arnett RN Service: ? Author [...] Intact SIGNATURE: Sarah Arnett RN PATIENT NAME: Keren Mendoza DATE: August 16, 2021 TIME: 10:58 [facility]02-08-2022 History of Present illness Narrative* Sarah Arnett [...] Intact SIGNATURE: Sarah Arnett RN PATIENT NAME: Keren Mendoza DATE: August 16, 2021 TIME: 10:58 AM [facility]NO ID: [id number] Author: Kaveh Olea MD Service: ? Author Type: Physician Type: Progress Notes Filed: 08/02/2021 8:32 PM Note Text: PATIENT NAME: Keren Mendoza DATE: 08/02/2021 PRIMARY CARE PHYSICIAN: Marianne Mcdowell DO OTHER PHYSICIANS: Dr. Kaveh Ling, Dr. Karin Nicholas Portions of this [...] bruits. ABDOMEN: Negative for (more content not included)...[facility] Evaluation + Plan note No data available for this section [facility] Evaluation noteNo assessment information available [facility] Work Phone: Evaluation note* Diagnosis Lymphadenopathy Enlargement of lymph nodes [facility] Diagnosis Abnormal weight gain- Primary Abnormal weight gain Chronic tension-type headache, intractable- Primary Chronic tension type headache Abnormal weight gain Left knee pain- Primary Pain in joint, lower leg Primary osteoarthritis of left knee Synovial cyst of left popliteal space Well woman exam with routine gynecological exam Routine gynecological examination Other screening mammogram Oral contraceptive pill surveillance [facility] [...] unspecified chronicity [facility]* Diagnosis Abnormal weight gain- Primary Abnormal weight gain Chronic tension-type headache, intractable- Primary Chronic tension type headache Abnormal weight gain Preventative health care- Primary Routine general medical examination at a health care facility Primary osteoarthritis of both knees Abnormal weight gain Left knee pain, unspecified chronicity- Primary S/P left knee arthroscopy Right leg swelling [facility]* Diagnosis Abnormal weight gain- Primary Abnormal weight gain Chronic tension-type headache, intractable- Primary Chronic tension type headache Abnormal weight gain Preventative health care- Primary Routine general medical examination at a health care facility Primary osteoarthritis of both knees Abnormal weight gain Abnormal weight gain- Primary BMI 33.0-33.9,adult S/P left knee arthroscopy- Primary Left knee pain, unspecified chronicity Right leg swelling [facility]* Diagnosis Abnormal weight gain- Primary Abnormal weight gain Chronic tension-type headache, intractable- Primary Chronic tension type headache Abnormal weight gain Preventative health care- Primary Routine general medical examination at a health care facility Primary osteoarthritis of both knees Abnormal weight gain Abnormal weight gain- Primary BMI 33.0-33.9,adult S/P left knee arthroscopy- Primary Posterior tibial tendinitis of right lower extremity Plantar fasciitis of right foot [facility]* Diagnosis Abnormal weight gain- Primary Abnormal weight gain Chronic tension-type headache, intractable- Primary Chronic tension type headache Abnormal weight gain Preventative health care- Primary Routine general medical examination at a health care facility Primary osteoarthritis of both knees Abnormal weight gain Abnormal weight gain- Primary BMI 33.0-33.9,adult S/P left knee arthroscopy- Primary Left knee pain, unspecified chronicity Right leg swelling [facility]* Diagnosis Abnormal weight gain- Primary Abnormal weight gain Chronic tension-type headache, intractable- Primary Chronic tension type headache Abnormal weight gain Preventative health care- Primary Routine general medical examination at a health care facility Primary osteoarthritis of both knees Abnormal weight gain Abnormal weight gain- Primary BMI 33.0-33.9,adult S/P left knee arthroscopy- Primary Left knee pain, unspecified chronicity Right leg swelling [facility]* Diagnosis Abnormal weight gain- Primary Abnormal weight gain Chronic tension-type headache, intractable- Primary Chronic tension type headache Abnormal weight gain Preventative health care- Primary Routine general medical examination at a health care facility Primary osteoarthritis of both knees Abnormal weight gain Abnormal weight gain- Primary BMI 33.0-33.9,adult Left knee pain, unspecified chronicity- Primary S/P left knee arthroscopy Right leg swelling [facility]* Diagnosis Abnormal weight gain- Primary Abnormal weight gain Chronic tension-type headache, intractable- Primary Chronic tension type headache Abnormal weight gain Preventative health care- Primary Routine general medical examination at a health care facility Primary osteoarthritis of both knees Abnormal weight gain Abnormal weight gain- Primary BMI 33.0-33.9,adult S/P left knee arthroscopy- Primary Left knee pain, unspecified chronicity Right leg swelling [facility]* Diagnosis Abnormal weight gain- Primary Abnormal weight gain Chronic tension-type headache, intractable- Primary Chronic tension type headache Abnormal weight gain Preventative health care- Primary Routine general medical examination at a health care facility Primary osteoarthritis of both knees Abnormal weight gain Abnormal weight gain- Primary BMI 33.0-33.9,adult BMI 32.0-32.9,adult- Primary Abnormal weight gain BMI 33.0-33.9,adult documented in this encounter [facility] Author Musa Marrufo [facility] February 15, 2023 8:06am Note Date/Time February 15, 2023 8: 06am [facility] [address] [place] [address] Gastroenterology H&P Signed Patient: Keren Mendoza MR#: [id number] : 1975 Acct:[id number] Age/Sex: 47 / F Adm Date: 3 Loc: Room: Type: [facility] Attending Dr: Musa Marrufo MD Copies to: [...] signed by Musa Marrufo MD> 02/15/23805 [facility] Work Phone: History general Narrative - Reported* Type Description Date Medical History Basal cell carcinoma on face and leg Surgical History Right knee arthroscopy Hospitalization History See past surgical hx [facility] Other Hospital Discharge instructions Additional Instructions DISCHARGE [...] NOT operate machinery such as power tools, [employer] mowers, snow blowers, sewing machines, etc. for [...] years. -Follow up with PCP. -Office number [phone].[facility] Work Phone: Hospital Discharge instructions No data available for this section [facility] Progress note No data available for this section [facility] Reason for visit Narrative* Consultation (Routine) - Authorized Specialty Diagnoses / Procedures Referred By Contac t Referred To Contact Physical Therapy Diagnoses S/P left knee arthroscopy Procedures OR OFFICE/OUTPATIENT NEW HIGH MDM 60 MINUTES Bernard Matt DO [address] [place] [address] Phone: tel: fax: Jaquelin Ortega PT Referral ID Status Reason Start Date Expiration Date Visits Requested Visits Authorized [id number] Authorized Consult and Treat 09/05/2024 03/04/2025 120 120 [facility] Narrative* Consultation (Routine) - Authorized Specialty Diagnoses / Procedures Referred By Contac t Referred To Contact Physical Therapy Diagnoses S/P left knee arthroscopy R Leg Swelling Procedures OR OFFICE/OUTPATIENT NEW HIGH MDM 60 MINUTES Bernard Matt, DO [address] [place] [address] Phone: tel: fax: Jaquelin Ortega PT Referral ID Status Reason Start Date Expiration Date Visits Requested Visits Authorized [id number] Authorized Consult and Treat 09/05/2024 07/08/2025 120 120 [facility] Healthcare Summary Purpose Family History No Family [...] W IVCON DIAGNOSTIC COMPUTED TOMOGRAPHY THORAX W/CONTRAST Kaveh Olea MD [address] [place] [address] [place] [address] [place] [address] Referral ID Status Reason Start Date Expiration Date V isits Requested Visits Authorized [id number] Closed Auto-Generate d Referral 08/02/2021 09/01/2022 1 1 Specialty Diagnoses / Procedures [facility] Referred To Contact CT IMAGING Diagnoses Lymphadenopathy Procedures CT ABD/PEL W IVCON CT ABD & PELVIS W/CONTRAST Kaveh Olea MD [address] [place] [address] [place] [address] [place] [address] Referral ID Status Reason Start Date Expiration Date V isits Requested Visits Authorized [id number] Closed Auto-Generate d Referral 08/02/2021 09/01/2022 1 1 Additional Source Comments INFORMATION SOURCE (unrecogn ized section and content) DATE CREATED AUTHOR 09/28/2021 [facility] DATE CREATED AUTHOR AUTHOR'S ORGANIZ ATION 10/01/2022 [facility] DATE CREATED AUTHOR AUTHOR'S ORGANIZ ATION 02/22/2023 [facility] DATE CREATED AUTHOR AUTHOR'S ORGANIZ ATION 06/23/2024 [facility] DATE CREATED AUTHOR AUTHOR'S ORGANIZ ATION 01/02/2025 [facility] [employer] Care Teams (unrecognized sec tion and content) Team Status: Active Member Role Status Dates Marianne Mcdowell DO Primary Care Provider Active Team Status: Inactive Member Role Status Dates Marianne Mcdowell DO Primary Care Provider Active Musa Marrufo MD Attending Provider Active Plant Control Operator Relationship Specialty Start Date End Date DennyMarianne mcgarry [address] [place] [address] PCP - General Family Medicine 05/22/17 Plant Control Operator Relationship Specialty Start Date End Date Marianne Mcdowell RoseDO [address] [place] [address] PCP - General 12/13/22 Plant Control Operator Relationship Specialty Start Date End Date Marianne Mcdowell DO [address] [place] [address] PCP - General 12/13/22 Plant Control Operator Relationship Specialty Start Date End Date Marianne Mcdowell RoseDO [address] [place] [address] PCP - General 12/13/22 Plant Control Operator Relationship Specialty Start Date End Date Marianne Mcdowell DO [address] [place] [address] PCP - General 12/13/22 Plant Control Operator Relationship Specialty Start Date End Date Marianne Mcdowell DO [address] [place] [address] PCP - General 12/13/22 Plant Control Operator Relationship Specialty Start Date End Date Marianne Mcdowell, DO [address] [place] [address] PCP - General 12/13/22 Plant Control Operator Relationship Specialty Start Date End Date Marianne Mcdowell, DO [address] [place] [address] PCP - General 12/13/22 Plant Control Operator Relationship Specialty Start Date End Date Marianne Mcdowell, DO [address] [place] [address] PCP - General 12/13/22 Plant Control Operator Relationship Specialty Start Date End Date Marianne Mcdowell, DO [address] [place] [address] PCP - General 12/13/22 Plant Control Operator Relationship Specialty Start Date End Date Marinane Mcdowell, DO [address] [place] [address] PCP - General 12/13/22 Plant Control Operator Relationship Specialty Start Date End Date Marianne Mcdowell, DO [address] [place] [address] PCP - General 12/13/22 Plant Control Operator Relationship Specialty Start Date End Date Marianne Mcdowell, DO [address] [place] [address] PCP - General 12/13/22 Plant Control Operator Relationship Specialty Start Date End Date Marianne Mcdowell, DO [address] [place] [address] PCP - General 12/13/22 Plant Control Operator Relationship Specialty Start Date End Date [place] Marianne M, DO [address] [place] [address] PCP - General 12/13/22 Plant Control Operator Relationship Specialty Start Date End Date Jeremias Marianne M, DO [address] [place] [address] PCP - General 12/13/22 Plant Control Operator Relationship Specialty Start Date End Date [place] Marianne M, DO [address] [place] [address] PCP - General 12/13/22 Plant Control Operator Relationship Specialty Start Date End Date Marianne Mcdowell Rose, DO [address] [place] [address] PCP - General 12/13/22 Plant Control Operator Relationship Specialty Start Date End Date [place] Marianne M, DO [address] [place] [address] PCP - General 12/13/22 Plant Control Operator Relationship Specialty Start Date End Date Marianne Mcdowell Rose, DO [address] [place] [address] PCP - General 12/13/22 Plant Control Operator Relationship Specialty Start Date End Date Marianne Mcdowell Rose, DO [address] [place] [address] PCP - General 12/13/22 Plant Control Operator Relationship Specialty Start Date End Date Marianne Mcdowell Rose, DO [address] [place] [address] PCP - General 12/13/22 Plant Control Operator Relationship Specialty Start Date End Date Marianne Mcdowell DO [address] [place] [address] PCP - General 12/13/22 Plant Control Operator Relationship Specialty Start Date End Date Marianne Mcdowell DO [address] [place] [address] PCP - General 12/13/22 REASON FOR VISIT (unrecogniz ed section and content) Specialty Diagnoses / Procedures Referred By [facility]tham[facility] t Referred To Contact CT IMAGING Diagnoses Lymphadenopathy Procedures CT CHEST W IVCON DIAGNOSTIC COMPUTED TOMOGRAPHY THORAX W/CONTRAST Kaveh Olea MD [address] [place] [address] [place] [address] Ct Imaging [id number] Referral ID Status Reason Start Date Expiration Date V isits Requested Visits Authorized [id number] Closed Auto-Generate d Referral 08/02/2021 09/01/2022 1 1 Reason Comments Pain Reason Comments Annual Exam Reason Comments Follow-up Reason Comments Med Refill Reason Onset Date Comments crutches 08/19/2024 Reason Comments Pain Scope 08/21/24 Post-op Scope 08/21/24 Reason Onset Date Comments Check PT status 11/06/2024 Reason Comments Weight Check Source Comments (unrecognize d section and content) In the event this informatio n is protected by the Federal Confidentiality of Alcohol and Drug Abuse Patient Records regulations: The Federal rules restrict any use of the information to criminally investigate or prosecute any alcohol or drug abuse patient.[facility] FOR RECORDS PERTAINING TO PATIENTS WHO ARE [...] BE BASED ON THE PRIMARY CLINICAL RECORDS. [facility] [employer] [facility]. provides no warranty or guarantee of the accuracy or completeness of information in this document.
== END 2025-02-26 08:56 | disposition home or self-care (01) ==
LOC: MAMMO 08:55
PROVIDERS: PCP Family Medicine; Visit Provider Obstetrics & Gynecology
DX: Z12.31 Encounter for screening mammogram for malignant neoplasm of breast (principal)
CPT/HCPCS: 77063; 77067

== ENCOUNTER 2025-05-26 09:17 | Outpatient (OUT) | payer OTHER, SELFPAY ==
--- OUTSIDE RECORDS SUMMARY | 2025-05-26 09:34 | XMS_ITS | CCD ---
Author Organization [facility] Care Team Providers Care Laundry Clerk Name Role Phone JEREMIAS, DR MORALES Admitting [...] Care Provider MD Musa Marrufo Attending Provider [phone] Musa Marrufo Attending Unavailable Musa Marrufo Admitting Unavailable Marianne Mcdowell Primary Care Unavailable Kimmy Duron Unavailable Marianne Mcdowell Primary Care Provider Marianne Mcdowell DO Primary Care Provider [phone] MARIANNE MCDOWELL Primary Care Physician Emelina, Bernard Waters Referring Unavailable Pocos, Bernard Waters [...] Referring Unavailable PETMARIANNE GARCIA Attending Unavailable KAVEH TAVAREZ Attending Unavailable POCOS, BERNARD Waters Attending Unavailable [...] PETMARIANNE GARCIA Attending Unavailable Medications Current Medications MedicationDrug Class(es)DatesSig (Normalized)Sig (Original)acetaminophen 325 mg / HYDROcodone bitartrate 5 mg oral tablet (1 source)Opioid AgonistStart: 08-20-2024 End: 35-45-3563kfkp 1 tablet by mouth every six hours for pain, then take 2 tablets by mouth every six hours for painHYDROcodone-acetaminophen ([place]) 5-325 MG tablet Indications: Acute medial meniscus tear of left knee, subsequent encounter May take 1 tablet by mouth every 6 (six) hours if needed for severe pain. May also take 2 tablets every 6 (six) hours if needed for severe pain. Do all this for 7 days. 40 tablet 08/20/2024 08/27/2024 ActiveAcetaminophen / oxyCODONE (1 source)Opioid AgonistStart: 78-73-4635Muedfvtg 325 mg-5 mg Tab See Instructions, as needed for pain, 40 tab(s), Refill(s) 0, 1-2 orally every 4- 6hrs as needed for pain Dx: M75.41, M75.101 Duration: 7 days, [id number], 162, cm, 04/21/20 6:42:00 EDT, Height/Length Dosing, 89.7, kg, 04/21/20 6:42:00 EDT, Weight Dosing Start Date: 05/04/20 Status: OrderedAlyacen 35 (1 source)Start: 11-14-3596tzuc 1 tablet by mouth once dailyAlyacen 35 1 tab(s), Oral, Daily, Refill(s) 0, control/menstrual regulation Start Date: 04/20/20 Status: Orderedaspirin 325 mg oral tablet (8 sources)Platelet Aggregation Inhibitor, Nonsteroidal Anti-inflammatory Drug Start: 08-20-2024 End: 75-90-1037aeha 1 tablet by mouth once dailyaspirin 325 MG EC tablet Indications: Acute medial meniscus tear of left knee, subsequent encounterTake 1 tablet (325 mg) by mouth Daily for 21 days 21 tablet 08/20/2024 09/10/2024 Activecyclobenzaprine hydrochloride 10 mg oral tablet (20 sources)Muscle RelaxantStart: 94-85-9622mtov 1 tablet by mouth once daily at bedtime as needed for headachecyclobenzaprine (Flexeril) 10 MG tablet Indications: Tension-type headache, unspecified, not intractable TAKE 1 TABLET BY MOUTH EVERY DAY AT BEDTIME NEEDED FOR HEADACHE 30 tablet 1 06/14/2023 Activedocusate sodium 100 mg oral capsule (6 sources)Start: 08-20-2024 End: 60-03-4129jshx 1 capsule by mouth in the morningdocusate sodium (Colace) 100 MG capsule Indications: Acute medial meniscus tear of left knee, subsequent encounter Take 1 capsule (100 mg) by mouth in the morning and 1 capsule (100 mg) before bedtime. Do all this for 20 days. 40 capsule 08/20/2024 09/09/2024 Active ethinyl estradiol 0.035 mg / norethindrone acetate 1 mg oral tablet (20 sources)EstrogenStart: 06-27-2023 End: 95-89-1125kozwcyfgecopu-ethinyl estradiol (Alyacen /35) 1-35 MG-MCG tablet Indications: Encounter for control pills maintenance 1 tablet Orally 1 po daily continous active pills only for 84 days 112 tablet 3 05/29/2024 Active Start: 15-65-4274ygcs 0.56494120618576541 ug by mouth once dailyNorethindrone- Ethin Estradiol (Alyacen 1/35 (28)) 1-35 mg-mcg tablet Active 1 TAB PO Daily February 13, 2023 12:00amStart: 84-12-1703FXCOVUF , 28, 1-35 mg-mcg per tablet 04/13/2017 ActiveNecon (28) (1 source)Necon (28) ActivepredniSONE 20 mg oral tablet (1 source)Start: 22-30-5977lgml 1 tablet by mouth every twelve hoursprednisone 20 MG 1 tablet Orally BID for 5 Jul, ActiveSemaglutide-Weight Management (Wegovy) 0.5 MG/0.5ML solution auto-injector (20 sources)Start: 75-43-2843gtnogt 0.5 mg by subcutaneous injection every week Semaglutide-Weight Management (Wegovy) 0.5 MG/0.5ML solution auto-injector Indications: Abnormal weight gain Inject 0.5 mg under the skin 1 (one) time per week 2 mL 3 06/04/2024 ActiveStart: 98-44-4674ycfqpu 0.5 mg by subcutaneous injection every weekSemaglutide-Weight Management (Wegovy) 0.5 MG/0.5ML solution auto-injector Indications: Abnormal weight gain Inject 0.5 mg under the skin 1 (one) time per week 2 mL 3 05/29/2024 ActiveSemaglutide-Weight Management (Wegovy) 1 MG/0.5ML solution auto-injector (20 sources)Start: 77-71-4301zfnpen 1 mg by subcutaneous injection every week Semaglutide-Weight Management (Wegovy) 1 MG/0.5ML solution auto-injector Indications: Abnormal weight gain , BMI 33.0-33.9,adult Inject 1 mg under the skin 1 (one) time per week 2 mL 3 01/01/2025 ActiveStart: 09-26-2024 End: 50-85-8707ozudjs 1 mg by subcutaneous injection every weekSemaglutide- Weight Management (Wegovy) 1 MG/0.5ML solution auto-injector Indications: Abnormal weight gain , BMI 33.0-33.9,adult Inject 1 mg under the skin 1 (one) time per week 2 mL 3 09/26/2024 01/01/2025 Discontinued (Reorder)Start: 26-49-7965bsxqwp 1 mg by subcutaneous injection every weekSemaglutide-Weight Management (Wegovy) 1 MG/0.5ML solution auto-injector Indications: Abnormal weight gain , BMI 33.0-33.9,adult Inject 1 mg under the skin 1 (one) time per week 2 mL 3 09/26/2024 Active Completed/Discontinued Medications MedicationDrug Class(es)DatesSig (Normalized)Sig (Original)betamethasone 3 mg/ml / betamethasone acetate 3 mg/ml injectable suspension (4 sources)CorticosteroidStart: 05-22-2024 End: 98-01-1525rhigwknaluqcx acetate-betamethasone sodium phosphate ([place]) injection 1 mLStart: 05-22-2024 End: mL, Intra-articular, Once PRN Procedure, Starting on Airam 05/22/24 at 0905, For 1 doseBrompheniramine / Pseudoephedrine (1 source)alpha-Adrenergic AgonistStart: 74-76-8569djqr 10 mL by mouth every six hours as neededBromfed DM 30-2-10 MG/5ML 10 ml as needed Orally every 6 hrs for 7 days May, Not-Taking/PRNfluticasone propionate 0.05 mg/actuat metered dose nasal spray (1 source)CorticosteroidStart: 17-20-8072ltwa 2 spray(s) nasal route once daily as neededFluticasone Propionate 50 MCG/ACT 2 sprays in each nostril Nasally Once a day for 14 days May, Not-Taking/PRN3 ml liraglutide 6 mg/ml pen injector (4 sources)GLP-1 Receptor AgonistStart: 10-24-2023 End: 98-28-9621dhfuwp 3 mg by subcutaneous injection once dailyLiraglutide - Weight Management (Saxenda) 18 MG/3ML solution pen-injector Indications: Abnormal weight gain Inject 3 mg under the skin Daily 15 mL 1 10/24/2023 05/22/2024 DiscontinuedStart: 57-94-6234Jiupskpncdo (Weight Loss) (Saxenda) 3 mg/0.5 mL (18 mg/3 mL) pen injector Active 3 MG SUBCUT Daily February 13, 2023 12:00amliraglutide (SAXENDA SUBCUTANEOUS) Inject subcutaneously. Activemeloxicam 15 mg oral tablet (20 sources)Nonsteroidal Anti-inflammatory DrugStart: 04-20-2020 End: 19-66-5039dofr 1 tablet by mouth once daily at mealtimemeloxicam (Mobic) 15 MG tablet Indications: S/P left knee arthroscopy Take 1 tablet (15 mg) by mouth Daily With food. 30 tablet 2 09/05/2024 10/05/2024 Expiredphentermine hydrochloride 37.5 mg oral tablet (2 sources)Sympathomimetic Amine AnorecticStart: 06-19-2023 End: 30-72-2714upte 1 tablet by mouth before mealtimephentermine (Adipex-P) 37.5 MG tablet Indications: Abnormal weight gain Take 1 tablet (37.5 mg) by mouth in the morning. Take before meals. 30 tablet 06/19/2023 05/22/2024 Discontinued polyethylene glycol 3350 248708 mg / potassium chloride 2970 mg / sodium bicarbonate 6740 mg / sodium chloride 5860 mg / sodium sulfate 42449 mg powder for oral solution (1 source)Osmotic LaxativeStart: 96-06-5118PEL-3350/Electrolytes 236 GM as directed Orally once daily for 1 days November, Not-Taking/PRN Problems Active Problems Problem ClassificationProblemDateDocumented DateEpisodic/ChronicContraceptive and procreative management (4 sources)Oral contraception; Translations: [Encounter for surveillance of contraceptive pills]71-70-2814ZbahvbojYwega disorders and dislocations; trauma-related (5 sources)Acute tear of medial meniscus of left knee; Translations: [Other tear of medial meniscus, current injury, left knee, initial encounter]07-03-2024 EpisodicLymphadenitis (1 source)Lymphadenopathy; Translations: [Generalized enlarged lymph nodes] 71-78-8631TpjbxpvxCuwdipaxyvzrms (20 sources)Osteoarthritis of left knee joint; Translations: [Unilateral primary osteoarthritis, left knee]Onset: 592015-59-4702HrtpskbEkyme connective tissue disease (1 source)Pain in left foot; Translations: [Pain in left foot]42-73-2474Vcmuarxa Other connective tissue disease (2 sources)Synovial cyst of popliteal space [[place]], left knee; Translations: [Synovial cyst of popliteal space]81-16-7078TdphceebPspok connective tissue disease (1 source)Impingement syndrome of shoulder wmcoug75-50-2762SvqxodyvLauhl connective tissue disease (7 sources)Swelling of right lower limb; Translations: [Other specified soft tissue disorders]71-25-8065HksvswucIckoo connective tissue disease (2 sources)Tendinitis of right posterior tibial tendon; Translations: [Posterior tibial tendinitis, right leg]96-27-4727EagktprgBnmwt connective tissue disease (2 sources)Plantar fasciitis of right foot; Translations: [Plantar fascial fibromatosis]57-26-1845PlsglpxaLdecg lower respiratory disease (4 sources)Solitary pulmonary nodule; Translations: [SOLITARY PULMONARY NODULE] Onset: 13-91-2465NjkixcctIexev non-traumatic joint disorders (1 source)Ankle pain; Translations: [Pain in left ankle and joints of left foot] 66-41-5224NuxfbefhHlybj non-traumatic joint disorders (10 sources)Pain in left knee; Translations: [Pain in joint, lower leg] 11-33-3662ZjuaizcmHsblh nutritional; endocrine; and metabolic disorders (10 sources)Body mass index 30+ - obesity; Translations: [Body mass index (BMI) 33.0-33.9, adult]Onset: 567581-52-5104HhrsrehQlprr screening for suspected conditions (not mental disorders or infectious disease) (7 sources)Encounter for screening mammogram for malignant neoplasm of breast; Translations: [Patient encounter status]Onset: 14-26-4745EbtcmvspXmnba upper respiratory infections (2 sources)Acute pharyngitis, unspecified; Translations: [Acute upper respiratory infection, unspecified]EpisodicResidual codes; unclassified (13 sources)History of arthroscopy of knee joint; Translations: [Other specified postprocedural states]89-15-2017EhymtymeFcmunxd and strains (1 source)Sprain of left ankle; Translations: [Sprain of unspecified ligament of left ankle, initial encounter]72-82-5470MybzkcknDoqnkztnqpxq (1 source)Encounter for screening for malignant neoplasm of colon; Translations: [Encounter for screening formalignant neoplasm of colon]Onset: 02-15-2023 Past or Other Problems Problem ClassificationProblemDateDocumented DateEpisodic/ChronicAnal and rectal conditions (20 sources)Anorectal pain; Translations: [Other specified diseases of anus and rectum]Onset: 11-21-2022 Resolved: 170749-98-9156WqnsbgbeFelompt tract disease (20 sources)Cholelithiasis without obstruction; Translations: [Calculus of gallbladder without cholecystitis without obstruction]Onset: 11-21-2022 46-27-8296HdngygdlNonjburz of urinary tract (20 sources)Kidney stone; Translations: [Calculus of kidney]Onset: 11-21-2022 Resolved: 500781-49-3775RdenpmgaDwjntmnyrr and other anemia (20 sources)Anemia; Translations: [Anemia, unspecified]Onset: 06-08-2017 Resolved: 261984-18-4507QkoyzvduFeaejuqsqbeynb and diverticulitis (20 sources)Diverticular disease; Translations: [Diverticulosis of intestine, part unspecified, without perforation or abscess without bleeding]Onset: 04-19-2023 Resolved: 529926-38-0394SziblysElgmghhs; including migraine (20 sources)Muscular headache ; Translations: [Tension-type headache, unspecified, not intractable]Onset: 11-21-2022 Resolved: 758769-31-2776DayxkegExaaglayeyn (20 sources)Internal hemorrhoids grade II; Translations: [Second degree hemorrhoids]Onset: 918765-28-2701WgwhyxspNoihl and unspecified benign neoplasm (20 sources)Polyp of colon; Translations: [Polyp of colon]Onset: 04-19-2023 56-93-2417NhelmpisCmhog lower respiratory disease (20 sources)Nodule of lung; Translations: [Solitary pulmonary nodule]Onset: 023901-91-9257GkdsrdxnSfitj non-traumatic joint disorders (20 sources)Effusion of joint; Translations: [Effusion, unspecified knee]Onset: 05-17-2023 Resolved: 962208-51-9156VjphnswkSigau nutritional; endocrine; and metabolic disorders (20 sources)Abnormal weight gain; Translations: [Abnormal weight gain]Onset: 489097-10-2972Bqpgvxdk Results Test NameValueInterpretationReference RangeFacilityMM TOMOSYNTHESIS SCREENING BI on 85-34-[place]189Hzj[place], [place] [address] Mammography Report Signed Patient: KEREN MENDOZA MR#: [id number] : 1975 Acct:[id number] Age/Sex: 50 / F ADM Date: 02/26/25 Loc: MAMMO Attending Dr: KAVEH TAVAREZ Ordering Physician: KAVEH TAVAREZ Results: Date of Service: 02/26/25 Follow Up: Procedure(s): MM tomosynthesis screening BI Accession Number(s): [id number] cc: MARIANNE MCDOWELL ; KAVEH TAVAREZ Patient Name: KEREN MENDOZA MR#: [id number] : 1975 Exam Date: 02/26/2025 Ordering Doctor: DR KAVEH TAVAREZ RADIOLOGY REPORT PROCEDURE: MM TOMOSYNTHESIS SCREENING BI COMPARISON: MM TOMOSYNTHESIS SCREENING BI, 01/02/2024. MG MAMM SCREEN 3D MALLORY CAD, 08/29/2022. MG MAMM SCREEN 3D MALLORY CAD, 04/19/2021. MG MAMM MALLORY SCRN W CAD DIG, 05/16/2016. INDICATIONS: screening Calculator Name NCI Breast Cancer Risk Assessment Tool 5 Year Breast Cancer Risk 1.50% Lifetime Breast Cancer Risk 13.30% Personal Breast Cancer No Personal Ovarian Cancer No Treatments None Family Cancers None LOCATION: [facility] BREAST COMPOSITION: There are scattered areas of fibroglandular density. FINDINGS: RIGHT BREAST: No significant suspicious finding. There is a similar focal asymmetry laterally on the right. LEFT BREAST: No significant suspicious finding. DIAGNOSTIC CATEGORY 2--BENIGN FINDING. NO CHANGE FROM COMPARISON. RECOMMENDATIONS: ROUTINE MAMMOGRAM AND CLINICAL EVALUATION IN 12 MONTHS. Dictated by: Edwin Llanos MD on 02/26/2025 at 11:13 Approved by: Edwin Llanos MD on 02/26/2025 at 11:16 Dictated By: Edwin Llanos M.D. Signed By: 02/26/25 1117 DD/ 15 TD/TT: Skin Pass Operator:DAMIENadiologJimmy wilkes MD - 02/26/2025 [place] [address] Mammography Report Signed Patient: KEREN MENDOZA MR#: [id number] : 1975 Acct:[id number] Age/Sex: 50 / F ADM Date: 02/26/25 Loc: MAMMO Attending Dr: KAVEH TAVAREZ Ordering Physician: KAVEH TAVAREZ Results: Date of Service: 02/26/25 Follow Up: Procedure(s): MM tomosynthesis screening BI Accession Number(s): [id number] cc: MARIANNE MCDOWELL ; KAVEH TAVAREZ Patient Name: KEREN MENDOZA MR#: [id number] : 1975 Exam Date: 02/26/2025 Ordering Doctor: DR KAVEH TAVAREZ RADIOLOGY REPORT PROCEDURE: MM TOMOSYNTHESIS SCREENING BI COMPARISON: MM TOMOSYNTHESIS SCREENING BI, 01/02/2024. MG MAMM SCREEN 3D MALLORY CAD, 08/29/2022. MG MAMM SCREEN 3D MALLORY CAD, 04/19/2021. MG MAMM MALLORY SCRN W CAD DIG, 05/16/2016. INDICATIONS: screening Calculator Name NCI Breast Cancer Risk Assessment Tool 5 Year Breast Cancer Risk 1.50% Lifetime Breast Cancer Risk 13.30% Personal Breast Cancer No Personal Ovarian Cancer No Treatments None Family Cancers None LOCATION: [facility] BREAST COMPOSITION: There are scattered areas of fibroglandular density. FINDINGS: RIGHT BREAST: No significant suspicious finding. There is a similar focal asymmetry laterally on the right. LEFT BREAST: No significant suspicious finding. DIAGNOSTIC CATEGORY 2--BENIGN FINDING. NO CHANGE FROM COMPARISON. RECOMMENDATIONS: ROUTINE MAMMOGRAM AND CLINICAL EVALUATION IN 12 MONTHS. Dictated by: Edwin Llanos MD on 02/26/2025 at 11:13 Approved by: Edwin Llanos MD on 02/26/2025 at 11:16 Dictated By: Edwin Llanos M.D. Signed By: 02/26/25 1117 DD/ 15 TD/TT: Skin Pass Operator: [facility] HospitalRadiology Study observation (narrative)[facility]'s HospitalMM TOMOSYNTHESIS SCREENING BIOrdered By: Radiologist Radiology on 63-79-5601YQDZSSM Health Cardinal [facility]on [facility]'s Hospital Work Phone: all CBC WITH AUTO DIFFon 78-62-1590PBXQBKRXO ABSOLUTE AUTO0.1NOMS HealthcareBasophils/100 WBC (Bld)0.7 %0.2 - 2.0 %[facility] Eosinophils/100 WBC (Bld)1.4 %0.9 - 7.0 %[facility] Children's HospitalErythrocyte distribution width (RBC) [Ratio]12.4 %11.0 - 15.0 %[facility] Children's HospitalHematocrit (Bld) [Volume fraction]38.6 %36.0 - 48.0 %[facility]'s HospitalHemoglobin (Bld) [Mass/Vol]12.7 g/dL 12.0 - 16.0 g/dLSSM Health Cardinal Glennon Children's HospitalIMMATURE GRANULOCYTES ABS AUTO0.05HighSSM Health Cardinal Glennon Children's HospitalImmature granulocytes/100 WBC (Bld)0.7 %High0.0 - 0.5 %[facility] Interpretation and review of laboratory resultsAbnormalSSM Health [facility] LYMPHOCYTES ABSOLUTE AUTO2.1N[facility]S [facility] HospitalLymphocytes/100 WBC (Bld)27.1 %20.5 - 60.0 %[facility]'s HospitalMCH (RBC) [Entitic mass]30.2 pg26.7 - 34.0 pgSSM Health Cardinal Glennon Children's HospitalMCHC (RBC) [Mass/Vol]32.9 g/dL29.9 - 35.2 g/dLSSM Health Cardinal Glennon Children's HospitalMCV (RBC) [Entitic vol]91.7 fL81.0 - 99.0 fLSSM Health Cardinal Glennon Children's HospitalMONOCYTES ABSOLUTE AUTO0.6NOSaint John's Health SystemMonocytes/100 WBC (Bld)7.9 %1.7 - 12.0 %[facility]'s HospitalNEUTROPHILS ABSOLUTE AUTO4.8N[facility] HospitalNeutrophils/100 WBC (Bld)62.2 %43.0 - 75.0 %[facility]'s HospitalPlatelet mean volume (Bld) [Entitic vol]9 fLLow9.5 - 13.5 fLSSM Health Cardinal Glennon Children's HospitalTBH EO #0.1NOMS Bellevue HospitalTB [id number] John's Health SystemTB RBC4.21NOFulton State Hospital WBC7.7NOSaint John's Health SystemCLINISYNCNOMS HealthcareECG 12-LEADon 44-34-3069XgpFree[place], [place] [address] Electrocardiograph Report Signed Patient: KEREN MENDOZA MR#: [id number] : 1975 Acct:[id number] Age/Sex: 49 / F ADM Date: 07/15/24 Loc: CARD Attending Dr: BERNARD MATT Ordering Physician: BERNARD MATT Date of Service: 07/15/24 Procedure(s): ECG 12 lead Accession Number(s): [id number] cc: [facility] Test Date: 2024-07-15 Pat Name: KEREN MENDOZA Department: Room: - Gender: Female Pattern Marking Supervisor: : 1975 Requested By: 635 Order Number: [id number] Reading MD: KIKO VIDES Measurements Intervals [place] Rate: 63 P: 68 PA: 155 QRS: 61 QRSD: 103 T: 63 QT: 406 QTc: 416 Interpretive Statements SINUS RHYTHM No previous ECG available for comparison Electronically Signed On 07-15-2024 20:00:37 EST by KIKO VIDES Dictated By: Kiko Vides D.O. Signed By: 07/15/24200007/15/242000 DD/ 5 TD/TT: Skin Pass Operator:TBHRadiology, Radiologist, - 07/15/2024 [facility] [place] [id number] Electrocardiograph Report Signed Patient: KEREN MENDOZA MR#: [id number] : 1975 Acct:[id number] Age/Sex: 49 / F ADM Date: 07/15/24 Loc: CARD Attending Dr: BERNARD MATT Ordering Physician: BERNARD MATT Date of Service: 07/15/24 Procedure(s): ECG 12 lead Accession Number(s): [id number] cc: [facility] Test Date: 2024-07-15 Pat Name: KEREN MENDOZA Department: Room: - Gender: Female Pattern Marking Supervisor: : 1975 Requested By: 635 Order Number: [id number] Reading MD: KIKO VIDES Measurements Intervals [place] Rate: 63 P: 68 PA: 155 QRS: 61 QRSD: 103 T: 63 QT: 406 QTc: 416 Interpretive Statements SINUS RHYTHM No previous ECG available for comparison Electronically Signed On 07-15-2024 20:00:37 EST by KIKO VIDES Dictated By: Kiko Vides D.O. Signed By: 07/15/24200007/15/242000 DD/ 5 TD/TT: Skin Pass Operator: [facility] HealthcareRadiology Study observation (narrative)[facility] HealthcareEC 12-LEAD Ordered By: Radiologist Radiology on 26-86-8383MQDG Zebit Work Phone: MRI KNEE W/O CONTRAST LEFTon 06-19-2024 Exam Date/Time: 06/17/2024 09:51 EST Reason for [...] Transcribed by: IGNACIO Technologist: ANABEL Technical Comments NoneINTEGRIS BAPTIST [facility] – OKLAHOMA CITYRadiology, Radiologist, - 06/19/2024 Exam Date/Time: 06/17/2024 09:51 EST Reason for [...] by: IGNACIO Technologist: ANABEL Technical Comments None [facility] HospitalMRI KNEE W/O CONTRAST LEFTOrdered By: Radiologist Radiology on 23-50-9315VKZV Zebit Work Phone: MRI Knee w/o Contrast Lefton 73-35-2589QVP Knee w/o Contrast LeftExam Date/Time: 06/17/2024 09:51 EST Reason for Exam: [...] Transcribed by: IGNACIO Technologist: ANABEL Technical Comments NoneNoMercy Health [facility] KNEE W/O CONTRAST LEFTon 06-17-2024 Radiology Study observation (narrative)NOMS HealthcareALL CBC WITH AUTO DIFFon 03-03-0801MXCHTFMTK ABSOLUTE AUTO0.1N[facility]S HealthcareBasophils/100 WBC (Bld)0.7 % 0.2 - 2.0 %N[facility]S HealthcareEosinophils/100 WBC (Bld)0.7 %Low0.9 - 7.0 %NOM HealthcareErythrocyte distribution width (RBC) [Ratio]12.7 %11.0 - 15.0 %NOM HealthcareHematocrit (Bld) [Volume fraction]38.9 %36.0 - 48.0 %[facility] Hemoglobin (Bld) [Mass/Vol]12.8 g/dL12.0 - 16.0 g/dLNOTN HealthcareIMMATURE GRANULOCYTES ABS AUTO0.02NOMS HealthcareImmature granulocytes/100 WBC (Bld)0.2 % 0.0 - 0.5 %[facility]'s HospitalInterpretation and review of laboratory results AbnormalSSM Health Cardinal Glennon Children's HospitalLYMPHOCYTES ABSOLUTE AUTO2.1[facility] Lymphocytes/100 WBC (Bld)25.8 %20.5 - 60.0 %[facility] DivisionH (RBC) [Entitic mass]30.4 pg26.7 - 34.0 pgHCA Midwest DivisionHC (RBC) [Mass/Vol]32.9 g/dL29.9 - 35.2 g/dLHCA Midwest DivisionV (RBC) [Entitic vol]92.4 fL81.0 - 99.0 fLSSM Health Cardinal Glennon Children's HospitalMONOCYTES ABSOLUTE AUTO0.6NOSaint John's Health SystemMonocytes/100 WBC (Bld)7.6 % 1.7 - 12.0 %[facility]'s HospitalNEUTROPHILS ABSOLUTE AUTO5.3NOSaint John's Health System Neutrophils/100 WBC (Bld)65 %43.0 - 75.0 %[facility]'s HospitalPlatelet mean volume (Bld) [Entitic vol]9.1 fLLow9.5 - 13.5 fLSSM Health Cardinal Glennon Children's HospitalTB EO #0.1NOMS [facility] HospitalTB [id number] State Hospital RBC4.21NOFulton State Hospital WBC8.1NSaint John's Health SystemCLINISYNCNSaint John's Health SystemALL LIPID PROFILE (FASTING)on 19-73-7201USSB HDL RATIO2.9[facility]'s HospitalComment on above:3.3 - 4.4 LOW RISK 4.4 - 7.1 AVERAGE RISK 7.1 - 11.0 MODERATE RISK >11.0 HIGH RISK Cholesterol [Mass/Vol]217 mg/dLHighNINF - 200 mg/dLSSM Health Cardinal Glennon Children's HospitalCholesterol in HDL [Mass/Vol]76 mg/mPRtji22 - 60 mg/dLSANPETE VALLEY HOSPITAL HealthcareComment on above:> or =60 mg/dl - LOW CARDIOVASCULAR RISK <40 mg/dl - HIGH CARDIOVASCULAR RISK Magnesium [Mass/Vol]113 mg/dLSANPETE VALLEY HOSPITAL HealthcareComment on above:<100 mg/dl OPTIMAL 100-129 mg/dl NEAR OR ABOVE OPTIMAL 130-159 mg/dl BORDERLINE HIGH 160-189 mg/dl HIGH >190 mg/dl VERY HIGH Magnesium [Mass/Vol]28.6 mg/dLSSM Health Cardinal Glennon Children's HospitalTriglyceride [Mass/Vol]143 mg/dL NINF - 150 mg/dLNOTN HealthcareCCF CMP (CMP) (FOR REMOTE [facility] USE)on 05-22-2024 Albumin [Mass/Vol]3.7 g/dL3.4 - 5.0 g/dLNOSaint John's Health SystemALBUMIN GLOBULIN RATIO1 [facility] HealthcareALP [Catalytic activity/Vol]40 U/LLow46 - 116 U/LNOMS Healthcare ALT [Catalytic activity/Vol]33 U/L14 - 59 U/LNOMS HealthcareAnion gap [Moles/Vol]15.7 mmol/LNOMS HealthcareAST [Catalytic activity/Vol]26 U/L15 - 37 U/LNOMS HealthcareBilirubin [Mass/Vol]0.8 mg/dL0.2 - 1.0 mg/dLNOSaint John's Health System Calcium [Mass/Vol]8.7 mg/dL8.5 - 10.1 mg/dLNOTN HealthcareChloride [Moles/Vol] 105 mmol/L98 - 107 mmol/LNOMS HealthcareCO2 [Moles/Vol]25.5 mmol/L21.0 - 32.0 mmol/LNOMS HealthcareCreatinine [Mass/Vol]0.73 mg/dL0.55 - 1.02 mg/dLNOTN HealthcareGFR/1.73 sq M.predicted CKD-EPI (S/P/Bld) [Vol rate/Area]>60>=60 mL/min/1.73m 2NOKLAHOMA ER & H[facility]PITAL [facility] HealthcareGlobulin (S) [Mass/Vol]3.6 g/dLNOSaint John's Health System Glucose [Mass/Vol]100 mg/dL74 - 106 mg/dLNOTN HealthcarePotassium [Moles/Vol]4.2 mmol/L3.5 - 5.1 mmol/LNOMS HealthcareProtein [Mass/Vol]7.3 g/dL6.4 - 8.2 g/dL [facility] HealthcareSodium [Moles/Vol]142 mmol/L136 - 145 mmol/LNOMS Bellevue HospitalTBH EGFR-NON AF KYRGYZ>60>=60 mL/min/1.73m 2NOMS HealthcareUrea nitrogen [Mass/Vol]13 mg/dL7.0 - 18.0 mg/dLNOSaint John's Health SystemUrea nitrogen/Creatinine [Mass ratio]17.8 mg/mgNOMS HealthcareNo Panel Informationon [id number] and review of laboratory resultsAbnormalNOSaint John's Health SystemCLINISYNCNOMS Healthcare Sarahsilvia Velasco MA 05/28/2024 8:01 AM L Inj/Asp: L knee on 05/22/2024 9:05 AM Indications: pain Details: 22 G needle Medications: 1 mL betamethasone acetate-betamethasone sodium phosphate 6 (3-3) MG/ML [facility] CenterMM TOMOSYNTHESIS SCREENING BIon 86-62-2743[place], [place] [address] Mammography Report Signed Patient: KEREN MENDOZA MR#: [id number] : 1975 Acct:[id number] Age/Sex: 48 / F ADM Date: 01/02/24 Loc: MAMMO Attending Dr: KAVEH TAVAREZ Ordering Physician: KAVEH TAVAREZ Results: Date of Service: 01/02/24 Follow Up: Procedure(s): MM tomosynthesis screening BI Accession Number(s): [id number] cc: KAVEH TAVAREZ ; Physician,Non-Staff M.D. Patient Name: KEREN MENDOZA MR#: [id number] : 1975 Exam Date: 01/02/2024 Ordering Doctor: DR KAVEH TAVAREZ RADIOLOGY REPORT PROCEDURE: MM TOMOSYNTHESIS SCREENING BI COMPARISON: MG MAMM SCREEN 3D MALLORY CAD, 04/19/2021. MG MAMM SCREEN 3D MALLORY CAD, 08/29/2022. INDICATIONS: Screening for malignant neoplasm Calculator Name NCI Breast Cancer Risk Assessment Tool 5 Year Breast Cancer Risk 1.40% Lifetime Breast Cancer Risk 13.60% Personal Breast Cancer No Personal Ovarian Cancer No Treatments None Family Cancers None LOCATION: [facility] BREAST COMPOSITION: There are scattered areas of fibroglandular density. FINDINGS: DIAGNOSTIC CATEGORY 1--NEGATIVE. NO CHANGE FROM COMPARISON ASSESSMENT. Scattered benign-appearing lymph nodes are present. Scattered benign-appearing calcifications are present. RIGHT BREAST: No significant suspicious finding. LEFT BREAST: No significant suspicious finding. RECOMMENDATIONS: ROUTINE MAMMOGRAM AND CLINICAL EVALUATION IN 12 MONTHS. PLEASE NOTE: A NORMAL MAMMOGRAM DOES NOT EXCLUDE THE POSSIBILITY OF BREAST CANCER. A CLINICALLY SUSPICIOUS PALPABLE LUMP SHOULD BE BIOPSIED. Dictated by: Bernard Mena MD on 01/02/2024 at 15:16 Approved by: Bernard Mena MD on 01/02/2024 at 16:06 Dictated By: Bernard Mena M.D. Signed By: 01/02/24 1607 DD/ TD/TT: Skin Pass Operator:JHONHRadiologkatrin, Radiologist, - 01/02/2024 [place] [address] Mammography Report Signed Patient: KEREN MENDOZA MR#: [id number] : 1975 Acct:[id number] Age/Sex: 48 / F ADM Date: 01/02/24 Loc: MAMMO Attending Dr: KAVEH TAVAREZ Ordering Physician: KAVEH TAVAREZ Results: Date of Service: 01/02/24 Follow Up: Procedure(s): MM tomosynthesis screening BI Accession Number(s): [id number] cc: KAVEH TAVAREZ ; Physician,Non-Staff Gui Patient Name: KEREN MENDOZA MR#: [id number] : 1975 Exam Date: 01/02/2024 Ordering Doctor: DR KAVEH TAVAREZ RADIOLOGY REPORT PROCEDURE: MM TOMOSYNTHESIS SCREENING BI COMPARISON: MG MAMM SCREEN 3D MALLORY CAD, 04/19/2021. MG MAMM SCREEN 3D MALLORY CAD, 08/29/2022. INDICATIONS: Screening for malignant neoplasm Calculator Name NCI Breast Cancer Risk Assessment Tool 5 Year Breast Cancer Risk 1.40% Lifetime Breast Cancer Risk 13.60% Personal Breast Cancer No Personal Ovarian Cancer No Treatments None Family Cancers None LOCATION: [facility] BREAST COMPOSITION: There are scattered areas of fibroglandular density. FINDINGS: DIAGNOSTIC CATEGORY 1--NEGATIVE. NO CHANGE FROM COMPARISON ASSESSMENT. Scattered benign-appearing lymph nodes are present. Scattered benign-appearing calcifications are present. RIGHT BREAST: No significant suspicious finding. LEFT BREAST: No significant suspicious finding. RECOMMENDATIONS: ROUTINE MAMMOGRAM AND CLINICAL EVALUATION IN 12 MONTHS. PLEASE NOTE: A NORMAL MAMMOGRAM DOES NOT EXCLUDE THE POSSIBILITY OF BREAST CANCER. A CLINICALLY SUSPICIOUS PALPABLE LUMP SHOULD BE BIOPSIED. Dictated by: Bernard Mnea MD on 01/02/2024 at 15:16 Approved by: Bernard Mena MD on 01/02/2024 at 16:06 Dictated By: Bernard Mena M.D. Signed By: 01/02/24 1607 DD/ 05 TD/TT: Skin Pass Operator: CATARINO HealthcareRadiology Study observation (narrative)[facility] TOMOSYNTHESIS SCREENING BIOrdered By: Radiologist Radiology on [id number] Healthcare Work Phone: Quick Strepon 07-10-2023S. pyogenes Org specific cx Ql (Throat)NegativeGroovinAds Other Quick StrepNoCitra Style Other HCG ( test) IA.rapid Ql (U)Ordered By: Musa Marrufo on 52-50-9606BPO ( test) Ql (U)NegativeDoctors HospitalHCG,Urineon 12-97-2949Fbgv HCG ( test) Ql (U)Negative NormalDoctors HospitalComment on above:Result Comment: PERFORMED BY: [place] [id number] PATHOLOGIST CODING CLERK DARIN KERN M.D.Performed By: #### UHCG #### [place] [address] USACT CHEST W CONon [id number] CHEST W CONEXAMINATION: CT CHEST W CON HISTORY: Solitary nodule [...] reports for comparison. Electronically authenticated by: SHIVA ROSSI Date: 2022-09-22 15:10NoThe [facility] AUTO DIFFon [id number] #0.1 103/ulNormal0.0-0.1The [facility] HospitalComment on above:Performed By: #### CBC #### [facility] [address] [place] [address] Dr. Derek McmillanBasophils/100 WBC (Bld)0.7 %Normal0.2-2.0[facility] Comment on above:Performed By: #### CBC #### [facility] [address] [place] [address] Dr. Derek Hernandez #0.1 103/ulNormal0.0-0.7The [facility] HospitalComment on above: Performed By: #### CBC #### [facility] [address] [place] [address] Dr. Derek Nazarioosinophils/100 WBC (Bld)0.7 %Critically low0.9-7.0The [facility] HospitalComment on above:Performed By: #### CBC #### [facility] [address] [place] [address] Dr. Derek Nazariorythrocyte distribution width (RBC) [Ratio]12.6 %Kyheya02.0-15.0 The [facility] HospitalComment on above:Performed By: #### CBC #### [facility] [address] [place] [address] Dr. Derek McmillanHematocrit (Bld) [Volume fraction]37.4 %Ioxgio73.0-48.0The [facility] HospitalComment on above:Performed By: #### CBC #### [facility] [address] [place] [address] Dr. Derek McmillanHemoglobin (Bld) [Mass/Vol]12.6 g/hJTmcuuh46.0-16.0The [facility] HospitalComment on above:Performed By: #### CBC #### [facility] [address] [place] [address] Dr. Derek Salgado #0.04 10e3/ulCritically high0.00-0.03[facility] Comment on above:Performed By: #### CBC #### [facility] [address] [place] [address] Dr. Derek Salgado %0.5 %Normal0.0-0.5The [facility] HospitalComment on above: Performed By: #### CBC #### [facility] [address] [place] [address] Dr. Derek Juarez #2.0 103/ulNormal1.2-3.8The [facility] HospitalComment on above:Performed By: #### CBC #### [facility] [address] [place] [address] Dr. Derek Scotthocytes/100 WBC (Bld)25.5 %Qfyhjj50.5-60.0The [facility] HospitalComment on above:Performed By: #### CBC #### [facility] [address] [place] [address] Dr. Derek Howe DIFF REQNONormalThe [facility] HospitalComment on above: Performed By: #### CBC #### [facility] [address] [place] [address] Dr. Derek Palma (RBC) [Entitic mass]31.1 zxLdobdr42.7-34.0The [facility] HospitalComment on above:Performed By: #### CBC #### [facility] [address] [place] [address] Dr. Derek Erickson (RBC) [Mass/Vol]33.7 g/eVRpcbtl12.9-35.2The [facility] HospitalComment on above:Performed By: #### CBC #### [facility] [address] [place] [address] Dr. Derek Erickson (RBC) [Entitic vol]92.3 zIEiflzk75.0-99.0The [facility] HospitalComment on above:Performed By: #### CBC #### [facility] [address] [place] [address] Dr. Derek Bose #0.7 103/ulNormal0.3-0.8The [facility] HospitalComment on above:Performed By: #### CBC #### [facility] [address] [place] [address] Dr. Derek Rutledgeocytes/100 WBC (Bld)8.6 %Normal1.7-12.0[facility] Comment on above:Performed By: #### CBC #### [facility] [address] [place] [address] Dr. Derek Hawley #4.9 103/ulNormal1.4-6.5The [facility] HospitalComment on above:Performed By: #### CBC #### [facility] [address] [place] [address] Dr. Derek Williamutrophils/100 WBC (Bld)64.0 %Keguts31.0-75.0The [facility] HospitalComment on above:Performed By: #### CBC #### [facility] [address] [place] [address] Dr. Derek Foremanlet mean volume (Bld) [Entitic vol]8.9 fLCritically low 9.5-13.5The [facility] HospitalComment on above:Performed By: #### CBC #### [facility] [address] [place] [address] Dr. Derek McmillanPLT262 103/feNuvghq049-976Frv [facility] HospitalComment on above: Performed By: #### CBC #### [facility] [address] [place] [address] Dr. Derek McmillanRBC4.05 106/ulCritically low4.20-5.40The [facility] HospitalComment on above:Performed By: #### CBC #### [facility] [address] [place] [address] Dr. Derek McmillanWBC7.6 103/ulNormal4.0-11.0The [facility] HospitalComment on above: Performed By: #### CBC #### [facility] [address] [place] [address] Dr. Derek Welch PROFILEon 63-05-4716HDZB-HDL RATIO NORMSOhioHealthComcorewell health [facility] on above:Result Comment: 3.3 - 4.4 LOW RISK 4.4 - 7.1 AVERAGE RISK 7.1 - 11.0 MODERATE RISK >11.0 HIGH RISKPerformed By: #### TSH, LIPID, CMP #### [facility] [address] [place] [address] Dr. Derek McmillanCholesterol [Mass/Vol]203 mg/dLCritically high<=200The [facility] on above:Performed By: #### TSH, LIPID, CMP #### [facility] [address] [place] [address] Dr. Derek Ortegaesterol in HDL [Mass/Vol]58 mg/nLKcnjrx51-05YbaBarnesville HospitalComcorewell health [facility] on above:Performed By: #### TSH, LIPID, CMP #### [facility] [address] [place] [address] Dr. Derek Ortegaesterol in LDL [Mass/Vol]121.2 mg/dLUniversity Hospitals Health SystemComcorewell health [facility] on above:Performed By: #### TSH, LIPID, CMP #### [facility] [address] [place] [address] Dr. Derek Solano.total/Cholesterol in HDL [Mass ratio]3.5 {ratio} NormalSelect Medical Specialty Hospital - Canton on above:Performed By: #### TSH, LIPID, CMP #### [facility] [address] [place] [address] Dr. Derek Rajput NORMAL> or = 60 mg/dl - LOW CARDIOVASCULAR RISK <40 mg/dl - HIGH CARDIOVASCULAR RISKUniversity Hospitals Health SystemComcorewell health [facility] on above:Performed By: #### TSH, LIPID, CMP #### [facility] [address] [place] [address] Dr. Derek McmillanLDL CALC NORMALSEE Middletown HospitalComcorewell health [facility] on above:Result Comment: <100 mg/dl OPTIMAL 100 - 129 mg/dl NEAR OR ABOVE OPTIMAL 130 - 159 mg/dl BORDERLINE HIGH 160 - 189 mg/dl HIGH >190 mg/dl VERY HIGH Performed By: #### TSH, LIPID, CMP #### [facility] [address] [address] [address] Derek McmillanTriglyceride [Mass/Vol]119 mg/dLNormal<=150The [facility] Comment on above:Performed By: #### TSH, LIPID, CMP #### [facility] [address] [address] [address] Derek McmillanVLDL CALC23.8 mg/dLNormalThe [facility] HospitalComment on above: Performed By: #### TSH, LIPID, CMP #### [facility] [address] [place] [address] Dr. Derek Ellis 14(COMP METB)on 58-88-5341Tstkshm [Mass/Vol]3.8 g/dLNormal 3.4-5.0The [facility] HospitalComment on above:Performed By: #### TSH, LIPID, CMP #### [facility] [address] [place] [address] Dr. Derek McmillanAlbumin/Globulin [Mass ratio]1.1 {ratio}NormalThe [facility] HospitalComment on above:Performed By: #### TSH, LIPID, CMP #### [facility] [address] [place] [address] Dr. Derek Man [Catalytic activity/Vol]30 U/LCritically oul84-121God [facility] HospitalComment on above:Performed By: #### TSH, LIPID, CMP #### [facility] [address] [place] [address] Dr. Derek Suazo [Catalytic activity/Vol]21 U/KTnmqtz56-63Oen [facility] HospitalComment on above:Performed By: #### TSH, LIPID, CMP #### [facility] [address] [place] [address] Dr. Derke Kearney gap [Moles/Vol]12.4 mmol/LNormalThe [facility] Comment on above:Performed By: #### TSH, LIPID, CMP #### [facility] [address] [place] [address] Dr. Yilan ChangAST [Catalytic activity/Vol]15 U/XZhnmkw65-58Xfw [facility] HospitalComment on above:Performed By: #### TSH, LIPID, CMP #### [facility] [address] [address] [address] Derek McmillanBilirubin [Mass/Vol]0.6 mg/dLNormal0.2-1.0The [facility] Comment on above:Performed By: #### TSH, LIPID, CMP #### [facility] [address] [address] [address] Derek McmillanCalcium [Mass/Vol]9.1 mg/dLNormal8.5-10.1The [facility] Comment on above:Performed By: #### TSH, LIPID, CMP #### [facility] [address] [place] [address] Dr. Derek McmillanChloride [Moles/Vol]105 mmol/EAepqxo36-177Irs [facility] Comment on above:Performed By: #### TSH, LIPID, CMP #### [facility] [address] [place] [address] Dr. Derek McmillanCO2 [Moles/Vol]25.7 mmol/MLrebws88.0-32.0The [facility] Comment on above:Performed By: #### TSH, LIPID, CMP #### [facility] [address] [place] [address] Dr. Derek McmillanCreatinine [Mass/Vol]0.60 mg/dLNormal0.55-1.02The [facility] HospitalComment on above:Performed By: #### TSH, LIPID, CMP #### [facility] [address] [place] [address] Dr. Reed ChangEGFR-AF KYRGYZ>60Normal>=60The [facility] HospitalComment on above:Performed By: #### TSH, LIPID, CMP #### [facility] [address] [place] [address] Dr. Derek NazarioGFR-NON AF KYRGYZ>60Normal>=60The [facility] HospitalComment on above:Performed By: #### TSH, LIPID, CMP #### [facility] [address] [address] [address] Derek McmillanGlobulin (S) [Mass/Vol]3.5 g/dLNormClermont County HospitalComment on above:Performed By: #### TSH, LIPID, CMP #### [facility] [address] [address] [address] Derek McmillanGlucose [Mass/Vol]88 mg/wXAppjte17-981Mfg [facility] Comment on above:Performed By: #### TSH, LIPID, CMP #### [facility] [address] [address] [address] Derek McmillanPotassium [Moles/Vol]4.1 mmol/LNormal3.5-5.1The [facility] Comment on above:Performed By: #### TSH, LIPID, CMP #### [facility] [address] [place] [address] Dr. Derek McmillanProtein [Mass/Vol]7.3 g/dLNormal6.4-8.2The [facility] Comment on above:Performed By: #### TSH, LIPID, CMP #### [facility] [address] [place] [address] Dr. Derek McmillanSodium [Moles/Vol]139 mmol/YZwbnrf808-559Ttz [facility] Comment on above:Performed By: #### TSH, LIPID, CMP #### [facility] [address] [address] [address] Derek McmillanUrea nitrogen [Mass/Vol]11.0 mg/dLNormal7.0-18.0The [facility] HospitalComment on above:Performed By: #### TSH, LIPID, CMP #### [facility] [address] [place] [address] Dr. Derek McmillanUrea nitrogen/Creatinine [Mass ratio]18.3 mg/mgNoWVUMedicine Harrison Community HospitalComment on above:Performed By: #### TSH, LIPID, CMP #### [facility] [address] [place] [address] Dr. Derek Bartholomew 99-74-7463HED9.723 uIU/mLNormal0.358-3.740Barnesville HospitalComment on above:Performed By: #### TSH, LIPID, CMP #### [facility] [address] [address] [address] Derek McmillanMG MAMM SCREEN 3D MALLORY CADon 03-90-9980NS MAMM SCREEN 3D MALLORY CAD Patient: KEREN MENDOZA. Exam Date: 08/29/2022 : 1975 Gender:F Ordering : DR KAVEH TAVAREZ Admission #: [id number] Family : Order #: [id number] CLICK HERE TO VIEW EXAM RADIOLOGY REPORT [...] None Family Cancers None LOCATION: [facility] BREAST COMPOSITION: Scattered areas fibroglandular [...] LUMP SHOULD BE BIOPSIED. Dictated by: Shiva Rossi M.D. on 08/30/2022 at 13:45 Approved by: Shiva Rossi M.D. on 08/30/2022 at 13:53University Hospitals Health SystemCNPNon 85-48-4146JFFMQvhcyovvz (HEMASA) KEREN MENDOZA ([id number]) 1975 F Date Time Provider Department 08/19/21 [...] and scan results to her PCP and shrinker. Thanks, GRETA Luis RN 08/22/2021 11:02 AM [...] 06/08/2017 Encounter Status:Closed by CHAUNCEY LUIS on 08/22/21NoPro[facility] ABD/PEL W IVCONon 60-73-1514XT ABD/PEL W IVCON* * *Final Report* * * DATE OF EXAM: Aug 16 2021 11:33AM [facility] 0530 - CT ABD/PEL W [...] chest CT performed will be reported separately. Rn Internship (topogram) images: No additional findings. IMPRESSION: 1. [...] electronically signed by: TATA BELTRAN MD on Feb 8 2022 2:23PM EST Thank you for allowing us to participate in the care of your patient. Should there be any questions regarding this interpretation, please call [phone]. If you are unable to reach us at the number above, please feel free to contact [facility] eRadiology at [phone]. [id number] General Health Center Abdomen and Pelvis W contrast Tolu 31-84-9318MLPFLFGJIP: 1. No acute process noted in the [...] any questions regarding this interpretation, please call [phone]. If you are unable to reach us at the number above, please feel free to contact [facility] eRadiology at [phone].DIVISION OF RADIOLOGY* * *Final Report* * * DATE OF EXAM: Aug 16 2021 11:33AM [facility] 0530 - CT ABD/PEL W [...] chest CT performed will be reported separately. Rn Internship (topogram) images: No additional findings. DIVISION OF RADIOLOGYProvider, [facility] [place] - 08/16/2021 * * *Final Report* * * DATE OF EXAM: Aug 16 2021 11:33AM [facility] 0530 - CT ABD/PEL W [...] chest CT performed will be reported separately. Rn Internship (topogram) images: No additional findings. IMPRESSION IMPRESSION: [...] any questions regarding this interpretation, please call [phone]. If you are unable to reach us at the number above, please feel free to contact [facility] eRadiology at [phone]. [facility] Abdomen and Pelvis W contrast IVOrdered By: Ccf Provider on 75-86-6925Gmavsooxn ClinicCT CHEST W IVCONon 24-92-1875MH CHEST W IVCON* * *Final Report* * * DATE OF EXAM: Aug 16 2021 11:33AM [facility] 0539 - CT CHEST W [...] was performed concurrently and is reported separately. Rn Internship (topogram) images: No additional findings. IMPRESSION: 1. [...] any questions regarding this interpretation, please call [phone]. If you are unable to reach us at the number above, please feel free to contact [facility] eRadiology at [phone]. [id number] ACTIONABLEInvalid Interpretation CodeCleCleveland Clinic Mercy HospitalCT Chest W contrast Tolu 41-31-7898Eviudzyfqapioz and review of laboratory resultsAbnormal [facility] CampusRadiology ResultACTIONABLEAbnormalCleveland ClinicComment on above:This report contains an incidental or actionable finding. [...] any questions regarding this interpretation, please call [phone]. If you are unable to reach us at the number above, please feel free to contact [facility] at [phone].DIVISION OF RADIOLOGY* * *Final Report* * * DATE OF EXAM: Aug 16 2021 11:33AM [facility] 0539 - CT CHEST W [...] was performed concurrently and is reported separately. Rn Internship (topogram) images: No additional findings. DIVISION OF RADIOLOGYProvider, [facility] [place] - 08/16/2021 * * *Final Report* * * DATE OF EXAM: Aug 16 2021 11:33AM [facility] 0539 - CT CHEST W [...] was performed concurrently and is reported separately. Rn Internship (topogram) images: No additional findings. IMPRESSION IMPRESSION: [...] any questions regarding this interpretation, please call [phone]. If you are unable to reach us at the number above, please feel free to contact [facility] eRadiology at [phone]. [facility] CenterNo Panel Informationon 85-08-0596Kzrlwfowd Study observation (narrative)[facility] CampusCNOVSPon 03-30-0854VUCTQELffnd (SP) Office (HEMGRICEL) KEREN MENDOZA ([id number]) 1975 F Date Time Provider Department 08/02/21 11:00 AM KAVEH OLEA During your visit today, we recorded the following information about you: Temperature Pulse Respiration Blood pressure 97.9 degrees 80/minute 18/minute 131/83 Weight Height 81.6 kg 1.626 m Kaveh Olea MD 08/02/2021 8:32 PM Signed PATIENT NAME: Keren Mendoza DATE: 08/02/2021 PRIMARY CARE PHYSICIAN: Marianne Mcdowell DO OTHER PHYSICIANS: Dr. Kaveh Tavarez, Dr. Karin Nicholas Portions of this encounter [...] conjunctiva, mucosal pallor, JVD (more content not included)...NormalSamaritan Hospitalp Metabolic Panelon 08-02-2021 Albumin [Mass/Vol]4.6 g/dLNormal3.9-4.9CMetroHealth Parma Medical Center ClevelandALP [Catalytic activity/Vol]34 U/WThnktf44-526Rlouasnns Clinic ClevelandALT [Catalytic activity/Vol]14 U/LNormal7-38[facility] ClevelandAnion gap [Moles/Vol]9 mmol/LNormal9-18[facility] ClevelandAST [Catalytic activity/Vol]20 U/L Hhpafw53-29Efuhhgdad Clinic ClevelandBilirubin [Mass/Vol]0.5 mg/dLNormal0.2-1.3 [facility] ClevelandCalcium [Mass/Vol]9.3 mg/dLNormal8.5-10.2ClevelAdena Fayette Medical Center ClevelandChloride [Moles/Vol]101 mmol/CLssnex93-166Ieumjxivv Clinic ClevelandCO2 [Moles/Vol]25 mmol/IQhephn59-38Mfuyewkzt Clinic ClevelandCreatinine [Mass/Vol]0.68 mg/dLNormal0.58-0.96Select [facility]ty Hospital - ColumbusvelandeGFR- Amer. >60NormalClevelAdena Fayette Medical Center ClevelandeGFR-All Other Races>60NormalClevelAdena Fayette Medical Center ClevelandComment on above:Result Comment: eGFR (Estimated GFR) Units of measure: [...] visit the National Kidney Foundation website at kidney.org/professiona ls/kdoqi/gfr_calculator.Glucose [Mass/Vol]93 mg/zDRlufud76-36WugjmggbvSamaritan Hospitalment on above:Result Comment: The [place] [employer] (ADA) provides guidance for cutoff values for fasting glucose and random glucose. The ADA defines fasting as no caloric intake for at least 8 hours. F asting plasma glucose results between 100 to 125 [...] Standards of Medical Care in Diabetes 2016, [place] [employer]. Diabetes Care. 2016.39(Suppl 1).Potassium [Moles/Vol]4.1 mmol/L Normal3.7-5.1CCity HospitalProtein [Mass/Vol]7.2 g/dLNormal6.3-8.0 Parkwood HospitalSodium [Moles/Vol]135 mmol/NGzr064-852YegrooebnParkwood HospitalUrea nitrogen [Mass/Vol]14 mg/dLNormal7-21Parkwood HospitalLD on 96-92-5299DS796 U/WGyfzvk045-103WzusbhouuParkwood HospitalRemote CBCDIF (for [facility] use only)on 55-60-9080Gpm Baso0.06 k/uLNormal<0.11CCity Hospital Abs Mono0.55 k/uLNormal<0.87Parkwood HospitalAbs Neut6.93 k/uLNormal 1.45-7.50Parkwood HospitalAbsolute nRBC<0.01Normal<0.01Parkwood HospitalBasophils/100 WBC (Bld)0.6 %NormalParkwood HospitalDTYPEAuto DiffNormalCCity HospitalEosinophils (Bld) [#/Vol]0.10 10*3/uLNormal <0.46[facility] ClevelandEosinophils/100 WBC (Bld)1.0 %NormalParkwood HospitalErythrocyte distribution width (RBC) [Ratio]12.7 %Normal 11.5-15.0Parkwood HospitalHematocrit (Bld) [Volume fraction]38.7 % Cxiwbi29.0-46.0Parkwood HospitalHemoglobin (Bld) [Mass/Vol]12.9 g/dL Zvduac16.5-15.5CCity HospitalLymphocytes (Bld) [#/Vol]2.01 10*3/uL Normal1.00-4.00Parkwood HospitalLymphocytes/100 WBC (Bld)20.8 %Normal Parkwood HospitalMCH30.7 hLUwgtaw27.0-34.0[facility] MCHC (RBC) [Mass/Vol]33.3 g/qBAlbvtk78.5-36.0[facility] HospitalMCV (RBC) [Entitic vol]92.1 mMVzeuax90.0-100.0[facility] HospitalMonocytes/100 WBC (Bld)5.7 %NormalParkwood HospitalNeutrophils/100 WBC (Bld)71.9 %Normal Parkwood HospitalNRBCs0.0 /100 GUDNsyafn4CfbpilfjsParkwood Hospital Platelet mean volume (Bld) [Entitic vol]8.8 fLLow9.0-12.7CCity HospitalPlatelets (Bld) [#/Vol]292 10*3/yFWxrnnx617-681FijmkiutiParkwood HospitalRBC (Bld) [#/Vol]4.20 10*6/uLNormal3.90-5.20[facility] WBC (Bld) [#/Vol]9.65 10*3/uLNormal3.70-11.00[facility] Vital Signs Date TimeVital SignValuePerforming XaskgxisuVaphqwjb84-00-4638 09:02-0400Body stustn113.9 Len Jeremias DO Work Phone: [facility] HospitalYijjqhawey01-99-9929 09:02-0400Body mass index (BMI) [Ratio]32.52 kg/t1Loeooyx Petznick DO Work Phone: noTN Dgmyyeulvf99-10-8587 09:02-0400Body temperature 98.29 [degF]Marianne Petznick DO Work Phone: noSaint [facility] SystemJjabuytrqa13-54-2438 09:02-0400Body .28 kgAllconstantin Petznick DO Work Phone: noSaint [facility] SystemMdulwxmvfc78-96-0293 09:02-0400Diastolic blood nuwnqwcq82 mm[Hg]Marianne Petznick DO Work Phone: noSaint [facility] Health SystemVbzbgcvohj04-47-2293 09:02-0400Heart rate85 /min Marianne Petznick DO Work Phone: noSaint John's Health SystemHexnkqgyux40-58-6808 09:02-6185DaU3% (BldA) [Mass fraction]98 %Marianne Petcrisick DO Work Phone: noSaint John's Health SystemYysliktozu99-97-4888 09:02-0400Systolic blood ohjajrop402 mm[Hg]Marianne Petcrisick DO Work Phone: noSaint John's Health SystemGcarwqzxgi33-36-0529 14:21-0400Body vitpaj978.9 cmDavid Pocos DO Work Phone: noSaint John's Health SystemHdumwoenrq71-35-4029 14:21-0400Body mass index (BMI) [Ratio]33.91 kg/m5Accyy Pocos DO Work Phone: noSaint John's Health SystemKfqemunvoh69-57-2403 14:21-0400Body mguawv67.91 kgDavid Pocos DO Work Phone: noSaint John's Health SystemKukrzlwruy20-44-3836 09:44-0500Body pdnima344.9 cmDavid Pocos DO Work Phone: [employer] NetworksSaint John's Health SystemCudxnbcxcf07-88-7830 09:44-0500Body mass index (BMI) [Ratio]33.73 kg/z8Xlkqj Pocos DO Work Phone: noSaint John's Health SystemWvfuvsygky36-79-9901 09:44-0500Body iycgnn96.45 kgDavid Pocos DO Work Phone: [facility] HospitalVjqnweqrlf03-03-6333 08:22-0500Body ebypgo306.9 cmDavid Pocos DO Work Phone: [facility] HospitalQbspzzrliw14-50-3424 08:22-0500Body mass index (BMI) [Ratio]33.73 kg/w3Javdj Pocos DO Work Phone: [facility] HospitalSxpvkvxeik63-30-9197 08:22-0500Body lhngke36.45 kgDavid Pocos DO Work Phone: [facility] HospitalTtvjuyztpv92-91-4659 10:27-0500Body mass index (BMI) [Ratio]33.73 kg/g5CxifoKaveh Tavarez MD Work Phone: [facility] HospitalAkiujsjwhg00-74-1766 10:27-0500Body lhcaic11.45 kgKaveh Tavarez MD Work Phone: [place] [address]Exkpdtlkrj53-49-4820 10:27-0500Diastolic blood mm[Hg]Kaveh Tavarez MD Work Phone: [facility] HospitalUzviqdrzjh84-99-9693 10:27-0500Systolic blood sirpxkgs540 mm[Hg]Kaveh Tavarez MD Work Phone: [facility] HospitalCuvevafbsy83-51-2904 08:47-0500Body mzgusp598.9 cmAllison Petznick DO Work Phone: [facility] HospitalDwcawtpysy00-76-6151 08:47-0500Body mass index (BMI) [Ratio]34.08 kg/d8Nabvwft Petznick DO Work Phone: [place] [address]Gnniytqbfd36-84-7272 08:47-0500Body temperature 99.39 [degF]Marianne Petznick DO Work Phone: [place] [address]Nnppsdqewi69-59-3835 08:47-0500Body .36 kgAllison Petznick DO Work Phone: [place] [address]Sylmddmmdy00-51-8333 08:47-0500Diastolic blood uzibrcys00 mm[Hg]Marianne Petznick DO Work Phone: [place] [address]Zvibrmlozy80-67-2409 08:47-0500Heart rate86 /min Marianne Petznick DO Work Phone: noTN Vnjugevhib64-79-8236 08:47-1459NaP1% (BldA) [Mass fraction]98 %Marianne Petznick DO Work Phone: noTN Hzorthllzx10-08-7943 08:47-0500Systolic blood mm[Hg]Marianne Petznick DO Work Phone: noTN Pkushjlyhr25-48-4153 08:12-0500Body byhpld902.9 cmDavid Pocos DO Work Phone: noTN Dfbjidrwmr37-69-1917 12:40-0500Body qvvint991.56 cmAdolores Duron Other [employer] Other 01-02-2024 12:40-0500Body mass index (BMI) [Ratio] 29.76 kg/t3WychkKimmy Duron Other [employer] Other 01-02-2024 12:40-0500Body ocbwvymdowb31.4 [degF]Kimmy Duron Other [employer] Other 01-02-2024 12:40-0500Body pnbuls42.65 kgKimmy Duron Other [employer] Other 01-02-2024 12:40-0500Respiratory rate18 /minKimmy Duron Other [employer] Other 01-02-2024 12:40-8271SqU9% (BldA) [Mass fraction]99 % Kimmy Duron Other [employer] Other 08-10-2023 08:54-0400Diastolic blood yseaneea41 mm[Hg] DO Marianne Petznick Work Phone: [phone] [place], [place] 4427408-10-2023 08:54-0400 Heart rate69 /minDO Marianne Petznick Work Phone: [phone] [place], [place] 4427408-10-2023 08:54-0400 Respiratory rate16 /minDO Marianne Baldwinick Work Phone: [phone] [place], [place] 4427408-10-2023 08:54-0400 SaO2% (BldA) [Mass fraction]100 %DO Marianne Flanaganznick Work Phone: [phone] [place], [place] 4427408-10-2023 08:54-0400 Systolic blood fbtpizrv330 mm[Hg]DO Marianne Petznick Work Phone: [phone] [place], [place] 4427408-10-2023 07:24-0400 Body akmlur575.56 cmDO Marianne Mcdowell Work Phone: [phone] [place], [place] 4427408-10-2023 07:24-0400 Body .11 kgDO Marianne Mcdowell Work Phone: [phone] [place] [address] Encounters Encounter DateEncounter TypeCare ProviderFacilityStart: 02-26-2025 End: 93-13-6917Phoxiyesn Result EncounterGeneric External Data ProviderNOMS External Department UnsolicitedStart: 02-26-2025 End: 54-82-9002Hcxvnmtek Result EncounterGeneric External Data ProviderNOMS External Department UnsolicitedStart: 01-01-2025 End: 60-18-0968Zcsvzq flowsheetAllconstantin Baldwinick DO Work Phone: [facility] FM 230Start: 01-01-2025 End: 47-33-9926Cwuynz flowsheetAllconstantin Rose Petcrisick DO Work Phone: [facility] FM 230Start: 01-01-2025 End: 04-77-7550Nyrqws outpatient visit 15 minutesAllconstantin Baldwinick DO Work Phone: [facility] FM 230Comment on above:BMI 32.0-32.9,adult (Primary Dx); Abnormal weight gain; BMI 33.0-33.9,adultStart: 01-01-2025 End: 16-35-2859fajobkxxrzKMGXCET Rose MCDOWELLNot AvailableStart: 11-06-2024 End: 34-43-4116Kgsfixrkp encounterSammantha Ortega PTNOMS CI PTComment on above:Check PT statusStart: 10-21-2024 End: 56-59-2621Rarpvg flowsheetSammantha Ortega PTNOMS CI PTStart: 10-21-2024 End: 87-11-0552Ijxeyc flowsheetSammantha Ortega PTNOMS CI PTStart: 10-21-2024 End: 45-11-9371rflrmlmehmIkibnhpca Ortega PTNOMS CI PTComment on above:S/P left knee arthroscopy (Primary Dx); Left knee pain, unspecified chronicity; Right leg swellingStart: 10-15-2024 End: 05-64-8434jrftgaxsmqRobwxnh Lawrence PTANOMS CI PTComment on above:S/P left knee arthroscopy (Primary Dx); Left knee pain, unspecified chronicity; Right leg swellingStart: 10-13-2024 End: 10-82-0458Jhhxjc flowsheetSammantha Ortega PTNOMS CI PTStart: 10-13-2024 End: 74-03-8767Qzftvt flowsheetSammantha Ortega PTNOMS CI PTStart: 10-13-2024 End: 90-65-4703snnlscochfJarkuroua Ortega PTNOMS CI PTComment on above:Left knee pain, unspecified chronicity (Primary Dx); S/P left knee arthroscopy; Right leg swellingStart: 10-08-2024 End: 55-81-4671Dijblp flowsheetSincere Vasquez PTANOMS CI PTStart: 10-08-2024 End: 45-45-0470Qqqzpm flowsheetKenpinky Vasquez PTANOMS CI PTStart: 10-08-2024 End: 57-51-4364zlojwchwijWvetqsg Lawrence PTANOMS CI PTComment on above:S/P left knee arthroscopy (Primary Dx); Left knee pain, unspecified chronicity; Right leg swellingStart: 10-06-2024 End: 66-92-0971Tgjjuq Parminder Vasquez PTANOMS CI PTStart: 10-06-2024 End: 20-77-9625Xjzdbv flowsSukhdeep Vasquez PTANOMS CI PTStart: 10-06-2024 End: 56-11-7471qdaraplmshLpzlapg Lawrence PTANOMS CI PTComment on above:S/P left knee arthroscopy (Primary Dx); Left knee pain, unspecified chronicity; Right leg swellingStart: 10-02-2024 End: 29-03-9315Dpxoxpl encounter procedureDavid A Pocos DO Work Phone: [facility] SWS ORTHOAOComment on above:S/P left knee arthroscopy (Primary Dx); Posterior tibial tendinitis of right lower extremity; Plantar fasciitis of right footStart: 10-02-2024 End: 77-43-2940jwsjxgjpdmEGVDJ A POCOSNot AvailableStart: 10-02-2024 End: 29-61-7905Ysyfdv flowsheetDavid A Pocos DO Work Phone: [facility] SWS ORTHOAOStart: 10-02-2024 End: 99-25-8766Jxfozr flowsheetDavid A Pocos DO Work Phone: [facility] SWS ORTHOAOStart: 10-01-2024 End: 18-83-8564hgmgxnkhwrEazhjbe Lawrence PTANOMS CI PTComment on above:S/P left knee arthroscopy (Primary Dx); Left knee pain, unspecified chronicity; Right leg swellingStart: 09-29-2024 End: 56-33-8293Rxicva aPrminder Vasquez PTANOMS CI PTStart: 09-29-2024 End: 32-52-7785Acvzoq Parminder Vasquez PTANOMS CI PTStart: 09-29-2024 End: 79-23-1404ztwecpawztNWHZZBC LAWRENCENot AvailableStart: 09-26-2024 End: 42-05-3184tkymvmhskxKIGWXXD M PETZNICKNot AvailableStart: 09-24-2024 End: 57-50-3548eqbljszmtlSZNHSKC PEDRONot AvailableStart: 09-22-2024 End: 65-00-6737Tqqhnp Parminder Vasquez PTANOMS CI PTStart: 09-22-2024 End: 53-85-0380Jjocvw Parminder Vasquez PTANOMS CI PTStart: 09-22-2024 End: 65-61-9274bilxzwptzeQWKQHKW LAWRENCENot AvailableStart: 09-17-2024 End: 55-95-5454Yhunje flowsheetSammantha Ortega PTNOMS CI PTStart: 09-17-2024 End: 20-84-9271Npqpxs flowsheetSammantha Ortega PTNOMS CI PTStart: 09-17-2024 End: 48-36-8122uxausyanpzOvfvqclpb Ortega PTNOMS CI PTComment on above:Left knee pain, unspecified chronicity (Primary Dx); S/P left knee arthroscopy; Right leg swellingStart: 09-15-2024 End: 45-11-0097shjaufjqbcQCYPROD LAWRENCENot AvailableStart: 09-12-2024 End: 67-12-7097rbxsdivccbTXMEB A POCOSNot AvailableStart: 09-10-2024 End: 87-25-6836Qdjxvi Parminder Vasquez PTANOMS CI PTStart: 09-10-2024 End: 43-67-8460Ndjyym Parminder Vasquez PTANOMS CI PTStart: 09-10-2024 End: 64-12-7365jmgnfcfuwnCibmuaf Lawrence PTANOMS CI PTComment on above:S/P left knee arthroscopy (Primary Dx); Left knee pain, unspecified chronicityStart: 09-08-2024 End: 74-29-2781Uwopjf flowsheetSammantha Ortega PTNOMS CI PTStart: 09-08-2024 End: 00-28-0957Ebilvi flowsheetSammantha Ortega PTNOMS CI PTStart: 09-08-2024 End: 32-36-3756aimjnmynjgEgsqybllr Ortega PTNOMS CI PTComment on above:S/P left knee arthroscopy (Primary Dx)Start: 09-05-2024 End: 26-42-1100Ggwovr flowsheetDavid A Pocos DO Work Phone: [facility] SWS ORTHOAOStart: 09-05-2024 End: 21-84-1220Kshrlu flowsheetDavid A Pocos DO Work Phone: [phone] SWS ORTHOAOStart: 09-05-2024 End: 18-62-8812Ywvgpby encounter procedureDavid A Pocos DO Work Phone: [phone] SWS ORTHOAOComment on above:S/P left knee arthroscopy (Primary Dx)Start: 09-05-2024 End: 90-19-9924phwmdtdsulJEOZP A POCOSNot AvailableStart: 08-20-2024 End: 57-56-2622Wbpmqx OnlyDavid A Pocos DO Work Phone: [phone] NB ORTHOComment on above:Acute medial meniscus tear of left knee, subsequent encounter (Primary Dx)Start: 08-19-2024 End: 84-00-1995Hcdhvfjpf encounterDavid A Pocos DO Work Phone: [phone] NB ORTHOComment on above:crutchesStart: 07-15-2024 End: 18-63-1504Egceapxhr Result EncounterDavid A Pocos DO Work Phone: [phone] External Department UnsolicitedStart: 07-15-2024 End: 02-42-2160Xnrxpqdcd Result EncounterDavid A Pocos DO Work Phone: [phone] External Department UnsolicitedStart: 07-10-2024 End: 36-21-9969CapvltKzfozis M Petznick DO Work Phone: [facility] FM 230Comment on above:Tension-type headache, unspecified, not intractableStart: 07-03-2024 End: 22-06-4741Srjnbe flowsheetDavid A Pocos DO Work Phone: [phone] SWS ORTHOAOStart: 07-03-2024 End: 16-57-2579Xrofmk flowsheetDavid A Pocos DO Work Phone: [phone] SWS ORTHOAOStart: 07-03-2024 End: 70-04-8151Yejncvc encounter procedureDavid A Pocos DO Work Phone: noms SWS ORTHOAOComment on above:Primary osteoarthritis of left knee (Primary Dx); Acute medial meniscus tear of left knee, initial encounter; Acute lateral meniscus tear of left knee, initial encounterStart: 07-03-2024 End: 04-47-1050rjbjwxyxjtDYAYR A POCOSNot AvailableStart: 06-17-2024 End: 74-14-4556Jbzkdgouw Result EncounterDavid A Pocos DO Work Phone: noms External Department UnsolicitedStart: 06-17-2024 End: 41-97-2634Bgcivrwia Result EncounterDavid A Pocos DO Work Phone: noms External Department UnsolicitedStart: 06-17-2024 End: 85-87-2128cljkwrbmejYtmea A PocosFacility:FTMCStart: 06-17-2024 End: 67-39-0147Hyxsnsc encounter procedureDavid A Pocos [facility] Start: 05-29-2024 End: 16-02-9015Ukfnnp flowsFaizan Mcdowell DO Work Phone: noMS [facility] 230Start: 05-29-2024 End: 41-89-6245Osueky flowsgeraldineAgusconstantin Mcdowell DO Work Phone: [facility] FM 230Start: 05-29-2024 End: 47-14-5464Fjaplxi encounter procedureKaveh Tavarez MD Work Phone: noms HealthcareStart: 05-29-2024 End: 51-96-8301Ojygiqld preventive med est patient 40-64yrsKaveh Tavarez MD Work Phone: noms [facility] OBComment on above:Well woman exam with routine gynecological exam; Other screening mammogram; Oral contraceptive pill surveillance; Encounter for control pills maintenanceStart: 05-29-2024 End: 42-63-2341tnepzyopkwHUXQZConstantino Kinsey AvailableStart: 05-29-2024 End: 92-08-8603Gvqckgk encounter statusMarianne Mcdowell DO Work Phone: noms HealthcareStart: 05-29-2024 End: 05-68-5644Eokjkyty preventive med est patient 40-64yrsAllijanell Mcdowell DO Work Phone: noms S[facility] FM 230Comment on above:Preventative health care (Primary Dx); Primary osteoarthritis of both knees; Abnormal weight gainStart: 05-29-2024 End: 66-86-1678ngzoujnqjcQRHAWSI M PETZNICKNot AvailableStart: 05-22-2024 End: 45-83-1821Kpmukvvbb Result EncounterMarianne Mcdowell DO Work Phone: noMS External Department UnsolicitedStart: 05-22-2024 End: 91-10-5430Lucdapzxr Result EncounterMarianne Mcdowell DO Work Phone: noms External Department UnsolicitedStart: 05-22-2024 End: 13-64-4714Pexghdq encounter procedureDavid A Pocos DO Work Phone: NOKT SWS ORTHOAOComment on above:Left knee pain (Primary Dx); Primary osteoarthritis of left knee; Synovial cyst of left popliteal spaceStart: 05-22-2024 End: 31-66-9691mrpazjxjlsYYDVZ A POCOSNot AvailableStart: 01-02-2024 End: 38-64-8977Vzpzjtrob Result EncounterKaveh Tavarez MD Work Phone: noms External Department UnsolicitedStart: 01-02-2024 End: 69-56-3331Hbprvldub Result EncounterKaveh Tavarez MD Work Phone: noms External Department UnsolicitedStart: 07-10-2023 End: 46-17-7468txjfgitnbxPilpi Keller Other [facility] [employer] Other Start: 05-40-1582Wsxaqx outpatient visit 25 minutes [facility] ClydeStart: 02-15-2023 End: 74-59-9814oemhqadmznCvlktiq J DittyFacility:[facility] Southtart: 02-15-2023 End: 43-70-0224Bgdodmwfm to same day surgery centerDO Marianne Petznick Work Phone: [facility] Work Phone: Start: 02-15-2023 End: 37-92-7347wlmnzwgubeAF Marianne Petznick Work Phone: [facility] Work Phone: Start: 09-22-2022 End: 38-91-0327uvcrfmlkabLE MARIANNE PETZNICKFacility:H3Httxe: 09-11-2022 Encounter for general adult medical examination without abnormal findingsDR MARIANNE PETZNICKFederico Wood [facility] Hospitaltart: 09-07-2022 End: 48-04-5547eqtbmvifgtJP MARIANNE PETZNICKFacility:U9Psrey: 09-07-2022 End: 19-39-2384Wuuqycwvv for general adult medical examination without abnormal findingsDR MARIANNE PETZNICKFacility:Q9Qztzr: 08-29-2022 End: 44-18-4231ajtvtpjqcoBI KAVEH PRINTYFacility:R0Nwpee: 08-16-2021 End: 82-73-9400Tezhvlumsb hospital visit by physicianArrival Time Radiology Work Phone: Radiology Pet CTComment on above:Lymphadenopathy [R59.1] Procedures DateProcedureProcedure DetailPerforming ClinicianStart: 01-03-7237YI TOMOSYNTHESIS SCREENING BIGeneric External Data ProviderStart: 02-26-2025 MammographyGeneric ProviderStart: 90-70-3362UDB CBC WITH AUTO DIFFDavid A Pocos DO Work Phone: Start: 24-67-6851LSP 12-LEADDavid A Pocos DO Work Phone: Start: 66-99-3807MMS KNEE W/O CONTRAST LEFTDavid A Pocos DO Work Phone: Start: 44-33-2230UHV CBC WITH AUTO DIFFAllconstantin Mcdowell DO Work Phone: Start: 38-44-2394LRQ LIPID PROFILE (FASTING)Marianne Mcdowell DO Work Phone: Start: 17-84-1801RYX CMP (CMP) (FOR REMOTE [facility] USE) Marianne Mcdowell DO Work Phone: Start: 73-50-4294Wdjkzdbmnfyjro aspir&/inj major jt/bursa w/o usDavid A Pocos DO Work Phone: Start: 52-46-7468Bifaupptqf examination knee 3 views Bernard Waters Pocos DO Work Phone: Start: 84-68-0660ON TOMOSYNTHESIS SCREENING Gina Tavarez MD Work Phone: start: 35-09-0049AtznedjdjypJzcns Pocos DO Work Phone: Start: 33-92-3874Sebruvjdd colonoscopyDO Marianne Mcdowell Work Phone: Start: 51-72-5472HbvwnmmzemmAbdif Pocos DO Work Phone: Start: 55-86-9478Bebbtwgwibu observation [Identifier] in Cervix by Cyto stainDavid Pocos DO Work Phone: Start: 34-57-2971Ce abdomen & pelvis w/contrast Vandana Olea MD Work Phone: Start: 04-63-5708Sx thorax w/contrast Vandana Olea MD Work Phone: Start: 19-26-2511Ixmyjglpgie of shoulderDavid Pocos Arthroscopy of kneeDavid Pocos Excision of lesion of skinDavid Pocos Comment on above:basal cell carcinoma of back Plan of Treatment DateCare ActivityDetailAuthorStart: 93-16-8330Qgwwxbziw for malignant neoplasm of colonNOMS HealthcareStart: 55-82-4184Womxflbix for malignant neoplasm of breastMammogramNOMS HealthcareStart: 06-11-2025 End: 14-25-9102Mvczhoq encounter procedureNOMS SWS OBStart: 05-28-2025 End: 90-13-7840Ipsunjq encounter idpqxnsxz91/20/2025 11:30 AM EST Office Visit [facility] [address] [place] [address] Marianne Mcdowell DO [address] [place] [address] [facility] 230 Start: 78-51-8485Cqwvtidgx for malignant neoplasm of cervixNOMS HealthcareStart: 04-02-2025 End: 68-40-8037Uwvevfb encounter procedureNOMS [facility] 230Start: 03-09-2025 Influenza vaccinationNOMS HealthcareStart: 01-02-2025 End: 60-01-6898PEL Breast - bilateral screeningBilateral screening mammogram with tomosynthesis Imaging Routine Other screening mammogram Expected: 01/02/2025, Expires: 07/28/2025[facility] Work Phone: comment on above:Expected: 01/02/2025, Expires: 07/28/2025Start: 20-03-1597Trztkjeqv for malignant neoplasm of breastMammogram NOMS HealthcareStart: 01-01-2025 End: 17-72-5958Plymmtf encounter procedureNOMS SWS 230Comment on above: ArrivedStart: 11-04-2024 End: 11-90-9220hoyrurrfsr16/29/2025 10:30 AM EDT Treatment [facility] CI PT [address] [facility] [address] [place] [address] Jaquelin Ortega PTNOMS CI PTStart: 10-23-2024 End: 12-89-0263fnlktqtfwx36/17/2025 10:00 AM EDT Treatment [facility] PT [address] [place] [address] Jaquelin Ortega PTNOMS CI PTStart: 10-21-2024 End: 60-74-0323tbethfvspn00/15/2025 10:00 AM EDT Treatment [facility] CI PT [address] [facility] [address] [place] [address] Jaquelin Ortega PTNOMS CI PTStart: 10-15-2024 End: 86-28-4398hlgvpgqacw54/09/2025 8:30 AM EDT Treatment [facility] PT [address] [facility] [address] [place] [address] Sincere Vasquez PTANOMS CI PTStart: 10-13-2024 End: 39-97-1349xbznzhnrxtPDAP CI PTComment on above:Left knee pain, unspecified chronicity (Primary Dx); S/P left knee arthroscopyStart: 10-08-2024 End: 94-93-1892fberrtnqhb19/02/2025 9:30 AM EDT Treatment [facility] [address] [facility] [address] [place] [address] Jaquelin Ortega PTNOMS CI PTStart: 10-06-2024 End: 53-70-0034grqlsrvtyq65/31/2025 10:00 AM EDT Treatment [facility] [address] [facility] [address] [place] [address] Sincere Vasquez PTANOMS CI PTStart: 10-02-2024 End: 00-61-4116Omclpnv encounter procedureNOMS SWS ORTHOAOComment on above: ArrivedStart: 10-01-2024 End: 14-05-8816makrovdgal18/26/2025 9:00 AM EDT Treatment [facility] [address] [facility] [address] [place] [address] Sincere Vasquez PTANOMS CI PTStart: 09-29-2024 End: 27-25-4419hulfnypvnw32/24/2025 2:00 PM EDT Treatment [facility] PT [address] [facility] [address] [place] [address] Sincere Vasquez PTA ArrivedNOMS CI PTComment on above:ArrivedStart: 09-26-2024 End: 14-76-1911Djweoxz encounter abtfhjtvp62/21/2025 10:15 AM EDT Office Visit [facility] [address] [place] [address] Dennyzeferino Marianne Rose, [address] [facility] [place] [address] [place] [address] [facility] 230Start: 09-24-2024 End: 50-33-6827ojpprrsric93/19/2025 12:00 PM EDT Treatment [facility] [address] [place] [address] Sincere Vasquez PTANOMS CI PTStart: 09-22-2024 End: 78-80-7611ubyynwhmkq90/17/2025 12:00 PM EDT Treatment [facility] [address] [place] [address] Sincere Vasquez PTANOMS CI PTStart: 09-17-2024 End: 45-35-3268dcwlnuhxiiFEIR CI PTComment on above:ArrivedStart: 09-15-2024 End: 91-79-2003zanttjlygq34/10/2025 12:00 PM EDT Treatment [facility] [address] [facility] [address] [place] [address] Sincere Vasquez PTANOMS CI PTStart: 09-10-2024 End: 27-46-6707lwfujofqevBQZJ CI PTComment on above:ArrivedStart: 09-08-2024 End: 32-92-6341bqcrpittrv64/03/2025 11:00 AM EST Evaluation [facility] [address] [place] [address] Jaquelin Ortega, PT S/P left knee arthroscopyNOMS CI PTComment on above:S/P left knee arthroscopyStart: 09-05-2024 End: 42-17-1175Itxsbco encounter svutsskfr57/28/2025 10:00 AM EST Office Visit [facility] [address] [place] [address] Bernard Matt, DO [address] [place] [address] ArrivedNOMS SWS ORTHOAOComment on above:ArrivedStart: 09-01-2024 End: 80-45-5700Efwwxze encounter /24/2025 3:45 PM EST Office Visit [facility] [address] [place] [address] Bernard Matt, DO [address] [place] [address] [facility] NB ORTHOStart: 08-28-2024 End: 98-97-1850Bfiospl encounter lzwybczlc76/20/2025 8:30 AM EST Office Visit [facility] [address] [place] [phone] Marianne Mcdowell, DO [address] [place] [address] [facility] FM 230Start: 23-75-0923Nclfelmv Screening Diabetes ScreeningW[facility] Medical Centertart: 07-03-2024 End: 02-13-8658Ggjcoya encounter zrawhyags34/26/2024 8:30 AM EST Office Visit [facility] [address] [place] [address] Bernard Matt, DO [address] [place] [address] ArrivedNOMS SWS ORTHOAOComment on above:ArrivedStart: 06-19-2024 End: 05-89-1221Pdoghxy encounter byogttipq00/12/2024 8:45 AM EST Office Visit [facility] [address] [place] [address] Bernard Matt, DO [address] [place] [address] [facility] ORTHOAOStart: 05-29-2024 End: 79-90-1720Tsvutvz encounter kgpotmhwm37/21/2024 10:30 AM EST Office Visit [facility] [address] [place] [address] Kaveh Tavarez MD [address] [place] [address] [facility] OBStart: 05-29-2024 End: 95-65-5986Cickbxs encounter procedureNOMS [facility] FM 230Comment on above: ArrivedStart: 25-42-0071Xtbik-19 Vaccine ()Covid-19 Vaccine ()[facility]: 26-68-3472Qqvgnxsgj vaccination Influenza Vaccine (#1)[facility]: 59-22-4083FpswwgdlcPremier Health [facility] Southtart: 03-88-7961Ceacw panelLipid ScreeningWexner Medical Centertart: 63-68-2871Hvybfroga for malignant neoplasm of colonWexner Medical Centertart: 04-66-5891Vjdibvzgv for malignant neoplasm of breastMammogram ScreeningWexner Medical Centertart: 91-36-9409Ccphtmqyl for malignant neoplasm of cervixHPV/CotestNOMS HealthcareStart: 58-09-4389Xgjwaqraa for malignant neoplasm of cervixCervical Cancer ScreeningWexner Medical Centertart: 23-46-6979Rvervanll B Vaccine (1 of 3 - 19+ 3-dose series)Hepatitis B Vaccine (1 of 3 - 19+ 3-dose series)[facility]: 60-61-5266Vblgu microalbumin profileDTaP,Tdap,Td Vaccine (1 - Tdap) [facility]: 35-00-2569Dcufulg ScreeningAnxiety ScreeningWexner Medical Centertart: 53-83-4479Kqepthzloz ScreeningDepression ScreeningKettering Health Main Campus Start: 38-93-7133Hgzxozamh C screeningHepatitis C ScreeningKettering Health Main Campus Start: 31-74-0047ETD screeningHIV ScreeningWexner Medical Centertart: 1975 Screening for malignant neoplasm of colonS[facility] HealthcareXR Knee - left 3 ViewsXR knee 3 views left Imaging Routine Left knee pain 05/22/2024 7:47 AM [facility] Work Phone: Immunizations Immunization DateImmunizationNotesCare HrgwbwfmHewwbodh75-44-5241Fdobdocjm, injectable, Madin Anita Canine Kidney, preservative free, quadrivalentDavid Pocos DO Work Phone: [facility] HospitalEryvohuasx25-30-4530dqdlqjdbt virus vaccine, unspecified formulationDavid Pocos DO Work Phone: [facility] HospitalOozgbfdzhh28-81-9773Gucedmgre, injectable, Madin Anita Canine Kidney, preservative free, quadrivalentDavid Pocos DO Work Phone: [phone] HospitalTmfkbrotlx89-61-8102gmuzhwocc, injectable, quadrivalent, preservative freeArrival Radiology Work Phone: [facility] CampusDtbzyp04-67-3169rzgkpcvfk virus vaccine, unspecified formulationArrival Radiology Work Phone: [facility] CampusStzbvg39-20-2605Jhltyx Purple Cap SARS-CoV-2 VaccinationDavid Pocos DO Work Phone: [phone] HospitalTvtrmqbgpv06-73-1406Rxztis Purple Cap SARS-CoV-2 VaccinationDavid Pocos DO Work Phone: [phone] HospitalYlaeoqdqtf57-08-3240Eykhkj Purple Cap SARS-CoV-2 VaccinationDavid Pocos DO Work Phone: [phone] HospitalJroqzyaejv30-92-4594amlafzajz, high dose seasonal, preservative-freeDavid Pocos DO Work Phone: [phone] HospitalVkuhfvakwp12-62-7484omjxvshcz, injectable, quadrivalent, preservative freeArrival Radiology Work Phone: [facility] CampusVdkdxb90-31-5975smvnrcicq, high dose seasonal, preservative-freeDavid Pocos DO Work Phone: [facility] HospitalXaurdgznyg53-78-8951ajgwflccy, injectable, madin anita canine kidney, preservative freeArrival Radiology Work Phone: [facility] CampusLzduxq79-46-7794Axluitgyf, injectable, Madin Augusta Canine Kidney, preservative free, quadrivalentArrival Radiology Work Phone: [facility] CampusVnvqle82-51-3174Vtxnuacnt, injectable, Madin Anita Canine Kidney, preservative free, quadrivalentDavid Pocos DO Work Phone: [facility] HospitalSppdhhngrc18-68-4260wpphtmts influenza, intradermal, preservative freeArrival Radiology Work Phone: [facility] Payers DatePayer CategoryPayerPolicy [id number] Health InsuranceAETNA AETNA POS [id number] 2019-Present [phone] [address] [place] [address] [id number] Managed Care O (unspecified)1.2.840.139805.1.13.693.2.7.9.259887.140201.315 [id number] 2.0.1.691106.3.579.2.77576-60-1841Mnhovjw8258526 2.0.1.942188.3.579.2.13535-68-2530Azcykyn2246965 2.0.1.131063.3.579.2.[id number] 2.840.1.623686.3.579.[id number] 2.840.1.735625.3.579.2.017555-78-6073Nifkjqh7765937 2.0.1.628910.3.579.2.169664-67-8663Bubhuiw8491365 2.840.1.546261.3.579.2.244543-92-7643Wmlglqy3189714 2.0.1.261743.3.579.2.008659-60-2673Icfyypx4546941 2.0.1.949147.3.579.2.728238-95-3670Skhnnrv8350192 2..1.645661.3.579.2.125885-80-0090Ybuoehm5394224 2..1.216384.3.579.2.824534-47-9655Fyjoior9572892 2..1.453828.3.579.2.177266-52-1455Xgtdjku9954070 2..1.978016.3.579.2.286414-96-4722Uyqcibk3251204 2..1.662954.3.579.2.090544-46-1194Kcncjtx2156915 2..1.669676.3.579.2.256986-95-0924Oupxhfw9050532 2..1.962197.3.579.2.096099-77-2944Lpoijsy6944943 2..1.224041.3.579.2.860913-69-8278Cjuogmf8408664 2..1.437404.3.579.2.230319-84-3398Ctznyjo2457790 2..1.407905.3.579.2.709479-39-4257Kpleifu2150512 2..1.907478.3.579.2.626235-18-2467Wzdljkl7735079 2.0.1.331478.3.579.2.326411-41-7624Fwaowcz5955320 2..1.244129.3.579.2.775740-18-0452Xupkuoe0493104 2..1.794190.3.579.2.272581-27-8268Ncvocdc7188086 2..1.240910.3.579.2.477000-44-9942Rtjxuzv1492394 2..1.501317.3.579.2.632240-22-6903Twkfbxx2996379 2..1.818978.3.579.2.553889-85-8409Irnaazp1556103 2..1.699776.3.579.2.740520-05-1166Wpthtvf1478765 2..1.560520.3.579.2.925700-60-8472Dilcpzc1000509 2..1.872622.3.579.2.432092-40-7584Xsgsspv Health IygmxntyoK582213729 Private Health PigynirwlS01608036756 2..1.613785.19UnknownAnthem / [id number] 69x6p9y3-030q-4hcv-810x-f2m1j23502z1Xzhiepi21322384 2..1.470741.3.579.2.531 Social History DateTypeDetailFacilityStart: 12-14-2022 End: 64-03-4696Paprlic smoking status NHISNever smoked tobacco (finding) [facility] Southtart: 21-73-4542Jof [facility]: 08-02-2021 End: 72-61-4310Fqr Assigned At [facility] [employer] Other Start: 06-08-2017 End: 32-54-5123Zdjuldy use and exposureSmokeless tobacco non-userWexner Medical Centertart: 39-59-3077Evkqpzczt beverage intakeCurrent non-drinker of alcohol (finding)[facility] Centertart: 08-02-2021 End: 56-90-9061Abpwkqq of Social functionWexner Medical Centertart: 61-93-0027Ltx assigned at birthNot on fileWexner Medical Centertart: 07-17-2021 End: 47-42-5242Ocynejik to SARS-CoV-2 (event)Not sureWexner Medical Centertart: 05-22-2024 End: 48-49-3020Saipplnpc beverage intakeEx-drinker (finding)[facility] HealthcareHow often to you have a drink containing alcohol?NeverS[facility]PET[facility] VALLEY [facility] HealthcareStart: 65-44-4055Xsc many standard drinks containing alcohol do you have on a typical day?Patient does not drinkSANPETE VALLEY HOSPITAL HealthcareStart: 77-17-6783Gkhzeex Comment1-2 drinks less than monthly in the past year, Caffeine intake: 1-2 cups per daySANPETE VALLEY HOSPITAL HealthcareStart: 89-51-7752Tkpqvs identityIdentifies as female gender (finding) [facility] HealthcareTobacco smoking statusNo Smoking Status EnteredMercy Hospital Medical Equipment Procedure CodeEquipment CodeEquipment Original TextEquipment IdentifierDates SHOULDER ARTHROSCOPY W/ POSSIBLE REPAIR Bernard Matt DO 05/04/20 Non Biological Shoulder [id number]{[id number]{[id number]{10}[id number] FDAStart: 05-04-2020 Goals DatePatient GoalDesired Activity/State Functional Status WvvpTafesdcdebAemkajOptoqwld29-70-2074Tpjqoui Health Questionnaire 2 item (PHQ- 2) [Reported][facility]'s HospitalTfrhthuqfn07-41-6370Ksfpe score [AUDIT-C]0 05/29/2024 8:52 AM Karin Gannon LPNNOMS Cigoezxehb81-20-2695Xrtqjnz Health Questionnaire 2 item (PHQ-2) [Reported][facility] Clinical Notes 08-02-2021 to 01-01-2025 Note Date & BxucBigdUnwfbbrf99-72-0941 History of Present illness Narrative* Marianne Mcdowell DO - 01/01/2025 7:55 PM EDTAssociated Problem(s): Abnormal weight gain Taking medication regularly without any problems. Eating healthy and exercising regularly. Continueto stay accountable and write down food journal and activity log. Doing well with weight loss. Encouraged to continue lifestyle modifications. Pt is to call with any problems or not improving. Will stay on wegovy. Encouraged to get more resistance training to help with lean muscle mass. * Marianne Mcdowell DO - 01/01/2025 9:15 AM EDT Images from the original note were not [...] any problems. Eating healthy and exercising regularly. Continueto stay accountable and write down food journal [...] with the patient today. documented in this encounterSSM Health Cardinal Glennon Children's HospitalTuzyalmgjf85-47-1630 Telephone encounter Note* Telephone Encounter - Susan Jackson - 11/13/2024 1:38 PM EDT Received no attempt of being contacted; DC [facility] HospitalNkvipmapcf60-98-9929 Miscellaneous Notes* Telephone Encounter - Susan Jackson - 11/13/2024 1:38 PM EDT Received no attempt of being contacted; CLAUDIA * Telephone Encounter - Susan Jackson - 11/06/2024 1:46 PM EDT Called to check status; her last PT was 10/21. A reassess was scheduled 2 weeks out; but she had cx over automated reminder. Requested a call back to confirm how she is feeling and RTW is going. documented in this encounterSSM Health Cardinal Glennon Children's HospitalJgpblgarvn86-78-9541 Telephone encounter Note* Telephone Encounter - Susan Jackson - 11/06/2024 1:46 PM EDT Called to check status; her last PT was 415. A reassess was scheduled 2 weeks out; but she had cx over automated reminder. Requested a call back to confirm how she is feeling and RTW is going. [facility] HospitalYeczupqima02-07-2193 History of Present illness Narrative* Jaquelin Ortega, PT - 10/21/2024 10:00 AM EDT Images from the original note were not [...] Now ambulating without use of crutches. 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 States she has stairs athome and still not going down normally; states has not gone down stairs normally in quite a while. Precautions: [place] Subjective: Pt states she worked out on [...] s/p scope. Pt continues to lack full leftknee extension; focused on stretching this date with good naeem. Will re-assess in 2 weeks. Outcome Measure: Lower Extremity Functional Scale (LEFS): 53/80 Rehab Diagnosis: left knee pain and weakness; difficulty walking; decrease ROM and mobility Short Term Goal: To be met in 2 weeks Goal 1: Pt to be instructed in home exercise program. 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 - progressing Goal 2: Pt to achieve 120 degrees left knee flexion to assist with functional tasks such as squatting. - Goal Met Goal 3: Pt to be lacking no greater than 1 degree left knee extension to assist with proper gait. -progressing Goal 4: Pt to achieve 5/5 strength [...] Please sign below. Date: documented in this encounterSSM Health Cardinal Glennon Children's HospitalFloygaegyk45-93-5344 History of Present illness Narrative* Jaquelin Ortega, PT - 10/13/2024 8:30 AM EDT Images from the original note were not [...] Now ambulating without use of crutches. 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 States she has stairs athome and still not going down normally; states has not gone down stairs normally in quite a while. Precautions: [place] Subjective: Pt states she continues to do [...] instructed in home exercise program. - progressing Halfway Goals: To be met in 10 weeks Goal 1: Pt to report independence and compliance with home program. - progressing Goal 2: Pt to achieve 120 degrees left knee flexion to assist with functional tasks such as squatting. - progressing Goal 3: Pt to be lacking no greater than 1 degree left knee extension to assist with proper gait. -progressing Goal 4: Pt to achieve 5/5 strength [...] Please sign below. Date: documented in this encounterSSM Health Cardinal Glennon Children's HospitalJgbqtjzsjt05-47-1504 History of Present illness Narrative* Madison Serarno - 10/02/2024 2:30 PM EDT Images from the original note were not [...] to the heel aspect. She does inquire aboutthat here today. The therapists have been treating both these entities. She feels she is not quite ready for a return to work and is very concerned about the amount of time she will need to be on herfeet with her return to work. SUBJECTIVE: MEDICATIONS: [...] 08/21/2024 w/DAP KNEE ARTHROSCOPY W/ DEBRIDEMENT 08/21/2024 PA KNEE SCOPE,CLEAN/DRAIN 2013 DR MAO SHOULDER ARTHROSCOPY [...] significant difficulty and her neurocirculatory status is overallgrossly intact to all distributions. Examination of the [...] She does wish to hold on that. Chandler have the therapists add this in. She [...] 10/06/2024 7:31 AM EDT documented in this [facility]02-28-2025 History of Present illness Narrative* Bernard Matt DO - 09/05/2024 10:00 AM EST Chief complaint: S/P knee scope-first postoperative visit History: S/P knee scope, doing well. No complaints with anesthesia or sung-operative ancillary care. Pain iscontrolled. No chest or SOB. Taking sung-op aspirin [...] post-operative. PT was offered and discussed. F/U willbe in1 month, prn if doing well. All questions answered. documented in this encounterSSM Health Cardinal Glennon Children's HospitalJzcfrfywxt08-79-1204 Telephone encounter Note* Telephone Encounter - Cathy Caban - 08/19/2024 1:45 PM EST Keren wanted to know if she needed to get crutches or if insurance will cover for these? Sx L knee scope 08/21/24 [facility] Mhngycrgjb51-44-0962 Miscellaneous Notes* Telephone Encounter - Cathy Caban - 08/19/2024 1:45 PM EST Keren wanted to know if she needed to get crutches or if insurance will cover for these? Sx L knee scope 08/21/24 documented in this encounterSSM Health Cardinal Glennon Children's HospitalBhzsvnjqbn49-14-2548 History of Present illness Narrative* Madison Serrano - 07/03/2024 8:30 AM EST Images from the original note were not [...] COLONOSCOPY 2009 -hyperplastic polyp COLONOSCOPY 2012 -Diverticulosis PA KNEE SCOPE,CLEAN/DRAIN 2013 DR MAO SHOULDER ARTHROSCOPY [...] has continued symptomatology with activities of daily livingdisruption. Knee arthroscopy is warranted. The patient is aware that knee arthroscopy does not curearthritis. There is a potential of continued pain, stiffness, antalgic gait, infection, infection requiring multiple surgeries with IV antibiotics, nerve, vessel or tendon injury, foot drop, bleeding, anesthesia complications, blood clot, pulmonary embolus, myocardial infarction, arrhythmia, strokeand have all been reviewed. I am personally [...] of her questions are otherwise answered this day.She is discharged in stable condition. Follow up letter sent to her primary care physician. Bernard Matt D.O. Cosigned by Bernard Matt DO at 07/07/2024 7:33 AM EST documented in this encounterSSM Health Cardinal Glennon Children's HospitalXkluklohns03-29-7875 History of Present illness Narrative* Kaveh Tavarez MD - 05/29/2024 10:30 AM EST Images from the original note were not included. Kaveh Tavarez MD Obstetrics and Gynecology Patient: Keren Mendoza, [...] Review Audit Reviewed by Msisy Askew MA (Pet Walker) on 05/29/24 at 1029 Medication Order Taking? Sig Documenting Provider Last Dose Status cyclobenzaprine (Flexeril) 10 MG tablet [id number] No TAKE 1 TABLET BY MOUTH EVERY DAY AT BEDTIME NEEDED FOR HEADACHE Patient taking differently: Take 10 mg by mouth as needed at bedtime Marianne Mcdowell, Taking Active Discontinued 05/22/24812 meloxicam (Mobic) 15 MG tablet [id number] No TAKE 1 TABLET BY MOUTH EVERY DAY NEEDED FOR HEADACHE/BODY ACHES Patient taking differently: Take 1 tablet by mouth Daily as needed Marianne Mcdowell DO Taking Active norethindrone-ethinyl estradiol (Alyacen ) 1-35 MG-MCG tablet [id number] 1 tablet Orally 1 po daily continous active pills only for 84 days Kaveh Tavarez MD Active Discontinued 05/22/24812 Semaglutide-Weight Management (Wegovy) 0.5 MG/0.5ML solution auto-injector [id number] Inject 0.5 mg under the skin 1 [...] COLONOSCOPY 2009 -hyperplastic polyp COLONOSCOPY 2012 -Diverticulosis PA KNEE SCOPE,CLEAN/DRAIN 2013 DR MAO SHOULDER ARTHROSCOPY [...] patient ? Answer: No documented in this encounterSSM Health Cardinal Glennon Children's HospitalAjmxpnkvas16-24-6158 History of Present illness Narrative* Marianne Mcdowell DO - 05/29/2024 9:58 AM ESTAssociated Problem(s): Abnormal weight gain Pt is eating [...] a food journal to keep herself accountable. * Marianne Mcdowell DO - 05/29/2024 9:58 AM ESTAssociated Problem(s): Primary osteoarthritis of both knees Working with Dr Matt. Having a lot of pain in her left knee and working on getting an MRI on this. * Marianne Mcdowell DO - 05/29/2024 8:45 AM EST Images from the original note were not [...] unexpected weight change. Negative for appetite change andfever. HENT: Negative for congestion, ear pain, sinus [...] Diagnoses Preventative health care - Primary [facility] maintanence appointment I reviewed the patients past medical [...] with the patient today. documented in this encounterSSM Health Cardinal Glennon Children's HospitalVueuyapmao66-80-8504 History of Present illness Narrative* Sarah Velasco MA - 05/22/2024 8:15 AM ESTAssociated Order(s): L Inj/Asp: L knee Post-Procedure Diagnose(s): Primary osteoarthritis of left knee L Inj/Asp: L knee on 05/22/2024 9:05 AM Indications: pain Details: 22 G needle Medications: 1 mL betamethasone acetate-betamethasone sodium phosphate 6 (3-3) MG/ML * Madison Serrano - 05/22/2024 8:15 AM EST Images from the original note were not included. Keren Mendoza is a 49 y.o. female presents with chief complaint of left knee pain. HPI: Keren is a 49-year-old white female who presents complaining of left knee pain and difficulty. This has been going on for the last four to six months. She states that she has had trouble trying to jogwith this. She has been walking only. She did try a little bit of Meloxicam which she does have at home. This is 15 mg. She will maybe take this twice a week. She denies any sleep disturbance. She has had a 25 pound weight gain over the last year. 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 She does report a feel something [...] COLONOSCOPY 2009 -hyperplastic polyp COLONOSCOPY 2012 -Diverticulosis PA KNEE SCOPE,CLEAN/DRAIN 2013 DR MAO SHOULDER ARTHROSCOPY [...] pleasant 49-year-old white female in no acute distress.She does have tenderness to palpation along the [...] reveals arc of motion without difficulty. Fully stable.Neurocirculatory status is overall grossly intact. X-rays AP [...] 05/28/2024 8:00 AM EST documented in this encounterSSM Health Cardinal Glennon Children's HospitalWhpyzoizwd79-98-8425 Evaluation note* Encounter Date Diagnosis Assessment Notes Treatment Notes Treatment Clinical Notes Jul, Sore throat (ICD-10 - J02.9) Jul,Viral URI (ICD-10 - J06.9) Advised patient that [...] treatment plan. Patient left in stable condition. [employer] Other 08-10-2023 Procedure [facility]02-08-2022 NoteHNO ID: [id number] Author: Sarah Arnett RN Service: ? Author [...] Mendoza DATE: August 16, 2021 TIME: 10:58 [facility]02-08-2022 History of Present illness Narrative* Sarah Arnett [...] 2021 TIME: 10:58 AM documented in this [facility]01-25-2022 NoteHNO ID: [id number] Author: Kaveh Olea MD Service: ? Author Type: Physician Type: Progress Notes Filed: 08/02/2021 8:32 PM Note Text: PATIENT NAME: Keren Mendoza DATE: 08/02/2021 PRIMARY CARE PHYSICIAN: Marianne Mcdowell DO OTHER PHYSICIANS: Dr. Kaveh Tavarez, Dr. Karin Nicholas Portions of this encounter [...] bruits. ABDOMEN: Negative for (more content not included)...[facility] Evaluation + Plan note No data available for this section [facility] Evaluation noteNo assessment information available [facility] Work Phone: Evaluation note* Diagnosis Lymphadenopathy Enlargement of lymph nodes documented in this encounter [facility]* Diagnosis Abnormal weight gain- Primary Abnormal [...] HealthcareHistory and physical note Author Musa Marrufo [facility] February 15, 2023 8:06amNote Date/TimeAugust 2022 8:06[place] [address] Gastroenterology H&P Signed Patient: Keren Mendoza MR#: [id number] : 1975 Acct:[id number] Age/Sex: 47 / F Adm Date: 3 Loc: Room: Type: [facility] Attending Dr: Musa Marrufo MD Copies to: DO Musa Henson MD~ Date of Service: 02/15/2023 HISTORY & PHYSICAL: Patient's history with special attention to the cardiovascular, pulmonary systems and the current problem was reviewed with the patient immediately prior to the procedure. Present medications and doses reviewed in the EMR. Allergies and pertinent laboratory tests were also re viewedat this time in the EMR. The physical [...] Musa Marrufo MD> 02/15/23805 [facility] Work Phone: History general Narrative - Reported* Type Description Date Medical History Basal cell carcinoma on face and leg Surgical HistoryRight knee arthroscopyHospitalization HistorySee past surgical hx [employer] Other Hospital Discharge instructions Additional Instructions DISCHARGE [...] years. -Follow up with PCP. -Office number [phone].[facility] Work Phone: Hospital Discharge instructions No data available for this section [facility] Progress note No data available for this section [facility] Reason for visit Narrative* Consultation (Routine) - AuthorizedSpecialtyDiagnoses / ProceduresReferred By ContactReferred To ContactPhysical Therapy Diagnoses S/P left knee arthroscopy Procedures PA OFFICE/OUTPATIENT NEW HIGH MDM 60 MINUTES Bernard Matt DO [address] [place] [address] Phone: tel: fax: Jaquelin Ortega, PT Referral IDStatusReasonStart DateExpiration DateVisits RequestedVisits [id number] Consult and Treat / [facility] HealthcareReason for visit Narrative* Consultation (Routine) - Authorized SpecialtyDiagnoses / ProceduresReferred By ContactReferred To ContactPhysical Therapy Diagnoses S/P left knee arthroscopy R Leg Swelling Procedures PA OFFICE/OUTPATIENT NEW HIGH MDM 60 MINUTES Bernard Matt, DO [address] [place] [address] Phone: tel: fax: Jaquelin Ortega, GREG Referral IDStatusReasonStart DateExpiration DateVisits RequestedVisits [id number] Consult and Treat [facility] Healthcare Summary Purpose Family History Relationship Condition Age at Onset Recorded Date/T adrianna Not Specified No pertinent family history Unknown Advance Directives Advance Directive Response Recorded Date/ Time Advance Directives No February 12, 023 4:09pm Chief Complaint and Reason for Visit Chief Complaint Screening Reason for Referral SpecialtyDiagnoses / ProceduresReferred By ContactReferred To ContactCT IMAGING Diagnoses Lymphadenopathy Procedures CT CHEST W IVCON DIAGNOSTIC COMPUTED TOMOGRAPHY THORAX W/CONTRAST Kaveh Olea MD [address] [place] [address] [place] [address] Ct Imaging [facility] Referral IDStatusReasonStduncannon DateExpiration DateVisits RequestedVisits [id number] Auto-Generated Referral /[id number] / ProceduresReferred By ContactReferred To ContactCT IMAGING Diagnoses Lymphadenopathy Procedures CT ABD/PEL W IVCON CT ABD & PELVIS W/CONTRAST Kaveh Olea MD [address] [place] [address] [place] [address] [place] [address] Referral IDStatusReasonStart DateExpiration DateVisits RequestedVisits [id number] Auto-Generated Referral Additional Source Comments INFORMATION SOURCE (unrecogn ized section and content) DATE CREATED AUTHOR 09/28/2021 [facility] DATE CREATED AUTHOR AUTHOR'S ORGANIZ ATION 10/01/2022 [facility] DATE CREATED AUTHOR AUTHOR'S ORGANIZ ATION 02/22/2023 [facility] DATE CREATED AUTHOR AUTHOR'S ORGANIZ ATION 06/23/2024 [facility] DATE CREATED AUTHOR AUTHOR'S ORGANIZ ATION 01/02/2025 [facility] EPIC Care Teams (unrecognized sec tion and content) Team Status: Active Member Role Status Dates Marianne Mcdowell DO Primary Care Provider Active Team Status: Inactive Member Role Status Dates Marianne Mcdowell DO Primary Care Provider Active Chata Becerra ProviderActiveTeam MemberRelationshipSpecialty Start DateEnd Date Marianne Mcdowell [address] [place] [id number] PCP - GeneralFaNorth[facility]05/22/17Team MemberRelationshipSpecialtyStart Date End Date Marianne Mcdowell DO [address] [place] [address] PCP - General12/13/22Team MemberRelationshipSpecialtyStart DateEnd Date Marianne Mcdowell DO [address] [place] [address] PCP - General12/13/22Team MemberRelationshipSpecialtyStart DateEnd Date Marianne Mcdowell DO [address] [place] [address] PCP - General12/13/22Team MemberRelationshipSpecialtyStart DateEnd Date Marianne Mcdowell DO [address] [place] [address] PCP - General6/723Team MemberRelationshipSpecialtyStart DateEnd Date Marianne Mcdowell, DO [address] [place] [address] PCP - [email or web address] MemberRelationshipSpecialtyStart DateEnd Date Marianne Mcdowell, DO [address] [place] [address] PCP - General6/723Team MemberRelationshipSpecialtyStart DateEnd Date Marianne Mcdowell, DO [address] [place] [address] PCP - General6/723Team MemberRelationshipSpecialtyStart DateEnd Date Marianne Mcdowell, DO [address] [place] [address] PCP - [id number] MemberRelationshipSpecialtyStart DateEnd Date Marianne Mcdowell, DO [address] [place] [address] PCP - [id number] MemberRelationshipSpecialtyStart DateEnd Date Marianne Mcdowell, DO [address] [place] [address] PCP - [id number] MemberRelationshipSpecialtyStart DateEnd Date Marianne Mcdowell, DO [address] [place] [address] PCP - General6/7/23Team MemberRelationshipSpecialtyStart DateEnd Date Marianne Mcdowell, DO [address] [place] [address] PCP - General/723Team MemberRelationshipSpecialtyStart DateEnd Date Marianne Mcdowell, DO [address] [place] [address] PCP - General6/723Team MemberRelationshipSpecialtyStart DateEnd Date Marianne Mcdowell, DO [address] [place] [address] PCP - General6/723Team MemberRelationshipSpecialtyStart DateEnd Date Marianne Mcdowell, DO [address] [place] [address] PCP - General6/7/23Team MemberRelationshipSpecialtyStart DateEnd Date Marianne Mcdowell, DO [address] [place] [address] PCP - General6/723Team MemberRelationshipSpecialtyStart DateEnd Date Marianne Mcdowell, DO [address] [place] [address] PCP - General6/7/23Team MemberRelationshipSpecialtyStart DateEnd Date Marianne Mcdowell, DO [address] [place] [address] PCP - General6/7/23Te MemberRelationshipSpecialtyStart DateEnd Date Marianne Mcdowell Rose, DO [address] [place] [address] [facility]12/13/22Te MemberRelationshipSpecialtyStart DateEnd Date Marianne Mcdowell Rose, DO [address] [place] [address] [facility]12/13/22Te MemberRelationshipSpecialtyStart DateEnd Date Marianne Mcdowell Rose, DO [address] [place] [address] [facility]12/13/22Te MemberRelationshipSpecialtyStart DateEnd Date Marianne Mcdowell Rose, DO [address] [place] [address] [facility]12/13/22Te MemberRelationshipSpecialtyStart DateEnd Date Marianne Mcdowell Rose, DO [address] [place] [address] [facility]12/13/22 REASON FOR VISIT (unrecogniz ed section and content) SpecialtyDiagnoses / ProceduresReferred By ContactReferred To ContactCT IMAGING Diagnoses Lymphadenopathy Procedures CT CHEST W IVCON DIAGNOSTIC COMPUTED TOMOGRAPHY THORAX W/CONTRAST Kaveh Olea MD [address] [place] [address] [place] [address] [place] [address] Referral IDStatusReasonStart DateExpiration DateVisits RequestedVisits [id number] Auto-Generated Referral [id number]pzoworHduxau ExamReasonComments Follow-upReasonCommentsMed RefillReasonOnset KarbSagjosrfxvkpebyh14/11/2025 ReasonCommentsPainScope 08/21/24Post-opScope 08/21/24ReasonOnset DateComments Check PT pxlcol0111/06/2024ReasonCommentsWeight Check Source Comments (unrecognize d section and content) In the event this informatio n is protected by the Federal Confidentiality of Alcohol and Drug Abuse Patient Records regulations: The Federal rules restrict any use of the information to criminally investigate or prosecute any alcohol or drug abuse patient.[facility] FOR RECORDS PERTAINING TO PATIENTS WHO ARE [...] BE BASED ON THE PRIMARY CLINICAL RECORDS. [facility] [email or web address] [facility]. provides no warranty or guarantee of the accuracy or completeness of information in this document.
[2025-05-26 10:15] LABS: Hematocrit 39.0 % (36.0-48.0); Hemoglobin 13.1 g/dL (12.0-16.0); Immature Granulocytes Abs Auto 0.03 10^3/uL (0.00-0.03); Immature Granulocytes Pct Auto 0.4 % (0.0-0.5); Lymphocytes Absolute Auto 1.9 10^3/uL (1.2-3.8); Mean Corpuscular HGB Conc 33.6 g/dL (29.9-35.2); Mean Corpuscular Hemoglobin 31.0 pg (26.7-34.0); Mean Corpuscular Volume 92.4 fL (81.0-99.0); Platelet Count 278 10^3/uL (150-450); Red Blood Count 4.22 10^6/uL (4.20-5.40); White Blood Count 7.3 10^3/uL (4.0-11.0)
[2025-05-26 10:43] LABS: Alanine Aminotransferase 25 U/L (14-59); Albumin Globulin Ratio 1.0; Albumin Level 3.7 g/dL (3.4-5.0); Alkaline Phosphatase 39 U/L (46-116); Anion Gap 13.5; Aspartate Amino Transferase 21 U/L (15-37); Blood Urea Nitrogen 13.0 mg/dL (7.0-18.0); Calcium 8.7 mg/dL (8.5-10.1); Carbon Dioxide 26.5 mmol/L (21.0-32.0); Chloride 105 mmol/L (98-107); Cholesterol 204 mg/dL (<=200); Estimated GFR (African America >60 (>=60 mL/min/1.73m^2); Estimated GFR (Non-African Ame >60 (>=60 mL/min/1.73m^2); Globulin 3.7 g/dL; Glucose 87 mg/dL (74-106); HDL Cholesterol 60 mg/dL (40-60); Potassium 4.0 mmol/L (3.5-5.1); Sodium 141 mmol/L (136-145); Thyroid Stimulating Hormone 1.985 uIU/mL (0.358-3.740); Total Protein 7.4 g/dL (6.4-8.2); Triglycerides 115 mg/dL (<=150); VLDL CHOLESTEROL 23.0 mg/dL
== END 2025-05-26 09:18 | disposition home or self-care (01) ==
LOC: LAB 09:19
PROVIDERS: PCP Family Medicine; Visit Provider Family Medicine
DX: Z00.00 Encounter for general adult medical examination without abnormal findings (principal); R63.5 Abnormal weight gain
CPT/HCPCS: 36415; 80053; 80061; 84443; 85025